=== PATIENT | male | born 1955 | race Caucasian/White ===

== ENCOUNTER → 2025-01-31 | Outpatient (CLI) | payer MEDICARE, OTHER, SELFPAY ==
--- NOTE | 2025-01-31 06:40 | MRI_ITS ---
PROCEDURE: BRAIN W/WO CONTRAST 01/31/2025 REASON FOR EXAM: LT TEMPORAL VISUAL FIELD DEFECT TECHNIQUE: Brain MRI without and with intravenous contrast with additional dedicated imaging of the IACs. COMPARISON: None FINDINGS: No evidence of acute ischemia.No intracranial hemorrhage. There is a pituitary mass lesion measuring 2.1 x 2.0 x 2.5 cm that is expanding the pituitary fossa and extends into the suprasellar cistern causing mass effect on the optic chiasm. The lesion is isointense to clarke matter on T1 and T2 weighted images and mildly hyperintense on FLAIR. The lesion has mildly heterogeneous diffuse enhancement and well-defined margins. There appears to be extension or mass effect of the tumor into the left cavernous sinus, best seen on image 9 of series 11, with a proximally 180 degrees of left internal carotid artery encasement. The ventricles and sulci are normal in appearance.No midline shift. The posterior fossa structures are within normal limits. The orbits and paranasal sinuses are unremarkable.The calvarium and soft tissues are unremarkable. MRI/Brain W/WO Contrast IMPRESSION: 1. 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 Extension into the left cav ernous sinus is noted with approximately 180 degrees of the left internal carotid artery encasement. Reading Location: [facility]
== END | disposition home or self-care (01) ==
LOC: MRI 06:32
PROVIDERS: Referring Provider Ophthalmology; Visit Provider Ophthalmology
DX: H53.432 Sector or arcuate defects, left eye (principal)
CPT/HCPCS: 70553; A9575

== ENCOUNTER → 2025-08-08 | Outpatient (CLI) | payer MEDICARE, OTHER, SELFPAY ==
--- NOTE | 2025-08-08 07:58 | MRI_ITS ---
EXAM: PELVIS W/WO CONTRAST 08/08/2025 CLINICAL HISTORY: ELEVATED PSA. TECHNIQUE: Procedure Code: [id number] Modality: MR Procedure: PELVIS W/WO CONTRAST Multiplanar and multisequence images were obtained without and with intravenous gadolinium contrast. CONTRAST: Clariscan VOLUME: 16 ML COMPARISON: None FINDINGS: Image quality:Diagnostic Prostate size: 5.1 x 5.5 x 5cms Prostate volume: 73 0.43mL Prostate Peripheral zone: Lesion 1: 18 x 22 x 8 mm T2 moderately hypointense lesion in the left peripheral zone midgland (axial T2 images 17 through 22) with a broad area of contact over 16 mm cm involving the left capsule and suspected focal extra capsular extension (image 19 series 12). This lesion demonstrates restricted diffusion with hypointensity on the ADC map and early enhancement. T2 weighted imaging score:5 DWI score:5 DCE: Positive PI-RADS: PI-RADS 5: very high (clinically significant cancer is highly likely to be present) Transitional zone: Benign prostatic hyperplasia with hyperplastic nodules. No suspicious areas of restricted diffusion or enhancement. T2 weighted imaging score:2 DWI score: 1 DCE: negative PI-RADS: PI-RADS 2: low (clinically significant cancer is unlikely to be present) Extra prostatic extension: Small focus of extracapsular extension seen along the left peripheral zone Seminal vesicles: Normal. Neurovascular involvement: None. Lymphadenopathy: No lymphadenopathy. Bladder: Normal. Osseous structures: Severe degenerative disc disease at L4-5 with diffuse bulge. Associated marrow signal changes. This could be related to degenerative disease however discitis is not excluded. Correlate with dedicated contrast-enhanced MRI of the lumbar spine Gastrointestinal: Normal. Soft tissues: Normal MRI/Pelvis W/WO Contrast IMPRESSION: 22 mm lesion in the left peripheral zone midgland with suspected focal extracap sular extension. PI-RADS: PI-RADS 5: very high (clinically significant cancer is highly likely t o be present) Severe degenerative disc disease at L4-5 with the associated marrow changes and edema. The findings are likely related to degenerative disc disease however discitis is not excluded. Degenerative turner es are favored. Correlation with contrast-enhanced MRI of the lumbar spine and sed rate are recommended. Reading Location: [id number]
--- OUTSIDE RECORDS SUMMARY | 2025-08-08 08:15 | XMS RPT_ITS | CCD ---
Author Organization [facility] Care Team Providers Care Acute Care Surgeon Name Role Phone Herminio MONACO, Dr. Hansk Attending Provider [phone] Dr. Demario Durham MD Referring Provider [phone] Care Physician, No Primary Primary Care Provider Unavailable Demario Durham Referring Unavailable Demario Durham Attending Unavailable Care Physician, No Primary Primary Care Unava ilable Unavailable Primary Care Provider Unavailabl e KRIVYUDITHEYA, KIM Referring Unavailable ONEAIL, SANJU Referring Unavailable CILTEA PIEDAD Referring Unavailable KRIVOSHEYA, KIM Referring Unavailable KRIVOSHEYA, KIM Attending Unavailable CILTEAPIEDAD Attending Unavailable KRIVOSHEYA, KIM Referring Unavailable KRIVOSHEYA, KIM Attending Unavailable KRIVOSHEYA, KIM Referring Unavailable KRIVOSHEYA, KIM Referring Unavailable KRIVOSHEYA, KIM Admitting Unavailable KRIVOSHEYA, KIM Attending Unavailable KRIVOSHEYA, KIM Referring Unavailable SHIVA LUNDBERG Consulting Unavailable KRIVOSHEYA, KIM Referring Unavailable KRIVOSHEYA, KIM Attending Unavailable KRIVOSHEYA, KIM Referring Unavailable KRIVOSHEYA, KIM Referring Unavailable KRIVOSHEYA, KIM Attending Unavailable KRIVOSHEYA, KIM Referring Unavailable DR MARIANNE SCRUGGS DO Primary Care Physician [phone] DR MARIANNE SCRUGGS DO Attending Unavailabl e KAEL IBARRA, DR MARIANNE Martinez Primary Care Unavailabl e Medications Current Medications Medication Drug Class(es) Dates Sig (Normalized) Sig (Original) Ocuvite (1 source) Vitamin C Start: 06-19-2025 take 81.3 doses by mouth once daily Ocuvite Oral, qDay, 81.3 Start Date: 06/19/25 Status: Ordered Medication Dispense Status: Completed Total Allowed Fills: 1 Fills Dispensed: 0 beta-carotene,A,-vi ts C,E/mins (OCUVITE ORAL) (9 sources) beta-carotene,A, -v its C,E/mins (OCUVITE ORAL) Take by mouth once daily. Suspended beta-carotene,A, -vits C,E/mins (OCUVITE ORAL) Take by mouth once daily. Active ibuprofen 400 mg oral tablet (3 sources) Nonsteroidal Anti-inflammatory Drug Start: 03-21-2025 End: 04-20-2025 take 1-2 tablets by mouth every six hours as needed for pain ibuprofen (MOTRIN) 400 mg tablet Indications: Pituitary mass (HCC) , Acute nonintractable headache, unspecified headache type Take 1-2 tablets by mouth every 6 hours as needed for pain. 50 tablet 03/21/2025 04/20/2025 Active iv contrast (will be provided with radiology test) (2 sources) Start: 03-21-2025 End: 03-22-2025 iv contrast (will be provided with radiology test) MRI Pituitary Inject, intravenously, once for 1 dose. No IV access, insert saline lock prior to the beginning of sedation, infusion, injection of imaging exam. Discontinue saline lock post exam. If Pt. has a central line or IVAD, may access for administration according to line specific nursing protocol. Once exam is complete flush line and de-access according to line specific nursing protocol in the MR contrast administration guidelines link. 1 each 03/21/2025 03/22/2025 Active Start: 03-07-2025 End: 03-08-2025 inject 1 dose intravenously once iv contrast (will be provided with radiology test) MRI Brain Inject, intravenously, once for 1 dose.No IV access, insert saline lock prior to beginning of sedation, infusion, injection of imaging exam.Discontinue saline lock post exam. If Pt. has a central line or IVAD, may access for administration according to line specific nursing protocol.Once exam is complete flush line and de-access according to line specific nursing protocol in the MR contrast administration guidelines link 1 each 03/07/2025 03/08/2025 magnesium oxide 200 mg magne sium chew (9 sources) magnesium oxide 200 mg magnesium chew Take 1,200 mg by mouth. Suspended magnesium oxide 200 mg magnesium chew Take 1,200 mg by mouth. Active Multivitamin preparation (1 source) Start: 06-19-2025 take 1 tablet by mouth once daily Multivitamin Dose = 1 tab(s), Oral, Daily, 0 Refill(s) Start Date: 06/19/25 Status: Ordered Medication Dispense Status: Completed Total Allowed Fills: 1 Fills Dispensed: 0 tamsulosin hydrochloride 0.4 mg oral capsule (1 source) alpha-Adrenergi c Micha Start: 06-19-2025 tamsulosin 0.4 mg oral capsule Dose : 0.4 mg = 1 cap(s), Oral, qDay, Trial of new medication; pt to call back with report on efficacy, # 30 cap(s), 0 Refill(s), Pharmacy: [phone], BPH associated with nocturia, 179, cm, 06/19/25 9:02:00 EDT, Height, kg, 06/19/25 9:02:00 EDT, Dosing Weight Start Date: 06/19/25 Status: Ordered Medication Dispense Status: Completed Quantity: 30.0 Unit: cap(s) Total Allowed Fills: 1 Fills Dispensed: 0 Indications: Benign prostatic hyperplasia with lower urinary tract symptoms; Zinc Mth/Copper/Saw Palm/Gnsg (PROSTATE [employer] FORMULA ORAL) (9 sources) Zinc Mth/Copper/ Saw Palm/Gnsg (PROSTATE HEALTH FORMULA ORAL) Take by mouth once daily. Prosta forte Suspended Zinc Mth/Copper/ Saw Palm/Gnsg (PROSTATE HEALTH FORMULA ORAL) Take by mouth once daily. Prosta forte Active Completed/Discontinued Medications Medication Drug Class(es) Dates Sig (Normalized) Sig (Original) hydrocortisone 20 mg oral tablet (6 sources) Corticosteroid Start: 03-11-2025 End: 05-21-2025 take 1 tablet by mouth once daily hydrocortisone (CORTEF) 20 mg tablet Take 1 tablet by mouth once daily. 28 tablet 03/11/2025 05/21/2025 Discontinued mupirocin 0.02 mg/mg topical ointment (3 sources) RNA Synthetase Inhibitor Antibacterial Start: 03-06-2025 End: 03-08-2025 mupirocin (BACTROBAN) 2 % ointment Indications: MSSA (methicillin susceptible Staphylococcus aureus) Apply a small amount in each nostril using a cotton swab twice a day before surgery and once the morning of surgery 22 g 03/06/2025 03/08/2025 Problems Active Problems Problem Classification Problem Date Documented Date Episodic/Chronic Bacterial infection; unspecified site (1 source) Infection by methicillin sensitive Staphylococcus aureus; Translations: [Methicillin susceptible Staphylococcus aureus infection, unspecified site] 03-06-2025 Episodic Blindness and vision defects (8 sources) Sector or arcuate defects, left eye; Translations: [Visual field defect] Onset: 02-02-2025 03-09-2025 Episodic Cancer; other and unspecified primary (1 source) History of neoplasm of pituitary gland 06-19-2025 Episodic Complications of surgical procedures or medical care (1 source) Postprocedural hypopituitarism; 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)] Onset: 03-08-2025 Chronic Complications of surgical procedures or medical care (6 sources) Complication of procedure; Translations: [Other postprocedural endocrine and metabolic complications and disorders] Onset: 03-21-2025 03-21-2025 Episodic Headache; including migraine (12 sources) Headache disorder; Translations: [Other headache syndrome] Onset: 03-09-2025 03-09-2025 Episodic Headache; including migraine (1 source) Headache; including migraine; Translations: [Acute nonintractable headache, unspecified headache type] Onset: 03-21-2025 Hyperplasia of prostate (1 source) Nocturia due to benign prostatic hypertrophy 06-19-2025 Chronic Other aftercare (7 sources) Drug therapy finding; Translations: [intermediate designer (current) use of systemic steroids] Onset: 03-09-2025 03-09-2025 Episodic Other and unspecified benign neoplasm (1 source) Pituitary adenoma; Translations: [Benign neoplasm of pituitary gland] 05-22-2025 Episodic Other endocrine disorders (20 sources) Pituitary mass; Translations: [Other disorders of pituitary gland] Onset: 03-04-2025 02-22-2025 Chronic Other endocrine disorders (7 sources) Disorder of pituitary gland; Translations: [Disorder of pituitary gland, unspecified] Onset: 03-09-2025 03-09-2025 Chronic Other endocrine disorders (2 sources) Other disorders of pituitary gland; Translations: [Pituitary mass (HCC)] Onset: 03-08-2025 Chronic Other hereditary and degenerative nervous system conditions (1 source) Essential tremor 06-19-2025 Chronic Other nervous system disorders (1 source) Peripheral nerve disease 06-19-2025 Chronic Other nervous system disorders (1 source) Postoperative pain ; Translations: [Other acute postprocedural pain] 05-22-2025 Episodic Other nervous system disorders (2 sources) Other acute postprocedural pain; Translations: [Post-op pain] Onset: 05-21-2025 Episodic Other skin disorders (3 sources) Pituitary mass 03-09-2025 Episodic Past or Other Problems Problem Classification Problem Date Documented Da te Episodic/Chronic Acute cerebrovascular disease (1 source) NIHSS score 0; Translations: [Nihss score 0] Onset: 03-04-2025 Episodic Diabetes mellitus without complication (2 sources) Impaired fasting glycemia; Translations: [Impaired fasting glucose] Onset: 02-22-2025 02-22-2025 Episodic Malaise and fatigue (1 source) Other fatigue; Translations: [Other fatigue] Onset: 03-04-2025 Episodic Residual codes; unclassified (1 source) Localized edema; Translations: [Localized edema] Onset: 03-04-2025 Episodic Results Test Name Value Interpretation Reference Range Facility .Auto Diffon 06-21-2025 Basophil, Absolute 0.0 10 3/mcL Normal 0.0-0.3 [facility] Comment on above: Performed By: #### G FR, LIPID, CBC, ADIFF, ANEU, PSA, VIDH, TSH, CMP #### [address] [address] #### B12 #### [address] [address] Basophils/100 WBC (Bld) 0.6 % Normal 0.0-2.5 [facility] Comment on above: Performed By: #### G FR, LIPID, CBC, ADIFF, ANEU, PSA, VIDH, TSH, CMP #### [address] [address] #### B12 #### [address] [address] Eosinophil, Absolute 0.2 10 3/mcL Normal 0.0-0.7 [facility] Comment on above: Performed By: #### G FR, LIPID, CBC, ADIFF, ANEU, PSA, VIDH, TSH, CMP #### [address] [address] #### B12 #### [address] [address] Eosinophils/100 WBC (Bld) 4.2 % Normal 0.0-6.0 [facility] Comment on above: Performed By: #### G FR, LIPID, CBC, ADIFF, ANEU, PSA, VIDH, TSH, CMP #### [address] [address] #### B12 #### [address] [address] Lymphocyte, Absolute 1.9 10 3/mcL Normal 0.9-4.3 [facility] Comment on above: Performed By: #### G FR, LIPID, CBC, ADIFF, ANEU, PSA, VIDH, TSH, CMP #### [address] [address] #### B12 #### [address] [address] Lymphocytes/100 WBC (Bld) 33.3 % Normal 20.0-40.0 [facility] Comment on above: Performed By: #### G FR, LIPID, CBC, ADIFF, ANEU, PSA, VIDH, TSH, CMP #### [address] [address] #### B12 #### [address] [address] Monocyte, Absolute 0.6 10 3/mcL Normal 0.1-1.4 [facility] Comment on above: Performed By: #### G FR, LIPID, CBC, ADIFF, ANEU, PSA, VIDH, TSH, CMP #### [address] [address] #### B12 #### [address] [address] Monocytes/100 WBC (Bld) 10.5 % Normal 2.0-13.0 [facility] Comment on above: Performed By: #### G FR, LIPID, CBC, ADIFF, ANEU, PSA, VIDH, TSH, CMP #### [address] [address] #### B12 #### [address] [address] Neutrophils/100 WBC (Bld) 51.4 % Normal 50.0-75.0 [facility] Comment on above: Performed By: #### G FR, LIPID, CBC, ADIFF, ANEU, PSA, VIDH, TSH, CMP #### [address] [address] #### B12 #### [address] [address] .GFRon 06-21-2025 Estimated Glomerular Filtration Rate 75 ml/min/1.73sqm Normal [facility] Comment on above: Result Comment: Stages of Chronic Kidney Disease (CKD) Stage Description eGFR(ml/min/1.73 sq.m.) CKD 1 Normal kidney function or >=90 normal kindney function with possible kidney damage (ex. Proteinuria) CKD 2 Kidney damage with mild loss 60-89 of kidney function CKD 3a Mild to moderate loss of kidney 45-59 function CKD 3b Moderate to severe loss of 30-44 of kindey function CKD 4 Severe loss of kidney function 15-29 CKD 5 Kidney failure <15 Note: (go live 2024) the eGFR calculation was updated to the 2020 CKD-EPI creatinine equation without a race factor to calculate the eGFR results. Performed By: #### G FR, LIPID, CBC, ADIFF, ANEU, PSA, VIDH, TSH, CMP #### [address] [address] #### B12 #### [address] [address] .NEUABSon 06-21-2025 Neutrophil, Absolute 3.0 10 3/mcL Normal 2.3-8.1 [facility] Comment on above: Performed By: #### G FR, LIPID, CBC, ADIFF, ANEU, PSA, VIDH, TSH, CMP #### [address] [address] #### B12 #### [address] [address] B12on 06-21-2025 Cobalamin (Vitamin B12) [Mass/Vol] 608 pg/mL Normal 211-911 [facility] Comment on above: Performed By: #### G FR, LIPID, CBC, ADIFF, ANEU, PSA, VIDH, TSH, CMP #### [place] [address] #### B12 #### [place] [address] CBCon 06-21-2025 Erythrocyte distribution width (RBC) [Ratio] 13.8 % Normal 11.5-15.5 [facility] Comment on above: Performed By: #### G FR, LIPID, CBC, ADIFF, ANEU, PSA, VIDH, TSH, CMP #### [place] [address] #### B12 #### [place] [address] Hematocrit (Bld) [Volume fraction] 42.9 % Normal 40.0-52.0 [facility] Comment on above: Performed By: #### G FR, LIPID, CBC, ADIFF, ANEU, PSA, VIDH, TSH, CMP #### [place] [address] #### B12 #### [place] [address] Hgb 14.7 G/dL Normal 13.0-17.5 [facility] Comment on above: Performed By: #### G FR, LIPID, CBC, ADIFF, ANEU, PSA, VIDH, TSH, CMP #### [place] [address] #### B12 #### [place] [address] MCH (RBC) [Entitic mass] 32.2 pg Normal 27.0-33.0 [facility] Comment on above: Performed By: #### G FR, LIPID, CBC, ADIFF, ANEU, PSA, VIDH, TSH, CMP #### [place] [address] #### B12 #### [place] [address] MCHC 34.3 G/dL Normal 32.0-36.0 [facility] Comment on above: Performed By: #### G FR, LIPID, CBC, ADIFF, ANEU, PSA, VIDH, TSH, CMP #### [place] [address] #### B12 #### [place] [address] MCV (RBC) [Entitic vol] 94.1 fL Normal 81.0-100.0 [facility] Comment on above: Performed By: #### G FR, LIPID, CBC, ADIFF, ANEU, PSA, VIDH, TSH, CMP #### [place] [address] #### B12 #### [place] [address] Platelet 171 10 3/mcL Normal 150-450 [facility] Comment on above: Performed By: #### G FR, LIPID, CBC, ADIFF, ANEU, PSA, VIDH, TSH, CMP #### [place] [address] #### B12 #### [place] [address] Platelet mean volume (Bld) [Entitic vol] 8.9 fL Normal 6.4-10.5 [facility] Comment on above: Performed By: #### G FR, LIPID, CBC, ADIFF, ANEU, PSA, VIDH, TSH, CMP #### [place] [address] #### B12 #### [place] [address] RBC 4.56 10 6/mcL Normal 4.50-6.00 [facility] Comment on above: Performed By: #### G FR, LIPID, CBC, ADIFF, ANEU, PSA, VIDH, TSH, CMP #### [address] [address] #### B12 #### [address] [address] WBC 5.7 10 3/mcL Normal 4.5-10.8 [facility] Comment on above: Performed By: #### G FR, LIPID, CBC, ADIFF, ANEU, PSA, VIDH, TSH, CMP #### [address] [address] #### B12 #### [place] [address] CMPon 06-21-2025 Albumin Level 3.9 G/dL Normal 3.4-4.8 [facility] Comment on above: Performed By: #### G FR, LIPID, CBC, ADIFF, ANEU, PSA, VIDH, TSH, CMP #### [address] [address] #### B12 #### [address] [address] Albumin/Globulin [Mass ratio] 1.0 {ratio} Low 1.1-2.5 [facility] Comment on above: Performed By: #### G FR, LIPID, CBC, ADIFF, ANEU, PSA, VIDH, TSH, CMP #### [address] [address] #### B12 #### [address] [address] ALP [Catalytic activity/Vol] 72 U/L Normal 40-135 [facility] Comment on above: Performed By: #### G FR, LIPID, CBC, ADIFF, ANEU, PSA, VIDH, TSH, CMP #### [address] [address] #### B12 #### [address] [address] ALT [Catalytic activity/Vol] 26 U/L Normal 16-63 [facility] Comment on above: Performed By: #### G FR, LIPID, CBC, ADIFF, ANEU, PSA, VIDH, TSH, CMP #### [place] [address] #### B12 #### [address] [address] AST [Catalytic activity/Vol] 19 U/L Normal 10-40 [facility] Comment on above: Performed By: #### G FR, LIPID, CBC, ADIFF, ANEU, PSA, VIDH, TSH, CMP #### [place] [address] #### B12 #### [place] [address] Bili Total 0.6 mg/dL Normal 0.2-1.0 [facility] Comment on above: Result Comment: Use of this assay is not recommended for patients undergoing treatment with eltrombopag due to the potential for falsely elevated results. Performed By: #### G FR, LIPID, CBC, ADIFF, ANEU, PSA, VIDH, TSH, CMP #### [place] [address] #### B12 #### [place] [address] BUN/Creatinine Ratio 11 ratio Normal 7-27 [facility] Comment on above: Performed By: #### G FR, LIPID, CBC, ADIFF, ANEU, PSA, VIDH, TSH, CMP #### [place] [address] #### B12 #### [address] [address] Calcium [Mass/Vol] 9.4 mg/dL Normal 8.4-10.2 [facility] Comment on above: Performed By: #### G FR, LIPID, CBC, ADIFF, ANEU, PSA, VIDH, TSH, CMP #### [place] [address] #### B12 #### [place] [id number] Chloride [Moles/Vol] 102 mmol/L Normal 98-107 [facility] Comment on above: Performed By: #### G FR, LIPID, CBC, ADIFF, ANEU, PSA, VIDH, TSH, CMP #### [address] [address] #### B12 #### [address] [address] CO2 [Moles/Vol] 31 mmol/L Normal 23-31 [facility] Comment on above: Performed By: #### G FR, LIPID, CBC, ADIFF, ANEU, PSA, VIDH, TSH, CMP #### [place] [address] #### B12 #### [place] [address] Creatinine [Mass/Vol] 1.07 mg/dL Normal 0.67-1.17 [facility] Comment on above: Performed By: #### G FR, LIPID, CBC, ADIFF, ANEU, PSA, VIDH, TSH, CMP #### [place] [address] #### B12 #### [place] [address] Electrolyte Balance 6.0 mEq/L Normal 4.0-15.0 [facility] Comment on above: Performed By: #### G FR, LIPID, CBC, ADIFF, ANEU, PSA, VIDH, TSH, CMP #### [place] [address] #### B12 #### [address] [address] Globulin 3.9 G/dL Normal 2.7-4.4 [facility] Comment on above: Performed By: #### G FR, LIPID, CBC, ADIFF, ANEU, PSA, VIDH, TSH, CMP #### [address] [address] #### B12 #### [place] [address] Glucose [Mass/Vol] 103 mg/dL Normal 83-110 [facility] Comment on above: Performed By: #### G FR, LIPID, CBC, ADIFF, ANEU, PSA, VIDH, TSH, CMP #### [address] [address] #### B12 #### [address] [address] Potassium [Moles/Vol] 4.4 mmol/L Normal 3.5-5.1 [facility] Comment on above: Performed By: #### G FR, LIPID, CBC, ADIFF, ANEU, PSA, VIDH, TSH, CMP #### [place] [address] #### B12 #### [address] [address] Sodium [Moles/Vol] 139 mmol/L Normal 136-145 [facility] Comment on above: Performed By: #### G FR, LIPID, CBC, ADIFF, ANEU, PSA, VIDH, TSH, CMP #### [place] [address] #### B12 #### [place] [address] Total Protein 7.8 G/dL Normal 6.4-8.2 [facility] Comment on above: Performed By: #### G FR, LIPID, CBC, ADIFF, ANEU, PSA, VIDH, TSH, CMP #### [place] [address] #### B12 #### [address] [address] Urea nitrogen [Mass/Vol] 12 mg/dL Normal 7-18 [facility] Comment on above: Performed By: #### G FR, LIPID, CBC, ADIFF, ANEU, PSA, VIDH, TSH, CMP #### [address] [address] #### B12 #### [address] [address] LABORATORYOrdered By: SYSTEM SYSTEM on 08-29-2025 25-hydroxyvitamin D3 [Mass/Vol] 58.9 ng/mL Invalid Interpretation Code AO ADM SS Comment on above: Interpretive Data: I nterpretive Values Based on Total 25(OH) Vitamin D: Deficient <20 ng/mL Insufficient 20 - <30 ng/mL Sufficient 30-100 ng/mL Albumin BCP dye [Mass/Vol] 3.9 G/dL Normal 3.4 - 4.8 G/dL AO ADM SS Albumin/Globulin [Mass ratio] 1.0 {ratio} Low 1.1 - 2.5 ratio AO ADM SS ALP [Catalytic activity/Vol] 72 U/L Normal 40 - 135 U/L AO ADM SS ALT With P-5'-P [Catalytic activity/Vol] 26 U/L Normal 16 - 63 U/L AO ADM SS AST With P-5'-P [Catalytic activity/Vol] 19 U/L Normal 10 - 40 U/L AO ADM SS Basophils (Bld) [#/Vol] 0.0 103/mcL Normal 0.0 - 0.3 10^3/mcL AO Workflow SS Basophils/100 WBC (Bld) 0.6 % Normal 0.0 - 2.5 % AO Workflow SS Bilirubin [Mass/Vol] 0.6 mg/dL Normal 0.2 - 1 .0 mg/dL AO ADM SS Comment on above: Interpretive Data: U se of this assay is not recommended for patients undergoing treatment with eltrombopag due to the potential for falsely elevated results. Calcium [Mass/Vol] 9.4 mg/dL Normal 8.4 - 10. 2 mg/dL AO ADM SS Chloride [Moles/Vol] 102 mmol/L Normal 98 - 10 7 mmol/L AO ADM SS CO2 [Moles/Vol] 31 mmol/L Normal 23 - 31 mmol/L AO ADM SS Cobalamin (Vitamin B12) [Mass/Vol] 608 pg/mL Normal 211 - 911 pg/mL AH ADM SS Creatinine [Mass/Vol] 1.07 mg/dL Normal 0.67 - 1.17 mg/dL AO ADM SS Electrolyte Balance 6.0 mEq/L Normal 4.0 - 15 .0 mEq/L AO ADM SS Eosinophil, Absolute 0.2 103/mcL Normal 0.0 - 0 .7 10^3/mcL AO Workflow SS Eosinophils/100 WBC (Bld) 4.2 % Normal 0.0 - 6.0 % AO Workflow SS Erythrocyte distribution width (RBC) [Ratio] 13.8 % Normal 11.5 - 15.5 % AO Workflow SS Estimated Glomerular Filtration Rate 75 ml/min/1.73sqm Invalid Interpretation Code AO Chemistry S Comment on above: Interpretive Data: Stages of Chronic Kidney Disease (CKD) Stage Description eGFR(ml/min/1.73 sq.m.) CKD 1 Normal kidney function or >=90 normal kindney function with possible kidney damage (ex. Proteinuria) CKD 2 Kidney damage with mild loss 60-89 of kidney function CKD 3a Mild to moderate loss of kidney 45-59 function CKD 3b Moderate to severe loss of 30-44 of kindey function CKD 4 Severe loss of kidney function 15-29 CKD 5 Kidney failure <15 Note: (go live 2024) the eGFR calculation was updated to the 2020 CKD-EPI creatinine equation without a race factor to calculate the eGFR results. Globulin 3.9 G/dL Normal 2.7 - 4.4 G/dL AO ADM SS Glucose [Mass/Vol] 103 mg/dL Normal 83 - 110 mg/dL AO ADM SS Hematocrit (Bld) [Volume fraction] 42.9 % Normal 40.0 - 52.0 % AO Workflow SS Hemoglobin (Bld) [Mass/Vol] 14.7 G/dL Normal 13.0 - 17.5 G/dL AO Workflow SS Lymphocytes (Bld) [#/Vol] 1.9 103/mcL Normal 0.9 - 4.3 10^3/mcL AO Workflow SS Lymphocytes/100 WBC (Bld) 33.3 % Normal 20.0 - 40.0 % AO Workflow SS MCH (RBC) [Entitic mass] 32.2 pg Normal 27.0 - 33.0 pg AO Workflow SS MCHC 34.3 G/dL Normal 32.0 - 36.0 G/dL AO Workflow SS MCV (RBC) [Entitic vol] 94.1 fL Normal 81.0 - 100.0 fL AO Workflow SS Monocytes (Bld) [#/Vol] 0.6 103/mcL Normal 0.1 - 1.4 10^3/mcL AO Workflow SS Monocytes/100 WBC (Bld) 10.5 % Normal 2.0 - 13.0 % AO Workflow SS Neutrophils (Bld) [#/Vol] 3.0 103/mcL Normal 2.3 - 8.1 10^3/mcL AO Workflow SS Neutrophils/100 WBC (Bld) 51.4 % Normal 50.0 - 75.0 % AO Workflow SS Platelet mean volume (Bld) [Entitic vol] 8.9 fL Normal 6.4 - 10.5 fL AO Workflow SS Platelets (Bld) [#/Vol] 171 103/mcL Normal 150 - 450 10^3/mcL AO Workflow SS Potassium [Moles/Vol] 4.4 mmol/L Normal 3.5 - 5.1 mmol/L AO ADM SS Prostate specific Ag [Mass/Vol] 14.41 ng/mL High 0.00 - 4.00 ng/mL AO ADM SS Protein [Mass/Vol] 7.8 G/dL Normal 6.4 - 8.2 G/dL AO ADM SS RBC (Bld) [#/Vol] 4.56 106/mcL Normal 4.50 - 6.0 0 10^6/mcL AO Workflow SS Sodium [Moles/Vol] 139 mmol/L Normal 136 - 145 mmol/L AO ADM SS TSH Qn 2.84 m[IU]/L Normal 0.36 - 3.74 mcIU/mL AO ADM SS Urea nitrogen [Mass/Vol] 12 mg/dL Normal 7 - 18 mg/dL AO ADM SS Urea nitrogen/Creatinine [Mass ratio] 11 ratio Normal 7 - 27 ratio AO ADM SS WBC (Bld) [#/Vol] 5.7 103/mcL Normal 4.5 - 10.8 10^3/mcL AO Workflow SS LABORATORYOrdered By: Mikey Brannon on 06-21-2025 Cholesterol [Mass/Vol] 248 mg/dL High 0 - 200 mg/dL AO ADM SS Comment on above: Interpretive Data: C holesterol Reference Interval: Less than 200 Desirable 200-239 Borderline high risk 240 and above High risk Cholesterol in HDL [Mass/Vol] 48 mg/dL Normal 40 - 60 mg/dL AO ADM SS Cholesterol in LDL [Mass/Vol] 173 mg/dL High 0 - 130 mg/dL AO ADM SS Triglyceride [Mass/Vol] 134 mg/dL Normal 0 - 150 mg/dL AO ADM SS Comment on above: Interpretive Data: T riglyceride Reference Interval: Less than 150 Normal 150-199 Borderline high risk 200-499 High risk 500 or higher Very high risk LIPIDon 06-21-2025 Cholesterol [Mass/Vol] 248 mg/dL High 0-200 [facility] Comment on above: Result Comment: Chol esterol Reference Interval: Less than 200 Desirable 200-239 Borderline high risk 240 and above High risk Performed By: #### G FR, LIPID, CBC, ADIFF, ANEU, PSA, VIDH, TSH, CMP #### [address] [address] #### B12 #### [address] [address] Cholesterol in HDL [Mass/Vol] 48 mg/dL Normal 40-60 [facility] Comment on above: Performed By: #### G FR, LIPID, CBC, ADIFF, ANEU, PSA, VIDH, TSH, CMP #### [address] [address] #### B12 #### [address] [address] Cholesterol in LDL [Mass/Vol] 173 mg/dL High 0-130 [facility] Comment on above: Performed By: #### G FR, LIPID, CBC, ADIFF, ANEU, PSA, VIDH, TSH, CMP #### [address] [address] #### B12 #### [address] [address] Triglyceride [Mass/Vol] 134 mg/dL Normal 0-150 [facility] Comment on above: Result Comment: Trig lyceride Reference Interval: Less than 150 Normal 150-199 Borderline high risk 200-499 High risk 500 or higher Very high risk Performed By: #### G FR, LIPID, CBC, ADIFF, ANEU, PSA, VIDH, TSH, CMP #### [address] [address] #### B12 #### [address] [address] PSAon 06-21-2025 Prostate Specific Antigen 14.41 ng/mL High 0.00-4.00 [facility] Comment on above: Performed By: #### G FR, LIPID, CBC, ADIFF, ANEU, PSA, VIDH, TSH, CMP #### [address] [address] #### B12 #### [address] [address] TSHon 06-21-2025 TSH Qn 2.84 m[IU]/L Normal 0.36-3.74 [facility] Comment on above: Performed By: #### G FR, LIPID, CBC, ADIFF, ANEU, PSA, VIDH, TSH, CMP #### [address] [address] #### B12 #### [address] [address] VIDHon 06-21-2025 Vit. D 25-Hydroxy 58.9 ng/mL Normal [facility] Comment on above: Result Comment: Inte rpretive Values Based on Total 25(OH) Vitamin D: Deficient <20 ng/mL Insufficient 20 - <30 ng/mL Sufficient 30-100 ng/mL Performed By: #### G FR, LIPID, CBC, ADIFF, ANEU, PSA, VIDH, TSH, CMP #### [address] [address] #### B12 #### [address] [address] Basic metabolic 2000 panelOr dered By: Amy Dean on 05-22-2025 Anion gap [Moles/Vol] 16 mmol/L High 8 - 15 mmol/L [facility] Calcium [Mass/Vol] 9.7 mg/dL 8.5 - 10. 2 mg/dL [facility] Chloride [Moles/Vol] 102 mmol/L 98 - 10 7 mmol/L [facility] CO2 [Moles/Vol] 21 mmol/L Low 22 - 30 mmol/L [facility] Creatinine [Mass/Vol] 1 mg/dL 0.73 - 1.22 mg/dL [facility] GFR/1.73 sq M.predicted among non-blacks MDRD (S/P/Bld) [Vol rate/Area] 81 mL/min/{1.73_m2} - PINF [facility] Comment on above: Estimated Glomerular Filtration Rate (eGFR) is calculated using the 2020 CKD-EPI creatinine equation. This equation utilizes serum creatinine, sex, and age as parameters. The creatinine assay has traceable calibration to isotope dilution-mass spectrometry. Refer to KDIGO guidelines for clinical interpretation. In patients with unstable renal function, e.g. those with acute kidney injury, the eGFR may not accurately reflect actual GFR. Glucose [Mass/Vol] 104 mg/dL High 74 - 99 mg/dL [facility] Comment on above: The [place] Diabete s Association (ADA) provides guidance for cutoff values for fasting glucose and random glucose. The ADA defines fasting as no caloric intake for at least 8 hours. Fasting plasma glucose results between 100 to 125 mg/dL indicate increased risk for diabetes (prediabetes). Fasting plasma glucose results greater than or equal to 126 mg/dL meet the criteria for diagnosis of diabetes. In the absence of unequivocal hyperglycemia, results should be confirmed by repeat testing. In a patient with classic symptoms of hyperglycemia or hyperglycemic crisis, random plasma glucose results greater than or equal to 200 mg/dL meet the criteria for diagnosis of diabetes. Reference: Standards of Medical Care in Diabetes 2016, [place] Diabetes Association. Diabetes Care. 2016.39(Suppl 1). Interpretation and review of laboratory results Abnormal [facility] Potassium [Moles/Vol] 4 mmol/L 3.7 - 5.1 mmol/L [facility] Sodium [Moles/Vol] 139 mmol/L 136 - 144 mmol/L [facility] Urea nitrogen [Mass/Vol] 17 mg/dL 9 - 24 mg/dL [facility] Basic metabolic 2000 panelon 05-22-2025 Anion gap [Moles/Vol] 16 mmol/L High 8-15 [facility] Comment on above: Order Comment: Chidi silvestre Type: BLOOD SPECIMEN Ordering Facility: [facility] Address: [address] [place] [address] Performed By: #### 2 4321-2 #### [facility] CLIA [id number] [address] [place] [address] [place] Calcium [Mass/Vol] 9.7 mg/dL Normal 8.5-10.2 [facility] Comment on above: Order Comment: Chidi silvestre Type: BLOOD SPECIMEN Ordering Facility: [facility] Address: [address] [place] [address] Performed By: #### 2 4321-2 #### [facility] CLIA [id number] [address] [place] [address] [place] Chloride [Moles/Vol] 102 mmol/L Normal 98-107 [facility] Comment on above: Order Comment: Speci men Type: BLOOD SPECIMEN Ordering Facility: [facility] Address: [address] [place] [address] Performed By: #### 2 4321-2 #### [facility] CLIA [id number] [address] [place] [address] [place] CO2 [Moles/Vol] 21 mmol/L Low 22-30 [facility] Comment on above: Order Comment: Speci men Type: BLOOD SPECIMEN Ordering Facility: [facility] Address: [address] [place] [address] Performed By: #### 2 4321-2 #### [facility] CLIA [id number] [address] [place] [address] [place] Creatinine [Mass/Vol] 1.00 mg/dL Normal 0.73-1.22 [facility] Comment on above: Order Comment: Speci men Type: BLOOD SPECIMEN Ordering Facility: [facility] Address: [address] [place] [address] Performed By: #### 2 4321-2 #### [facility] CLIA [id number] [address] [place] [address] [place] eGFRcr SerPlBld CKD-EPI 2020 81 mL/min/1.73m??? Normal >=60 [facility] Comment on above: Order Comment: Speci men Type: BLOOD SPECIMEN Ordering Facility: [facility] Address: [address] [place] [address] Result Comment: Yamila mated Glomerular Filtration Rate (eGFR) is calculated using the 2020 CKD-EPI creatinine equation. This equation utilizes serum creatinine, sex, and age as parameters. The creatinine assay has traceable calibration to isotope dilution-mass spectrometry. Refer to KDIGO guidelines for clinical interpretation. In patients with unstable renal function, e.g. those with acute kidney injury, the eGFR may not accurately reflect actual GFR. Performed By: #### 2 4321-2 #### [id number] [address] [place] [address] [place] Glucose [Mass/Vol] 104 mg/dL High 74-99 [facility] Comment on above: Order Comment: Chidi silvestre Type: BLOOD SPECIMEN Ordering Facility: [facility] Address: [address] [place], [place] [id number] Result Comment: The [place] Diabetes Association (ADA) provides guidance for cutoff values for fasting glucose and random glucose. The ADA defines fasting as no caloric intake for at least 8 hours. Fasting plasma glucose results between 100 to 125 mg/dL indicate increased risk for diabetes (prediabetes). Fasting plasma glucose results greater than or equal to 126 mg/dL meet the criteria for diagnosis of diabetes. In the absence of unequivocal hyperglycemia, results should be confirmed by repeat testing. In a patient with classic symptoms of hyperglycemia or hyperglycemic crisis, random plasma glucose results greater than or equal to 200 mg/dL meet the criteria for diagnosis of diabetes. Reference: Standards of Medical Care in Diabetes 2016, [place] Diabetes [employer]. Diabetes Care. 2016.39(Suppl 1). Performed By: #### 2 4321-2 #### [id number] [address] [place] [address] [place] Potassium [Moles/Vol] 4.0 mmol/L Normal 3.7-5.1 [facility] Comment on above: Order Comment: Chidi silvestre Type: BLOOD SPECIMEN Ordering Facility: [facility] Address: [address] [place] [address] Performed By: #### 2 4321-2 #### [facility] [id number] [address] [place] [address] [place] Sodium [Moles/Vol] 139 mmol/L Normal 136-144 [facility] Comment on above: Order Comment: Chidi silvestre Type: BLOOD SPECIMEN Ordering Facility: [facility] Address: [address] [place] [address] Performed By: #### 2 4321-2 #### [facility] CLIA [id number] [address] [place] [address] Urea nitrogen [Mass/Vol] 17 mg/dL Normal 9-24 [facility] Comment on above: Order Comment: Speci men Type: BLOOD SPECIMEN Ordering Facility: [facility] Address: [address] [id number] Performed By: #### 2 4321-2 #### [facility] CLIA [id number] [address] [place] CBC panel Auto (Bld)on 05-22 Erythrocyte distribution width (RBC) [Ratio] 13.5 % 11.5 - 15.0 % [facility] Hematocrit (Bld) [Volume fraction] 43.9 % 39.0 - 51.0 % [facility] Hemoglobin (Bld) [Mass/Vol] 14.9 g/dL 13.0 - 17.0 g/dL [facility] Interpretation and review of laboratory results Normal [facility] MCH (RBC) [Entitic mass] 31.9 pg 26.0 - 34.0 pg [facility] MCHC (RBC) [Mass/Vol] 33.9 g/dL 30.5 - 36.0 g/dL [facility] MCV (RBC) [Entitic vol] 94 fL 80.0 - 100.0 fL [facility] Nucleated RBC (Bld) [#/Vol] NINF [facility] Platelet mean volume (Bld) [Entitic vol] 10.2 fL 9.0 - 12.7 fL [facility] Platelets (Bld) [#/Vol] 194 10*3/uL [facility] RBC (Bld) [#/Vol] 4.67 10*6/uL 4.20 - 6.0 0 m/uL [facility] WBC (Bld) [#/Vol] 6.58 10*3/uL [facility] Erythrocyte distribution width (RBC) [Ratio] 13.5 % Normal 11.5-15.0 [facility] Comment on above: Order Comment: Speci men Type: BLOOD SPECIMEN Ordering Facility: [facility] Address: [address] [place] [address] Performed By: #### 5 8410-2 #### [facility] CLIA [id number] [address] [place] [address] [place] Hematocrit (Bld) [Volume fraction] 43.9 % Normal 39.0-51.0 [facility] Comment on above: Order Comment: Speci men Type: BLOOD SPECIMEN Ordering Facility: [facility] Address: [address] [place], [place] [address] Performed By: #### 5 8410-2 #### [facility] CLIA [id number] [address] [place] [address] [place] Hemoglobin (Bld) [Mass/Vol] 14.9 g/dL Normal 13.0-17.0 [facility] Comment on above: Order Comment: Speci men Type: BLOOD SPECIMEN Ordering Facility: [facility] Address: [address] [place], [place] [address] Performed By: #### 5 8410-2 #### [facility] CLIA [id number] [address] [place] [address] [place] MCH (RBC) [Entitic mass] 31.9 pg Normal 26.0-34.0 [facility] Comment on above: Order Comment: Speci men Type: BLOOD SPECIMEN Ordering Facility: [facility] Address: [address] [place] [address] Performed By: #### 5 8410-2 #### [facility] CLIA [id number] [address] [place] [address] [place] MCHC (RBC) [Mass/Vol] 33.9 g/dL Normal 30.5-36.0 [facility] Comment on above: Order Comment: Speci men Type: BLOOD SPECIMEN Ordering Facility: [facility] Address: [address] [place] [address] Performed By: #### 5 8410-2 #### [facility] CLIA [id number] [address] [place] [address] [place] MCV (RBC) [Entitic vol] 94.0 fL Normal 80.0-100.0 [facility] Comment on above: Order Comment: Speci men Type: BLOOD SPECIMEN Ordering Facility: [facility] Address: [address] [place] [address] Performed By: #### 5 8410-2 #### [facility] CLIA [id number] [address] [place] [address] [place] Nucleated RBC (Bld) [#/Vol] 10*3/uL Normal <0.01 [facility] Comment on above: Order Comment: Speci men Type: BLOOD SPECIMEN Ordering Facility: [facility] Address: [address] [place] [address] Performed By: #### 5 8410-2 #### [facility] CLIA [id number] [address] [place] [address] [place] Platelet mean volume (Bld) [Entitic vol] 10.2 fL Normal 9.0-12.7 [facility] Comment on above: Order Comment: Speci men Type: BLOOD SPECIMEN Ordering Facility: [facility] Address: [address] [place] [address] Performed By: #### 5 8410-2 #### [facility] CLIA [id number] [address] [place] [address] [place] Platelets (Bld) [#/Vol] 194 10*3/uL Normal 150-400 [facility] Comment on above: Order Comment: Speci men Type: BLOOD SPECIMEN Ordering Facility: [facility] Address: [address] [place] [address] Performed By: #### 5 8410-2 #### [facility] CLIA [id number] [address] [place] [address] [place] RBC (Bld) [#/Vol] 4.67 10*6/uL Normal 4.20-6.00 [facility] Comment on above: Order Comment: Speci men Type: BLOOD SPECIMEN Ordering Facility: [facility] Address: [address] [place] [address] Performed By: #### 5 8410-2 #### [facility] CLIA [id number] [address] [place] [address] OF [facility] WBC (Bld) [#/Vol] 6.58 10*3/uL Normal 3.70-11.00 [facility] Comment on above: Order Comment: Speci men Type: BLOOD SPECIMEN Ordering Facility: [facility] Address: [address] [place] [address] Performed By: #### 5 8410-2 #### [facility] CLIA [id number] [address] [place] [address] OF [facility] CNOVon 05-21-2025 CNOV Office Visit (NEAGCL M) JENNAZACHERY ([id number]) 1955 M Date Time Provider Department 05/21/25 12:45 PM KIM JUNG NEAGCLM During your visit today, we recorded the following information about you: Pulse Blood pressure Weight Height 81/minute 136/85 81.6 kg 1.778 m Kim Jung MD 05/22/2025 9:13 AM Signed NEUROSURGERY POST-OP NOTE Kim Jung MD Date of visit: May 21, 2025 Patient Name: Mr.Kenneth Gutierrez Jenna Date of : 1955 Current Age: [age] year old Sex: male MRN/E# [id number] Last Office Visit: 05/20/2025 CLINICAL SUMMARY: 02/01/2025 - Pituitary mass noted on MRI brain - bitemporal vis field defect, worse on the left temporal 03/08/2025 - S/p endoscopic endonasal resection of pituitary macroadenoma with Dr Lundberg - 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 Durham - [facility] SURGERY: Endoscopic endonasal resection of pituitary macroadenoma on 03/08/2025 PATHOLOGY: FINAL DIAGNOSIS A-B. Pituitary gland, excision: - Pituitary neuroendocrine tumor (pituitary adenoma). Joey West is a 69 year old right-handed male presenting with spouse. He was seen in consult on 02/18/2025 where he went in to eye doctor for yearly evaluation when they were doing exam he was not doing well with left peripheral vision exam. They brought him back in a week for a repeat evaluation and was the same. From there Dr. Durham ordered an MRI of the brain. He stated that he didn't really notice too much of an issue with left peripheral vision. 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 Recommended for him to get endocrine blood work done, if negative would recommend surgery for this. He was recommended to have blood work and follow with Endocrinology and ENT. He had lab work done and prolactin was 9.2. Recommended surgical resection of sellar mass. He was agreeable to proceed. He underwent Endoscopic endonasal resection of pituitary macroadenoma on 03/08/2025. He had his 2 week post operative visit on 03/21/2025 where he reported intermittent headaches localized at the top of his head. He noted that the headaches had improved over time but still persisted. He had some nasal congestion and scant drainage, either clear or slightly bloody, particularly in the mornings. He had been sleeping in a recliner to keep his head elevated. He noted his vision improved since surgery. Pathology confirmed pituitary adenoma;Ki67 2-3%. Post-operative MRI shows significant resection of the tumor with minimal residual tissue, likely pituitary gland. He was recommended to follow up at 6 months post operative with a repeat MRI. He called in on 05/20/2025 where he stated his head did not feel right. He was recommended to come in with CT scan. Patient is having their 10 week post operative visit. He reports that he has been having headaches since his last office visit. He thought they improved a little, then sort of have plateau. He feels like they are mostly on the top of his head and feels like his head is sensitive. He notes feeling zoned out. He has not had any overt nasal drainage, but feels snotty. 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 magnesium oxide 200 mg magnesium chew Take 1,200 mg by mouth. Zinc Mth/Copper/Saw Palm/Gnsg (PROSTATE HEALTH FORMULA ORAL) Take by mouth once daily. Prosta forte No current facility-administered medications for this visit. OBJECTIVE: BP 136/85 Pulse 81 Ht 5' 10 (1.78m) Wt 180 lb (81.6kg) SpO2 99% BMI 25.83 kg/(m2). AANDOx3, speech fluent CN II-XII grossly intact. Cerebellar: no dysmetria No pronator drift Motor: Strength grossly intact in UEs and LEs Sensorium: grossly intact. Gait: Unremarkable DATA REVIEW: IMAGING STUDIES: CT brain obtained 05/21/2025 demonstrates: Final read pending Images independently reviewed The following portions of the patient's history were reviewed, confirmed, updated as necessary: allergies, current medications, past family history, past medical history, past social history, past surgical history, problem list, HPI and ROS obtained by others. The clinical and radiographic findings as well as the risks, benefits, and alternatives of treatment have been reviewed in detail with the patient. ASSESSMENT/PLAN 1. (more content not included)... Normal [facility] CT BRAIN WO IVCONon 05-21-[address] BRAIN WO IVCON * * *Final Report* * * DATE OF EXAM: May 21 2025 12:38PM A1C 0504 - CT BRAIN WO IVCON / PROCEDURE REASON: multiple diagnoses * * * * Physician Interpretation * * * * EXAMINATION: CT BRAIN WO IVCON CLINICAL HISTORY: Headache, previous pituitary macroadenoma resection. TECHNIQUE: Serial axial images without IV contrast were obtained from the vertex to the foramen magnum. MQ: CTBWO_3 CT Radiation dose: Integrated Dose-Length Product (DLP) for this visit = 794.52 mGy*cm CT Dose Reduction Employed: No dose reduction techniques were required COMPARISON: 03/10/2025. 03/08/2025. RESULT: Post-operative change: None. Acute change: No evidence of an acute infarct or other acute parenchymal process. Hemorrhage: No evidence of acute intracranial hemorrhage. ECASS hemorrhagic transformation score: Not Applicable Mass Lesion / Mass Effect: Postsurgical changes from a previous transsphenoidal resection of the pituitary mass. Persistent rightward deviation of the pituitary stalk, with decreased soft tissue density within the right aspect of the sella. No significant mass effect on the adjacent structures. No evidence of vasogenic edema within the brain parenchyma to suggest intraparenchymal mass. No significant midline shift. Chronic change: Scattered patchy foci of low attenuation are present within the supratentorial white matter, a nonspecific finding that most commonly represents mild small vessel disease. Parenchyma: There is moderate generalized volume loss. Ventricles: Ventricular enlargement concordant with the degree of parenchymal volume loss. Paranasal sinuses and skull base: The visualized paranasal sinuses are grossly clear. The skull base and imaged soft tissues are unremarkable. IMPRESSION: 1. Postsurgical changes from previous transsphenoidal resection of pituitary mass. Persistent rightward deviation of the pituitary stalk, with decreased soft tissue density within right aspect of sella. No significant mass effect on adjacent structures. 2. No CT evidence of acute intracranial abnormalities. 3. Chronic small vessel ischemic white matter disease and diffuse cerebral volume loss. [employer]url[employer]er: PSCB Transcribe Date/Time: May 21 2025 1:54P Dictated by : DAJA LARSEN MD This examination was interpreted and the report reviewed and electronically signed by: DAJA LARSEN MD on May 21 2025 2:02PM EST [id number] Normal [facility] CT Head WO contraston 2024 IMPRESSION: 1. Postsurgical changes from previous transsphenoidal resection of pituitary mass. Persistent rightward deviation of the pituitary stalk, with decreased soft tissue density within right aspect of sella. No significant mass effect on adjacent structures. 2. No CT evidence of acute intracranial abnormalities. 3. Chronic small vessel ischemic white matter disease and diffuse cerebral volume loss. [employer]er: KENNY Transcribe Date/Time: May 21 2025 1:54P Dictated by : DAJA LARSEN MD This examination was interpreted and the report reviewed and electronically signed by: DAJA LARSEN MD on May 21 2025 2:02PM EST [facility] * * *Final Report* * * DATE OF EXAM: May 21 2025 12:38PM A1C 0504 - CT BRAIN WO IVCON / PROCEDURE REASON: multiple diagnoses * * * * Physician Interpretation * * * * EXAMINATION: CT BRAIN WO IVCON CLINICAL HISTORY: Headache, previous pituitary macroadenoma resection. TECHNIQUE: Serial axial images without IV contrast were obtained from the vertex to the foramen magnum. MQ: CTBWO_3 CT Radiation dose: Integrated Dose-Length Product (DLP) for this visit = 794.52 mGy*cm CT Dose Reduction Employed: No dose reduction techniques were required COMPARISON: 03/10/2025. 03/08/2025. RESULT: Post-operative change: None. Acute change: No evidence of an acute infarct or other acute parenchymal process. Hemorrhage: No evidence of acute intracranial hemorrhage. ECASS hemorrhagic transformation score: Not Applicable Mass Lesion / Mass Effect: Postsurgical changes from a previous transsphenoidal resection of the pituitary mass. Persistent rightward deviation of the pituitary stalk, with decreased soft tissue density within the right aspect of the sella. No significant mass effect on the adjacent structures. No evidence of vasogenic edema within the brain parenchyma to suggest intraparenchymal mass. No significant midline shift. Chronic change: Scattered patchy foci of low attenuation are present within the supratentorial white matter, a nonspecific finding that most commonly represents mild small vessel disease. Parenchyma: There is moderate generalized volume loss. Ventricles: Ventricular enlargement concordant with the degree of parenchymal volume loss. Paranasal sinuses and skull base: The visualized paranasal sinuses are grossly clear. The skull base and imaged soft tissues are unremarkable. [facility] * * *Final Report* * * DATE OF EXAM: May 21 2025 12:38PM A1C 0504 - CT BRAIN WO IVCON / PROCEDURE REASON: multiple diagnoses * * * * Physician Interpretation * * * * EXAMINATION: CT BRAIN WO IVCON CLINICAL HISTORY: Headache, previous pituitary macroadenoma resection. TECHNIQUE: Serial axial images without IV contrast were obtained from the vertex to the foramen magnum. MQ: CTBWO_3 CT Radiation dose: Integrated Dose-Length Product (DLP) for this visit = 794.52 mGy*cm CT Dose Reduction Employed: No dose reduction techniques were required COMPARISON: 03/10/2025. 03/08/2025. RESULT: Post-operative change: None. Acute change: No evidence of an acute infarct or other acute parenchymal process. Hemorrhage: No evidence of acute intracranial hemorrhage. ECASS hemorrhagic transformation score: Not Applicable Mass Lesion / Mass Effect: Postsurgical changes from a previous transsphenoidal resection of the pituitary mass. Persistent rightward deviation of the pituitary stalk, with decreased soft tissue density within the right aspect of the sella. No significant mass effect on the adjacent structures. No evidence of vasogenic edema within the brain parenchyma to suggest intraparenchymal mass. No significant midline shift. Chronic change: Scattered patchy foci of low attenuation are present within the supratentorial white matter, a nonspecific finding that most commonly represents mild small vessel disease. Parenchyma: There is moderate generalized volume loss. Ventricles: Ventricular enlargement concordant with the degree of parenchymal volume loss. Paranasal sinuses and skull base: The visualized paranasal sinuses are grossly clear. The skull base and imaged soft tissues are unremarkable. IMPRESSION IMPRESSION: 1. Postsurgical changes from previous transsphenoidal resection of pituitary mass. Persistent rightward deviation of the pituitary stalk, with decreased soft tissue density within right aspect of sella. No significant mass effect on adjacent structures. 2. No CT evidence of acute intracranial abnormalities. 3. Chronic small vessel ischemic white matter disease and diffuse cerebral volume loss. Burlap Bag Sewer: PSCB Transcribe Date/Time: May 21 2025 1:54P Dictated by : DAJA LARSEN MD This examination was interpreted and the report reviewed and electronically signed by: DAJA LARSEN MD on May 21 2025 2:02PM EST [facility] Radiology Study observation (narrative) [facility] CT Head WO contrastOrdered B y: Ccf Provider on 05-21-2025 [facility] Yi 05-20-2025 CNPN Telephone (NEAGCLM) LVZACHERY MICHAEL ([id number]) 1955 M Date Time Provider Department 05/20/25 KIM JUNG NEAGCLM During your visit today, we recorded the following information about you: Valerie Umana RN 05/20/2025 3:44 PM Signed Spoke with patient he is about 2 and 1/2 months postoperative from his pituitary adenoma surgery. He stated that he is still having some head pains and does not feel quite. He denies any visual changes or any kind of seizures. He stated that his nose does not feel the same and he is still having some snot come out. I did recommend for him to follow-up with Dr. Kilpatrick for the nasal issues. Since he has been having head pain and does not feel like his normal self asked if he could come in with a CT scan. Asked one of the secretaries to call and schedule him. 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 - beta-carotene,A,-vits C,E/mins (OCUVITE ORAL) Take by mouth once daily. - magnesium oxide 200 mg magnesium chew Take 1,200 mg by mouth. - Zinc Mth/Copper/Saw Palm/Gnsg (PROSTATE HEALTH FORMULA ORAL) Take by mouth once daily. Prosta forte Problem List As Of Date 05/20/2025 Noted Resolved Preop examination [Z01.818] 03/04/2025 Pituitary mass (HCC) [E23.6] 03/04/2025 S/P transsphenoidal hypophysectomy (HCC) [E89.3]03/08/2025 Visual field cut [H53.40] 03/09/2025 Other headache syndrome [G44.89] 03/09/2025 Pituitary disorder (HCC) [E23.7] 03/09/2025 On corticosteroid therapy [Z79.52] 03/09/2025 Encounter Status:Closed by VALERIE UMANA on 05/20/25 Normal [facility] Osmolality SerPlon Osmolality [Osmolality] 293 mosm/kg Normal 275-300 [facility] Comment on above: Order Comment: Speci men Type: BLOOD SPECIMEN Ordering Facility: [facility] Address: [address] [place] [address] Performed By: #### 2 692-2 #### [facility] CLIA [id number] [address] [place] [address] [place] Osmolality Uron 04-03-2025 Osmolality (U) [Osmolality] 543 mosm/kg Normal 50-1200 [facility] Comment on above: Order Comment: Speci men Type: BLOOD SPECIMEN Ordering Facility: [facility] Address: [address] [place] [address] Performed By: #### 5 8410-2 #### [facility] CLIA [id number] [address] [place] [address] [place] Renal function 2000 panelOrd ered By: Amy Dean on 04-03-2025 Albumin [Mass/Vol] 4 g/dL 3.9 - 4.9 g/dL [facility] Anion gap [Moles/Vol] 12 mmol/L 8 - 15 mmol/L [facility] Calcium [Mass/Vol] 9.1 mg/dL 8.5 - 10. 2 mg/dL [facility] Chloride [Moles/Vol] 105 mmol/L 98 - 10 7 mmol/L [facility] CO2 [Moles/Vol] 21 mmol/L Low 22 - 30 mmol/L [facility] Creatinine [Mass/Vol] 0.96 mg/dL 0.73 - 1.22 mg/dL [facility] GFR/1.73 sq M.predicted among non-blacks MDRD (S/P/Bld) [Vol rate/Area] 85 mL/min/{1.73_m2} - PINF [facility] Comment on above: Estimated Glomerular Filtration Rate (eGFR) is calculated using the 2020 CKD-EPI creatinine equation. This equation utilizes serum creatinine, sex, and age as parameters. The creatinine assay has traceable calibration to isotope dilution-mass spectrometry. Refer to KDIGO guidelines for clinical interpretation. In patients with unstable renal function, e.g. those with acute kidney injury, the eGFR may not accurately reflect actual GFR. Glucose [Mass/Vol] 95 mg/dL 74 - 99 mg/dL [facility] Comment on above: The [place] Diabete s Association (ADA) provides guidance for cutoff values for fasting glucose and random glucose. The ADA defines fasting as no caloric intake for at least 8 hours. Fasting plasma glucose results between 100 to 125 mg/dL indicate increased risk for diabetes (prediabetes). Fasting plasma glucose results greater than or equal to 126 mg/dL meet the criteria for diagnosis of diabetes. In the absence of unequivocal hyperglycemia, results should be confirmed by repeat testing. In a patient with classic symptoms of hyperglycemia or hyperglycemic crisis, random plasma glucose results greater than or equal to 200 mg/dL meet the criteria for diagnosis of diabetes. Reference: Standards of Medical Care in Diabetes 2016, [place] Diabetes Association. Diabetes Care. 2016.39(Suppl 1). Interpretation and review of laboratory results Abnormal [facility] Phosphate [Mass/Vol] 3.9 mg/dL 2.7 - 4 .8 mg/dL [facility] Potassium [Moles/Vol] 4.1 mmol/L 3.7 - 5.1 mmol/L [facility] Sodium [Moles/Vol] 138 mmol/L 136 - 144 mmol/L [facility] Urea nitrogen [Mass/Vol] 19 mg/dL 9 - 24 mg/dL [facility] Renal function 2000 panelon 04-03-2025 Albumin [Mass/Vol] 4.0 g/dL Normal 3.9-4.9 [facility] Comment on above: Order Comment: Speci men Type: BLOOD SPECIMEN Ordering Facility: [facility] Address: [facility] [place] [address] Performed By: #### 5 8410-2 #### [facility] CLIA [id number] [address] [place] [address] [place] Anion gap [Moles/Vol] 12 mmol/L Normal 8-15 [facility] Comment on above: Order Comment: Speci men Type: BLOOD SPECIMEN Ordering Facility: [facility] Address: [address] [place] [address] Performed By: #### 5 8410-2 #### [facility] CLIA [id number] [address] [place] [address] [place] Calcium [Mass/Vol] 9.1 mg/dL Normal 8.5-10.2 [facility] Comment on above: Order Comment: Speci men Type: BLOOD SPECIMEN Ordering Facility: [facility] Address: [address] [place] [address] Performed By: #### 5 8410-2 #### [facility] CLIA [id number] [address] [place] [address] [place] Chloride [Moles/Vol] 105 mmol/L Normal 98-107 [facility] Comment on above: Order Comment: Speci men Type: BLOOD SPECIMEN Ordering Facility: [facility] Address: [address] [place] [address] Performed By: #### 5 8410-2 #### [facility] CLIA [id number] [address] [place] [address] [place] CO2 [Moles/Vol] 21 mmol/L Low 22-30 [facility] Comment on above: Order Comment: Speci men Type: BLOOD SPECIMEN Ordering Facility: [facility] Address: [address] [place] [address] Performed By: #### 5 8410-2 #### [facility] [id number] [address] [place] [address] [place] Creatinine [Mass/Vol] 0.96 mg/dL Normal 0.73-1.22 [facility] Comment on above: Order Comment: Chidi silvestre Type: BLOOD SPECIMEN Ordering Facility: [facility] Address: [address] [place] [address] Performed By: #### 5 8410-2 #### [facility] [id number] [address] [place] [address] [place] Creatinine and Glomerular filtration rate.predicted panel (S/P/Bld) 85 mL/min/1.73m??? Normal >=60 [facility] Comment on above: Order Comment: Chidi silvestre Type: BLOOD SPECIMEN Ordering Facility: [facility] Address: [address] [place] [address] Result Comment: Yamila mated Glomerular Filtration Rate (eGFR) is calculated using the 2020 CKD-EPI creatinine equation. This equation utilizes serum creatinine, sex, and age as parameters. The creatinine assay has traceable calibration to isotope dilution-mass spectrometry. Refer to KDIGO guidelines for clinical interpretation. In patients with unstable renal function, e.g. those with acute kidney injury, the eGFR may not accurately reflect actual GFR. Performed By: #### 5 8410-2 #### [facility] [id number] [address] [place] [address] [place] Glucose [Mass/Vol] 95 mg/dL Normal 74-99 [facility] Comment on above: Order Comment: Chidi silvestre Type: BLOOD SPECIMEN Ordering Facility: [facility] Address: [address] [place] [address] Result Comment: The [place] Diabetes Association (ADA) provides guidance for cutoff values for fasting glucose and random glucose. The ADA defines fasting as no caloric intake for at least 8 hours. Fasting plasma glucose results between 100 to 125 mg/dL indicate increased risk for diabetes (prediabetes). Fasting plasma glucose results greater than or equal to 126 mg/dL meet the criteria for diagnosis of diabetes. In the absence of unequivocal hyperglycemia, results should be confirmed by repeat testing. In a patient with classic symptoms of hyperglycemia or hyperglycemic crisis, random plasma glucose results greater than or equal to 200 mg/dL meet the criteria for diagnosis of diabetes. Reference: Standards of Medical Care in Diabetes 2016, [place] Diabetes Association. Diabetes Care. 2016.39(Suppl 1). Performed By: #### 5 8410-2 #### [facility] CLIA [id number] [address] [place] [address] [place] Phosphate [Mass/Vol] 3.9 mg/dL Normal 2.7-4.8 [facility] Comment on above: Order Comment: Chidi silvestre Type: BLOOD SPECIMEN Ordering Facility: [facility] Address: [address] [place] [address] Performed By: #### 5 8410-2 #### [facility] [id number] [address] [place] [address] [place] Potassium [Moles/Vol] 4.1 mmol/L Normal 3.7-5.1 [facility] Comment on above: Order Comment: Chidi silvestre Type: BLOOD SPECIMEN Ordering Facility: [facility] Address: [address] [place] [address] Performed By: #### 5 8410-2 #### [facility] [id number] [address] [place] [address] [place] Sodium [Moles/Vol] 138 mmol/L Normal 136-144 [facility] Comment on above: Order Comment: Chidi silvestre Type: BLOOD SPECIMEN Ordering Facility: [facility] Address: [address] [place] [address] Performed By: #### 5 8410-2 #### [facility] [id number] [address] [place] [address] [place] Urea nitrogen [Mass/Vol] 19 mg/dL Normal 9-24 [facility] Comment on above: Order Comment: Speci men Type: BLOOD SPECIMEN Ordering Facility: [facility] Address: [address] [place] [address] Performed By: #### 5 8410-2 #### [facility] CLIA [id number] [address] [place] [id number] [place] T4 Free SerPl-mCncon 025 Free T4 [Mass/Vol] 0.9 ng/dL Normal 0.9-1.7 [facility] Comment on above: Order Comment: Chidi silvestre Type: BLOOD SPECIMEN Ordering Facility: [facility] Address: [address] [place] [address] Performed By: #### 3 024-7 #### [facility] CLIA [id number] [address] [place] [address] [place] CNPLucila 04-01-2025 AKASH Telephone (AGECELIPOB) ZACHERY WEST ([id number]) 1955 M Date Time Provider Department 04/01/25 PIEDAD ROCK During your visit today, we recorded the following information about you: Irasema Palafox 04/01/2025 10:56 AM Signed Please call patient as his VM only says that he has a question about his medication that he is to take since having surgery. Irasema Palafox April 01, 2025 10:56 AM Daniel Castellano MA 04/01/2025 1:32 PM Signed Phoned patient to get some more information. He has been prescribed Cortef 20 mg daily since surgery. It causes constant thirst and severe headache. Patient did not take dose yesterday or today. Please review and advise. LARS Campbell Daniela, MD 04/03/2025 9:56 AM Signed Please tell patient to go to the lab. Ok to stop Cortef. Piedad Rock MD Sylwia Murillo 04/03/2025 10:07 AM Signed Pt has been informed of Dr Rock's message listed below, pt acknowledged understanding with no questions asked. Thank you Sylwia Murillo April 03, 2025 10:07 AM Allergies As of Date: 04/01/2025 (No Known Allergies) Date Reviewed: 03/21/2025 Reviewed by: Kim Jung MD - Fully Assessed Reason for Visit: Patient Update [1234] Patient Question [6147] Cmt: Medication after surgery Medication Problem [65] Cmt: Cortef Primary Visit Diagnosis:Pituitary mass (HCC) [E23.6] Order(s):RENAL FUNCTION PANEL [SQRFP] Order #: [id number] FUTURE OSMOLALITY [SQOSM] Order #: [id number] FUTURE OSMOLALITY URINE [SQUOSM] Order #: [id number] FUTURE T4 FREE/FREE THYROXINE [SQFT4] Order #: [id number] FUTURE Prescriptions as of 04/03/2025 - ibuprofen (MOTRIN) 400 mg tablet Take 1-2 tablets by mouth every 6 hours as needed for pain. - hydrocortisone (CORTEF) 20 mg tablet Take 1 tablet by mouth once daily. - beta-carotene,A,-vits C,E/mins (OCUVITE ORAL) Take by mouth once daily. - magnesium oxide 200 mg magnesium chew Take 1,200 mg by mouth. - Zinc Mth/Copper/Saw Palm/Gnsg (PROSTATE HEALTH FORMULA ORAL) Take by mouth once daily. Prosta forte Problem List As Of Date 04/01/2025 Noted Resolved Preop examination [Z01.818] 03/04/2025 Pituitary mass (HCC) [E23.6] 03/04/2025 S/P transsphenoidal hypophysectomy (HCC) [E89.3]03/08/2025 Visual field cut [H53.40] 03/09/2025 Other headache syndrome [G44.89] 03/09/2025 Pituitary disorder (HCC) [E23.7] 03/09/2025 On corticosteroid therapy [Z79.52] 03/09/2025 Encounter Status:Closed by PIEDAD ROCK on 04/03/25 [facility] CNPN Telephone (NEAGCLM) EMILIANOLIDIAZACHERY MICHAEL ([id number]) 1955 M Date Time Provider Department 04/01/25 KIM JUNG NEAGCLM During your visit today, we recorded the following information about you: Chandra Baker RN 04/01/2025 10:33 AM Signed Patient called in to inform us that he had stopped his hydrocortisone (CORTEF) 20 mg tablet yesterday and noted he was very thirsty from taking it and was unsure if this was a side effect. He inquired how long he was to be on this and if he needed a refill. Also noted he continued with tylenol and ibuprofen as needed for his headaches. He did report they were daily at times but relieved with the medications. Discussed concerning symptoms to present to the ED for he denied any and expressed understanding. Did verify with USMAN Padilla that the patient needed to schedule a sooner visit with Dr. Major in regards to his hydrocortisone (CORTEF) as they were to manage the medication. He was thankful and understanding. Encouraged him to call with further questions or concerns. Chandra Baker RN Allergies As of Date: 04/01/2025 (No Known Allergies) Date Reviewed: 03/21/2025 Reviewed by: Kim Jung MD - Fully Assessed Reason for Visit: Patient Question [1477] Medication Problem [65] Prescriptions as of 04/01/2025 - ibuprofen (MOTRIN) 400 mg tablet Take 1-2 tablets by mouth every 6 hours as needed for pain. - hydrocortisone (CORTEF) 20 mg tablet Take 1 tablet by mouth once daily. - beta-carotene,A,-vits C,E/mins (OCUVITE ORAL) Take by mouth once daily. - magnesium oxide 200 mg magnesium chew Take 1,200 mg by mouth. - Zinc Mth/Copper/Saw Palm/Gnsg (PROSTATE HEALTH FORMULA ORAL) Take by mouth once daily. Prosta forte Problem List As Of Date 04/01/2025 Noted Resolved Preop examination [Z01.818] 03/04/2025 Pituitary mass (HCC) [E23.6] 03/04/2025 S/P transsphenoidal hypophysectomy (HCC) [E89.3]03/08/2025 Visual field cut [H53.40] 03/09/2025 Other headache syndrome [G44.89] 03/09/2025 Pituitary disorder (HCC) [E23.7] 03/09/2025 On corticosteroid therapy [Z79.52] 03/09/2025 Encounter Status:Closed by CHANDRA BAKER on 04/01/25 [facility] CNOVon 03-21-2025 CNOV Office Visit (NEAGCL M) JENNAZACHERY ([id number]) 1955 M Date Time Provider Department 03/21/25 9:30 AM KIM JUNG NEAGCLM During your visit today, we recorded the following information about you: Pulse Respiration Blood pressure Weight 84/minute 16/minute 143/95 81.4 kg Height 1.778 m Kim Jung MD 03/21/2025 3:44 PM Signed NEUROSURGERY POST-OP NOTE Kim Jung MD Date of visit: March 21, 2025 Patient Name: Mr.Kenneth Gutierrez vLlisa Date of : 1955 Current Age: [age] year old Sex: male MRN/E# [id number] Last Office Visit: 03/19/2025 CLINICAL SUMMARY: 02/01/2025 - Pituitary mass noted on MRI brain - bitemporal vis field defect, worse on the left temporal 03/08/2025 - S/p endoscopic endonasal resection of pituitary macroadenoma with Dr Lundberg - 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 Durham - [facility] SURGERY: Endoscopic endonasal resection of pituitary macroadenoma on 03/08/2025 PATHOLOGY: FINAL DIAGNOSIS A-B. Pituitary gland, excision: - Pituitary neuroendocrine tumor (pituitary adenoma). Pre-Surgical Symptoms: bitemporal vis field defect, worse on the left temporal Joey West is a 69 year old right-handed male presenting with spouse. He was seen in consult on 02/18/2025 where he went in to eye doctor for yearly evaluation when they were doing exam he was not doing well with left peripheral vision exam. They brought him back in a week for a repeat evaluation and was the same. From there Dr. Durham ordered an MRI of the brain. He stated that he didn't really notice too much of an issue with left peripheral vision. 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 Recommended for him to get endocrine blood work done, if negative would recommend surgery for this. He was recommended to have blood work and follow with Endocrinology and ENT. He had lab work done and prolactin was 9.2. Recommended surgical resection of sellar mass. He was agreeable to proceed. He underwent Endoscopic endonasal resection of pituitary macroadenoma on 03/08/2025. Patient is having their 2 week post operative visit. He is accompanied by his daughter, who provides additional history. Joey reports intermittent headaches localized at the top of his head since the surgery. He notes that the headaches have improved over time but still persist. Initially, he managed the pain with oxycodone but discontinued it a week ago due to side effects, opting to use Tylenol instead. He has not yet tried ibuprofen. He experiences nasal congestion and scant drainage, either clear or slightly bloody, particularly in the mornings. He has been sleeping in a recliner to keep his head elevated, which he finds helpful. He does not report any persistent watery discharge, even when bending his head forward. Joey reports that his vision has improved since the surgery. He did not initially notice a significant visual deficit before the surgery but became more aware of it after his eye doctor identified the issue. He is scheduled to see Dr. Lundberg for f/up. 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 Lundberg on Tuesday PAIN EVALUATION No data found in the last 1 encounters. Current Outpatient Medications Medication Sig Dispense Refill hydrocortisone (CORTEF) 20 mg tablet Take 1 tablet by mouth once daily. 28 tablet 0 beta-carotene,A,-vits C,E/mins (OCUVITE ORAL) Take by mouth once daily. magnesium oxide 200 mg magnesium chew Take 1,200 mg by mouth. Zinc Mth/Copper/Saw Palm/Gnsg (PROSTATE HEALTH FORMULA ORAL) Take by mouth once daily. Prosta forte No current facility-administered medications for this visit. OBJECTIVE: BP 145/102 Pulse 84 Resp 16 Ht 5' 10 (1.78m) Wt 179 lb 7.3 oz (81.4kg) SpO2 98% BMI 25.75 kg/(m2). AANDOx3, speech fluent CN II-XII grossly intact. Visual sorensen intact on confrontation (much improved left vis field defect) Motor: Strength grossly intact in UEs and LEs Sensorium: grossly intact. Gait: Unremarkable WOUND ASSESSMENT: intranasal unable to visualize DATA REVIEW: IMAGING STUDIES: MRI brain obtained on 03/10/2025: IMPRESSION: Interval postoperative findings related to endoscopic transnasal transsphenoidal resection of a prior similar/suprasellar mass. 9 mm nodular enhancement which extends towards the infundibulum, which may represent residual pituitary tissue. No evidence of hypoenhancing lesion to suggest residual neoplasm. Dictated by : COLLIN RADFORD MD Images independently reviewed The following portions of the patient's history were (more content not included)... Normal [facility] Basic metabolic 2000 panelon 03-19-2025 Anion gap [Moles/Vol] 13 mmol/L Normal 8-15 [facility] Comment on above: Order Comment: Speci men Type: BLOOD SPECIMEN Ordering Facility: [facility] Address: [address] [place] [address] Performed By: #### 5 8410-2 #### [facility] [id number] [address] [place] [address] [place] Calcium [Mass/Vol] 9.6 mg/dL Normal 8.5-10.2 [facility] Comment on above: Order Comment: Speci men Type: BLOOD SPECIMEN Ordering Facility: [facility] Address: [address] [place] [address] Performed By: #### 5 8410-2 #### [facility] CLIA [id number] [address] [place] [address] [place] Chloride [Moles/Vol] 106 mmol/L Normal 98-107 [facility] Comment on above: Order Comment: Speci men Type: BLOOD SPECIMEN Ordering Facility: [facility] Address: [address] [place] [address] Performed By: #### 5 8410-2 #### [facility] CLIA [id number] [address] [place] [address] [place] CO2 [Moles/Vol] 19 mmol/L Low 22-30 [facility] Comment on above: Order Comment: Speci men Type: BLOOD SPECIMEN Ordering Facility: [facility] Address: [address] [place] [address] Performed By: #### 5 8410-2 #### [facility] CLIA [id number] [address] [place] [address] [place] Creatinine [Mass/Vol] 0.99 mg/dL Normal 0.73-1.22 [facility] Comment on above: Order Comment: Speci men Type: BLOOD SPECIMEN Ordering Facility: [facility] Address: [address] [place] [address] Performed By: #### 5 8410-2 #### [facility] CLIA [id number] [address] [place] [address] [place] Creatinine and Glomerular filtration rate.predicted panel (S/P/Bld) 82 mL/min/1.73m??? Normal >=60 [facility] Comment on above: Order Comment: Speci men Type: BLOOD SPECIMEN Ordering Facility: [facility] Address: [address] [place] [address] Result Comment: Yamila mated Glomerular Filtration Rate (eGFR) is calculated using the 2020 CKD-EPI creatinine equation. This equation utilizes serum creatinine, sex, and age as parameters. The creatinine assay has traceable calibration to isotope dilution-mass spectrometry. Refer to KDIGO guidelines for clinical interpretation. In patients with unstable renal function, e.g. those with acute kidney injury, the eGFR may not accurately reflect actual GFR. Performed By: #### 5 8410-2 #### [id number] [address] [place] [address] [place] Glucose [Mass/Vol] 101 mg/dL High 74-99 [facility] Comment on above: Order Comment: Chidi silvestre Type: BLOOD SPECIMEN Ordering Facility: [facility] Address: [address] [place] [address] Result Comment: The [place] Diabetes Association (ADA) provides guidance for cutoff values for fasting glucose and random glucose. The ADA defines fasting as no caloric intake for at least 8 hours. Fasting plasma glucose results between 100 to 125 mg/dL indicate increased risk for diabetes (prediabetes). Fasting plasma glucose results greater than or equal to 126 mg/dL meet the criteria for diagnosis of diabetes. In the absence of unequivocal hyperglycemia, results should be confirmed by repeat testing. In a patient with classic symptoms of hyperglycemia or hyperglycemic crisis, random plasma glucose results greater than or equal to 200 mg/dL meet the criteria for diagnosis of diabetes. Reference: Standards of Medical Care in Diabetes 2016, [place] Diabetes Association. Diabetes Care. 2016.39(Suppl 1). Performed By: #### 5 8410-2 #### [facility] [id number] [address] [place] [address] [place] Potassium [Moles/Vol] 4.4 mmol/L Normal 3.7-5.1 [facility] Comment on above: Order Comment: Chidi silvestre Type: BLOOD SPECIMEN Ordering Facility: [facility] Address: [address] [place], [place] [address] Performed By: #### 5 8410-2 #### [facility] CLIA [id number] [address] [place] [address] [place] Sodium [Moles/Vol] 138 mmol/L Normal 136-144 [facility] Comment on above: Order Comment: Speci men Type: BLOOD SPECIMEN Ordering Facility: [facility] Address: [address] [place] [address] Performed By: #### 5 8410-2 #### [facility] CLIA [id number] [address] [place] [address] [place] Urea nitrogen [Mass/Vol] 14 mg/dL Normal 9-24 [facility] Comment on above: Order Comment: Speci men Type: BLOOD SPECIMEN Ordering Facility: [facility] Address: [address] [place] [address] Performed By: #### 5 8410-2 #### [facility] CLIA [id number] [address] [place] [address] OF [place] CNPNon 03-19-2025 CNPN Telephone (NEAGCLM) ZACHERY WEST ([id number]) 1955 M Date Time Provider Department 03/19/25 KIM JUNG NEAGCLM During your visit today, we recorded the following information about you: Valerie Umana RN 03/19/2025 8:28 AM Signed Called patient to remind him to get lab work done, he is scheduled to get this done today. Reminded him that he will also need a post op appt with Dr Lundberg, he stated he has this scheduled as well. They are aware of appt on . 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 - beta-carotene,A,-vits C,E/mins (OCUVITE ORAL) Take by mouth once daily. - magnesium oxide 200 mg magnesium chew Take 1,200 mg by mouth. - Zinc Mth/Copper/Saw Palm/Gnsg (PROSTATE HEALTH FORMULA ORAL) Take by mouth once daily. Prosta forte Problem List As Of Date 03/19/2025 Noted Resolved Preop examination [Z01.818] 03/04/2025 Pituitary mass (HCC) [E23.6] 03/04/2025 S/P transsphenoidal hypophysectomy (HCC) [E89.3]03/08/2025 Visual field cut [H53.40] 03/09/2025 Other headache syndrome [G44.89] 03/09/2025 Pituitary disorder (HCC) [E23.7] 03/09/2025 On corticosteroid therapy [Z79.52] 03/09/2025 Encounter Status:Closed by VALERIE UMANA on 03/19/25 [facility] ALLIED HEALTHon 03-10-2025 ALLIED HEALTH HNO ID: [id number] Author: KWAKU MARTINEZ RT(R) Service: Radiology Author Type: Technologist Type: Allied Health Filed: 03/10/2025 10:57 Note Text: Radiology Service Progress Note DATE OF SERVICE: March 10, 2025 TIME: 10:57 AM PATIENT IDENTITY VERIFICATION COMPLETED USING TWO (2) STANDARD IDENTIFIERS: Name and Date of confirmed by patient verbally and Name and Date of confirmed by identification band. FALL SCREENING: Has the patient had 2 falls in the last year or 1 fall with injury or currently using an Ambulatory Assistive Device (Walker, Cane, Wheelchair, Crutches, etc.)? Inpatient: Screened on floor PATIENT GENDER DATA: Assigned male at PATIENT RELEVANT IMPLANT DATA REVIEWED: Yes PATIENT PRESENTS WITH AN IMPLANTABLE OR ATTACHED CREATIVE ARTS MUSIC THERAPIST: No ALLERGIES: Reviewed and unchanged CONTRAST ALLERGY: NO. EXAM: MRI - CONTRAST TYPE: GROUP II PERIPHERAL IV DATA: Inpatient - refer to LDA documentation RADIOLOGY DEPARTMENT: MR; Exam(s) Completed: Head: Pituitary. Lavender Administered: No SIGNATURE: RT Virgil(R) PATIENT NAME: Zachery West DATE: March 10, 2025 TIME: 10:57 AM Normal [facility] Basic metabolic 2000 panelon 03-10-2025 Anion gap [Moles/Vol] 9 mmol/L Normal 8-15 [facility] Comment on above: Order Comment: Speci men Type: BLOOD SPECIMENOrdering Facility: [facility] Address: [address] [place] [address] Performed By: #### 2 4321-2, , 2776-10 ####[facility]ORYCLIA [id number] [place] [address] [place] Calcium [Mass/Vol] 8.8 mg/dL Normal 8.5-10.2 [facility] Comment on above: Order Comment: Speci men Type: BLOOD SPECIMENOrdering Facility: [facility] Address: [address] [place] [address] Performed By: #### 2 4321-2, , 2776-10 ####[facility]ATORYCLIA [id number] [place] [address] [place] Chloride [Moles/Vol] 108 mmol/L High 98-107 [facility] Comment on above: Order Comment: Speci men Type: BLOOD SPECIMENOrdering Facility: [facility] Address: [address] [place] [address] Performed By: #### 2 4321-2, , 2776-10 ####[facility]ATORYCLIA [id number] [place] [address] [place] CO2 [Moles/Vol] 26 mmol/L Normal 22-30 [facility] Comment on above: Order Comment: Speci men Type: BLOOD SPECIMENOrdering Facility: [facility] Address: [address] [place] [address] Performed By: #### 2 4321-2, , 2776-10 ####[facility]IA [id number] [place] [address] [place] Creatinine [Mass/Vol] 0.85 mg/dL Normal 0.73-1.22 [facility] Comment on above: Order Comment: Chidi silvestre Type: BLOOD SPECIMENOrdering Facility: [facility] Address: [address] [place] [address] Performed By: #### 2 4321-2, , 2776-10 ####[facility] [id number] [place] [address] [facility] Creatinine and Glomerular filtration rate.predicted panel (S/P/Bld) 93 mL/min/1.73m??? Normal >=60 [facility] Comment on above: Order Comment: Chidi [facility] Type: BLOOD SPECIMENOrdering Facility: [facility] Address: [address] [place] [address] Result Comment: Yamila mated Glomerular Filtration Rate (eGFR) is calculated using the 2020 CKD-EPI creatinine equation. This equation utilizes serum creatinine, sex, and age as parameters. The creatinine assay has traceable calibration to isotope dilution-mass spectrometry. Refer to KDIGO guidelines for clinical interpretation. In patients with unstable renal function, e.g. those with acute kidney injury, the eGFR may not accurately reflect actual GFR. Performed By: #### 2 4321-2, , 2776-10 ####[facility]IA [id number] [place] [address] [place] Glucose [Mass/Vol] 114 mg/dL High 74-99 [facility] Comment on above: Order Comment: Bipincarlitos silvestre Type: BLOOD SPECIMENOrdering Facility: [facility] Address: [address] [place] [address] Result Comment: The [place] Diabetes Association (ADA) provides guidance for cutoff values for fasting glucose and random glucose. The ADA defines fasting as no caloric intake for at least 8 hours. Fasting plasma glucose results between 100 to 125 mg/dL indicate increased risk for diabetes (prediabetes). Fasting plasma glucose results greater than or equal to 126 mg/dL meet the criteria for diagnosis of diabetes. In the absence of unequivocal hyperglycemia, results should be confirmed by repeat testing. In a patient with classic symptoms of hyperglycemia or hyperglycemic crisis, random plasma glucose results greater than or equal to 200 mg/dL meet the criteria for diagnosis of diabetes. Reference: Standards of Medical Care in Diabetes 2016, [place] Diabetes [employer]. Diabetes Care. 2016.39(Suppl 1). Performed By: #### 2 4321-2, , 2776-10 ####[facility] LAB[facility]ATORYCLIA [id number] [place] [address] [place] Potassium [Moles/Vol] 4.1 mmol/L Normal 3.7-5.1 [facility] Comment on above: Order Comment: Speci men Type: BLOOD SPECIMENOrdering Facility: [facility] Address: [address] [place] [address] Performed By: #### 2 4321-2, , 2776-10 ####[facility]ATORYCLIA [id number] [address] STATES OF [facility] Sodium [Moles/Vol] 143 mmol/L Normal 136-144 [facility] Comment on above: Order Comment: Speci men Type: BLOOD SPECIMENOrdering Facility: [facility] Address: [address] [place] [address] Performed By: #### 2 4321-2, , 2776-10 ####[facility]ATORYCLIA [id number] [place] [address] [place] Urea nitrogen [Mass/Vol] 15 mg/dL Normal 9-24 [facility] Comment on above: Order Comment: Speci men Type: BLOOD SPECIMENOrdering Facility: [facility] Address: [address] [place] [address] Performed By: #### 2 4321-2, , 2776-10 ####[facility]ATORYCLIA [id number] [address] STATES OF [place] CBC panel Auto (Bld)on 03-10 Erythrocyte distribution width (RBC) [Ratio] 13.4 % Normal 11.5-15.0 [facility] Comment on above: Order Comment: Speci men Type: BLOOD SPECIMENOrdering Facility: [facility] Address: [address] [place] [address] Performed By: #### 5 8410-2 ####[facility]ATORYCLIA [id number] [address] STATES OF [facility] Hematocrit (Bld) [Volume fraction] 39.6 % Normal 39.0-51.0 [facility] Comment on above: Order Comment: Speci men Type: BLOOD SPECIMENOrdering Facility: [facility] Address: [address] [place] [address] Performed By: #### 5 8410-2 ####[facility]ATORYCLIA [id number] [address] STATES [place] Hemoglobin (Bld) [Mass/Vol] 13.5 g/dL Normal 13.0-17.0 [facility] Comment on above: Order Comment: Speci men Type: BLOOD SPECIMENOrdering Facility: [facility] Address: [address] [place] [address] Performed By: #### 5 8410-2 ####[facility]ATORYCLIA [id number] [address] STATES [place] MCH (RBC) [Entitic mass] 33.0 pg Normal 26.0-34.0 [facility] Comment on above: Order Comment: Speci men Type: BLOOD SPECIMENOrdering Facility: [facility] Address: [address] [place] [address] Performed By: #### 5 8410-2 ####[facility]ATORYCLIA [id number] [address] [place] MCHC (RBC) [Mass/Vol] 34.1 g/dL Normal 30.5-36.0 [facility] Comment on above: Order Comment: Speci men Type: BLOOD SPECIMENOrdering Facility: [facility] Address: [address] [place] [address] Performed By: #### 5 8410-2 ####[facility]ATORYCLIA [id number] [address] OF [place] MCV (RBC) [Entitic vol] 96.8 fL Normal 80.0-100.0 [facility] Comment on above: Order Comment: Speci men Type: BLOOD SPECIMENOrdering Facility: [facility] Address: [address] [place] [address] Performed By: #### 5 8410-2 ####[facility]ATORYCLIA [id number] [address] STATES [place] Nucleated RBC (Bld) [#/Vol] 10*3/uL Normal <0.01 [facility] Comment on above: Order Comment: Speci men Type: BLOOD SPECIMENOrdering Facility: [facility] Address: [address] [place] [address] Performed By: #### 5 8410-2 ####[facility]ATORYCLIA [id number] [address] [place] Platelet mean volume (Bld) [Entitic vol] 10.9 fL Normal 9.0-12.7 [facility] Comment on above: Order Comment: Speci men Type: BLOOD SPECIMENOrdering Facility: [facility] Address: [address] [place] [address] Performed By: #### 5 8410-2 ####[facility]ATORYCLIA [id number] [address] OF [place] Platelets (Bld) [#/Vol] 168 10*3/uL Normal 150-400 [facility] Comment on above: Order Comment: Speci men Type: BLOOD SPECIMENOrdering Facility: [facility] Address: [address] [place] [address] Performed By: #### 5 8410-2 ####[facility]ATORYCLIA [id number] [address] [place] RBC (Bld) [#/Vol] 4.09 10*6/uL Low 4.20-6.00 [facility] Comment on above: Order Comment: Speci men Type: BLOOD SPECIMENOrdering Facility: [facility] Address: [address] [place] [address] Performed By: #### 5 8410-2 ####[facility]ATORYCLIA [id number] [place] [address] [place] WBC (Bld) [#/Vol] 10.95 10*3/uL Normal 3.70-11.00 [facility] Comment on above: Order Comment: Speci men Type: BLOOD SPECIMENOrdering Facility: [facility] Address: [address] [place] [address] Performed By: #### 5 8410-2 ####[facility]ORATORYCLIA [id number] [place] [address] [facility] CNDSon 03-10-2025 CN HNO ID: [id number] Author: KIM JUNG MD Service: Neurosurgery Author Type: Physician Wood Sawyer Type: Discharge Summary Filed: 03/26/2025 23:18 Note Text: Attestation signed by Kim Jung MD at 03/26/2025 11:18 PM Kim Jung MD DISCHARGE SUMMARY PATIENT NAME: Zachery West Code Status: Not on file Highest Readmission Risk Score: 6 The 30 day readmissions risk score is derived from an internally validated risk model which evaluates patient level characteristics, utilization history, medication orders and lab results up until the day of discharge. Patients with a score of 39 or above are considered highest risk for readmission. Specific patient level drivers will be listed at the bottom of the summary. Admission Information Admission Information ADMIT DATE: 03/08/2025 DISCHARGE DATE: 03/10/2025 MY DOCTORS AND MEDICAL TEAM: My Main Hospital Doctor: Kim Jung MD Primary Care Provider: No primary care provider on file. My Medical Team Members: Treatment Team: Attending Provider: Kim Jung MD Consulting: Mendy Amaro MD Consulting: Piedad Rock MD Consulting: Shiva Lundberg MD MY CONDITION AT DISCHARGE: Stable REASON I WAS IN THE HOSPITAL: transphenoidal resection of pituitary mass SUMMARY OF WHAT HAPPENED WHILE I WAS IN THE HOSPITAL: you had surgery as planned without complication. You were taken to NSICU after surgery. You were seen by ENT and endocrinology. You were then taken to recovery and ultimately to 9100 for excellent nursing care, pain control and therapy. You had post op MRI completed on post op day 2. You did very well with your recovery and on day 2 you were ambulating with therapy, voiding without issue and tolerating your diet. Your pain was well controlled and you were found to be stable for discharge home. OTHER PROBLEMS/DIAGNOSIS: Principal Problem: Pituitary mass (HCC) Active Problems: S/P transsphenoidal hypophysectomy (HCC) Visual field cut Other headache syndrome Pituitary disorder (HCC) On corticosteroid therapy Resolved Problems: * No resolved hospital problems. * OPERATIONS PERFORMED WHILE IN THE HOSPITAL: transphenoidal resection IMPORTANT TEST/PROCEDURES: No procedures performed TEST RESULTS NOT AVAILABLE AT THIS TIME: No pending results Discharge Disposition Discharge Disposition: Home With Self Care Activity When You Leave the Hospital Do not bend over at the waist to lift heavy objects Lifting is restricted to: 8-10 pounds May use stairs No baths or showers for: No tub baths, pools or spas for 30 days - ok to shower at home - do not scrub on wound - pat dry and leave open to air No driving for: Until follow up Diet Instructions Resume your pre-hospital diet Soft Foods For Pain When You Leave the Hospital Continue taking previously prescribed pain medications as directed If you become constipated, you may use any iids-mib-tlzrudg treatment such as Milk of Magnesia, Sennakot, Prune Juice, Suppositories, etc. in addition to the stool softener/fiber supplement No alcohol or driving while on pain medication Use the dispensed medication (see prescription) You should use an fnbi-oik-ghbyreo stool softener (Docusate sodium) and/or a fiber supplement (Metamucil, Fiber Con) every day while taking prescribed pain medication Call Your Doctor If There is severe pain at the operative site You have lightheadedness, fainting, or confusion You have persistent nausea/vomiting over 24 hours You have redness, swelling, pus or drainage from the wound You have swollen glands or cold and clammy skin Your temperature is greater than 101F Additional Provider to Provider Information: 03/09: CELESTE. C/o bifrontal MOORE improved with oxy. Treatment Team: Attending Provider: Kim Jung MD Consulting: Mendy Amaro MD Consulting: Piedad Rock MD Consulting: Shiva Lundberg MD FINAL DIAGNOSIS: pituitary mass Active Hospital Problems Diagnosis POA Pituitary mass (HCC) Yes Visual field cut Yes Other headache syndrome Unknown Pituitary disorder (HCC) Unknown On corticosteroid therapy Unknown S/P transsphenoidal hypophysectomy (HCC) No Resolved Hospital Problems No resolved problems to display. Transitions of Care Critical Issues: LAB MONITORING NEEDED: Obtain BMP before follow up with Dr. Jung SPECIALIST FOLLOW-UP: Follow up with Drs. Jung and Musa as scheduled, follow up with Dr. Lundberg in 1 week AGUILERA MEDICATION CHANGES: Hydrocortisone 20 mg daily, Keflex for a total of 7 days LABS AND PROCEDURES PENDING AT DISCHARGE: No pending results. FOLLOW-UP APPOINTMENTS ALREADY SCHEDULED WITH A [facility] PROVIDER: Future Appointments (more content not included)... Normal [facility] CONSULT PROGon 03-10-2025 CONSULT PROG HNO ID: [id number] Author: JERRY MERLOS MD Service: Endocrinology Author Type: Physician Type: Consult Progress Note Filed: 03/10/2025 09:29 Note Text: ENDOCRINOLOGY CONSULT PROGRESS NOTE SERVICE DATE: 03/10/2025 Subjective Interval history of present illness Interval history: Diet: DIET REGULAR Sodium 143 (136-144 mmol/L), today. Steroids: Now off Hydrocortisone (was IV 50 mg q8 hours) Starting 03/10/25: Hydrocortisone 20 mg po daily Thyroid: Not on thyroid meds 03/09/2025: free T4 1.8 (0.9 - 1.7 ng/dL), Previous history: 69 year old male with worsening vision and bitemporal visual filed defect with subsequent imaging work-up revealing a 2.5 x 2 cm sellar lesion with notable suprasellar extension and optic chiasm compression, most consistent with a pituitary macroadenoma. Given these imaging findings and symptomatic presentation, decision made to proceed with surgery for resection. 02/22/2025: endocrine (outpatient) consult with Dr. Piedad Rock. Normal pituitary labs prior to surgery. 03/08/2025: Surgery: Endoscopic endonasal resection of pituitary macroadenoma Review of systems: Constitutional: No new malaise. Gastrointestinal: no nausea or vomiting. no anorexia. Endocrine: See history of present illness above. Medications: Current Facility-Administered Medications Medication Dose Route Frequency acetaminophen 650 mg tab(s) (TYLENOL) 650 mg ORAL q 6 H PRN ondansetron (PF) 4 mg injection (ZOFRAN) 4 mg INTRAVENOUS q 6 H PRN potassium chloride ER 20-40 mEq tab(s) (KLOR-CON) 20-40 mEq ORAL/FEEDING TUBE PRN magnesium sulfate iv piggyback in sterile water 2 g 50 mL 2 g INTRAVENOUS PRN phosphorus 500 mg tab(s) (K PHOS NEUTRAL) 500 mg ORAL/FEEDING TUBE PRN(NO DISPENSE) oxyCODONE IR 5-10 mg tab(s) (ROXICODONE) 5-10 mg ORAL q 4 H PRN NaCl 0.9% iv flush bag 20 mL INTRAVENOUS PRN labetalol 10 mg injection syringe (NORMODYNE) 10 mg INTRAVENOUS q 15 MIN PRN hydrocortisone 20 mg tab(s) (CORTEF) 20 mg ORAL DAILY cephALEXin (KEFLEX) cap(s) 750 mg 750 mg ORAL BID senna-docusate 8.6-50 mg 2 tablet (SENNA-S) 2 tablet ORAL/FEEDING TUBE BID folic acid 1 mg tab(s) 1 mg ORAL DAILY thiamine 100 mg tab(s) (VITAMIN B1) 100 mg ORAL/FEEDING TUBE TID oxymetazoline 0.05 % 2 spray (GENASAL) 2 spray EACH NOSTRIL BID PRN Objective Physical examination: BP 151/92 Pulse 89 Temp (Src) 97.5 (Oral) Resp 16 SpO2 94% O2 Therapy: Room Air Constitutional: see vitals above. General Appearance: non-toxic appearance. Psychiatric: alert, oriented. 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 Discharge planning: Follow up: - this patient follows with Dr. Piedad Rock Discharge endocrine medications: - if sent home today, send on: Hydrocortisone - 20 mg po AM Jerry Merlos MD March 10, 2025 0929 AM Please note, the time of this note does not reflect the time I saw this patient today, but the time of this documentation. Also note: Some elements copied from previous endocrinology notes dated 03/09/25, which have been updated where appropriate, and all reflect current medical decision making from today, March 10, 2025. SIGNATURE: Jerry Merlos MD PATIENT NAME: Zachery West DATE: March 10, 2025 TIME: 6:51 AM Normal [facility] MRI BRAIN WO/W IVCONon 03-10 MRI BRAIN WO/W IVCON * * *Final Report* * * DATE OF EXAM: Mar 10 2025 10:56AM [facility] 0295 - MRI BRAIN WO/W IVCON / PROCEDURE REASON: Brain/MANAGER AVIATION neoplasm, assess treatment response * * * * Physician Interpretation * * * * EXAMINATION: MRI BRAIN WO/W IVCON CLINICAL HISTORY: Follow-up status post surgery. TECHNIQUE: High resolution sagittal and coronal T1, coronal T2, and gadolinium enhanced, fat-suppressed sagittal and coronal T1-weighted images of the pituitary region. Contrast: 7 mL Elucirem IV COMPARISON: Brain MRI 03/08/2025. Head CT 03/08/2025. Sinus CT 03/08/2025.. RESULT: Postop Changes: There are interval postoperative findings related to endoscopic transnasal transsphenoidal resection of a prior similar/suprasellar mass. There is 9 mm nodular enhancement which extends towards the infundibulum, which may represent residual pituitary tissue. There is no evidence of hypoenhancing lesion to suggest residual neoplasm. Suprasellar Region: No evidence of a suprasellar mass. The optic apparatus is normal in appearance. Cavernous Sinuses: The cavernous sinuses are normal in appearance. A normal flow void is noted in the carotid siphons suggesting patency by spin echo criteria. Brain Parenchyma: The overlying hypothalamus is normal in appearance. The visualized parenchyma is otherwise normal in signal intensity and morphology. There is moderate generalized parenchymal volume loss. Skull Base: No evidence of a marrow replacement process in the underlying skull base. IMPRESSION: Interval postoperative findings related to endoscopic transnasal transsphenoidal resection of a prior similar/suprasellar mass. 9 mm nodular enhancement which extends towards the infundibulum, which may represent residual pituitary tissue. No evidence of hypoenhancing lesion to suggest residual neoplasm. Burlap Bag Sewer: [facility] Transcribe Date/Time: Mar 10 2025 11:39A Dictated by : COLLIN RADFORD MD This examination was interpreted and the report reviewed and electronically signed by: COLLIN RADFORD MD on Mar 10 2025 11:45AM EST [id number] Normal [facility] Magnesium SerPl-mCncon 03-10 Magnesium [Mass/Vol] 2.2 mg/dL Normal 1.7-2.3 [facility] Comment on above: Order Comment: Speci men Type: BLOOD SPECIMENOrdering Facility: [facility] Address: [address] [place] [address] Performed By: #### 2 4321-2, 62082-3, 2777-1 ####[facility] LAB[facility]ATORYCLIA [id number] [place] [address] [place] Phosphate SerPl-mCncon 03-10 Phosphate [Mass/Vol] 2.3 mg/dL Low 2.7-4.8 [facility] Comment on above: Order Comment: Speci men Type: BLOOD SPECIMENOrdering Facility: [facility] Address: [address] [place] [address] Performed By: #### 2 4321-2, , 2776-10 ####[facility] LABORATORYCLIA [id number] [place] [address] [facility] ALLIED HEALTHon 03-09-2025 ALLIED HEALTH HNO ID: [id number] Author: KWAKU MARTINEZ RT(R) Service: Radiology Author Type: Technologist Type: Allied Health Filed: 03/09/2025 07:02 Note Text: Epic chat sent to RN requesting MRI screening form. [id number]. Normal [facility] Basic metabolic 2000 panelon 03-09-2025 Anion gap [Moles/Vol] 15 mmol/L Normal 8-15 [facility] Comment on above: Order Comment: Speci men Type: BLOOD SPECIMENOrdering Facility: [facility] Address: [address] [place] [address] Performed By: #### 2 4321-2, , 2776-10, 3024-04 ####[facility]ORATORYCLIA [id number] [place] [address] [place] Calcium [Mass/Vol] 8.4 mg/dL Low 8.5-10.2 [facility] Comment on above: Order Comment: Speci men Type: BLOOD SPECIMENOrdering Facility: [facility] Address: [address] [place] [address] Performed By: #### 2 4321-2, , 2776-10, 3024-04 ####[facility]ATORYCLIA [id number] [place] [address] [place] Chloride [Moles/Vol] 103 mmol/L Normal 98-107 [facility] Comment on above: Order Comment: Speci men Type: BLOOD SPECIMENOrdering Facility: [facility] Address: [address] [place] [address] Performed By: #### 2 4321-2, , 2776-, 7 ####[facility]ATORYCLIA [id number] [place] [address] [place] CO2 [Moles/Vol] 19 mmol/L Low 22-30 [facility] Comment on above: Order Comment: Speci men Type: BLOOD SPECIMENOrdering Facility: [facility] Address: [address] [place] [address] Performed By: #### 2 4321-2, 21489-6, 2776-1, 3023-7 ####[facility]ATORYCLIA [id number] [place] [address] [place] [facility] Creatinine [Mass/Vol] 0.84 mg/dL Normal 0.73-1.22 [facility] Comment on above: Order Comment: Speci men Type: BLOOD SPECIMENOrdering Facility: [facility] Address: [address] [place] [address] Performed By: #### 2 4321-2, 28196-8, 2776-, 7 ####[facility]ITALCLIA [id number] [address] Creatinine and Glomerular filtration rate.predicted panel (S/P/Bld) 94 mL/min/1.73m??? Normal >=60 [facility] Comment on above: Order Comment: Speci men Type: BLOOD SPECIMENOrdering Facility: [facility] Address: [address] [place] [address] Result Comment: Yamila mated Glomerular Filtration Rate (eGFR) is calculated using the 2020 CKD-EPI creatinine equation. This equation utilizes serum creatinine, sex, and age as parameters. The creatinine assay has traceable calibration to isotope dilution-mass spectrometry. Refer to KDIGO guidelines for clinical interpretation. In patients with unstable renal function, e.g. those with acute kidney injury, the eGFR may not accurately reflect actual GFR. Performed By: #### 2 4321-2, 05808-4, 277-1, 302-7 ####[facility]ATORYCLIA [id number] [place] [address] [place] Glucose [Mass/Vol] 141 mg/dL High 74-99 [facility] Comment on above: Order Comment: Speci men Type: BLOOD SPECIMENOrdering Facility: [facility] Address: [address] [place] [address] Result Comment: The [place] Diabetes Association (ADA) provides guidance for cutoff values for fasting glucose and random glucose. The ADA defines fasting as no caloric intake for at least 8 hours. Fasting plasma glucose results between 100 to 125 mg/dL indicate increased risk for diabetes (prediabetes). Fasting plasma glucose results greater than or equal to 126 mg/dL meet the criteria for diagnosis of diabetes. In the absence of unequivocal hyperglycemia, results should be confirmed by repeat testing. In a patient with classic symptoms of hyperglycemia or hyperglycemic crisis, random plasma glucose results greater than or equal to 200 mg/dL meet the criteria for diagnosis of diabetes. Reference: Standards of Medical Care in Diabetes 2016, [place] [employer]. Diabetes Care. 2016.39(Suppl 1). Performed By: #### 2 4321-2, 40969-5, 2776-, 7 ####[facility]ATORYCLIA [id number] [place] [address] [place] Potassium [Moles/Vol] 3.7 mmol/L Normal 3.7-5.1 [facility] Comment on above: Order Comment: Speci men Type: BLOOD SPECIMENOrdering Facility: [facility] Address: [address] [place] [address] Performed By: #### 2 4321-2, , 2776-10, 7 ####[facility]ATORYCLIA [id number] [place] [address] [place] Sodium [Moles/Vol] 137 mmol/L Normal 136-144 [facility] Comment on above: Order Comment: Speci men Type: BLOOD SPECIMENOrdering Facility: [facility] Address: [address] [place] [address] Performed By: #### 2 4321-2, 69757-2, 2776-1, 3023-7 ####[facility]ATORYCLIA [id number] [place] [address] [place] Urea nitrogen [Mass/Vol] 12 mg/dL Normal 9-24 [facility] Comment on above: Order Comment: Speci men Type: BLOOD SPECIMENOrdering Facility: [facility] Address: [address] [place] [address] Performed By: #### 2 4321-2, 46226-3, 2777-1, 3024-7 ####[facility]ATORYCLIA [id number] [address] CBC panel Auto (Bld)on 03-09 Erythrocyte distribution width (RBC) [Ratio] 13.4 % Normal 11.5-15.0 [facility] Comment on above: Order Comment: Speci men Type: BLOOD SPECIMENOrdering Facility: [facility] Address: [address] [place] [address] Performed By: #### 5 8410-2 ####[facility]ORATORYCLIA [id number] [address] Hematocrit (Bld) [Volume fraction] 40.6 % Normal 39.0-51.0 [facility] Comment on above: Order Comment: Speci men Type: BLOOD SPECIMENOrdering Facility: [facility] Address: [address] [place] [address] Performed By: #### 5 8410-2 ####[facility]ORATORYCLIA [id number] [address] Hemoglobin (Bld) [Mass/Vol] 13.9 g/dL Normal 13.0-17.0 [facility] Comment on above: Order Comment: Speci men Type: BLOOD SPECIMENOrdering Facility: [facility] Address: [address] [place] [address] Performed By: #### 5 8410-2 ####[facility]ATORYCLIA [id number] [address] MCH (RBC) [Entitic mass] 32.5 pg Normal 26.0-34.0 [facility] Comment on above: Order Comment: Speci men Type: BLOOD SPECIMENOrdering Facility: [facility] Address: [address] [place] [address] Performed By: #### 5 8410-2 ####[facility]ATORYCLIA [id number] [address] MCHC (RBC) [Mass/Vol] 34.2 g/dL Normal 30.5-36.0 [facility] Comment on above: Order Comment: Speci men Type: BLOOD SPECIMENOrdering Facility: [facility] Address: [address] [place] [address] Performed By: #### 5 8410-2 ####[facility]ATORYCLIA [id number] [address] [place] MCV (RBC) [Entitic vol] 94.9 fL Normal 80.0-100.0 [facility] Comment on above: Order Comment: Speci men Type: BLOOD SPECIMENOrdering Facility: [facility] Address: [address] [place] [address] Performed By: #### 5 8410-2 ####[facility]ATORYCLIA [id number] [address] [place] Nucleated RBC (Bld) [#/Vol] 10*3/uL Normal <0.01 [facility] Comment on above: Order Comment: Speci men Type: BLOOD SPECIMENOrdering Facility: [facility] Address: [address] [place] [address] Performed By: #### 5 8410-2 ####[facility]ATORYCLIA [id number] [address] [place] Platelet mean volume (Bld) [Entitic vol] 10.8 fL Normal 9.0-12.7 [facility] Comment on above: Order Comment: Speci men Type: BLOOD SPECIMENOrdering Facility: [facility] Address: [address] [place] [address] Performed By: #### 5 8410-2 ####[facility]ATORYCLIA [id number] [address] [place] Platelets (Bld) [#/Vol] 175 10*3/uL Normal 150-400 [facility] Comment on above: Order Comment: Speci men Type: BLOOD SPECIMENOrdering Facility: [facility] Address: [address] [place] [address] Performed By: #### 5 8410-2 ####[facility]ATORYCLIA [id number] [address] OF [facility] RBC (Bld) [#/Vol] 4.28 10*6/uL Normal 4.20-6.00 [facility] Comment on above: Order Comment: Speci men Type: BLOOD SPECIMENOrdering Facility: [facility] Address: [address] [place] [address] Performed By: #### 5 8410-2 ####[facility]ATORYCLIA [id number] [address] WBC (Bld) [#/Vol] 11.50 10*3/uL High 3.70-11.00 [facility] Comment on above: Order Comment: Speci men Type: BLOOD SPECIMENOrdering Facility: [facility] Address: [address] [place] [address] Performed By: #### 5 8410-2 ####[facility]ATORYCLIA [id number] [address] CONSULT PROGon 03-09-2025 CONSULT PROG HNO ID: [id number] Author: JERRY MERLOS MD Service: Endocrinology Author Type: Physician Type: Consult Progress Note Filed: 03/09/2025 09:25 Note Text: ENDOCRINOLOGY CONSULT PROGRESS NOTE SERVICE DATE: 03/09/2025 Subjective Interval history of present illness Interval history: Diet: DIET REGULAR Sodium 137 (136-144 mmol/L), stable. Steroids: Today, on Hydrocortisone IV 50 mg q8 hours Starting 03/10/25: Hydrocortisone 20 mg po daily Thyroid: Not on thyroid meds 03/09/2025: free T4 1.8 (0.9 - 1.7 ng/dL), Previous history: 69 year old male with worsening vision and bitemporal visual filed defect with subsequent imaging work-up revealing a 2.5 x 2 cm sellar lesion with notable suprasellar extension and optic chiasm compression, most consistent with a pituitary macroadenoma. Given these imaging findings and symptomatic presentation, decision made to proceed with surgery for resection. 02/22/2025: endocrine (outpatient) consult with Dr. Piedad Rock. Normal pituitary labs prior to surgery. 03/08/2025: Surgery: Endoscopic endonasal resection of pituitary macroadenoma Review of systems: Constitutional: No new malaise. Gastrointestinal: no overt nausea or vomiting. no anorexia. Endocrine: See history of present illness above. Some thirst. Medications: Current Facility-Administered Medications Medication Dose Route Frequency NaCl 0.9% iv infusion 75 mL/hr INTRAVENOUS CONTINUOUS acetaminophen 650 mg tab(s) (TYLENOL) 650 mg ORAL q 6 H PRN ceFAZolin iv piggyback 2 g in D5W (iso-osmotic) 100 mL (ANCEF) 2 g INTRAVENOUS q 8 HR ondansetron (PF) 4 mg injection (ZOFRAN) 4 mg INTRAVENOUS q 6 H PRN potassium chloride ER 20-40 mEq tab(s) (KLOR-CON) 20-40 mEq ORAL/FEEDING TUBE PRN Or potassium chloride iv piggyback 20 mEq/100 mL 20 mEq INTRAVENOUS PRN magnesium sulfate iv piggyback in sterile water 2 g 50 mL 2 g INTRAVENOUS PRN phosphorus 500 mg tab(s) (K PHOS NEUTRAL) 500 mg ORAL/FEEDING TUBE PRN(NO DISPENSE) calcium gluconate iv piggyback 2 g in NaCl (iso-osmotic) 100 mL 2 g INTRAVENOUS PRN(NO DISPENSE) oxyCODONE IR 5-10 mg tab(s) (ROXICODONE) 5-10 mg ORAL q 4 H PRN senna-docusate 8.6-50 mg 1 tablet (SENNA-S) 1 tablet ORAL/FEEDING TUBE BID NaCl 0.9% iv flush bag 20 mL INTRAVENOUS PRN hydrocortisone sodium succinate (PF) 50 mg injection (Solu-CORTEF) 50 mg INTRAVENOUS q 8 H labetalol 10 mg injection syringe (NORMODYNE) 10 mg INTRAVENOUS q 15 MIN PRN [START ON 03/10/2025] hydrocortisone 20 mg tab(s) (CORTEF) 20 mg ORAL DAILY Objective Physical examination: BP 135/77 Pulse 84 Temp (Src) 97.8 (Oral) Resp 16 SpO2 95% O2 Therapy: Room Air Constitutional: see vitals above. General Appearance: non-toxic appearance. Psychiatric: alert, oriented. Assessment/Plan Assessment: Impression: Pituitary macroadenoma Now status post transphenoidal resection Plans: Steroids: On IV Hydrocortisone for today. Will start oral Hydrocortisone 5/18/25 Thyroid hormone: Not on thyroid meds at this time Can check free T4 level - added to lab collected this AM Free T4 1.8 (0.9 - 1.7 ng/dL), Thus free T4 ok at this point. If prolonged hospital stay, can recheck. Otherwise can re-address as outpatient with primary pbx inspector. Discharge planning: Follow up: - this patient follows with Dr. Piedad Rock Discharge endocrine medications: - if sent home today, send on: Hydrocortisone - dose to be determined Jerry Merlos MD March 09, 2025 0925 AM Please note, the time of this note does not reflect the time I saw this patient today, but the time of this documentation. Also note: Some elements copied from previous endocrinology notes dated 03/08/25, which have been updated where appropriate, and all reflect current medical decision making from today, March 09, 2025. SIGNATURE: Jerry Merlos MD PATIENT NAME: Zachery West DATE: March 09, 2025 TIME: 6:42 AM Normal [facility] Comprehensive metabolic 2000 panelon 03-09-2025 Albumin [Mass/Vol] 3.8 g/dL Low 3.9-4.9 [facility] Comment on above: Order Comment: Chidi silvestre Type: BLOOD SPECIMENOrdering Facility: [facility] Address: [address] [place] [address] Performed By: #### 2 4323-8 ####[facility]ORATORYCLIA [id number] [place] [address] [place] ALP [Catalytic activity/Vol] 48 U/L Normal 38-113 [facility] Comment on above: Order Comment: Chidi silvestre Type: BLOOD SPECIMENOrdering Facility: [facility] Address: [address] [place] [address] Performed By: #### 2 4323-8 ####[facility]ATORYCLIA [id number] [place] [address] [place] ALT With P-5'-P [Catalytic activity/Vol] 9 U/L Low 10-54 [facility] Comment on above: Order Comment: Speci men Type: BLOOD SPECIMENOrdering Facility: [facility] Address: [address] [place] [address] Performed By: #### 2 4323-8 ####[facility]ATORYCLIA [id number] [place] [address] [place] Anion gap [Moles/Vol] 13 mmol/L Normal 8-15 [facility] Comment on above: Order Comment: Speci men Type: BLOOD SPECIMENOrdering Facility: [facility] Address: [address] [place] [address] Performed By: #### 2 4323-8 ####[facility]ATORYCLIA [id number] [place] [address] [place] AST With P-5'-P [Catalytic activity/Vol] 13 U/L Low 14-40 [facility] Comment on above: Order Comment: Speci men Type: BLOOD SPECIMENOrdering Facility: [facility] Address: [address] [place] [address] Performed By: #### 2 4323-8 ####[facility]ATORYCLIA [id number] [place] [address] [place] Bilirubin [Mass/Vol] 0.3 mg/dL Normal 0.2-1.3 [facility] Comment on above: Order Comment: Speci men Type: BLOOD SPECIMENOrdering Facility: [facility] Address: [address] [place] [address] Performed By: #### 2 4323-8 ####[facility]ATORYCLIA [id number] [place] [address] [place] Calcium [Mass/Vol] 8.5 mg/dL Normal 8.5-10.2 [facility] Comment on above: Order Comment: Speci men Type: BLOOD SPECIMENOrdering Facility: [facility] Address: [address] [place] [address] Performed By: #### 2 4323-8 ####[facility]ATORYCLIA [id number] [address] [place] Chloride [Moles/Vol] 103 mmol/L Normal 98-107 [facility] Comment on above: Order Comment: Speci men Type: BLOOD SPECIMENOrdering Facility: [facility] Address: [address] [place] [address] Performed By: #### 2 4323-8 ####[facility]ORYCLIA [id number] [address] [place] CO2 [Moles/Vol] 22 mmol/L Normal 22-30 [facility] Comment on above: Order Comment: Speci men Type: BLOOD SPECIMENOrdering Facility: [facility] Address: [address] [place] [address] Performed By: #### 2 4323-8 ####[facility]ATORYCLIA [id number] [address] OF [facility] Creatinine [Mass/Vol] 0.84 mg/dL Normal 0.73-1.22 [facility] Comment on above: Order Comment: Speci men Type: BLOOD SPECIMENOrdering Facility: [facility] Address: [address] [place] [address] Performed By: #### 2 4323-8 ####[facility]ATORYCLIA [id number] [address] Creatinine and Glomerular filtration rate.predicted panel (S/P/Bld) 94 mL/min/1.73m??? Normal >=60 [facility] Comment on above: Order Comment: Speci men Type: BLOOD SPECIMENOrdering Facility: [facility] Address: [address] [place] [address] Result Comment: Yamila mated Glomerular Filtration Rate (eGFR) is calculated using the 2020 CKD-EPI creatinine equation. This equation utilizes serum creatinine, sex, and age as parameters. The creatinine assay has traceable calibration to isotope dilution-mass spectrometry. Refer to KDIGO guidelines for clinical interpretation. In patients with unstable renal function, e.g. those with acute kidney injury, the eGFR may not accurately reflect actual GFR. Performed By: #### 2 4323-8 ####[facility]ATORYCLIA [id number] [place] [address] [place] Glucose [Mass/Vol] 139 mg/dL High 74-99 [facility] Comment on above: Order Comment: Speci men Type: BLOOD SPECIMENOrdering Facility: [facility] Address: [address] [place] [address] Result Comment: The [place] Diabetes Association (ADA) provides guidance for cutoff values for fasting glucose and random glucose. The ADA defines fasting as no caloric intake for at least 8 hours. Fasting plasma glucose results between 100 to 125 mg/dL indicate increased risk for diabetes (prediabetes). Fasting plasma glucose results greater than or equal to 126 mg/dL meet the criteria for diagnosis of diabetes. In the absence of unequivocal hyperglycemia, results should be confirmed by repeat testing. In a patient with classic symptoms of hyperglycemia or hyperglycemic crisis, random plasma glucose results greater than or equal to 200 mg/dL meet the criteria for diagnosis of diabetes. Reference: Standards of Medical Care in Diabetes 2016, [place] [employer]. Diabetes Care. 2016.39(Suppl 1). Performed By: #### 2 4323-8 ####[facility]ATORYCLIA [id number] [place] [address] [place] Potassium [Moles/Vol] 3.8 mmol/L Normal 3.7-5.1 [facility] Comment on above: Order Comment: Speci men Type: BLOOD SPECIMENOrdering Facility: [facility] Address: [address] [place] [address] Performed By: #### 2 4323-8 ####[facility]ATORYCLIA [id number] [place] [address] [place] Protein [Mass/Vol] 6.6 g/dL Normal 6.3-8.0 [facility] Comment on above: Order Comment: Speci men Type: BLOOD SPECIMENOrdering Facility: [facility] Address: [address] [place] [address] Performed By: #### 2 4323-8 ####[facility]ATORYCLIA [id number] [place] [address] [place] Sodium [Moles/Vol] 138 mmol/L Normal 136-144 [facility] Comment on above: Order Comment: Speci men Type: BLOOD SPECIMENOrdering Facility: [facility] Address: [address] [place] [address] Performed By: #### 2 4323-8 ####[facility]ATORYCLIA [id number] [place] [address] [place] Urea nitrogen [Mass/Vol] 11 mg/dL Normal 9-24 [facility] Comment on above: Order Comment: Speci men Type: BLOOD SPECIMENOrdering Facility: [facility] Address: [address] [place] [address] Performed By: #### 2 4323-8 ####[facility] LABORATORYCLIA [id number] [place] [address] [place] Magnesium SerPl-ncon 03-09 Magnesium [Mass/Vol] 1.9 mg/dL Normal 1.7-2.3 [facility] Comment on above: Order Comment: Speci men Type: BLOOD SPECIMENOrdering Facility: [facility] Address: [address] [place] [address] Performed By: #### 2 4321-2, 84115-6, 2777-, 3023-7 ####[facility] LABORATORYCLIA [id number] [place] [address] [place] Phosphate SerPl-mCncon 03-09 Phosphate [Mass/Vol] 3.2 mg/dL Normal 2.7-4.8 [facility] Comment on above: Order Comment: Speci men Type: BLOOD SPECIMENOrdering Facility: [facility] Address: [address] [place] [address] Performed By: #### 2 4321-2, , 2777-, 302-7 ####[facility] LABORATORYCLIA [id number] [place] [address] [place] T4 Free SerPl-mCncon 025 Free T4 [Mass/Vol] 1.8 ng/dL High 0.9-1.7 [facility] Comment on above: Order Comment: Speci men Type: BLOOD SPECIMENOrdering Facility: [facility] Address: [address] [place] [address] Performed By: #### 2 4321-2, 38911-1, 2777-1, 3024-7 ####[facility] LABORATORYCLIA [id number] [place] [address] [facility] ALLIED HEALTHon 03-08-2025 ALLIED HEALTH HNO ID: [id number] Author: CONNOR MORGAN Chaplain Service: ? Author Type: Mine Superintendent Type: Allied Health Filed: 03/08/2025 06:42 Note Text: SPIRITUAL CARE PROGRESS NOTE SERVICE DATE: 03/08/2025 SERVICE TIME: 6 AM Pre-surgery Patient request for prayer, prayer given To contact the Spiritual Care Department: Please call [phone]. SIGNATURE: Chaplain Tesfaye PATIENT NAME: Zachery West DATE: March 08, 2025 TIME: 6:41 AM PAGER/CONTACT #: [phone] Normal [facility] ANES POSTPROC EVALon 025 ANES POSTPROC EVAL HNO ID: [id number] Author: TODD CLARK DO Service: Anesthesiology Author Type: Anesthesiologist Type: Anesthesia Postprocedure Evaluation Filed: 03/08/2025 13:18 Note Text: POST ANESTHESIA EVALUATION NOTE : 1955 Procedure Summary Date: 03/08/25 Room / Location: MD OR / MD OR Anesthesia Start: 817 Anesthesia Stop: 1202 Procedures: NEUROENDOSCOPY INTRACRANIAL W/ EXCISION OF PITUITARY TUMOR TRANS-SPHENOIDAL APPROACH (Head) BRAINLAB STEREOTACTIC COMPUTER-ASSISTED NAVIGATIONAL PROCEDURE CRANIAL (Head) MICROSURGICAL TECHNIQUE FOR CRANIOTOMY PROCEDURES (Head) NEUROENDOSCOPY INTRACRANIAL W/ EXCISION OF PITUITARY TUMOR TRANS-SPHENOIDAL APPROACH Diagnosis: Pituitary mass (HCC) (Pituitary mass (HCC) [E23.6]) Surgeons: Kim Jung MD; Shiva Lundberg MD Responsible Provider: Eduardo, Todd, DO Anesthesia Type: general ASA Status: 2 Anesthesia Type: general Airway Type: ETT Last Vitals Vitals Value Taken Time BP 126/77 03/08/25 1245 Temp 36.2 ?C (97.2 ?F) 03/08/25 1245 Pulse 78 03/08/25 1316 Resp 14 03/08/25 1316 SpO2 100 % 03/08/25 1316 Vitals shown include unfiled device data. Post Anesthesia Patient Status Patient Evaluation: bedside. Anticipated Disposition: ICU planned admission. Neurological Status: aware and responsive. Pulmonary Status: breathing comfortably on room air Airway Control: returned to baseline unsupported. Cardiovascular Status: stable. Pain Management: clinically adequate Postoperative Hydration: acceptable. Intraoperative Events: no significant anesthesia events Post Operative Nausea/Vomiting Status: no significant post operative nausea or vomiting Recommendation: further care per PACU/ICU/floor team. Anesthesia Observations No Documentation SIGNATURE: Tdod Clark DO PATIENT NAME: Zachery West DATE: March 08, 2025 TIME: 1:17 PM CSN: [id number] Normal [facility] ANES PRE-OPon 03-08-2025 ANES PRE-OP HNO ID: [id number] Author: TODD CLARK DO Service: Anesthesiology Author Type: Anesthesiologist Type: Anesthesia Preprocedure Evaluation Filed: 03/08/2025 08:12 Note Text: ANESTHESIOLOGY DAY OF SURGERY NOTE : 1955 Procedure Information Date/Time: 03/08/25 0800 Procedures: NEUROENDOSCOPY INTRACRANIAL W/ EXCISION OF PITUITARY TUMOR TRANS-SPHENOIDAL APPROACH (Head) BRAINLAB STEREOTACTIC COMPUTER-ASSISTED NAVIGATIONAL PROCEDURE CRANIAL (Head) MICROSURGICAL TECHNIQUE FOR CRANIOTOMY PROCEDURES (Head) NEUROENDOSCOPY INTRACRANIAL W/ EXCISION OF PITUITARY TUMOR TRANS-SPHENOIDAL APPROACH Location: [place] OR 26 / [place] Surgeons: Kim Jung MD; Shiva Lundberg MD Estimated body mass index is 26.26 kg/m? as calculated from the following: Height as of 03/04/25: 177.8 cm (5' 10). Weight as of 03/04/25: 83 kg (183 lb). Most recent hematocrit and potassium results: Hematocrit 44.1 03/04/2025 Potassium 4.6 03/04/2025 Relevant Problems No relevant active problems I - PHYSICAL EVALUATION AIRWAY Patient intubated: No. Tracheostomy tube not present Mallampati: II. TM distance: >3 FB. Neck ROM: full ROM without neurological symptoms. Mouth opening: adequate. Short neck: no. Thick neck: no DENTAL Dental findings: teeth intact. Additional exam findings: yes. Other findings: Pituitary tumor with vision changes . II - ANESTHESIA PLAN ASA Score: 2 Anesthetic Plan: general Airway type: ETT The patient is not a current smoker. NPO Status: adequate Beta Micha Monitoring Plan Monitoring plan: standard ASA and invasive hemodynamic monitoring. Monitoring method: arterial Line Post Procedure Analgesic Plan Postoperative analgesic plan: parenteral or oral opioids and multimodal analgesia. Informed Consent Anesthetic risks, benefits, alternatives, personnel and consent discussed: yes. Patient / Responsible Republican agrees to proceed: yes Patient / Surrogate agrees to blood products: Yes DNR status not reviewed with patient and/or family prior to surgery. Significant changes in the patient condition since the History and Physical, not otherwise documented in primary service progress note: no. Potential Anesthesia issues that may suggest increased risk of complications or contraindication to planned procedure: none. Discussed the possibility of lip / dental damage: yes Vitals Value Taken Time BP 134/99 03/08/25 0652 Pulse 64 03/08/25 0652 Resp 16 03/08/25 0652 Temp 36.2 ?C (97.2 ?F) 03/08/25 0652 SpO2 99 % 03/08/25 0652 Facility-Administered Medications as of 03/08/2025 Medication Dose Route Frequency iv contrast (radiology procedure) INTRAVENOUS DIRECTED PRN lidocaine (PF) 10 mg/mL (1 %) 1-2 mg injection (XYLOCAINE) 0.1-0.2 mL INTRADERMAL PRN lactated ringers iv infusion 5-30 mL/hr INTRAVENOUS CONTINUOUS NaCl 0.9% iv flush bag 20 mL INTRAVENOUS PRN [COMPLETED] acetaminophen 975 mg tab(s) (TYLENOL) 975 mg ORAL Pre-Op Once ceFAZolin iv piggyback 2 g in D5W (iso-osmotic) 100 mL (ANCEF) 2 g INTRAVENOUS Pre-Op Once oxymetazoline 0.05 % 6 spray (GENASAL) 6 spray EACH NOSTRIL Pre-Op Once Outpatient Medications as of 03/08/2025 Medication Sig beta-carotene,A,-vits C,E/mins (OCUVITE ORAL) Take by mouth once daily. magnesium oxide 200 mg magnesium chew Take 1,200 mg by mouth. Zinc Mth/Copper/Saw Palm/Gnsg (PROSTATE HEALTH FORMULA ORAL) Take by mouth once daily. Tootie whatley I have interviewed and examined the patient. I have reviewed the medical record and/or the pre-anesthesia evaluation, pertinent labs, and test results. This contains updated information obtained within 48 hours of Surgery/Procedure. SIGNATURE: Todd Clark DO PATIENT NAME: Zachery West DATE: March 08, 2025 TIME: 8:11 AM CSN: [id number] Normal [facility] Basic metabolic 2000 panelon 03-08-2025 Anion gap [Moles/Vol] 13 mmol/L Normal 8-15 [facility] Comment on above: Order Comment: Speci men Type: BLOOD SPECIMENOrdering Facility: [facility] Address: [address] [place] [address] Performed By: #### 2 4321-2, 2776-10, ####[facility]PITALCLIA [id number] [place] [address] [place] Calcium [Mass/Vol] 8.6 mg/dL Normal 8.5-10.2 [facility] Comment on above: Order Comment: Speci men Type: BLOOD SPECIMENOrdering Facility: [facility] Address: [address] [place] [address] Performed By: #### 2 4321-2, 2776-10, ####[facility] LABORATORYCLIA [id number] [place] [address] [place] Chloride [Moles/Vol] 104 mmol/L Normal 98-107 [facility] Comment on above: Order Comment: Speci men Type: BLOOD SPECIMENOrdering Facility: [facility] Address: [address] [place] [address] Performed By: #### 2 4321-2, 27704-23, ####[facility] LABORATORYCLIA [id number] [place] [address] [place] CO2 [Moles/Vol] 21 mmol/L Low 22-30 [facility] Comment on above: Order Comment: Speci men Type: BLOOD SPECIMENOrdering Facility: [facility] Address: [address] [place] [address] Performed By: #### 2 4321-2, 27704-23, ####[facility] LABORATORYCLIA [id number] [place] [address] [place] [facility] Creatinine [Mass/Vol] 0.86 mg/dL Normal 0.73-1.22 [facility] Comment on above: Order Comment: Speci men Type: BLOOD SPECIMENOrdering Facility: [facility] Address: [address] [place] [address] Performed By: #### 2 4321-2, 2776-10, ####[facility]PITALCLIA [id number] [address] Creatinine and Glomerular filtration rate.predicted panel (S/P/Bld) 93 mL/min/1.73m??? Normal >=60 [facility] Comment on above: Order Comment: Speci men Type: BLOOD SPECIMENOrdering Facility: [facility] Address: [address] [place] [address] Result Comment: Yamila mated Glomerular Filtration Rate (eGFR) is calculated using the 2020 CKD-EPI creatinine equation. This equation utilizes serum creatinine, sex, and age as parameters. The creatinine assay has traceable calibration to isotope dilution-mass spectrometry. Refer to KDIGO guidelines for clinical interpretation. In patients with unstable renal function, e.g. those with acute kidney injury, the eGFR may not accurately reflect actual GFR. Performed By: #### 2 4321-2, 27704-23, ####[facility] LABORATORYCLIA [id number] [place] [id number] [place] Glucose [Mass/Vol] 139 mg/dL High 74-99 [facility] Comment on above: Order Comment: Speci men Type: BLOOD SPECIMENOrdering Facility: [facility] Address: [address] [place] [address] Result Comment: The [place] Diabetes Association (ADA) provides guidance for cutoff values for fasting glucose and random glucose. The ADA defines fasting as no caloric intake for at least 8 hours. Fasting plasma glucose results between 100 to 125 mg/dL indicate increased risk for diabetes (prediabetes). Fasting plasma glucose results greater than or equal to 126 mg/dL meet the criteria for diagnosis of diabetes. In the absence of unequivocal hyperglycemia, results should be confirmed by repeat testing. In a patient with classic symptoms of hyperglycemia or hyperglycemic crisis, random plasma glucose results greater than or equal to 200 mg/dL meet the criteria for diagnosis of diabetes. Reference: Standards of Medical Care in Diabetes 2016, [place] Diabetes Association. Diabetes Care. 2016.39(Suppl 1). Performed By: #### 2 4321-2, 2776-10, ####[facility]ORATORYCLIA [id number] [place] [address] [place] Potassium [Moles/Vol] 4.0 mmol/L Normal 3.7-5.1 [facility] Comment on above: Order Comment: Chidi silvestre Type: BLOOD SPECIMENOrdering Facility: [facility] Address: [address] [place] [address] Performed By: #### 2 4321-2, 2776-10, ####[facility] LABORATORYCLIA [id number] [place] [address] [place] Sodium [Moles/Vol] 138 mmol/L Normal 136-144 [facility] Comment on above: Order Comment: Bipini men Type: BLOOD SPECIMENOrdering Facility: [facility] Address: [address] [place] [address] Performed By: #### 2 4321-2, 2776-10, ####[facility]ORATORYCLIA [id number] [place] [address] [place] Urea nitrogen [Mass/Vol] 18 mg/dL Normal 9-24 [facility] Comment on above: Order Comment: Chidi men Type: BLOOD SPECIMENOrdering Facility: [facility] Address: [address] [place] [address] Performed By: #### 2 4321-2, 2776-10, 05300-1 ####[facility]ORATORYCLIA [id number] [place] [address] [place] Anion gap [Moles/Vol] 11 mmol/L Normal 8-15 [facility] Comment on above: Order Comment: Speci men Type: BLOOD SPECIMENOrdering Facility: [facility] Address: [address] [place] [address] Performed By: #### 2 4321-2 ####[facility] LABORATORYCLIA [id number] [place] [address] [place] Calcium [Mass/Vol] 8.2 mg/dL Low 8.5-10.2 [facility] Comment on above: Order Comment: Speci men Type: BLOOD SPECIMENOrdering Facility: [facility] Address: [address] [place] [address] Performed By: #### 2 4321-2 ####[facility]ORATORYCLIA [id number] [place] [address] [place] Chloride [Moles/Vol] 104 mmol/L Normal 98-107 [facility] Comment on above: Order Comment: Speci men Type: BLOOD SPECIMENOrdering Facility: [facility] Address: [address] [place] [address] Performed By: #### 2 4321-2 ####[facility]ORATORYCLIA [id number] [place] [address] [place] CO2 [Moles/Vol] 23 mmol/L Normal 22-30 [facility] Comment on above: Order Comment: Speci men Type: BLOOD SPECIMENOrdering Facility: [facility] Address: [address] [place] [address] Performed By: #### 2 4321-2 ####[facility]ORATORYCLIA [id number] [place] [address] [place] Creatinine [Mass/Vol] 0.94 mg/dL Normal 0.73-1.22 [facility] Comment on above: Order Comment: Speci men Type: BLOOD SPECIMENOrdering Facility: [facility] Address: [address] [place], [place] [address] Performed By: #### 2 4321-2 ####[facility] LABORATORYCLIA [id number] [place] [id number] [place] [facility] Creatinine and Glomerular filtration rate.predicted panel (S/P/Bld) 87 mL/min/1.73m??? Normal >=60 [facility] Comment on above: Order Comment: Chidi silvestre Type: BLOOD SPECIMENOrdering Facility: [facility] Address: [address] [place] [address] Result Comment: Yamila mated Glomerular Filtration Rate (eGFR) is calculated using the 2020 CKD-EPI creatinine equation. This equation utilizes serum creatinine, sex, and age as parameters. The creatinine assay has traceable calibration to isotope dilution-mass spectrometry. Refer to KDIGO guidelines for clinical interpretation. In patients with unstable renal function, e.g. those with acute kidney injury, the eGFR may not accurately reflect actual GFR. Performed By: #### 2 4321-2 ####[facility] HOSPITALIA [id number] [place] [address] [place] Glucose [Mass/Vol] 135 mg/dL High 74-99 [facility] Comment on above: Order Comment: Chidi silvestre Type: BLOOD SPECIMENOrdering Facility: [facility] Address: [address] [place] [address] Result Comment: The [place] Diabetes Association (ADA) provides guidance for cutoff values for fasting glucose and random glucose. The ADA defines fasting as no caloric intake for at least 8 hours. Fasting plasma glucose results between 100 to 125 mg/dL indicate increased risk for diabetes (prediabetes). Fasting plasma glucose results greater than or equal to 126 mg/dL meet the criteria for diagnosis of diabetes. In the absence of unequivocal hyperglycemia, results should be confirmed by repeat testing. In a patient with classic symptoms of hyperglycemia or hyperglycemic crisis, random plasma glucose results greater than or equal to 200 mg/dL meet the criteria for diagnosis of diabetes. Reference: Standards of Medical Care in Diabetes 2016, [place] Diabetes [employer]. Diabetes Care. 2016.39(Suppl 1). Performed By: #### 2 4321-2 ####[facility] LABORATORYCLIA [id number] [place] [id number] [place] Potassium [Moles/Vol] 4.4 mmol/L Normal 3.7-5.1 [facility] Comment on above: Order Comment: Speci men Type: BLOOD SPECIMENOrdering Facility: [facility] Address: [address] [place] [address] Performed By: #### 2 4321-2 ####[facility] LABORATORYCLIA [id number] [address] STATES OF [facility] Sodium [Moles/Vol] 138 mmol/L Normal 136-144 [facility] Comment on above: Order Comment: Speci men Type: BLOOD SPECIMENOrdering Facility: [facility] Address: [address] [place] [address] Performed By: #### 2 4321-2 ####[facility]ORATORYCLIA [id number] [address] [place] Urea nitrogen [Mass/Vol] 20 mg/dL Normal 9-24 [facility] Comment on above: Order Comment: Speci men Type: BLOOD SPECIMENOrdering Facility: [facility] Address: [address] [place] [address] Performed By: #### 2 4321-2 ####[facility]ORATORYCLIA [id number] [address] STATES OF [facility] CBC panel Auto (Bld)on 03-08 Erythrocyte distribution width (RBC) [Ratio] 13.3 % Normal 11.5-15.0 [facility] Comment on above: Order Comment: Speci men Type: BLOOD SPECIMENOrdering Facility: [facility] Address: [address] [place] [address] Performed By: #### 5 8410-2 ####[facility] LABORATORYCLIA [id number] [address] Hematocrit (Bld) [Volume fraction] 43.1 % Normal 39.0-51.0 [facility] Comment on above: Order Comment: Speci men Type: BLOOD SPECIMENOrdering Facility: [facility] Address: [address] [place] [address] Performed By: #### 5 8410-2 ####[facility] LABORATORYCLIA [id number] [address] Hemoglobin (Bld) [Mass/Vol] 14.7 g/dL Normal 13.0-17.0 [facility] Comment on above: Order Comment: Speci men Type: BLOOD SPECIMENOrdering Facility: [facility] Address: [address] [place] [address] Performed By: #### 5 8410-2 ####[facility] LABORATORYCLIA [id number] [address] MCH (RBC) [Entitic mass] 32.5 pg Normal 26.0-34.0 [facility] Comment on above: Order Comment: Speci men Type: BLOOD SPECIMENOrdering Facility: [facility] Address: [address] [place] [address] Performed By: #### 5 8410-2 ####[facility] LABORATORYCLIA [id number] [address] MCHC (RBC) [Mass/Vol] 34.1 g/dL Normal 30.5-36.0 [facility] Comment on above: Order Comment: Speci men Type: BLOOD SPECIMENOrdering Facility: [facility] Address: [address] [place] [address] Performed By: #### 5 8410-2 ####[facility] LABORATORYCLIA [id number] [address] MCV (RBC) [Entitic vol] 95.4 fL Normal 80.0-100.0 [facility] Comment on above: Order Comment: Speci men Type: BLOOD SPECIMENOrdering Facility: [facility] Address: [address] [place] [address] Performed By: #### 5 8410-2 ####[facility] LABORATORYCLIA [id number] [address] Nucleated RBC (Bld) [#/Vol] 10*3/uL Normal <0.01 [facility] Comment on above: Order Comment: Speci men Type: BLOOD SPECIMENOrdering Facility: [facility] Address: [address] [place] [address] Performed By: #### 5 8410-2 ####[facility]ORATORYCLIA [id number] [address] [place] Platelet mean volume (Bld) [Entitic vol] 10.9 fL Normal 9.0-12.7 [facility] Comment on above: Order Comment: Speci men Type: BLOOD SPECIMENOrdering Facility: [facility] Address: [address] [place] [address] Performed By: #### 5 8410-2 ####[facility] LABORATORYCLIA [id number] [address] [place] Platelets (Bld) [#/Vol] 164 10*3/uL Normal 150-400 [facility] Comment on above: Order Comment: Speci men Type: BLOOD SPECIMENOrdering Facility: [facility] Address: [address] [place] [address] Performed By: #### 5 8410-2 ####[facility]ORATORYCLIA [id number] [place] [address] [place] RBC (Bld) [#/Vol] 4.52 10*6/uL Normal 4.20-6.00 [facility] Comment on above: Order Comment: Speci men Type: BLOOD SPECIMENOrdering Facility: [facility] Address: [address] [place] [address] Performed By: #### 5 8410-2 ####[facility]ATORYCLIA [id number] [place] [address] [place] WBC (Bld) [#/Vol] 7.44 10*3/uL Normal 3.70-11.00 [facility] Comment on above: Order Comment: Speci men Type: BLOOD SPECIMENOrdering Facility: [facility] Address: [address] [place] [address] Performed By: #### 5 8410-2 ####[facility] LABORATORYCLIA [id number] [place] [address] CONFIRM BLOOD TYPEon 025 ABO A Normal [facility] Comment on above: Order Comment: Speci men Type: BLOOD SPECIMENOrdering Facility: [facility] Address: [address] [place] [address] Performed By: #### C ONABO ####[facility] BANKCLIA [id number] [address] Rh Nom (Bld) Negative Normal [facility] Comment on above: Order Comment: Speci men Type: BLOOD SPECIMENOrdering Facility: [facility] Address: [address] [place] [address] Performed By: #### C ONABO ####[facility] BANKCLIA [id number] [address] CONSULTon 03-08-2025 CONSULT HNO ID: [id number] Author: PIEDAD ROCK MD Service: Endocrinology Author Type: Physician Type: Consults Filed: 03/08/2025 15:45 Note Text: PITUITARY INCIDENTALOMA INITIAL CONSULT PATIENT NAME: Zachery West SERVICE DATE: 03/08/2025 SERVICE TIME: 3:31 PM REASON FOR CONSULT: Pituitary tumor s/p TSS for resection REQUESTING PHYSICIAN: Kim Jung [address] [facility] [address] Subjective HISTORY OF PRESENT ILLNESS: Mr. West is a 69 year old male presenting as a new patient consultation regarding an incidentally detected pituitary mass. See by me in the office 02/22/25. This was initially detected during a routine eye exam when he was found with visual field defect; Denies diplopia; no blurred vision, no headaches; no nausea, no vomiting; no lightheadedness or dizziness; Was further evaluated with a pituitary MRI and found with a 2.5 cm pituitary tumor with suprasellar extension and optic chiasm compression; Was evaluated by Neurosurgery Dr Jung and ENT Dr Lundberg and recommended surgical decommpressin after seen by Endocrinology; Today presents accompanies by his ; has no complaints; Pituitary function is normal; pituitary tumor is non functional;. Imaging characteristics are 2.5 cm pituitary mass with optic chiasm compression . Denies diplopia; no blurred vision, no headaches; no nausea, no vomiting; no lightheadedness or dizziness; Patient seen today s/p TSS for pituitary tumor resection; seen in NSICU with and daughter at bedside; awake, alert, slight MOORE; + thirst; + nasal package in place DIET REGULAR Recent Labs 03/08/25 1418 03/08/25 1212 GLUC 139* 135* PAST MEDICAL HISTORY Diagnosis Date Pituitary mass (HCC) 01/2025 PAST SURGICAL HISTORY Procedure Laterality Date REMV CATARACT EXTRACAP,INSERT LENS Bilateral 1990s FAMILY HISTORY Problem Relation Age of Onset Stroke Mother Social History Tobacco Use Smoking status: Never Smokeless tobacco: Never Vaping Use Vaping status: Never Used Substance Use Topics Alcohol use: Yes Comment: daily Drug use: Never MEDICATIONS: Current Facility-Administered Medications Medication Dose Route Frequency Provider Last Rate Last Admin iv contrast (radiology procedure) INTRAVENOUS DIRECTED PRN Richard Oliver APRN.EDITOR NEWS NaCl 0.9% iv infusion 75 mL/hr INTRAVENOUS CONTINUOUS Richard Oliver APRN.EDITOR NEWS 75 mL/hr at 03/08/25 1330 75 mL/hr at 03/08/25 1330 acetaminophen 650 mg tab(s) (TYLENOL) 650 mg ORAL q 6 H PRN Richard Oliver APRN.EDITOR NEWS ceFAZolin iv piggyback 2 g in D5W (iso-osmotic) 100 mL (ANCEF) 2 g INTRAVENOUS q 8 HR Richard Oliver APRN.EDITOR NEWS 200 mL/hr at 03/08/25 1519 2 g at 03/08/25 1519 ondansetron (PF) 4 mg injection (ZOFRAN) 4 mg INTRAVENOUS q 6 H PRN Richard Oliver APRN.EDITOR NEWS potassium chloride ER 20-40 mEq tab(s) (KLOR-CON) 20-40 mEq ORAL/FEEDING TUBE PRN Richard Oliver APRN.EDITOR NEWS Or potassium chloride iv piggyback 20 mEq/100 mL 20 mEq INTRAVENOUS PRN Richard Oliver APRN.EDITOR NEWS magnesium sulfate iv piggyback in sterile water 2 g 50 mL 2 g INTRAVENOUS PRN Richard Oliver APRN.EDITOR NEWS phosphorus 500 mg tab(s) (K PHOS NEUTRAL) 500 mg ORAL/FEEDING TUBE PRN(NO DISPENSE) Richard Oliver APRN.EDITOR NEWS calcium gluconate iv piggyback 2 g in NaCl (iso-osmotic) 100 mL 2 g INTRAVENOUS PRN(NO DISPENSE) Richard Oliver APRN.EDITOR NEWS oxyCODONE IR 5-10 mg tab(s) (ROXICODONE) 5-10 mg ORAL q 4 H PRN Richard Oliver APRN.EDITOR NEWS 10 mg at 03/08/25 1409 senna-docusate 8.6-50 mg 1 tablet (SENNA-S) 1 tablet ORAL/FEEDING TUBE BID Richard Oliver APRN.EDITOR NEWS 1 tablet at 03/08/25 1409 NaCl 0.9% iv flush bag 20 mL INTRAVENOUS PRN Richard Oliver APRN.EDITOR NEWS hydrocortisone sodium succinate (PF) 100 mg injection (Solu-CORTEF) 100 mg INTRAVENOUS q 8 H Zeny Deleon PA-C 100 mg at 03/08/25 1511 Followed by [START ON 03/09/2025] hydrocortisone sodium succinate (PF) 50 mg injection (Solu-CORTEF) 50 mg INTRAVENOUS q 8 H Zeny Deleon PA-C labetalol 10 mg injection syringe (NORMODYNE) 10 mg INTRAVENOUS q 15 MIN PRN Mendy Amaro MD ALLERGIES No Known Allergies COMPLETE REVIEW OF SYSTEMS: GENERAL: Fatigue: no Malaise: no Weight: stable / unchanged Change in appearance: no HEAD AND NECK: some peripheral vision disturbance CVS: Negative PULMONARY: Negative GI: Negative system: Negative MUSCULOSKELETAL: Normal OTHER: Galactorrhea: no Mood changes: no Diaphoresis: No Easy Bruising: No Overall, the patient is feeling well. Objective PHYSICAL EXAM: HEADANDNECK Visual Field Defect yes, slight left hemianopsia, SKIN Normal, NEURO Normal, no focal neurological deficit, MUSCULOSKELETAL Normal, CVS Normal, PULMONARY Normal, ABDOMEN Normal, GYNECOMASTIA no, and OBESITY No DATA: Diagnostic tests reviewed for today's visit: Most recent labs and imaging results. Impression/Recommendations Pituitary mass 2.5 cm s/p resection; pituitary function wa (more content not included)... Normal [facility] CT BRAIN WO IVCONon 03-08-20 CT BRAIN WO IVCON * * *Final Report* * * DATE OF EXAM: Mar 08 2025 1:04PM [facility] 0504 - CT BRAIN WO IVCON / PROCEDURE REASON: Craniotomy, post-op * * * * Physician Interpretation * * * * EXAMINATION: CT BRAIN WO IVCON CLINICAL HISTORY: Postoperative craniotomy. Tumor resection. TECHNIQUE: Serial axial images without IV contrast were obtained from the vertex to the foramen magnum. MQ: CTBWO_3 CT Radiation dose: Integrated Dose-Length Product (DLP) for this visit = 808 mGy*cm CT Dose Reduction Employed: Iterative recon COMPARISON: 03/08/2025. RESULT: Post-operative change: Expected postsurgical changes from transsphenoidal resection of pituitary mass. Small amount of blood products and fluid within resection bed. Air-fluid levels within the sphenoid sinuses. Trace air-fluid level within the left maxillary sinus. Scattered opacification of ethmoid air cells. Acute change: No evidence of an acute infarct or other acute parenchymal process. Hemorrhage: No evidence of acute intracranial hemorrhage. ECASS hemorrhagic transformation score: Not Applicable Mass Lesion / Mass Effect: There is no evidence of an intracranial mass or extraaxial fluid collection. No significant mass effect. Chronic change: Scattered patchy foci of low attenuation are present within the supratentorial white matter, a nonspecific finding that most commonly represents mild small vessel disease. Parenchyma: There is no significant volume loss. The brain parenchyma is otherwise within normal limits for age. Ventricles: Unchanged size and configuration of the ventricles. Paranasal sinuses and skull base: The visualized paranasal sinuses are grossly clear. The skull base and imaged soft tissues are unremarkable. IMPRESSION: Expected postsurgical changes from transsphenoidal resection of pituitary mass, as detailed above. No CT evidence of acute cortical infarct. No CT evidence of acute intracranial hemorrhage. Additional chronic findings, as detailed above. Burlap Bag Sewer: PSCB Transcribe Date/Time: Mar 08 2025 1:22P Dictated by : DAJA LARSEN MD This examination was interpreted and the report reviewed and electronically signed by: DAJA LARSEN MD on Mar 08 2025 1:30PM EST [id number] Normal [facility] CT SINUS STEREO WO IVCONon 0 03-08-2025 CT SINUS STEREO WO IVCON * * *Final Report* * * DATE OF EXAM: Mar 08 2025 7:59AM [facility] 2075 - CT SINUS STEREO WO IVCON / PROCEDURE REASON: Deviated nasal septum * * * * Physician Interpretation * * * * EXAMINATION: CT SINUS STEREO WO IVCON HISTORY: Preop brain lab prior to neuroendoscopic transsphenoidal excision of pituitary tumor TECHNIQUE: CT SINUS STEREO WO IVCON. BrainLab protocol Dose-Length Product (DLP): 1304 mGy*cm. CT Dose Reduction Employed: Automated exposure control(AEC) and iterative recon COMPARISON: 03/08/2025 MRI RESULT: Redemonstration of large pituitary mass with sellar and suprasellar components associated mass effect on the optic chiasm. Post-Surgical Findings: None Sinus Chambers: Paranasal sinuses are clear. Ostiomeatal complexes are patent.. Nasal Cavities: Inferior nasal septum is deviated towards left side compromise left lower nasal cavity coronal image 48 Developmental Anomalies: None Ostiomeatal Complex: Patent within the constraints of the study. Other: The visualized mastoid air cells and middle ear cavities are clear. The soft tissues of the face and orbits are within normal limits within the limitations of the study. Bilateral carotid calcifications IMPRESSION: Preop brain lab prior to neuroendoscopic transsphenoidal excision of pituitary tumor Burlap Bag Sewer: KENNY Transcribe Date/Time: Mar 08 2025 8:04A Dictated by : CARLOS ENRIQUE LEE MD This examination was interpreted and the report reviewed and electronically signed by: CARLOS ENRIQUE LEE MD on Mar 08 2025 8:08AM EST [id number] Normal [facility] HISTORY PHYSICALon HISTORY PHYSICAL HNO ID: [id number] Author: RICHARD OLIVER APRN.EDITOR NEWS Service: Neurology ICU Author Type: Nurse Practitioner Type: H&P Filed: 03/08/2025 13:41 Note Text: Attestation signed by Mendy Amaro MD at 03/08/2025 3:20 PM Neuro ICU Progress Note (Staff Attestation) I have personally performed a face to face assessment of the patient and have reviewed the PA/CONSTRUCTION QUALITY CONTROL MANAGER/Resident/Medical Student note. Plan of care discussed with: Provider, RN, Patient. We made the following changes during rounds: Close UO monitoring Actions/Plans: Nasal precautions Close monitoring DI watch SCDs for now DVT prophylaxis @ 48 hrs post op Sodium Date Value Ref Range Status 03/08/2025 138 136 - 144 mmol/L Final 03/08/2025 138 136 - 144 mmol/L Final 03/04/2025 140 136 - 144 mmol/L Final Steroids Sosa per NSGY SBP goal less than 160 ISS Diet DISPO: ICU Brief Exam Findings: AAO-3 GONZALEZ, Motor 5/5 OXANA ==== The patient currently has the following hospital problems: Principal Problem: Pituitary mass (HCC) Resolved Problems: * No resolved hospital problems. * ==== This patient has a high probability of sudden, clinically significant deterioration, which requires the highest level of physician preparedness to intervene urgently. I managed/supervised life or organ supporting interventions that required frequent physician assessment. I devoted my full attention to the direct care of this patient for the amount of time indicated below. Time I spent with family or surrogate(s) is included only if the patient was incapable of providing the necessary information or participating in medical decision making. Time devoted to teaching is not included. Plan of care rounds were performed and the ICU checklist was reviewed and completed. 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 MRI brain was obtained which noted pituitary mass. Patient follows with Dr. Jung and Musa outpatient. Patient admitted to NSICU today s/p resection of sellar mass for close neurologic monitoring and management. PAST MEDICAL HISTORY Diagnosis Date Pituitary mass (HCC) 01/2025 PAST SURGICAL HISTORY Procedure Laterality Date REMV CATARACT EXTRACAP,INSERT LENS Bilateral 1990s FAMILY HISTORY Problem Relation Age of Onset Stroke Mother ALLERGIES No Known Allergies PRIOR TO ADMISSION MEDICATIONS: mupirocin (BACTROBAN) 2 % ointment, Apply a small amount in each nostril using a cotton swab twice a day before surgery and once the morning of surgery, Disp: 22 g, Rfl: 0, 03/08/2025 Morning iv contrast (will be provided with radiology test), MRI Brain Inject, intravenously, once for 1 dose.No IV access, insert saline lock prior to beginning of sedation, infusion, injection of imaging exam.Discontinue saline lock post exam. If Pt. has a central line or IVAD, may access for administration according to line specific nursing protocol.Once exam is complete flush line and de-access according to line specific nursing protocol in the MR contrast administration guidelines link, Disp: 1 each, Rfl: 0 beta-carotene,A,-vits C,E/mins (OCUVITE ORAL), Take by mouth once daily., Disp: , Rfl: , 03/01/2025 magnesium oxide 200 mg magnesium chew, Take 1,200 mg by mouth., Disp: , Rfl: , 03/01/2025 Zinc Mth/Copper/Saw Palm/Gnsg (PROSTATE HEALTH FORMULA ORAL), Take by mouth once daily. Prosta forte, Disp: , Rfl: , 03/01/2025 Social History Tobacco Use Smoking status: Never Smokeless tobacco: Never Vaping Use Vaping status: Never Used Substance Use Topics Alcohol use: Yes Comment: daily Drug use: Never Employer And Job Title: None on file Years Of Education Completed: Not specified Marital Status: REVIEW OF SYSTEMS: The following systems were reviewed with the patient, and are unremarkable other than as described below. SYSTEMIC: No fever, chills, or change in weight or appetite HEENT: No recent change in vision or hearing. GI: No recent nausea, vomiting or diarrhea. : No recent hematuria or dysuria. SKIN: No recent itching or eruption. PSYCH: No recent active anxiety or depression. HEMATOLOGY/ONCOLOGY: No recent diagnosis of bleeding or cancer. ENDOCRINE: No recent diagnosis of DM or thyroid disease. RHEUMATOLOGY: No recent active connective tissue disease. Objective Vital Signs (Last 24hrs min/max): BP 126/77 Pulse 70 Temp 36.2 ?C (97.2 ?F) (Temporal) Res (more content not included)... Normal [facility] MRI BRAIN WO/W IVCONon 03-08 MRI BRAIN WO/W IVCON * * *Final Report* * * DATE OF EXAM: Mar 08 2025 7:42AM [facility] 0295 - MRI BRAIN WO/W IVCON / PROCEDURE REASON: Pituitary mass (HCC) * * * * Physician Interpretation * * * * COMPARISONS: None. HISTORY: Pituitary mass. TECHNIQUE: MRI brain without and with contrast. MQ: MRBWOW_2 CONTRAST: 8.3 mL Elucirem IV. RESULT: MRI BRAIN: Acute abnormality: None. High-resolution images of sella reveal predominantly homogeneous signal intensely enhancing 20 (AP) x 23 (T) x 27 (CC) mm focus at suprasellar region not identified separately from pituitary expanding tuberculum sellae and extending superiorly and impinging/flattening optic pathways (dorsal optic nerve and ventral optic chiasm) with direct extension into left cavernous sinus encasing the cavernous left ICA and abuts medial right cavernous sinus without extension. There is no definite compromise of ICA identified. 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 No restricted diffusion concerning for acute ischemia. No susceptibility concerning for acute hemorrhage. Age expected remaining sulci, gyri, ventricles, CSF spaces, brain, bones and skull base. No mass effect or collections. On contrast no abnormal intracranial enhancement. IMPRESSION: 1. 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 2. Impingement on optic pathways and extension into the left cavernous sinus. 3. Normal remaining brain without acute abnormality. Burlap Bag Sewer: PSCB Transcribe Date/Time: Mar 09 2025 7:32P Dictated by : CINTHIA CLAY MD This examination was interpreted and the report reviewed and electronically signed by: CINTHIA CLAY MD on Mar 10 2025 6:16PM EST [id number] Normal [facility] Magnesium SerPl-mCncon 03-08 Magnesium [Mass/Vol] 1.9 mg/dL Normal 1.7-2.3 [facility] Comment on above: Order Comment: Speci men Type: BLOOD SPECIMENOrdering Facility: [facility] Address: [facility] [place] [address] Performed By: #### 2 4321-2, 2777-1, 24140-3 ####[facility] LABORATORYCLIA [id number] [place] [address] [place] OPERATIVE NOon 03-08-2025 OPERATIVE NO HNO ID: [id number] Author: SHIVA LUNDBERG MD Service: Otolaryngology Author Type: Physician Type: Operative Report Filed: 06/12/2025 08:37 Note Text: Operative Report Name: Zachery West : 1955 Age: [age] year old Date of Procedure: 03/08/2025 Pre Op Dx: Pituitary neoplasm uncertain behavior Post Op Dx: Same Procedure: Endoscopic transnasal excision of pituitary tumor with image guidance Surgeon: Shiva Lundberg MD Co- Surgeon: Dr Jung Anesthesia: General Indications: The patient is an 69 year old male with a history of what clinically and radiographically appears to be a pituitary tumor Description of Operative Procedure: The patient was taken to the operating room and placed in a supine position. General anesthesia was begun. The patient's nasal cavities were decongested with Afrin nasal spray on 1x3 neurosurgical pledgets; Image guidance was registered with good precision; the nasal packing was removed; the right nasal cavity was examined with the 0 degree Prseton fransisco telescope, a transfixion incision was made in the septum just anterior and inferior to the anterior edge of the middle turbinate with Bovie suction cautery at 35; fenestrated Kirkland - Benitez rongeurs were used to remove a wedge of septum from this point back to the face of the sphenoid sinus; the sphenoid sinus ostia were identified clinically and with image guidance; the face of the sinus was removed with a 3mm Kerrison rongeur and the Kirkland - Benitez rongeurs; the intra-sinus septum was remove in a similar fashion. Dr Jung and I switched sides, I switched to the telescope placed it in the left nasal cavity while the neurosurgical portion of the case was performed. Once this was complete I cleaned the nasal cavities using anterior rhinoscopy; folded pieces of Telfa gauze coated with Bacitracin oint were placed into both nasal cavities and a drip pad applied. Specimens: Pituitary mass EBL: minimal Complications: none Disposition: PACU Condition: good Normal [facility] OPERATIVE NO HNO ID: [id number] Author: KIM JUNG MD Service: Neurosurgery Author Type: Physician Type: Operative Report Filed: 03/08/2025 12:01 Note Text: OPERATIVE/PROCEDURE REPORT LOG ID: [id number] SURGERY/PROCEDURE DATE: 03/08/2025 INCISION/PROCEDURE START TIME: 9:29 AM INCISION CLOSE/PROCEDURE END TIME: 11:31 AM SURGEON(S)/PROCEDURALIST(S) AND MANAGER OF MEDICAL(S): Surgeons and Role: Panel 1: * Kim Jung MD - Primary * Shiva Lundberg MD - Assisting Panel 2: * Shiva Lundberg MD - Primary No Additional Staff SURGERY/PROCEDURE(S): 1) Endoscopic endonasal resection of pituitary macroadenoma 2) Use of neuronavigation for intradural procedure 3) Procedure requiring co-surgeons from ENT and Neurosurgery OPERATIVE INDICATIONS: In summary, Zachery West is a 69 year old male with worsening vision and bitemporal visual filed defect with subsequent imaging work-up revealing a 2.5 x 2 cm sellar lesion with notable suprasellar extension and optic chiasm compression, most consistent with a pituitary macroadenoma. Given these imaging findings and symptomatic presentation, decision made to proceed with surgery for resection. Anesthesia: General Findings: Large friable yellow-mendoza lesion, somewhat adherent to surrounding tissues. Preliminary pathology consistent with an adenoma. All visible neoplasm resected. No intraoperative CSF leak. SURGERY/PROCEDURE DETAILS: Patient was brought into the operating room and a huddle was performed confirming the patient's identity by name and date of . The patient was anesthetized and placed in the supine position on the operating room table. Next, the head was positioned using 3-point fixation Mccarthy device, the stereotactic navigation system was registered using the craniofacial recognition software and registered with the neuronavigation system for an intradural procedure. Accuracy was confirmed using external landmarks. The patient was draped in the usual fashion for endoscopic skull base surgery, with a triangular region of the face exposed for the ENT approach. Next, an endoscopic endonasal resection of the pituitary macroadenoma was initiated. Dr. Lundberg performed the approach to the sphenoid sinus, which will be dictated fully in his note. Briefly, posterior aspect of the septum and the anterior wall of sphenoid sinus were resected to result in a wide sphenoidotomy, to allow access to the sella. At this point, Dr. Lundberg and I switched places, and I continued with the approach to tumor. The thinned sphenoid rostrum was rongeured revealing tumor contained by dura within the sphenoid sinus. The dura was incised with a sickle knife. Upon opening the dura, yellow-mendoza friable tumor tissue was noted. Tumor was delivered centrally using a 90 degree 5mm ring curette. Specimen were sent for permanent and frozen pathology with frozen consistent with pituitary adenoma. The tumor was continuously removed circumferentially. Once the tumor within the sella was debulked, the superior component was gently and gradually delivered using a combination of curettes At the end of the resection, the diaphragma descended. Final inspection failed to visualize any additional tumor, and we proceeded with closure. A piece of Duragen was placed over the dural defect, and was secured in place with Adherus. No CSF leak was visualized. Telfa/Bacitracin packing was placed by Dr Lundberg, and the patient was taken out of pins, gently woken up, extubated, and transferred to the PACU in stable condition. All counts were correct at the end of the case. Neuronavigation was used throughout the entirety of the intradural portion to confirm pertinent anatomy via known landmarks. PRE-OP/PRE-PROCEDURE DIAGNOSIS: pituitary adenoma POST-OP/POST-PROCEDURE DIAGNOSIS: Same as Preop ESTIMATED BLOOD LOSS: minimal SPECIMENS: None IMPLANTABLE DEVICES: NONE DRAINS: None COMPLICATIONS: None CLOSURE TECHNIQUE: Primary PARTICIPATION IN SURGERY/PROCEDURE: I/primary surgeon/proceduralist performed the procedure with assistance. No qualified resident/fellow was available. Procedure required co-surgeons from ENT and Neurosurgery SIGNATURE: Kim Jung MD PATIENT NAME: Zachery West DATE: March 08, 2025 TIME: 11:48 AM Normal [facility] Pathology biopsy report Jeff (Tiss)on 03-08-2025 ADDENDUM 1: Normal [facility] Comment on above: Order Comment: Speci men Type: TISSUE SPECIMENOrdering Facility: [facility] Address: [address] [place] [address] Result Comment: Immu nohistochemical staining of the tumor (block B2) with antibodies to pituitary hormones and Ki-67 was performed at the [facility]. The tumor demonstrates diffuse positive staining with antibody to SF-1. Occasional Pit-1 positive staining cells are observed. The tumor generally does not stain with antibodies to T-Pit, GH, PL, and TSH. A Ki-67 index of approximately 2-3% is focally noted. Laboratory Developed Test (LDT) Disclaimer: Performance characteristics of immunohistochemical, immunofluorescent and chromogenic in-situ hybridization tests have been determined by the performing laboratory within [facility]???s [facility] [place] ([facility], [facility], [facility], [facility], [facility], or [facility]) in a manner consistent with CLIA requirements. One or more of these tests have not been cleared or approved by the FDA. RT-PLMI is regulated under CLIA as qualified to perform high-complexity testing. These tests are used for clinical purposes. They should not be regarded as investigational or for research. Positive and negative controls stain appropriately. YOVANNY/maryjane 03/14/2025 Addendum electronically signed by Matty Toussaint MD on 03/14/2025 at 1219 EDT Performed By: #### 6 [id number] ####[facility] LABCLIA [id number] [address] LABORATORYCLIA [id number] [place], [place] [id number] [place] [address] STATES OF [facility] AP DISCLAIMER Normal [facility] Comment on above: Order Comment: Speci men Type: TISSUE SPECIMENOrdering Facility: [facility] Address: [address] [place] [address] Result Comment: Rusty santiago Developed Test (LDT) Disclaimer: Performance characteristics of immunohistochemical, immunofluorescent, and chromogenic in-situ hybridization tests have been determined by the performing laboratory within [facility]'s Jewel Burgos Pathology and Laboratory Medicine Department ([facility], [facility], [facility], [facility], [facility], [facility], or [facility]) in a manner consistent with CLIA requirements. One or more of these tests may not have been cleared or approved by the FDA. RT-[facility] is regulated under CLIA as qualified to perform high-complexity testing. These tests are used for clinical purposes. These should not be regarded as investigational or for research. Positive and negative controls stain appropriately. Performed By: #### 6 [id number] ####[facility] LABCLIA [id number] [address] LABORATORYCLIA [id number] [place] [address] CASE REPORT Normal [facility] Comment on above: Order Comment: Speci men Type: TISSUE SPECIMENOrdering Facility: [facility] Address: [address] [place] [address] Result Comment: Surg ica Pathology Report Case: [id number] Authorizing Provider: Kim Jung MD Collected: 03/08/2025 10:22 AM Ordering Location: [facility] Received: 03/08/2025 10:30 AM Pathologist: Matty Toussaint MD Specimens: A) - Pituitary Gland, pituitary mass, sellar mass B) - Pituitary Gland, sellar mass Performed By: #### 6 6121-5 ####[facility] LABCLIA [id number] [place] [id number] [facility] LABORATORYIA [id number] [address] CLINICAL HISTORY Normal [facility] Comment on above: Order Comment: Speci men Type: TISSUE SPECIMENOrdering Facility: [facility] Address: [address] [place] [address] Result Comment: Pre- op diagnosis: Pituitary mass (HCC) [E23.6] Performed By: #### 6 6121-5 ####[facility] LABCLIA [id number] [place] [id number] [facility] LABORATORYCLIA [id number] [address] DIAGNOSIS COMMENT An addendum will be issued following immunohistochemical staining of the tumor with antibodies to pituitary hormones and Ki-67. [facility] Comment on above: Order Comment: Speci men Type: TISSUE SPECIMENOrdering Facility: [facility] Address: [address] [place] [address] Performed By: #### 6 6121-5 ####[facility] LABCLIA [id number] [address] LABORATORYCLIA [id number] [address] FINAL DIAGNOSIS [facility] Comment on above: Order Comment: Speci men Type: TISSUE SPECIMENOrdering Facility: [facility] Address: [address] [place] [address] Result Comment: A-B. Pituitary gland, excision: - Pituitary neuroendocrine tumor (pituitary adenoma). RAP/kr 03/13/2025 at 0850 EDT Performed By: #### 6 6121-5 ####[facility] LABCLIA [id number] [address] LABORATORYCLIA [id number] [address] FINAL PERFORMING LAB Normal [facility] Comment on above: Order Comment: Speci men Type: TISSUE SPECIMENOrdering Facility: [facility] Address: [address] [place] [address] Result Comment: Diag nostic interpretation performed at: [facility], [address] [place] [address] CLIA# [id number] Junior Oracle Dba: Alton Casey MD Performed By: #### 6 6121-5 ####[facility] LABCLIA [id number] [place] [id number] [facility] LABORATORYCLIA [id number] [address] GROSS DESCRIPTION Normal [facility] Comment on above: Order Comment: Speci men Type: TISSUE SPECIMENOrdering Facility: [facility] Address: [address] [place] [address] Result Comment: A. P ituitary Gland Received fresh for interoperative consultation labeled pituitary mass, sellar mass are 2 irregular red soft tissue fragments aggregating to 0.6 x 0.3 x 0.2 cm. A touch prep is performed. Half of the tissue is submitted in FS A1 and the remaining half is submitted in A2. Gross examination performed at [facility], [address] [place] [address] CLIA#[id number] OLS March 08, 2025 10:58 AM B. Pituitary Gland Received in formalin labeled sellar mass are multiple mendoza-pink soft tumor fragments aggregating to 2.5 x 2.2 x 0.5 cm. The specimen is totally submitted in formalin in 2 cassettes Gross examination performed at [facility], [address] [place] [address] March 08, 2025 2:26 PM Performed By: #### 6 6121-5 ####[facility] LABCLIA [id number] [address] LABORATORYCLIA [id number] [address] INTRAOPERATIVE DIAGNOSIS Normal [facility] Comment on above: Order Comment: Speci men Type: TISSUE SPECIMENOrdering Facility: [facility] Address: [address] [place] [address] Result Comment: A. P ituitary Gland FSA 1+ touch prep: Pituitary mass, sellar mass: Compatible with adenoma (Dr. Wilson/Dr. Logan) Intraoperative examination performed at [facility], [address] [place] [address] CLIA# [id number] Performed By: #### 6 6121-5 ####[facility] LABCLIA [id number] [address] LABORATORYCLIA [id number] [place] [address] STATES OF [facility] Phosphate SerPl-mCncon 03-08 Phosphate [Mass/Vol] 3.6 mg/dL Normal 2.7-4.8 [facility] Comment on above: Order Comment: Speci men Type: BLOOD SPECIMENOrdering Facility: [facility] Address: [address] [place] [address] Performed By: #### 2 4321-2, 2777-1, 29841-7 ####[facility] LABORATORYCLIA [id number] [address] CNPLucila 03-06-2025 CNPN Telephone (NEAGCLM) ZACHERY WEST ([id number]) 1955 M Date Time Provider Department 03/06/25 KIM JUNG NEAGCLM During your visit today, we recorded the following information about you: Giuliana Sánchez 03/06/2025 3:34 PM Signed Contacted patient to remind them of their arrival time for surgery with Dr. Kim Jung on 03/08/25. Patient is to arrive at [facility] at 5:30am for surgery at 8:00am. Spoke with patient and they are aware of all arrival information. Allergies As of Date: 03/06/2025 (No Known Allergies) Date Reviewed: 03/04/2025 Reviewed by: Marie Mendez, GOLD LAYER.EDITOR NEWS - Fully Assessed Reason for Visit: Preparations For Surgery [898] Prescriptions as of 03/06/2025 - mupirocin (BACTROBAN) 2 % ointment Apply a small amount in each nostril using a cotton swab twice a day before surgery and once the morning of surgery - beta-carotene,A,-vits C,E/mins (OCUVITE ORAL) Take by mouth once daily. - magnesium oxide 200 mg magnesium chew Take 1,200 mg by mouth. - Zinc Mth/Copper/Saw Palm/Gnsg (PROSTATE HEALTH FORMULA ORAL) Take by mouth once daily. Prostjuan forte Problem List As Of Date 03/06/2025 Noted Resolved Preop examination [Z01.818] 03/04/2025 Pituitary mass (HCC) [E23.6] 03/04/2025 Encounter Status:Closed by GIULIANA SÁNCHEZ on 03/06/25 Normal [facility] NURSING PROGon 03-05-2025 NURSING PROG HNO ID: [id number] Author: ?, ?, ? Service: ? Author Type: ? Type: Nursing Progress Note Filed: 03/05/2025 15:42 Note Text: Vani from blood bank called regarding patient type and screen per lab Conf. ABO will need to be done day of surgery on 03/08/25. Normal [facility] NURSING PROG HNO ID: [id number] Author: CINDY SLAUGHTER APRN.EDITOR NEWS Service: Anesthesiology Author Type: Nurse Practitioner Type: Nursing Progress Note Filed: 03/05/2025 10:30 Note Text: Summary: Anesthesia Reviewed EKG from PAT visit, medications, and METS 8.[address] Clark of anesthesia. Patient okay to proceed with surgery as scheduled. Normal [facility] Bacteria Ur Culton Bacteria identified Cx Nom (U) CULTURE, URINE: No growth (<1,000 CFU/ml) Normal [facility] Comment on above: Performed By: #### 6 30-4 ####[facility] LABORATORYCLIA [id number] [address] CBC panel Auto (Bld)on 03-04 Erythrocyte distribution width (RBC) [Ratio] 13.2 % Normal 11.5-15.0 [facility] Comment on above: Order Comment: Speci men Type: BLOOD SPECIMENOrdering Facility: [facility] Address: [address] [place] [address] Performed By: #### 5 8410-2 ####[facility] LABORATORYCLIA [id number] [address] Hematocrit (Bld) [Volume fraction] 44.1 % Normal 39.0-51.0 [facility] Comment on above: Order Comment: Speci men Type: BLOOD SPECIMENOrdering Facility: [facility] Address: [address] [place] [address] Performed By: #### 5 8410-2 ####[facility] LABORATORYCLIA [id number] [address] Hemoglobin (Bld) [Mass/Vol] 15.1 g/dL Normal 13.0-17.0 [facility] Comment on above: Order Comment: Speci men Type: BLOOD SPECIMENOrdering Facility: [facility] Address: [address] [place] [address] Performed By: #### 5 8410-2 ####[facility] LABORATORYCLIA [id number] [address] MCH (RBC) [Entitic mass] 32.8 pg Normal 26.0-34.0 [facility] Comment on above: Order Comment: Speci men Type: BLOOD SPECIMENOrdering Facility: [facility] Address: [address] [place] [address] Performed By: #### 5 8410-2 ####[facility] LABORATORYCLIA [id number] [address] MCHC (RBC) [Mass/Vol] 34.2 g/dL Normal 30.5-36.0 [facility] Comment on above: Order Comment: Speci men Type: BLOOD SPECIMENOrdering Facility: [facility] Address: [facility] [place] [address] Performed By: #### 5 8410-2 ####[facility] LABORATORYCLIA [id number] [address] [place] MCV (RBC) [Entitic vol] 95.9 fL Normal 80.0-100.0 [facility] Comment on above: Order Comment: Speci men Type: BLOOD SPECIMENOrdering Facility: [facility] Address: [address] [place] [address] Performed By: #### 5 8410-2 ####[facility] LABORATORYCLIA [id number] [address] [place] Nucleated RBC (Bld) [#/Vol] 10*3/uL Normal <0.01 [facility] Comment on above: Order Comment: Speci men Type: BLOOD SPECIMENOrdering Facility: [facility] Address: [address] [place] [address] Performed By: #### 5 8410-2 ####[facility] LABORATORYCLIA [id number] [place] [address] [place] Platelet mean volume (Bld) [Entitic vol] 11.6 fL Normal 9.0-12.7 [facility] Comment on above: Order Comment: Speci men Type: BLOOD SPECIMENOrdering Facility: [facility] Address: [address] [place] [address] Performed By: #### 5 8410-2 ####[facility] LABORATORYCLIA [id number] [place] [address] [place] Platelets (Bld) [#/Vol] 160 10*3/uL Normal 150-400 [facility] Comment on above: Order Comment: Speci men Type: BLOOD SPECIMENOrdering Facility: [facility] Address: [address] [place] [address] Performed By: #### 5 8410-2 ####[facility] LABORATORYCLIA [id number] [address] OF [facility] RBC (Bld) [#/Vol] 4.60 10*6/uL Normal 4.20-6.00 [facility] Comment on above: Order Comment: Speci men Type: BLOOD SPECIMENOrdering Facility: [facility] Address: [address] [place] [address] Performed By: #### 5 8410-2 ####[facility] LABORATORYCLIA [id number] [address] WBC (Bld) [#/Vol] 7.41 10*3/uL Normal 3.70-11.00 [facility] Comment on above: Order Comment: Speci men Type: BLOOD SPECIMENOrdering Facility: [facility] Address: [address] [place] [address] Performed By: #### 5 8410-2 ####[facility] LABORATORYCLIA [id number] [address] Comprehensive metabolic 2000 panelon 03-04-2025 Albumin [Mass/Vol] 4.2 g/dL Normal 3.9-4.9 [facility] Comment on above: Order Comment: Speci men Type: BLOOD SPECIMENOrdering Facility: [facility] Address: [address] [place] [address] Performed By: #### 2 4323-8 ####[facility] LABORATORYCLIA [id number] [address] OF [facility] ALP [Catalytic activity/Vol] 55 U/L Normal 38-113 [facility] Comment on above: Order Comment: Speci men Type: BLOOD SPECIMENOrdering Facility: [facility] Address: [address] [place] [address] Performed By: #### 2 4323-8 ####[facility] LABORATORYCLIA [id number] [address] ALT With P-5'-P [Catalytic activity/Vol] 23 U/L Normal 10-54 [facility] Comment on above: Order Comment: Speci men Type: BLOOD SPECIMENOrdering Facility: [facility] Address: [address] [place] [address] Performed By: #### 2 4323-8 ####[facility] LABORATORYCLIA [id number] [place] [address] [place] Anion gap [Moles/Vol] 11 mmol/L Normal 8-15 [facility] Comment on above: Order Comment: Speci men Type: BLOOD SPECIMENOrdering Facility: [facility] Address: [address] [place] [address] Performed By: #### 2 4323-8 ####[facility] LABORATORYCLIA [id number] [place] [address] [place] AST With P-5'-P [Catalytic activity/Vol] 23 U/L Normal 14-40 [facility] Comment on above: Order Comment: Speci men Type: BLOOD SPECIMENOrdering Facility: [facility] Address: [address] [place] [address] Performed By: #### 2 4323-8 ####[facility] LABORATORYCLIA [id number] [place] [address] [place] Bilirubin [Mass/Vol] 0.5 mg/dL Normal 0.2-1.3 [facility] Comment on above: Order Comment: Speci men Type: BLOOD SPECIMENOrdering Facility: [facility] Address: [address] [place] [address] Performed By: #### 2 4323-8 ####[facility] LABORATORYCLIA [id number] [address] [place] Calcium [Mass/Vol] 9.2 mg/dL Normal 8.5-10.2 [facility] Comment on above: Order Comment: Speci men Type: BLOOD SPECIMENOrdering Facility: [facility] Address: [address] [place] [address] Performed By: #### 2 4323-8 ####[facility] LABORATORYCLIA [id number] [place] [address] [place] Chloride [Moles/Vol] 103 mmol/L Normal 98-107 [facility] Comment on above: Order Comment: Speci men Type: BLOOD SPECIMENOrdering Facility: [facility] Address: [address] [place] [address] Performed By: #### 2 4323-8 ####[facility] LABORATORYCLIA [id number] [address] STATES OF [facility] CO2 [Moles/Vol] 26 mmol/L Normal 22-30 [facility] Comment on above: Order Comment: Speci men Type: BLOOD SPECIMENOrdering Facility: [facility] Address: [address] [place] [address] Performed By: #### 2 4323-8 ####[facility]ITALCLIA [id number] [address] STATES OF [facility] Creatinine [Mass/Vol] 1.04 mg/dL Normal 0.73-1.22 [facility] Comment on above: Order Comment: Speci men Type: BLOOD SPECIMENOrdering Facility: [facility] Address: [address] [place] [address] Performed By: #### 2 4323-8 ####[facility] LABORATORYCLIA [id number] [address] Creatinine and Glomerular filtration rate.predicted panel (S/P/Bld) 77 mL/min/1.73m??? Normal >=60 [facility] Comment on above: Order Comment: Speci men Type: BLOOD SPECIMENOrdering Facility: [facility] Address: [address] [place] [address] Result Comment: Yamila mated Glomerular Filtration Rate (eGFR) is calculated using the 2020 CKD-EPI creatinine equation. This equation utilizes serum creatinine, sex, and age as parameters. The creatinine assay has traceable calibration to isotope dilution-mass spectrometry. Refer to KDIGO guidelines for clinical interpretation. In patients with unstable renal function, e.g. those with acute kidney injury, the eGFR may not accurately reflect actual GFR. Performed By: #### 2 4323-8 ####[facility] LABORATORYCLIA [id number] [address] STATES [facility] Glucose [Mass/Vol] 85 mg/dL Normal 74-99 [facility] Comment on above: Order Comment: Speci men Type: BLOOD SPECIMENOrdering Facility: [facility] Address: [address] [place], [place] [address] Result Comment: The [place] Diabetes Association (ADA) provides guidance for cutoff values for fasting glucose and random glucose. The ADA defines fasting as no caloric intake for at least 8 hours. Fasting plasma glucose results between 100 to 125 mg/dL indicate increased risk for diabetes (prediabetes). Fasting plasma glucose results greater than or equal to 126 mg/dL meet the criteria for diagnosis of diabetes. In the absence of unequivocal hyperglycemia, results should be confirmed by repeat testing. In a patient with classic symptoms of hyperglycemia or hyperglycemic crisis, random plasma glucose results greater than or equal to 200 mg/dL meet the criteria for diagnosis of diabetes. Reference: Standards of Medical Care in Diabetes 2016, [place] Diabetes Association. Diabetes Care. 2016.39(Suppl 1). Performed By: #### 2 4323-8 ####[facility] LABORATORYCLIA [id number] [place] [address] [place] Potassium [Moles/Vol] 4.6 mmol/L Normal 3.7-5.1 [facility] Comment on above: Order Comment: Chidi men Type: BLOOD SPECIMENOrdering Facility: [facility] Address: [address] [place] [address] Performed By: #### 2 4323-8 ####[facility] LABORATORYCLIA [id number] [place] [address] [place] Protein [Mass/Vol] 7.1 g/dL Normal 6.3-8.0 [facility] Comment on above: Order Comment: Speci men Type: BLOOD SPECIMENOrdering Facility: [facility] Address: [address] [place] [address] Performed By: #### 2 4323-8 ####[facility] LABORATORYCLIA [id number] [place] [address] [place] Sodium [Moles/Vol] 140 mmol/L Normal 136-144 [facility] Comment on above: Order Comment: Speci men Type: BLOOD SPECIMENOrdering Facility: [facility] Address: [address] [place] [address] Performed By: #### 2 4323-8 ####[facility] LABORATORYCLIA [id number] [place] [address] [place] Urea nitrogen [Mass/Vol] 22 mg/dL Normal 9-24 [facility] Comment on above: Order Comment: Speci men Type: BLOOD SPECIMENOrdering Facility: [facility] Address: [address] [place] [address] Performed By: #### 2 4323-8 ####[facility] LABORATORYCLIA [id number] [place] [address] [place] ECG COMPLETEon 03-04-2025 ECG COMPLETE Ventricular Rate : 8 0 BPM Atrial Rate : 80 BPM P-R Interval : 186 ms QRS Duration : 82 ms Q-T Interval : 368 ms QTC Calculation(Bazett) : 424 ms Calculated P [place] : 36 degrees Calculated R [place] : 7 degrees Calculated T [place] : 36 degrees NORMAL SINUS RHYTHM POSSIBLE INFERIOR INFARCT , AGE UNDETERMINED ABNORMAL ECG NO PREVIOUS ECGS AVAILABLE Confirmed by MARCELLA ANDRADE MD ([id number]) on 03/06/2025 10:23:45 PM NAME : ZACHERY WEST PID : [id number] : 1955 Gender : Male Race : Unknown ORD : [id number] Procedure Date : Mar 04 2025 14:25:32 Edit Date : Mar 06 2025 22:23:50 Diagnosis: NORMAL SINUS RHYTHM POSSIBLE INFERIOR INFARCT , AGE UNDETERMINED ABNORMAL ECG NO PREVIOUS ECGS AVAILABLE Confirmed by MARCELLA ANDRADE MD ([id number]) on 03/06/2025 10:23:45 PM Test Reason : HCS Location : 11 : -11 Overread By : MARCELLA ANDRADE MD Edited By : MARCELLA ANDRADE MD Referred By : KIM JUNG Acquired by : MARIE MENDEZ [facility] HISTORY PHYSICALon HISTORY PHYSICAL HNO ID: [id number] Author: MARIE MENDEZ APRN.EDITOR NEWS Service: ? Author Type: Nurse Practitioner Type: H&P Filed: 03/04/2025 15:07 Note Text: [facility] HISTORY AND PHYSICAL EXAMINATION SERVICE DATE: 03/04/2025 SERVICE TIME: 3:02 PM PRIMARY CARE PHYSICIAN: No primary care provider on file. Assessment Patient has the following medical conditions which may affect ruth-operative course: Preop examination Patient has the following medical conditions which may affect ruth-operative course addressed in assessment and plan today. Pituitary mass (HCC) Surgery scheduled for March 08, 2025 ANESTHESIA FINDINGS: Intubation History: No prior intubation Significant Anesthesia Considerations: none Airway History: No prior intubation Goodrich Activity Status Index: METS: Run a short distance (8.00 METs) DASI Score: 8 Patient denies any chest pain or undue shortness of breath with the above physical activity. ARISCAT Score: Age: 51-80 Preoperative SpO2: >=96% Respiratory infection in the last month: No Preoperative anemia: No Surgical incision: peripheral Duration of surgery: >3 hrs Emergency procedure: No ARISCAT Score: 26 I - PHYSICAL EVALUATION AIRWAY Patient intubated: No. DENTAL Dental findings: teeth intact. II - ANESTHESIA PLAN Anesthetic Plan: general Beta Micha Monitoring Plan Post Procedure Analgesic Plan Prepared for Surgery: . Per patient-no optimizations requested by surgeon for plan procedure. CONSULTS: Planned Anesthetic: general The Following Tests/Procedures Have Been Initiated: No orders of the defined types were placed in this encounter. The reason for this visit is to perform a comprehensive review of the patient's past medical history, assess their current health status and obtain any additional testing required based on anesthesia guidelines. We will also identify any potential anesthesia problems or contraindications to the planned procedure. REASON FOR VISIT: Zachery West is a 69 year old male who is scheduled for Procedure(s): NEUROENDOSCOPY INTRACRANIAL W/ EXCISION OF PITUITARY TUMOR TRANS-SPHENOIDAL APPROACH (N/A) BRAINLAB STEREOTACTIC COMPUTER-ASSISTED NAVIGATIONAL PROCEDURE CRANIAL (N/A) MICROSURGICAL TECHNIQUE FOR CRANIOTOMY PROCEDURES (N/A) NEUROENDOSCOPY INTRACRANIAL W/ EXCISION OF PITUITARY TUMOR TRANS-SPHENOIDAL APPROACH (N/A) at the request of Dr. Kim Jung for routine HANDP. My final recommendation will be communicated back to the requesting physician by way of shared medical record or letter. Subjective The patient has the following: COVID-19 Immunization Status Current Care Gaps Covid-19 Vaccine ( season) Never done No completion, postpone, frequency change, or communication history exists for this topic. CHIEF COMPLAINT: The reason for this visit is to perform a comprehensive review of the patient's past medical history, assess their current health status and obtain any additional testing required based on anesthesia guidelines. We will also identify any potential anesthesia problems or contraindications to the planned procedure. HPI: Patient is a 69 year old male who presents for pre surgical testing. Patient was at his yearly vision evaluation and it was noted that he had problems with peripheral vision on the left. He was reevaluated 1 week later and it was the same. An MRI was ordered and a large mass was found January 31, 2025. He was referred to neurology. He denies headaches. After discussion with the surgeon the patient agrees to surgical intervention. REVIEW OF SYSTEMS: General: Left peripheral vision changes Negative for: unintentional weight change, malaise and fever. Neurological: See HPI. Positive for: MANAGER AVIATION tumor. Negative for: headaches, seizures and strokes. Respiratory: Negative for: asthma, COPD, pneumonia within 6 weeks, URI < 2 weeks and obstructive sleep apnea. Cardiovascular: Negative for: atrial fibrillation, CAD, chest pain, CHF, DVT/PE, hyperlipidemia and hypertension. GI: Negative for: abdominal pain, GERD, nausea and vomiting. : Negative for: dysuria, hematuria and renal failure. Endocrine: Negative for: diabetes mellitus, hyperthyroidism and hypothyroidism. Hematology: Negative for: anemia, factor V Leiden and von Willebrand disease. Oncology: No history of CA metastasis, chemo within 30 days, or radiotherapy within 90 days. No history of oncological symptoms or problems. Psych: Negative for: anxiety and depression. Musculoskeletal: Positive for: back pain. Negative for: joint pain. Skin: Negative for lesions, rash and itching. PAST MEDICAL HISTORY Diagnosis Date Pituitary mass (HCC) 01/2025 PAST SURGICAL HISTORY Procedure Laterality Date REMV CATARACT EXTRACAP,INSERT LENS Bilateral 1990s FAMILY HISTORY Problem Relation Age of Ons (more content not included)... 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 Patient is having surgery with Dr. Jung March 08 for a pituitary mass. Patient is very active he has a METS of 8 and he has never been a smoker. His only medications are vitamins. Preop examination Patient has the following medical conditions which may affect ruth-operative course addressed in assessment and plan today. Pituitary mass (HCC) Surgery scheduled for March 08, 2025 Normal [facility] PT panel Coag (PPP)on 2024 INR Coag (PPP) [Relative time] 1.1 {INR} Normal 0.9-1.3 [facility] Comment on above: Order Comment: Speci men Type: BLOOD SPECIMENOrdering Facility: [facility] Address: [address] [place] [address] Result Comment: [place] min K Antagonist (VKA) Therapeutic Range: INR 2 to 3 (Target INR of 2.5) Note: For patients treated with VKA drugs, such as warfarin, the [employer] [employer] 2012 Guideline recommends a therapeutic INR range of 2 to 3 (target INR of 2.5). This recommendation includes high-risk patients with antiphospholipid syndrome with previous arterial or venous thromboembolism, current-generation mechanical or bioprosthetic aortic heart valve replacement. Note: Patients with mechanical aortic valve replacement and additional risk factors for thromboembolic events (atrial fibrillation, previous thromboembolism, LV dysfunction, hypercoagulable conditions) or an older generation mechanical AVR (i.e., ball in-Cage) or any mechanical MVR should have a INR therapeutic range of 2.5 to 3.5 (target INR of 3). Marycarmen GH, et al. Chest 2012, 141:7S-47S Maria Teresa RA et al. [facility] 2017, 70: 252-289 Performed By: #### 1 4979-9, 08778-5 ####[facility] LABORATORYCLIA [id number] [place], [place] [id number] [place] [address] [place] PT Coag (PPP) [Time] 11.5 s Normal 9.7-13.0 [facility] Comment on above: Order Comment: Speci men Type: BLOOD SPECIMENOrdering Facility: [facility] Address: [address] [place] [address] Performed By: #### 1 4979-9, 67145-5 ####[facility] LABORATORYCLIA [id number] [place] [address] [place] STAPHYLOCOCCUS AUREUS AND MR SA SCREEN, PCR, NASALon 03-04-2025 S. aureus and MRSA panel JAMAAL+probe (Nose) Methicillin-SUSCEPTIBLE Staphylococcus aureus Detected Abnormal Not Detected [facility] Comment on above: Order Comment: Speci men Type: SWABOrdering Facility: [facility] Address: [address] [place] [address] Performed By: #### S APCR ####[facility] LABORATORYCLIA [id number] [place] [id number] [place] TYPE AND SCREEN,30 DAYon ABO A Normal [facility] Comment on above: Order Comment: Speci men Type: BLOOD SPECIMENOrdering Facility: [facility] Address: [address] [place] [address] Performed By: #### T SCR30 ####[facility] BLOOD BANKCLIA [id number] [address] [place] Rh Nom (Bld) Negative Normal [facility] Comment on above: Order Comment: Speci men Type: BLOOD SPECIMENOrdering Facility: [facility] Address: [address] [place] [address] Performed By: #### T SCR30 ####[facility] BLOOD BANKCLIA [id number] [address] [place] Urinalysis complete panel (U )on 03-04-2025 Bilirubin Ql (U) Negative Normal Negative [facility] Comment on above: Order Comment: Speci men Type: URINE SPECIMENOrdering Facility: [facility] Address: [address] [place] [address] Performed By: #### 2 4356-8 ####[facility] LABORATORYCLIA [id number] [address] [place] Clarity (Unsp spec) Clear Normal Clear [facility] Comment on above: Order Comment: Speci men Type: URINE SPECIMENOrdering Facility: [facility] Address: [address] [place] [address] Performed By: #### 2 4356-8 ####[facility] LABORATORYCLIA [id number] [address] STATES OF [facility] Color (U) Light Yellow Normal yellow [facility] Comment on above: Order Comment: Speci men Type: URINE SPECIMENOrdering Facility: [facility] Address: [address] [place] [address] Performed By: #### 2 4356-8 ####[facility] LABORATORYCLIA [id number] [address] [place] Glucose Test strip (U) [Mass/Vol] Negative Normal Trace, Negative [facility] Comment on above: Order Comment: Speci men Type: URINE SPECIMENOrdering Facility: [facility] Address: [address] [place] [address] Performed By: #### 2 4356-8 ####[facility] LABORATORYCLIA [id number] [address] [place] Hemoglobin Ql (U) Negative Normal Negative, Trace [facility] Comment on above: Order Comment: Speci men Type: URINE SPECIMENOrdering Facility: [facility] Address: [facility] [place] [address] Performed By: #### 2 4356-8 ####[facility] LABORATORYCLIA [id number] [address] Ketones Ql (U) 1+ Abnormal Negative, Trace [facility] Comment on above: Order Comment: Speci men Type: URINE SPECIMENOrdering Facility: [facility] Address: [address] [place] [address] Performed By: #### 2 4356-8 ####[facility] LABORATORYCLIA [id number] [address] Leukocyte esterase Test strip Ql (U) Negative Normal Negative, 25 Matilde/uL [facility] Comment on above: Order Comment: Speci men Type: URINE SPECIMENOrdering Facility: [facility] Address: [facility] [place] [address] Performed By: #### 2 4356-8 ####[facility] LABORATORYCLIA [id number] [address] [place] Nitrite Ql (U) Negative Normal Negative [facility] Comment on above: Order Comment: Speci men Type: URINE SPECIMENOrdering Facility: [facility] Address: [address] [place] [address] Performed By: #### 2 4356-8 ####[facility] LABORATORYCLIA [id number] [address] pH (U) 6.5 [pH] Normal 5.0-8.0 [facility] Comment on above: Order Comment: Speci men Type: URINE SPECIMENOrdering Facility: [facility] Address: [address] [place] [address] Performed By: #### 2 4356-8 ####[facility] LABORATORYCLIA [id number] [address] Protein (U) [Mass/Vol] Negative Normal Trace, Negative [facility] Comment on above: Order Comment: Speci men Type: URINE SPECIMENOrdering Facility: [facility] Address: [address] [place] [address] Performed By: #### 2 4356-8 ####[facility] LABORATORYCLIA [id number] [address] RBC LM.HPF (Urine sed) [#/Area] 0-3 /HPF Normal 0-3 /HPF [facility] Comment on above: Order Comment: Speci men Type: URINE SPECIMENOrdering Facility: [facility] Address: [address] [place] [address] Performed By: #### 2 4356-8 ####[facility] LABORATORYCLIA [id number] [address] Specific gravity (U) [Rel density] 1.021 Normal 1.005-1.030 [facility] Comment on above: Order Comment: Speci men Type: URINE SPECIMENOrdering Facility: [facility] Address: [address] [place] [address] Performed By: #### 2 4356-8 ####[facility] LABORATORYCLIA [id number] [address] Urobilinogen Ql (U) Normal Normal Normal [facility] Comment on above: Order Comment: Speci men Type: URINE SPECIMENOrdering Facility: [facility] Address: [address] [place] [address] Performed By: #### 2 4356-8 ####[facility] LABORATORYCLIA [id number] [address] WBC LM.HPF (Urine sed) [#/Area] 0-5 /HPF Normal 0-5 /HPF [facility] Comment on above: Order Comment: Speci men Type: URINE SPECIMENOrdering Facility: [facility] Address: [address] [place] [address] Performed By: #### 2 4356-8 ####[facility] LABORATORYCLIA [id number] [address] XR CHEST 2V FRONTAL/LATon XR CHEST 2V FRONTAL/LAT * * *Final Report* * * DATE OF EXAM: Mar 04 2025 3:29PM AKX [id number] - XR CHEST 2V FRONTAL/LAT / PROCEDURE REASON: multiple diagnoses * * * * Physician Interpretation * * * * EXAMINATION: CHEST RADIOGRAPH (2 VIEW FRONTAL and LATERAL) CLINICAL HISTORY: Pituitary mass (HCC) Pre-op testing MQ: XC2_6 EXAM DATE/TIME: 03/04/2025 3:29 PM COMPARISON: No relevant prior studies available. RESULT: Lines, tubes, and devices: None. Lungs and pleura: No consolidation. No lung mass. No pleural effusion. No pneumothorax. Cardiomediastinal silhouette: Normal cardiomediastinal silhouette. Atherosclerotic aorta. Bones and soft tissues: Unremarkable. IMPRESSION: No acute radiographic abnormality. Burlap Bag Sewer: KENNY Transcribe Date/Time: Mar 06 2025 7:43A Dictated by : KAIA TIRADO MD This examination was interpreted and the report reviewed and electronically signed by: KAIA TIRADO MD on Mar 06 2025 7:43AM EST [id number] Normal [facility] aPTT PPPon 03-04-2025 aPTT Coag (PPP) [Time] 27.1 s Normal 23.0-32.4 [facility] Comment on above: Order Comment: Chidi silvestre Type: BLOOD SPECIMENOrdering Facility: [facility] Address: [address] [place] [address] Performed By: #### 1 4979-9, 73665-9 ####[facility] LABORATORYCLIA [id number] [place] [address] [facility] CNPNon 02-27-2025 CNPN Telephone (NEAGCLM) ZACHERY WEST ([id number]) 1955 M Date Time Provider Department 02/27/25 KIM JUNG NEAGCLM During your visit today, we recorded the following information about you: Giuliana Sánchez 02/27/2025 3:52 PM Signed Called and spoke with patient regarding surgery details. All questions addressed. Allergies As of Date: 02/27/2025 (No Known Allergies) Date Reviewed: 02/25/2025 Reviewed by: Kim Jung MD - Fully Assessed Reason for Visit: Preparations For Surgery [898] Problem List As Of Date: 02/27/2025 (None) Encounter Status:Closed by GIULIANA SÁNCHEZ on 02/27/25 [facility] CNOVon 02-25-2025 CNOV Office Visit (NEAGCL M) JOEY WEST ([id number]) 1955 M Date Time Provider Department 02/25/25 1:30 PM KIM JUNG NEAGCLM During your visit today, we recorded the following information about you: Pulse Respiration Blood pressure Weight 84/minute 16/minute 125/83 84.9 kg Kim Jung MD 02/25/2025 2:25 PM Signed NEUROSURGERY FOLLOW UP OFFICE NOTE Kim Jung MD Date of visit: February 25, 2025 Patient Name: Mr.Ken Matt West Date of : 1955 Current Age: [age] year old Sex: male MRN/E# [id number] Last Office Visit: 02/18/2025 CLINICAL SUMMARY: Pituitary mass noted January 2025 - bitemporal vis field defect, worse on the left temporal Dr. Durham - [facility] SUBJECTIVE: History of Present Illness. Joey West is a 69 year old right-handed male presenting with spouse. He was seen in consult on 02/18/2025 where he went in to eye doctor for yearly evaluation when they were doing exam he was not doing well with left peripheral vision exam. They brought him back in a week for a repeat evaluation and was the same. From there Dr. Durham ordered an MRI of the brain. He stated that he didn't really notice too much of an issue with left peripheral vision. 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 Recommended for him to get endocrine blood work done, if negative would recommend surgery for this. He was recommended to have blood work and follow with Endocrinology and ENT. Today he saw Dr. Lundberg last week and Dr. Rock on Tuesday02/22/2025; had lab work done, prolactin at 9.2. He has been doing well overall, no changes since last week. 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 No pertinent surgical history. History reviewed. No pertinent family history. ALLERGIES No Known Allergies No current outpatient medications on file. No current facility-administered medications for this visit. OBJECTIVE: BP 125/83 Pulse 84 Resp 16 Wt 187 lb 2.7 oz (84.9kg) SpO2 96% PHYSICAL EXAM Left temporal visual field defect Remainder of the exam is normal Data Review IMAGING STUDIES: MRI brain obtained on 01/31/2025: Visual field from both12/12/2024 AND 01/09/2025: Images independently reviewed The following portions of the patient's history were reviewed, confirmed, updated as necessary: allergies, current medications, past family history, past medical history, past social history, past surgical history, problem list, HPI and ROS obtained by others. The clinical and radiographic findings as well as the risks, benefits, and alternatives of treatment have been reviewed in detail with the patient. ASSESSMENT/PLAN 1. Pituitary mass (HCC) (Primary) Reviewed endocrine lab results. Prolactin is normal, therefore recommend surgical resection of the sellar mass Discussed surgery details, risks and benefits All questions answered. Patient would like to proceed with scheduling surgery. We will make the necessary arrangements Encouraged patient to contact our office should there be any further questions, concerns, or change in symptoms. Patient expressed understanding and is in agreement with plan. Some elements may have been copied from a previous note and have been updated/reviewed where appropriate. All portions reflect current medical decision making from today. Kim Jung MD I spent a total of 30 minutes on the date of the service which included preparing to see the patient, [id number] patient care, completing clinical documentation, obtaining and/or reviewing separately obtained history, performing a medically appropriate examination, counseling and educating the patient/family/caregiver, ordering medications, tests, or procedures, independently interpreting results (not separately reported), and communicating results to the patient/family/caregiver. Allergies As of Date: 02/25/2025 (No Known Allergies) Date Reviewed: 02/25/2025 Reviewed by: Kim Jung MD - Fully Assessed Reason for Visit: Established Patient [175] Primary Visit Diagnosis:Pituitary mass (HCC) [E23.6] Problem List As Of Date: 02/25/2025 (None) Level of Service: OFFICE/OUTPATIENT ESTABLISHED MOD MDM 30 MIN [42388] Additional E/M codes: VISIT CPLX INHERENT EANDM ASSOC WITH MED * Disposition: Return for surgery already saw dr rock and dr lundberg . Follow-up and Disposition History for Encounter Date Provider Department Center 02/25/2025 [id number], DARIA WATSONLM Farshad Marin Encounter Status:Closed by KIM JUNG on 02/25/25 Normal [facility] CNOVon 02-22-2025 CNOV Office Visit (AGENDP OB) JOEY WEST ([id number]) 1955 M Date Time Provider Department 02/22/25 1:00 PM PIEDAD ROCK During your visit today, we recorded the following information about you: Pulse Blood pressure Weight 86/minute 150/99 85.3 kg Piedad Rock MD 02/25/2025 10:20 AM Signed This note was created using [email or web address]. Subjective Joey Matt Jenna is a 69 year old male. Consultation requested by Dr. Beckford for an opinion regarding pituitary mass. My final recommendations will be communicated back to the requesting physician by way of shared Medical record or letter to requesting physician via US mail. 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 79 Insulin-like Growth Factor I 27 - 246 ng/mL 81 IGF-1 z-score -2.0 - 2.0 -1.0 TSH 0.270 - 4.200 mIU/L 3.620 ACTH 7.2 - 63.3 pg/mL 21.4 Cortisol 4.8 - 19.5 ug/dL 13.4 FSH 1.5 - 12.4 mIU/mL 11.8 LH 1.8 - 10.8 mIU/mL 4.5 Estradiol 17B <38 pg/mL <25 Prolactin 4.1 - 25.1 ng/mL 9.2 Free T4 0.9 - 1.7 ng/dL 1.1 Legend: (H) High (L) Low Review of Systems Genitourinary: Positive for frequency. All other systems reviewed and are negative. Objective BP 150/99 Pulse 86 Wt 85.3 kg (188 lb) BMI 26.98 kg/m? Physical Exam Vitals and nursing note reviewed. Constitutional: Appearance: Normal appearance. HENT: Head: Normocephalic and atraumatic. Nose: Nose normal. Eyes: General: No scleral icterus. Conjunctiva/sclera: Conjunctivae normal. Pupils: Pupils are equal, round, and reactive to light. Comments: Left hemianopsia Neck: Thyroid: No thyromegaly. Cardiovascular: Rate and Rhythm: Normal rate and regular rhythm. Heart sounds: Normal heart sounds. No murmur heard. Pulmonary: Effort: Pulmonary effort is normal. Breath sounds: Normal breath sounds. No wheezing or rales. Abdominal: General: Bowel sounds are normal. There is no distension. Palpations: Abdomen is soft. Tenderness: There is no abdominal tenderness. Musculoskeletal: Cervical back: Neck supple. Lymphadenopathy: Cervical: No cervical adenopathy. Skin: General: Skin is warm and dry. Findings: No lesion. Nails: There is no clubbing. Neurological: Mental Status: He is alert and oriented to person, place, and time. Cranial Nerves: No cranial nerve deficit. Deep Tendon Reflexes: Reflexes are normal and symmetric. Psychiatric: Judgment: Judgment normal. Assessment and Plan ASSESSMENT/PLAN: 1. 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 Discussed pathophysiology of disease; discussed about hormonal monitoring after surgery, risks and side effects; F/u with me after surgery; at this time patient does not need any hormonal replacement 2. Impaired fasting glucose - ICD9: 790.21, ICD10: R73.01 Different diagnosis and implications of them including short term and chcf complications and impact on health and survival were discussed with patient. Different and alternative modalities of treatment was discussed. Potential side effects of medication discussed and patient was told not to stop any of the prescribed medication unless recommended by physician. Patient's questions were answered and patient is agreeable with course of action and treatment. Piedad Rock MD Referring Provider: KIM JUNG [[id number]] Allergies As of Date: 02/22/2025 (No Known Allergies) Date Reviewed: 02/22/2025 Reviewed by: Piedad Rock MD - Fully Assessed Primary Visit Diagnosis:Pituitary mass (HCC) [E23.6] Other Visit Diagnosis:Impaired fasting glucose [R73.01] Order(s):CONSULT TO ENDOCRINOLOGY [9007] Order #: [id number]: 1 Problem List As Of Date: 02/22/2025 (None) Disposition: Return in about 6 m (more content not included)... Normal [facility] Corticotropin (P) [Mass/Vol] 21.4 pg/mL Normal 7.2-63.3 [facility] Comment on above: Order Comment: Speci men Type: BLOOD SPECIMEN [facility] Address: [address] [place] [address] Result Comment: ACTH Reference Range: 7-10 am: 7.2 - 63.3 pg/mL Performed By: #### 5 8410-2 #### [facility]ITALWALTER BREWSTERTOWClemente MUÑOZ [id number] [address] [place] [address] [place] Comprehensive metabolic 2000 panelon 02-19-2025 Albumin [Mass/Vol] 4.5 g/dL Normal 3.9-4.9 [facility] Comment on above: Order Comment: Speci men Type: BLOOD SPECIMEN [facility] Address: [address] [place] [address] Performed By: #### 2 4323-8 #### [facility] CLIA [id number] [address] [place] [address] [place] ALP [Catalytic activity/Vol] 57 U/L Normal 38-113 [facility] Comment on above: Order Comment: Speci men Type: BLOOD SPECIMEN [facility] Address: [address] [place] [address] Performed By: #### 2 4323-8 #### [facility] CLIA [id number] [address] [place] [address] [place] ALT [Catalytic activity/Vol] 24 U/L Normal 10-54 [facility] Comment on above: Order Comment: Speci men Type: BLOOD SPECIMEN [facility] Address: [address] [place] [address] Performed By: #### 2 4323-8 #### [facility] CLIA [id number] [address] [place] [address] [place] Anion gap [Moles/Vol] 9 mmol/L Normal 8-15 [facility] Comment on above: Order Comment: Speci men Type: BLOOD SPECIMEN [facility] Address: [address] [place] [address] Performed By: #### 2 4323-8 #### [facility] CLIA [id number] [address] [place] [address] [place] AST [Catalytic activity/Vol] 24 U/L Normal 14-40 [facility] Comment on above: Order Comment: Speci men Type: BLOOD SPECIMEN [facility] Address: [address] [place] [address] Performed By: #### 2 4323-8 #### [facility] CLIA [id number] [address] [place] [address] [place] Bilirubin [Mass/Vol] 1.0 mg/dL Normal 0.2-1.3 [facility] Comment on above: Order Comment: Speci men Type: BLOOD SPECIMEN [facility] Address: [address] [place] [address] Performed By: #### 2 4323-8 #### [facility] CLIA [id number] [address] [place] [address] [place] Calcium [Mass/Vol] 9.6 mg/dL Normal 8.5-10.2 [facility] Comment on above: Order Comment: Speci men Type: BLOOD SPECIMEN [facility] Address: [address] [place] [address] Performed By: #### 2 4323-8 #### [facility] CLIA [id number] [address] [place] [address] [place] Chloride [Moles/Vol] 98 mmol/L Normal 98-107 [facility] Comment on above: Order Comment: Speci men Type: BLOOD SPECIMEN [facility] Address: [address] [place] [address] Performed By: #### 2 4323-8 #### [facility] CLIA [id number] [address] [place] [address] [place] CO2 [Moles/Vol] 28 mmol/L Normal 22-30 [facility] Comment on above: Order Comment: Speci men Type: BLOOD SPECIMEN Ordering Facility: [facility] Address: [address] [place] [address] Performed By: #### 2 4323-8 #### [facility] CLIA [id number] [address] [place] [address] [place] Creatinine [Mass/Vol] 1.02 mg/dL Normal 0.73-1.22 [facility] Comment on above: Order Comment: Chidi silvestre Type: BLOOD SPECIMEN Ordering Facility: [facility] Address: [address] [place] [address] Performed By: #### 2 4323-8 #### [id number] [address] [place] [address] [place] Creatinine and Glomerular filtration rate.predicted panel (S/P/Bld) 79 mL/min/1.73m??? Normal >=60 [facility] Comment on above: Order Comment: Chidi silvestre Type: BLOOD SPECIMEN Ordering Facility: [facility] Address: [address] [place] [address] Result Comment: Yamila mated Glomerular Filtration Rate (eGFR) is calculated using the 2020 CKD-EPI creatinine equation. This equation utilizes serum creatinine, sex, and age as parameters. The creatinine assay has traceable calibration to isotope dilution-mass spectrometry. Refer to KDIGO guidelines for clinical interpretation. In patients with unstable renal function, e.g. those with acute kidney injury, the eGFR may not accurately reflect actual GFR. Performed By: #### 2 4323-8 #### [facility] [id number] [address] [place] [address] [place] Glucose [Mass/Vol] 108 mg/dL High 74-99 [facility] Comment on above: Order Comment: Chiid silvestre Type: BLOOD SPECIMEN Ordering Facility: [facility] Address: [address] [id number] Result Comment: The [place] Diabetes Association (ADA) provides guidance for cutoff values for fasting glucose and random glucose. The ADA defines fasting as no caloric intake for at least 8 hours. Fasting plasma glucose results between 100 to 125 mg/dL indicate increased risk for diabetes (prediabetes). Fasting plasma glucose results greater than or equal to 126 mg/dL meet the criteria for diagnosis of diabetes. In the absence of unequivocal hyperglycemia, results should be confirmed by repeat testing. In a patient with classic symptoms of hyperglycemia or hyperglycemic crisis, random plasma glucose results greater than or equal to 200 mg/dL meet the criteria for diagnosis of diabetes. Reference: Standards of Medical Care in Diabetes 2016, [place] Diabetes Association. Diabetes Care. 2016.39(Suppl 1). Performed By: #### 2 4323-8 #### [facility] CLIA [id number] [address] [place] [address] [place] Potassium [Moles/Vol] 4.5 mmol/L Normal 3.7-5.1 [facility] Comment on above: Order Comment: Speci men Type: BLOOD SPECIMEN Ordering Facility: [facility] Address: [address] [place] [address] Performed By: #### 2 4323-8 #### [facility] [id number] [address] [place] [address] [place] Protein [Mass/Vol] 7.7 g/dL Normal 6.3-8.0 [facility] Comment on above: Order Comment: Speci men Type: BLOOD SPECIMEN Ordering Facility: [facility] Address: [address] [place] [address] Performed By: #### 2 4323-8 #### [facility] [id number] [address] [place] [address] [place] Sodium [Moles/Vol] 135 mmol/L Low 136-144 [facility] Comment on above: Order Comment: Speci men Type: BLOOD SPECIMEN Ordering Facility: [facility] Address: [address] [place] [address] Performed By: #### 2 4323-8 #### [facility] [id number] [address] [place] [address] [place] Urea nitrogen [Mass/Vol] 17 mg/dL Normal 9-24 [facility] Comment on above: Order Comment: Speci men Type: BLOOD SPECIMEN Ordering Facility: [facility] Address: [address] [place] [address] Performed By: #### 2 4323-8 #### [facility] CLIA [id number] [address] [place] [address] [place] Cortis SerPl-mCncon 02-20-20 25 Cortisol [Mass/Vol] 13.4 ug/dL Normal 4.8-19.5 [facility] Comment on above: Order Comment: Speci men Type: BLOOD SPECIMEN Ordering Facility: [facility] Address: [address] [place] [address] Result Comment: Prov ided reference range is from 6-10 AM sample collection time. Cortisol Reference Range: 6-10 AM = 4.8-19.5 ug/dL, 4-8 PM = 2.5-11.9 ug/dL Performed By: #### 3 024-7, 2143-6, 3016-3 #### [facility] CLIA [id number] [address] [place] [address] [place] Estradiol SerPl-mCncon 02-19 E2 [Mass/Vol] pg/mL Normal <38 [facility] Comment on above: Order Comment: Speci men Type: BLOOD SPECIMEN Ordering Facility: [facility] Address: [address] [place] [address] Result Comment: This test is not suitable for patients receiving treatment with the drug Fulvestrant (Faslodex). The drug causes an interference leading to falsely elevated estradiol results. Performed By: #### 2 243-4, 97075-3, 2842-3, 35458-1 #### [facility] CLIA [id number] [address] [place] [address] [place] FSH SerPl-aCncon 02-19-2025 Follitropin Qn 11.8 m[IU]/mL Normal 1.5-12.4 [facility] Comment on above: Order Comment: Speci men Type: BLOOD SPECIMEN Ordering Facility: [facility] Address: [address] [place] [address] Performed By: #### 5 8410-2 #### [facility] CLIA [id number] [address] [place] [address] [place] INSULIN LIK GR FAC Ion 02-19 INSULIN LIK GR FAC 1 81 ng/mL Normal 27-246 [facility] Comment on above: Order Comment: Speci men Type: BLOOD SPECIMEN Ordering Facility: [facility] Address: [address] [place] [address] Performed By: #### I LGF1 #### [facility] CLIA [id number] [address] [place] [address] [place] LH SerPl-aCncon 02-19-2025 Lutropin Qn 4.5 m[IU]/mL Normal 1.8-10.8 [facility] Comment on above: Order Comment: Speci men Type: BLOOD SPECIMEN Ordering Facility: [facility] Address: [address] [place] [address] Performed By: #### 5 8410-2 #### [facility] [id number] [address] [place] [address] [place] Prolactin SerPl-mCncon 02-19 Prolactin [Mass/Vol] 9.2 ng/mL Normal 4.1-25.1 [facility] Comment on above: Order Comment: Speci men Type: BLOOD SPECIMEN Ordering Facility: [facility] Address: [address] [place] [address] Result Comment: Prol actin test is performed using the [employer] Electrochemiluminescence Immunoassay method. Results obtained with different methods or kits cannot be used interchangeably. Performed By: #### 5 8410-2 #### [facility] CLIA [id number] [address] [place] [address] [place] T4 Free SerPl-mCncon 025 Free T4 [Mass/Vol] 1.1 ng/dL Normal 0.9-1.7 [facility] Comment on above: Order Comment: Speci men Type: BLOOD SPECIMEN Ordering Facility: [facility] Address: [address] [place] [address] Performed By: #### 3 024-7, 3-6, 3016-3 #### [facility] CLIA [id number] [address] [place] [address] [place] TSH SerPl-aCncon 02-19-2025 TSH Qn 3.620 m[IU]/L Normal 0.270-4.200 [facility] Comment on above: Order Comment: Speci men Type: BLOOD SPECIMEN Ordering Facility: [facility] Address: [address] [place] [address] Performed By: #### 3 024-7, 3-6, 3016-3 #### [facility] CLIA [id number] [address] [place] [address] [place] CNOVon 02-18-2025 CNOV Office Visit (NEAGCL M) JOEY WEST ([id number]) 1955 M Date Time Provider Department 02/18/25 10:00 AM KIM JUNG NEAGCLM During your visit today, we recorded the following information about you: Pulse Respiration Blood pressure Weight 82/minute 16/minute 143/98 85 kg Height 1.778 m Kim Jung MD 02/18/2025 10:58 AM Signed NEUROSURGERY CONSULT NOTE Kim Jung MD Date of visit: February 18, 2025 Patient Name: Mr.Ken Matt West Date of : 1955 Current Age: [age] year old Sex: male MRN/E# [id number] Last Office Visit: 02/13/2025 CLINICAL SUMMARY: Pituitary mass noted January 2025 - bitemporal vis field defect, worse on the left temporal Dr. Durham - [facility] HISTORY OF PRESENT ILLNESS : Joey West is a 69 year old right-handed male presenting with spouse. He was referred by Dr. Durham for pituitary mass evaluation. Today he reports that he went in to eye doctor for yearly evaluation when they were doing exam he was not doing well with left peripheral vision exam. They brought him back in a week for a repeat evaluation and was the same. From there Dr. Durham ordered an MRI of the brain. He states that he doesn't really notice too much of an issue with left peripheral vision. He is here for image review, evaluation and plan of care. 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 No past medical history on file. No past surgical history on file. No family history on file. ALLERGIES No Known Allergies No current outpatient medications on file. No current facility-administered medications for this visit. REVIEW OF SYSTEMS Review of Systems Constitutional: Negative for chills and fever. HENT: Negative for congestion. Eyes: Positive for visual disturbance. Respiratory: Negative for apnea and cough. Gastrointestinal: Negative for nausea and vomiting. Genitourinary: Negative for difficulty urinating. Musculoskeletal: Negative for back pain and gait problem. Skin: Negative for rash and wound. Neurological: Positive for headaches. Negative for weakness and numbness. Rare headaches Hematological: Does not bruise/bleed easily. Psychiatric/Behavioral: Negative for agitation and confusion. OBJECTIVE: BP 144/94 Pulse 86 Resp 16 Ht 5' 10 (1.78m) Wt 187 lb 6.3 oz (85.0kg) SpO2 99% BMI 26.89 kg/(m2). PHYSICAL EXAM: GENERAL: No distress, Alert, cooperative, pleasant HEENT: Normocephalic, atraumatic LUNGS: Unlabored breathing NECK/BACK: ROM appropriate, no TTP CARDIAC: Regular rate and rhythm ABDOMEN: Soft, non-tender, non-distended EXTREMITIES: GONZALEZ, No deformities, No edema NEURO: Mental State: Alert, Oriented to person, place and time; appropriate judgement Speech: Fluent. Naming, comprehension and repetition intact Cranial Nerves: CN II: Visual sorensen - left temporal decreased vision. Rt 20/20 Lt 20/30 corrected CN III, IV, : Extraocular movements intact bilaterally. Pupils equal round and reactive to light bilaterally. No diplopia CN V: Facial sensation is normal bilaterally. CN VII: Face is symmetric, no weakness CN VIII: Hearing is normal. CN IX, X: Palate elevates symmetrically CN XI: Shoulder shrug strength is normal. CN XII: Tongue midline without atrophy or fasciculations. Sensory: Normal sensation in upper and lower extremities and trunk to touch. Motor : Normal muscle tone. No spasticity , mild bilateral tremor. No evidence of pronator drift. Full strength in upper and lower extremities Reflexes: Deep tendon reflexes are 2+ and symmetric in all four extremities, negative Garcia's, negative clonus Coordination: Hjwfmq-gg-[id number] normal. Rapid alternating movement normal. Gait: Normal casual gait. Normal toe walking. Normal heel walking. Normal tandem gait. Romberg is absent. Data Review IMAGING STUDIES: MRI brain obtained on 01/31/2025: Images independently reviewed The following portions of the patient's history were reviewed, confirmed, updated as necessary: allergies, current medications, past family history, past medical history, past social history, past surgical history, problem list, HPI and ROS obtained by others. The clinical and radiographic findings as well as the risks, benefits, and alternatives of treatment have been reviewed in detail with the patient. ASSESSMENT/PLAN 1. Pituitary mass (HCC) (Primary) Visual defect picked up on routine visual examination. MRI brain reviewed - large sellar mass with suprasellar extension and mass effect on optic chiasm. Discussed imaging in detail. Recommend endocrine bloodwork. If negative, given tumor size, recommend surgery. Reviewed risks/benefits/alternatives in detail. All questions answered. - f/up (more content not included)... Normal [facility] Yi 02-13-2025 [facility] (NEAGCLM) JOEY WEST ([id number]) 1955 Date Time Provider Department 02/13/25 KIM JUNG NEAGCLM During your visit today, we recorded the following information about you: Valerie Umana RN 02/13/2025 4:[address] cheema [phone] office to get visual field exam sent to us. Provided them with our fax # to send over. USMAN Shelton Lena, RN 02/18/2025 9:35 AM Signed Called [facility] - let them know we received the ophthalmology notes, but not visual field study. They said they would fax over to us his visual field study in December that was done. USMAN Shelton Lena, RN 02/18/2025 3:34 PM Addendum Received visual field exam. Reached out to Dr Rock AND Sylwia Murillo to get him set up for appt - he is scheduled with Dr Rock on 03/06/2025. 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 Nuvia Magana MD on 02/12/25 at 1302 Contrast: Clariscan 17 mL Reading [facility] 02/12/25 1302 Date cc: Dr. Demario Durham MD; No Primary Care Physician * Signed PROCEDURE: BRAIN W/WO CONTRAST 01/31/2025 REASON FOR EXAM: LT TEMPORAL VISUAL FIELD DEFECT TECHNIQUE: Brain MRI without and with intravenous contrast with additional dedicated imaging of the IACs. COMPARISON: None FINDINGS: No evidence of acute ischemia.No intracranial hemorrhage. There is a pituitary mass lesion measuring 2.1 x 2.0 x 2.5 cm that is expanding the pituitary fossa and extends into the suprasellar cistern causing mass effect on the optic chiasm. The lesion is isointense to clarke matter on T1 and T2 weighted images and mildly hyperintense on FLAIR. The lesion has mildly heterogeneous diffuse enhancement and well-defined margins. There appears to be extension or mass effect of the tumor into the left cavernous sinus, best seen on image 9 of series 11, with a proximally 180 degrees of left internal carotid artery encasement. The ventricles and sulci are normal in appearance.No midline shift. The posterior fossa structures are within normal limits. The orbits and paranasal sinuses are unremarkable.The calvarium and soft tissues are unremarkable. MRI/Brain W/WO Contrast IMPRESSION: 1. 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 Extension into the left cavernous sinus is noted with approximately 180 degrees of the left internal carotid artery encasement. Reading Location: [facility] CC: Dr. Demario Durham MD; No Primary Care Physician [employer] Sewer: Signed Normal [facility] Magnetic resonance imaging r eportOrdered By: Nuvia Magana on 01-31-2025 Study report [facility] Imaging Services [address] [place], [place] [id number] Brain W/WO Contrast MR#: [id number] Acct: [id number] Name: ZACHERY WEST Rep #: [id number] : 1955 M 69 From: Sallie Mgaana MD PCP: Care Physician,No Primary Status: REG CLI Study:Brain W/WO Contrast Date of Exam: 01/31/25 Exam# [id number] Ordering Dr: Juan Durham MD PROCEDURE: BRAIN W/WO CONTRAST 01/31/2025 REASON FOR EXAM: LT TEMPORAL VISUAL FIELD DEFECT TECHNIQUE: Brain MRI without and with intravenous contrast with additional dedicated imaging of the IACs. COMPARISON: None FINDINGS: No evidence of acute ischemia.No intracranial hemorrhage. There is a pituitary mass lesion measuring 2.1 x 2.0 x 2.5 cm that is expanding the pituitary fossa and extends into the suprasellar cistern causing mass effect on the optic chiasm. The lesion is isointense to clarke matter on T1 and T2 weighted images and mildly hyperintense on FLAIR. The lesion has mildly heterogeneous diffuse enhancement and well-defined margins. There appears to be extension or mass effect of the tumor into the left cavernous sinus, best seen on image 9 of series 11, with a proximally 180 degrees of left internal carotid artery encasement. The ventricles and sulci are normal in appearance.No midline shift. The posterior fossa structures are within normal limits. The orbits and paranasal sinuses are unremarkable.The calvarium and soft tissuesare unremarkable. MRI/Brain W/WO Contrast IMPRESSION: 1. 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 Extension into the left cavernous sinus is noted with approximately 180 degrees of the left internal carotid artery encasement. Reading Location: [facility] CC: Dr. Demario Durham MD; No Primary Care Physician ~ [employer] Sewer: Signed [facility] Vital Signs Date Time Vital Sign Value Performing Clinician Faci sonia 05-21-2025 12:55-0400 Body height 177.8 cm Kim Jung MD Work Phone: [facility] 05-21-2025 12:55-0400 Body mass index (BMI) [Ratio] 25.83 kg/m2 Kim Jung MD Work Phone: [facility] 05-21-2025 12:55-0400 Body weight 81.65 kg Kim Jung MD Work Phone: [facility] 05-21-2025 12:55-0400 Diastolic blood pressure 85 mm[Hg] Kim Jung MD Work Phone: [facility] 05-21-2025 12:55-0400 Heart rate 81 /min Kim Jung MD Work Phone: [facility] 05-21-2025 12:55-0400 SaO2% (BldA) [Mass fraction] 99 % Kim Jung MD Work Phone: [facility] 05-21-2025 12:55-0400 Systolic blood pressure 136 mm[Hg] Kim Jung MD Work Phone: [facility] 03-21-2025 10:08-0400 Diastolic blood pressure 95 mm[Hg] Kim Jung MD Work Phone: [facility] 03-21-2025 10:08-0400 Systolic blood pressure 143 mm[Hg] Kim Jung MD Work Phone: [facility] 03-21-2025 09:17-0400 Body height 177.8 cm Kim Jung MD Work Phone: [facility] 03-21-2025 09:17-0400 Body mass index (BMI) [Ratio] 25.75 kg/m2 Kim Jung MD Work Phone: [facility] 03-21-2025 09:17-0400 Body weight 81.4 kg Kim Jung MD Work Phone: [facility] 03-21-2025 09:17-0400 Heart rate 84 /min Kim Jung MD Work Phone: [facility] 03-21-2025 09:17-0400 Respiratory rate 16 /min Kim Jung MD Work Phone: [facility] 03-21-2025 09:17-0400 SaO2% (BldA) [Mass fraction] 98 % Kim Jung MD Work Phone: [facility] 03-04-2025 14:36-0400 Body height 177.[address] 03-04-2025 14:36-0400 Body mass index (BMI) [Ratio] 26.26 kg/m2 [address] 03-04-2025 14:36-0400 Body temperature 97.5 [degF] [address] 03-04-2025 14:36-0400 Body weight 83.[address] 03-04-2025 14:36-0400 Diastolic blood pressure 77 mm[Hg] [address] 03-04-2025 14:36-0400 Heart rate 75 /min [address] 03-04-2025 14:36-0400 Respiratory rate 16 /min [address] 03-04-2025 14:36-0400 SaO2% (BldA) [Mass fraction] 97 % [address] 03-04-2025 14:36-0400 Systolic blood pressure 145 mm[Hg] [address] 02-25-2025 13:14-0400 Body mass index (BMI) [Ratio] 26.86 kg/m2 Kim Jung MD Work Phone: [facility] 02-25-2025 13:14-0400 Body weight 84.9 kg Kim Jung MD Work Phone: [facility] 02-25-2025 13:14-0400 Diastolic blood pressure 83 mm[Hg] Kim Jung MD Work Phone: [facility] 02-25-2025 13:14-0400 Heart rate 84 /min Kim Jung MD Work Phone: [facility] 02-25-2025 13:14-0400 Respiratory rate 16 /min Kim Jung MD Work Phone: [facility] 02-25-2025 13:14-0400 SaO2% (BldA) [Mass fraction] 96 % Kim Jung MD Work Phone: [facility] 02-25-2025 13:14-0400 Systolic blood pressure 125 mm[Hg] Kim Jung MD Work Phone: [facility] 02-22-2025 12:58-0400 Body mass index (BMI) [Ratio] 26.98 kg/m2 Piedad Rock MD Work Phone: [facility] 02-22-2025 12:58-0400 Body weight 85.28 kg Piedad Rock MD Work Phone: [facility] 02-22-2025 12:58-0400 Diastolic blood pressure 99 mm[Hg] Piedad Rock MD Work Phone: [facility] 02-22-2025 12:58-0400 Heart rate 86 /min Piedad Rock MD Work Phone: [facility] 02-22-2025 12:58-0400 Systolic blood pressure 150 mm[Hg] Piedad Rock MD Work Phone: [facility] Encounters Encounter Date Encounter Type Care Provider Facility Start: 06-21-2025 End: 06-21-[address] MARIANNE SCRUGGS DO Facility:[facility] Start: 06-21-2025 End: 06-21-[address] MARIANNE SCRUGGS DO [facility] Start: 05-22-2025 End: 05-22-2025 ambulatory KIM JUNG Facility:[facility] Start: 05-21-2025 End: 05-21-2025 Postop follow up visit related to original px Kim Jung MD Work Phone: [facility] Comment on above: Pituitary adenoma (H CC) (Primary Dx); Post-op pain; Other intraoperative complications of endocrine system Start: 05-21-2025 End: 05-21-2025 ambulatory KIM SUGGSJuan Facility:[facility] Start: 05-21-2025 End: 05-21-2025 Subsequent hospital visit by physician [facility] [employer] Comment on above: Acute nonintractable headache, unspecified headache type [R51.9] Start: 05-20-2025 End: 05-20-2025 Telephone encounter Kim Jung MD Work Phone: [facility] 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 Start: 04-03-2025 End: 04-03-2025 ambulatory PIEDAD ROCK Facility:[facility] Start: 04-01-2025 End: 04-03-2025 Telephone encounter Kim Jung MD Work Phone: [facility] Comment on above: Patient Question; Me dication Problem Patient Update; Hilaria ent Question (Medication after surgery); Medication Problem (Cortef) Start: 03-21-2025 End: 03-21-2025 Postop follow up visit related to original px Kim Jung MD Work Phone: [facility] Comment on above: Pituitary mass (HCC) (Primary Dx); Acute nonintractable headache, unspecified headache type; Other postprocedural endocrine and metabolic complications and disorders Start: 03-21-2025 End: 03-21-2025 ambulatory KIM ALBERTPAPA Facility:[facility] Start: 03-19-2025 End: 03-19-2025 Telephone encounter Kim Jung MD Work Phone: [facility] 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 Start: 03-19-2025 End: 03-19-2025 ambulatory SANJU ONEJEREMY Facility:[facility] Start: 03-08-2025 End: 03-08-2025 Evaluation and management of inpatient Mri 1 [facility] (I-Stat/Lg Bore/3t) [facility] Comment on above: Pituitary mass (HCC) [E23.6] Start: 03-08-2025 End: 03-10-2025 Evaluation and management of inpatient KIM KREDDIEPAPA Facility:[facility] Start: 03-06-2025 End: 03-06-2025 Refill Kim Jung MD Work Phone: [facility] Comment on above: Refill Request Preparations For Angelika praveena Start: 03-04-2025 End: 03-04-2025 Subsequent hospital visit by physician Xr [facility] - [place] Comment on above: Pituitary mass (HCC) [E23.6] Start: 03-04-2025 End: 03-04-2025 Admission to establishment [facility] 2 Pre Surgical Testing Start: 03-04-2025 End: 03-04-2025 Patient encounter status [address] Start: 03-04-2025 End: 03-04-2025 ambulatory KIM ALBERTONU Pre Surgical Testing Comment on above: Preop examination (P rimary Dx); Pituitary mass (HCC); Pre-op testing Start: 03-04-2025 Encounter for other preprocedural examination [facility] Start: 03-04-2025 End: 03-04-2025 Preprocedural examination done Pst [address] [place] [address] Work Phone: Start: 03-04-2025 Encounter for other preprocedural examination [facility] Start: 02-27-2025 End: 02-27-2025 Orders Only Kim Jung MD Work Phone: [facility] Comment on above: Pituitary mass (HCC) (Primary Dx) Preparations For Angelika praveena Start: 02-25-2025 End: 02-25-2025 Office outpatient visit 25 minutes Kim Jung MD Work Phone: [facility] Comment on above: Pituitary mass (HCC) (Primary Dx) Start: 02-25-2025 End: 02-25-2025 ambulatory KIM ALBERTOARTIROSENDO Facility:[facility] Start: 02-22-2025 End: 02-22-2025 Patient encounter procedure Piedad Rock MD Work Phone: [facility] Comment on above: Pituitary mass (HCC) (Primary Dx); Impaired fasting glucose Start: 02-22-2025 End: 02-22-2025 ambulatory PIEDAD CILTEA Facility:[facility] Start: 02-19-2025 End: 02-19-2025 ambulatory KIM JUNG Facility:[facility] Start: 02-18-2025 End: 02-18-2025 ambulatory KIM JUNG Facility:[facility] Start: 01-31-2025 End: 01-31-[address] Demario Durham MD Work Phone: [facility] Work Phone: Start: 01-31-2025 End: 01-31-[address] Demario Durham MD -MRI - [facility] Work Phone: Start: 01-31-2025 End: 01-31-2025 ambulatory Demario Durham Facility:[facility] Procedures Date Procedure Procedure Detail Performing Clinician Start: 05-21-2025 Ct head/brain w/o contrast material Kim Jung MD Work Phone: Start: 03-08-2025 H/O: surgery S/P transsphen oidal hypophysectomy Mri Bore/3t) Start: 03-08-2025 Mri brain brain stem w/o w/contrast material Kim Jung MD Work Phone: Start: 03-04-2025 Antibody screen KIM HORTA Comment on above: Order Comment: Speci men Type: BLOOD SPECIMENOrdering Facility: [facility] Address: [address] [place] [address] Result Comment: done on the bench both visions down Performed By: #### T [id number] ####[facility] BLOOD BANKCLIA [id number] [place] [address] [place] Start: 01-31-2025 MRI of brain with contrast Dr. Demario Durham MD Work Phone: Start: 10-24-2024 Benign neoplasm of pituitary gland (disorder) DR MARIANNE SCRUGGS DO Plan of Treatment Date Care Activity Detail Author Start: 2029 RSV Vaccine (1 - 1-d ose 75+ series) RSV Vaccine (1 - 1-dose 75+ series) [facility] Start: 05-22-2028 Diabetes Screening Diabetes Screenin g [facility] Start: 03-19-2028 Diabetes Screening Diabetes Screenin g [facility] Start: 03-09-2028 Diabetes Screening Diabetes Screenin g [facility] Start: 03-04-2028 Diabetes Screening Diabetes Screenin g [facility] Start: 02-20-2028 Diabetes Screening Diabetes Screenin g [facility] Start: 09-26-2025 End: 09-26-2025 Patient encounter procedure 09/26/2025 10:00 AM EST Office Visit [facility] [address] [place] [id number] Kim Jung MD [address] [place] [address] 6 month follow up [facility] Comment on above: 6 month follow up Start: 09-20-2025 End: 09-20-2025 Patient encounter procedure 09/20/2025 9:30 AM EST Appointment Radiology [address] [place] [address] MRI PITUITARY WO/W IVCON Radiology Comment on above: MRI PITUITARY WO/W I VCON Start: 08-27-2025 End: 08-27-2025 Patient encounter procedure 08/27/2025 11:30 AM EST Office Visit [facility] [address] [place], [place] [id number] Piedad Rock MD [address] [place], [place] [id number] 6 mnths follow up pituitary mass [facility] Comment on above: 6 mnths follow up pi tuitary mass Start: 06-24-2025 Influenza vaccination [facility] Start: 05-22-2025 End: 05-22-2025 ambulatory 05/22/2025 11:15 AM EDT Results Only Pedrito Caba [facility] [address] [place] [address] Pedrito Gertrudis [facility] Start: 05-21-2025 End: 05-21-2025 Patient encounter procedure RADIO CT [employer] [employer] Comment on above: CT BRAIN WO IVCON CT follow up Start: 04-03-2025 End: 07-03-2025 Osmolality of Serum or Plasma [facility] Work Phone: Comment on above: Expected: 04/03/2025 , Expires: 07/03/2025 Start: 04-03-2025 End: 07-03-2025 Osmolality of Urine [facility] Comment on above: Expected: 04/03/2025 , Expires: 07/03/2025 Start: 04-03-2025 End: 07-03-2025 Thyroxine (T4) free [Mass/volume] in Serum or Plasma [facility] Comment on above: Expected: 04/03/2025 , Expires: 07/03/2025 Start: 03-21-2025 End: 03-21-2025 Patient encounter procedure 03/21/2025 9:30 AM EDT Office Visit [facility] [address] [facility] [facility] [place] [id number] Kim Jung MD [address] [place] [address] 2 week post op [facility] Comment on above: 2 week post op Start: 03-08-2025 End: 03-08-2025 Admission to same day surgery center 03/08/2025 8:00 AM EDT - 03/08/2025 12:45 PM EDT Surgery [facility] 1 [facility] [place] [address] Kim Jung MD [address] [place] [address] NEUROENDOSCOPY INTRACRANIAL W/ EXCISION OF PITUITARY TUMOR TRANS-SPHENOIDAL APPROACH [facility] Comment on above: NEUROENDOSCOPY INTRA CRANIAL W/ EXCISION OF PITUITARY TUMOR TRANS-SPHENOIDAL APPROACH Start: 03-08-2025 End: 03-08-2025 Microsurg tqs req use operating microscope MICROSURGICAL TECHNIQUE FOR CRANIOTOMY PROCEDURES Pituitary mass (HCC) 03/08/2025 8:00 AM EDT [facility] Start: 03-08-2025 End: 03-08-2025 [facility] icra exc pituitry edna trnsnsl/sphenoid NEUROENDOSCOPY INTRACRANIAL W/ EXCISION OF PITUITARY TUMOR TRANS-SPHENOIDAL APPROACH Pituitary mass (HCC) 03/08/2025 8:00 AM EDT [facility] Start: 03-08-2025 End: 03-08-2025 Strtctc cptr asstd px cranial intradural BRAINLAB STEREOTACTIC COMPUTER-ASSISTED NAVIGATIONAL PROCEDURE CRANIAL Pituitary mass (HCC) 03/08/2025 8:00 AM EDT [facility] Start: 03-08-2025 Subsequent hospital visit by physician 03/08/2025 8:00 AM EDT Hospital Encounter [facility] [address] [place] [address] Kim Jung MD [address] [facility] [place] [address] Pituitary mass (HCC) [E23.6] [facility] Comment on above: Pituitary mass (HCC) [E23.6] Start: 03-04-2025 End: 03-04-2025 ambulatory 03/04/2025 2:20 PM EDT PAT Pre Surgical Testing [address] [place] [address] sx 03/08 Pre Surgical Testing Comment on above: sx 03/08 Start: 10-24-2024 Advance Directive Discussion Advance Directive Discussion [facility] Start: 06-24-2024 Covid-19 Vaccine ( season) Covid-19 Vaccine ( season) [facility] Start: 08-24-2019 Medicare Annual Well ness Visit Medicare Annual Wellness Visit [facility] Start: 2014 RSV Vaccine (1 - Ris k 60-74 years 1-dose series) RSV Vaccine (1 - Risk 60-74 years 1-dose series) [facility] Start: 2004 Pneumococcal Vaccine : 50+ (1 of 1 - PCV) Pneumococcal Vaccine: 50+ (1 of 1 - PCV) [facility] Start: 2004 Shingrix Vaccine (1 of 2) Shingrix Vaccine (1 of 2) [facility] Start: 1999 Screening for malign ant neoplasm of colon [facility] Start: 1989 Lipid panel Lipid Screening [facility] Start: 1973 Urine microalbumin profile DTaP,Tdap,Td Vaccine (1 - Tdap) [facility] Start: 1972 Anxiety Screening Anxiety Screening [facility] Start: 1972 Depression Screening Depression Scre ening [facility] Start: 1972 Hepatitis C screening Hepatitis C Sc [facility] End: 06-19-2026 CT Head WO contrast CT BRAIN WO IVCON Radiology Routine Acute nonintractable headache, unspecified headache type Pituitary mass (HCC) 1 Occurrences starting 05/20/2025 until 06/19/2026 [facility] Work Phone: Comment on above: 1 Occurrences starti ng 05/20/2025 until 06/19/2026 MR Brain WO and W contrast IV MRI BRAIN WO/W IVCON Radiology Routine Pituitary mass (HCC) 03/08/2025 7:42 AM EDT [facility] Work Phone: End: 04-20-2026 MR Pituitary and Sella turcica WO and W contrast IV MRI PITUITARY WO/W IVCON Radiology Routine Other postprocedural endocrine and metabolic complications and disorders 1 Occurrences starting 03/21/2025 until 04/20/2026 [facility] Work Phone: Comment on above: 1 Occurrences starti ng 03/21/2025 until 04/20/2026 End: 03-04-2025 XR Chest PA and Lateral [facility] Work Phone: Comment on above: 1 Occurrences starti ng 03/04/2025 until 03/04/2025 Payers Date Payer Category Payer Self-pay 2023 Private Health Insurance [id number] 2023 Unknown [id number] 2019 Medicare [id number] 2019 Medicare [id number] 1955 Unknown [id number] Unknown [employer] [id number] Unknown [id number] Social History Date Type Detail Facility [facility] Work Phone: Start: 04-18-2019 End: 02-02-2025 Sex Male (finding) [facility] Start: 1955 Sex Assigned At Male [facility] Start: 02-18-2025 [facility] tobacco [facility] Start: 02-18-2025 Tobacco use and exposure Smoke less tobacco non-user [facility] Start: 02-22-2025 End: 05-21-2025 Alcoholic beverage intake Current drinker of alcohol (finding) [facility] Start: 02-25-2025 End: 03-04-2025 History of Social function [facility] Start: 02-25-2025 End: 03-04-2025 Tobacco use panel [facility] National Score (1-10 0), lower number is lower risk 57 [facility] Start: 1955 Sex assigned at Not on file [facility] Start: 02-28-2025 Alcohol Comment daily [facility] Start: 06-19-2025 Tobacco smoking status Ex-smoker (fi nding) [facility] Sexual Orientation [facility] Medical Equipment Procedure Code Equipment Code Equipment Origin al Text Equipment Identifier Dates Graft Duragen Pl us Bovine Collagen Matrix 2x2in Soft Tissue Patch - [id number] Start: 03-08-2025 Functional Status Date Assessment Result Facility 03-10-2025 Are you deaf, or do you have serious difficulty hearing No 03/10/2025 1:24 PM EDT Olivia Suarez RN No [facility] 03-10-2025 Are you blind, or do you have serious difficulty seeing, even when wearing glasses No 03/10/2025 1:24 PM EDOlivia Mckenzie RN No [facility] 03-10-2025 Do you have serious difficulty walking or climbing stairs No 03/10/2025 1:24 PM EDOlivia Mckenzie RN No [facility] 03-10-2025 Do you have difficul ty dressing or bathing No 03/10/2025 1:24 PM EDT Olivia Suarez RN No [facility] 03-10-2025 Because of a physica l, mental, or emotional condition, do you have difficulty doing errands alone such as visiting a physician's office or shopping No 03/10/2025 1:24 PM EDOlivia Mckenzie RN [facility] 02-19-2025 IGF-I Z-score SerPl -1.0 [facility] Comment on above: Order Comment: Speci men Type: BLOOD SPECIMEN Ordering Facility: [facility] Address: [address] [place] [address] Performed By: #### I LGF1 #### [facility] CLIA [id number] [address] [place] [address] [place] Mental Status Date Assessment Result Facility 03-10-2025 Because of a physica l, mental, or emotional condition, do you have serious difficulty concentrating, remembering, or making decisions No 03/10/2025 1:24 PM EDOlivia Mckenzie RN No [facility] Clinical Notes 02-18-2025 to 06-19-2025 Kim Cabral MD - 05/21/2025 12:45 PM EDTBSusan shin, RT(R) - 05/21/2025 12:30 PM EDTTelephone Encounter - Valerie Umana RN - 05/20/2025 3:42 PM EDTPatient Instructions Note Date & Type Note Facility 06-19-2025 Evaluation + Plan note Future Scheduled TestsUrinalysis w/ C&S if Indicated 06/19/25 [facility] 05-21-2025 History of Presen t illness Narrative Images from the original note were not included. 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 Durham - [facility] SURGERY: Endoscopic endonasal resection of pituitary macroadenoma on 03/08/2025 PATHOLOGY: FINAL DIAGNOSIS A-B. Pituitary gland, excision: - Pituitary neuroendocrine tumor (pituitary adenoma). Joey West is a 69 year old right-handed male presenting with spouse. He was seen in consult on 02/18/2025 where he went in to eye doctor for yearly evaluation when they were doing exam he was not doing well with left peripheral vision exam. They brought him back in a week for a repeat evaluation and was the same. From there Dr. Durham ordered an MRI of the brain. He stated that he didn't really notice too much of an issue with left peripheral vision. 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 Recommended for him to get endocrine blood work done, if negative would recommend surgery for this. He was recommended to have blood work and follow with Endocrinology and ENT. He had lab work done and prolactin was 9.2. Recommended surgical resection of sellar mass. He was agreeable to proceed. He underwent Endoscopic endonasal resection of pituitary macroadenoma on 03/08/2025. He had his 2 week post operative visit on 03/21/2025 where he reported intermittent headaches localized at the top of his head. He noted that the headaches had improved over time but still persisted. He had some nasal congestion and scant drainage, either clear or slightly bloody, particularly in the mornings. He had been sleeping in a recliner to keep his head elevated. He noted his vision improved since surgery. Pathology confirmed pituitary adenoma;Ki67 2-3%. Post-operative MRI shows significant resection of the tumor with minimal residual tissue, likely pituitary gland. He was recommended to follow up at 6 months post operative with a repeat MRI. He called in on 05/20/2025 where he stated his head did not feel right. He was recommended to come in with CT scan. Patient is having their 10 week post operative visit. He reports that he has been having headaches since his last office visit. He thought they improved a little, then sort of have plateau. He feels like they are mostly on the top of his head and feels like his head is sensitive. He notes feeling zoned out. He has not had any overt nasal drainage, but feels snotty. 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 magnesium oxide 200 mg magnesium chew Take 1,200 mg by mouth. Zinc Mth/Copper/Saw Palm/Gnsg (PROSTATE HEALTH FORMULA ORAL) Take by mouth once daily. Prosta forte No current facility-administered medications for this visit. OBJECTIVE: BP 136/85 Pulse 81 Ht 5' 10 (1.78m) Wt 180 lb (81.6kg) SpO2 99% BMI 25.83 kg/(m^2). A&Ox3, speech fluent CN II-XII grossly intact. Cerebellar: no dysmetria No pronator drift Motor: Strength grossly intact in UEs and LEs Sensorium: grossly intact. Gait: Unremarkable DATA REVIEW: IMAGING STUDIES: CT brain obtained 05/21/2025 demonstrates: Final read pending Images independently reviewed The following portions of the patient's history were reviewed, confirmed, updated as necessary: allergies, current medications, past family history, past medical history, past social history, past surgical history, problem list, HPI and ROS obtained by others. The clinical and radiographic findings as well as the risks, benefits, and alternatives of treatment have been reviewed in detail with the patient. ASSESSMENT/PLAN 1. Pituitary adenoma (HCC) (Primary) C/o of persistent headaches post surgery. No CSF leak intra-op. No concerns for csf leak at present CT brain reviewed - expected postoperative changes with no evidence of intracranial pneumocephalus or subdural collections - feels brain fog and 4-5/10 headache most of the time post surgery - vision improved - no concerns on CT brain - Not on cortef any longer - will check CBC/BMP post op - recommend f/up with dr Rock - recommend f/up with Dr Lundberg - f/up as scheduled with MRI pituitary at 6 mo post op - COMPLETE BLOOD COUNT; Future - BASIC METABOLIC PANEL; Future Encouraged patient to contact our office should there be any further questions, concerns, or change in symptoms. Patient expressed understanding and is in agreement with plan. Some elements may have been copied from a previous note and have been updated/reviewed where appropriate. All portions reflect current medical decision making from today. Kim Jung MD documented in this encounter [facility] 05-21-2025 Note HNO ID: [id number] Author: KIM JUNG MD Service: ? 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 Durham - [facility] SURGERY: Endoscopic endonasal resection of pituitary macroadenoma on 03/08/2025 PATHOLOGY: FINAL DIAGNOSIS A-B. Pituitary gland, excision: - Pituitary neuroendocrine tumor (pituitary adenoma). Joey West is a 69 year old right-handed male presenting with spouse. He was seen in consult on 02/18/2025 where he went in to eye doctor for yearly evaluation when they were doing exam he was not doing well with left peripheral vision exam. They brought him back in a week for a repeat evaluation and was the same. From there Dr. Durham ordered an MRI of the brain. He stated that he didn't really notice too much of an issue with left peripheral vision. 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 Recommended for him to get endocrine blood work done, if negative would recommend surgery for this. He was recommended to have blood work and follow with Endocrinology and ENT. He had lab work done and prolactin was 9.2. Recommended surgical resection of sellar mass. He was agreeable to proceed. He underwent Endoscopic endonasal resection of pituitary macroadenoma on 03/08/2025. He had his 2 week post operative visit on 03/21/2025 where he reported intermittent headaches localized at the top of his head. He noted that the headaches had improved over time but still persisted. He had some nasal congestion and scant drainage, either clear or slightly bloody, particularly in the mornings. He had been sleeping in a recliner to keep his head elevated. He noted his vision improved since surgery. Pathology confirmed pituitary adenoma;Ki67 2-3%. Post-operative MRI shows significant resection of the tumor with minimal residual tissue, likely pituitary gland. He was recommended to follow up at 6 months post operative with a repeat MRI. He called in on 05/20/2025 where he stated his head did not feel right. He was recommended to come in with CT scan. Patient is having their 10 week post operative visit. He reports that he has been having headaches since his last office visit. He thought they improved a little, then sort of have plateau. He feels like they are mostly on the top of his head and feels like his head is sensitive. He notes feeling zoned out. He has not had any overt nasal drainage, but feels snotty. 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 magnesium oxide 200 mg magnesium chew Take 1,200 mg by mouth. Zinc Mth/Copper/Saw Palm/Gnsg (PROSTATE HEALTH FORMULA ORAL) Take by mouth once daily. Prosta forte No current facility-administered medications for this visit. OBJECTIVE: BP 136/85 Pulse 81 Ht 5' 10 (1.78m) Wt 180 lb (81.6kg) SpO2 99% BMI 25.83 kg/(m2). AANDOx3, speech fluent CN II-XII grossly intact. Cerebellar: no dysmetria No pronator drift Motor: Strength grossly intact in UEs and LEs Sensorium: grossly intact. Gait: Unremarkable DATA REVIEW: IMAGING STUDIES: CT brain obtained 05/21/2025 demonstrates: Final read pending Images independently reviewed The following portions of the patient's history were reviewed, confirmed, updated as necessary: allergies, current medications, past family history, past medical history, past social history, past surgical history, problem list, HPI and ROS obtained by others. The clinical and radiographic findings as well as the risks, benefits, and alternatives of treatment have been reviewed in detail with the patient. ASSESSMENT/PLAN 1. Pituitary adenoma (HCC) (Primary) C/o of persistent headaches post surgery. No CSF leak intra-op. No concerns for csf leak at present CT brain reviewed - expected postoperative changes with no evidence of intracranial pneumocephalus or subdural collections - feels bra (more content not included)... [facility] 05-21-2025 History of Presen t illness Narrative Radiology Service Progress Note PATIENT NAME: Zachery West DATE OF SERVICE: May 21, 2025 TIME: 12:40 PM PATIENT IDENTITY VERIFICATION COMPLETED USING TWO (2) IDENTIFIERS: Name and Date of confirmed by patient verbally. FALL SCREENING: Has the patient had 2 falls in the last year or 1 fall with injury or currently using an Ambulatory Assistive Device (Walker, Cane, Wheelchair, Crutches, etc.)? No PATIENT GENDER DATA: Assigned male at PATIENT RELEVANT IMPLANT DATA REVIEWED: Not Applicable PATIENT PRESENTS WITH AN IMPLANTABLE OR ATTACHED CREATIVE ARTS MUSIC THERAPIST: No RADIOLOGY DEPARTMENT: CT; Exam(s) Completed: Brain PERIPHERAL IV DATA: Not applicable SIGNED BY: MORGAN Santiago) May 21, 2025 12:40 PM documented in this encounter [facility] 05-21-2025 Note HNO ID: [id number] Author: SUSAN BOLIVAR RT (R) Service: Radiology Author Type: Technologist Type: Progress Notes Filed: 05/21/2025 12:41 Note Text: Radiology Service Progress Note PATIENT NAME: Zachery West DATE OF SERVICE: May 21, 2025 TIME: 12:40 PM PATIENT IDENTITY VERIFICATION COMPLETED USING TWO (2) IDENTIFIERS: Name and Date of confirmed by patient verbally. FALL SCREENING: Has the patient had 2 falls in the last year or 1 fall with injury or currently using an Ambulatory Assistive Device (Walker, Cane, Wheelchair, Crutches, etc.)? No PATIENT GENDER DATA: Assigned male at PATIENT RELEVANT IMPLANT DATA REVIEWED: Not Applicable PATIENT PRESENTS WITH AN IMPLANTABLE OR ATTACHED CREATIVE ARTS MUSIC THERAPIST: No RADIOLOGY DEPARTMENT: CT; Exam(s) Completed: Brain PERIPHERAL IV DATA: Not applicable SIGNED BY: MORGAN Santiago) May 21, 2025 12:40 PM [facility] 05-20-2025 Telephone encounter Note Spoke with patient he is about 2 and 1/2 months postoperative from his pituitary adenoma surgery. He stated that he is still having some head pains and does not feel quite. He denies any visual changes or any kind of seizures. He stated that his nose does not feel the same and he is still having some snot come out. I did recommend for him to follow-up with Dr. Kilpatrick for the nasal issues. Since he has been having head pain and does not feel like his normal self asked if he could come in with a CT scan. Asked one of the secretaries to call and schedule him. Valerie Umana RN [facility] 05-20-2025 Miscellaneous Notes Spoke with patient he is about 2 and 1/2 months postoperative from his pituitary adenoma surgery. He stated that he is still having some head pains and does not feel quite. He denies any visual changes or any kind of seizures. He stated that his nose does not feel the same and he is still having some snot come out. I did recommend for him to follow-up with Dr. Kilpatrick for the nasal issues. Since he has been having head pain and does not feel like his normal self asked if he could come in with a CT scan. Asked one of the secretaries to call and schedule him. Valerie Umana RN documented in this encounter [facility] 04-03-2025 Telephone encounter Note Pt has been informed of Dr Rock's message listed below, pt acknowledged understanding with no questions asked. Thank you Sylwia Murillo April 03, 2025 10:07 AM [facility] 04-03-2025 Miscellaneous Notes Pt has been informed of Dr Rock's message listed below, pt acknowledged understanding with no questions asked. Thank you Sylwia Murillo April 03, 2025 10:07 AM Please tell patient to go to the lab. Ok to stop Cortef. Piedad Rock MD Phoned patient to get some more information. He has been prescribed Cortef 20 mg daily since surgery. It causes constant thirst and severe headache. Patient did not take dose yesterday or today. Please review and advise. Daniel Castellano MA Please call patient as his VM only says that he has a question about his medication that he is to take since having surgery. Irasema Palafox April 01, 2025 10:56 AM documented in this encounter [facility] 04-03-2025 Telephone encounter Note Please tell patient to go to the lab. Ok to stop Cortef. Piedad Rock MD [facility] 04-01-2025 Telephone encounter Note Phoned patient to get some more information. He has been prescribed Cortef 20 mg daily since surgery. It causes constant thirst and severe headache. Patient did not take dose yesterday or today. Please review and advise. Daniel Castellano MA [facility] 04-01-2025 Telephone encounter Note Please call patient as his VM only says that he has a question about his medication that he is to take since having surgery. Irasema Palafox April 01, 2025 10:56 AM [facility] 04-01-2025 Telephone encounter Note Patient called in to inform us that he had stopped his hydrocortisone (CORTEF) 20 mg tablet yesterday and noted he was very thirsty from taking it and was unsure if this was a side effect. He inquired how long he was to be on this and if he needed a refill. Also noted he continued with tylenol and ibuprofen as needed for his headaches. He did report they were daily at times but relieved with the medications. Discussed concerning symptoms to present to the ED for he denied any and expressed understanding. Did verify with USMAN Padilla that the patient needed to schedule a sooner visit with Dr. Major in regards to his hydrocortisone (CORTEF) as they were to manage the medication. He was thankful and understanding. Encouraged him to call with further questions or concerns. Chandra Baker RN [facility] 04-01-2025 Miscellaneous Notes Patient called in to inform us that he had stopped his hydrocortisone (CORTEF) 20 mg tablet yesterday and noted he was very thirsty from taking it and was unsure if this was a side effect. He inquired how long he was to be on this and if he needed a refill. Also noted he continued with tylenol and ibuprofen as needed for his headaches. He did report they were daily at times but relieved with the medications. Discussed concerning symptoms to present to the ED for he denied any and expressed understanding. Did verify with USMAN Padilla that the patient needed to schedule a sooner visit with Dr. Major in regards to his hydrocortisone (CORTEF) as they were to manage the medication. He was thankful and understanding. Encouraged him to call with further questions or concerns. 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 Durham - [facility] SURGERY: Endoscopic endonasal resection of pituitary macroadenoma on 03/08/2025 PATHOLOGY: FINAL DIAGNOSIS A-B. Pituitary gland, excision: - Pituitary neuroendocrine tumor (pituitary adenoma). Pre-Surgical Symptoms: bitemporal vis field defect, worse on the left temporal Joey West is a 69 year old right-handed male presenting with spouse. He was seen in consult on 02/18/2025 where he went in to eye doctor for yearly evaluation when they were doing exam he was not doing well with left peripheral vision exam. They brought him back in a week for a repeat evaluation and was the same. From there Dr. Durham ordered an MRI of the brain. He stated that he didn't really notice too much of an issue with left peripheral vision. 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 Recommended for him to get endocrine blood work done, if negative would recommend surgery for this. He was recommended to have blood work and follow with Endocrinology and ENT. He had lab work done and prolactin was 9.2. Recommended surgical resection of sellar mass. He was agreeable to proceed. He underwent Endoscopic endonasal resection of pituitary macroadenoma on 03/08/2025. Patient is having their 2 week post operative visit. He is accompanied by his daughter, who provides additional history. Joey reports intermittent headaches localized at the top of his head since the surgery. He notes that the headaches have improved over time but still persist. Initially, he managed the pain with oxycodone but discontinued it a week ago due to side effects, opting to use Tylenol instead. He has not yet tried ibuprofen. He experiences nasal congestion and scant drainage, either clear or slightly bloody, particularly in the mornings. He has been sleeping in a recliner to keep his head elevated, which he finds helpful. He does not report any persistent watery discharge, even when bending his head forward. Joey reports that his vision has improved since the surgery. He did not initially notice a significant visual deficit before the surgery but became more aware of it after his eye doctor identified the issue. He is scheduled to see Dr. Lundberg for f/up. 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 Lundberg on Tuesday PAIN EVALUATION No data found in the last 1 encounters. Current Outpatient Medications Medication Sig Dispense Refill hydrocortisone (CORTEF) 20 mg tablet Take 1 tablet by mouth once daily. 28 tablet 0 beta-carotene,A,-vits C,E/mins (OCUVITE ORAL) Take by mouth once daily. magnesium oxide 200 mg magnesium chew Take 1,200 mg by mouth. Zinc Mth/Copper/Saw Palm/Gnsg (PROSTATE HEALTH FORMULA ORAL) Take by mouth once daily. Prosta forte No current facility-administered medications for this visit. OBJECTIVE: BP 145/102 Pulse 84 Resp 16 Ht 5' 10 (1.78m) Wt 179 lb 7.3 oz (81.4kg) SpO2 98% BMI 25.75 kg/(m^2). A&Ox3, speech fluent CN II-XII grossly intact. Visual sorensen intact on confrontation (much improved left vis field defect) Motor: Strength grossly intact in UEs and LEs Sensorium: grossly intact. Gait: Unremarkable WOUND ASSESSMENT: intranasal unable to visualize DATA REVIEW: IMAGING STUDIES: MRI brain obtained on 03/10/2025: IMPRESSION: Interval postoperative findings related to endoscopic transnasal transsphenoidal resection of a prior similar/suprasellar mass. 9 mm nodular enhancement which extends towards the infundibulum, which may represent residual pituitary tissue. No evidence of hypoenhancing lesion to suggest residual neoplasm. Dictated by : COLLIN RADFORD MD Images independently reviewed The following portions of the patient's history were reviewed, confirmed, updated as necessary: allergies, current medications, past family history, past medical history, past social history, past surgical history, problem list, HPI and ROS obtained by others. The clinical and radiographic findings as well as the risks, benefits, and alternatives of treatment have been reviewed in detail with the patient. ASSESSMENT/PLAN 1. Pituitary mass (HCC) (E23.6) - Pathology confirmed pituitary adenoma;Ki67 2-3%. - Postoperative MRI shows significant resection of the tumor with minimal residual tissue, likely pituitary gland; no immediate concerns. - Vision has improved post-surgery; able to count fingers on visual field testing. - Scheduled follow-up MRI in 6 months to monitor for any changes. - Follow-up appointment with Dr. Lundberg on Tuesday as scheduled - Advised patient to avoid strenuous activities, including heavy lifting and workouts, for 4-6 weeks post-surgery. - Patient may resume driving as long as vision is stable; advised to consult with navy diver. - Patient can continue with deep tissue massages and light outdoor work, such as mowing, with caution. 2. Acute nonintractable headache, unspecified headache type (R51.9) - Headaches are improving but still present; likely post-surgical. - Prescribed ibuprofen 400 mg, 1-2 tablets every 4-6 hours as needed for pain; can be combined or alternated with Tylenol. - Advised patient that headaches should continue to improve; if persistent or worsening, further evaluation with CT scan may be considered. 3. Other postprocedural endocrine and metabolic complications and disorders (E89.89) - Sodium level is normal at 138 mEq/L; no concerns for hyponatremia. - Currently on hydrocortisone 20 mg daily for adrenal insufficiency prophylaxis. - Instructed patient to schedule an appointment with pbx inspector Dr. Rock within 2-4 weeks post surgery Encouraged patient to contact our office should there be any further questions, concerns, or change in symptoms. Patient expressed understanding and is in agreement with plan. Some elements may have been copied from a previous note and have been updated/reviewed where appropriate. All portions reflect current medical decision making from today. Kim Jung MD documented in this encounter [facility] 03-21-2025 Note HNO ID: [id number] Author: KIM JUNG MD Service: ? 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 Durham - [facility] SURGERY: Endoscopic endonasal resection of pituitary macroadenoma on 03/08/2025 PATHOLOGY: FINAL DIAGNOSIS A-B. Pituitary gland, excision: - Pituitary neuroendocrine tumor (pituitary adenoma). Pre-Surgical Symptoms: bitemporal vis field defect, worse on the left temporal Joey West is a 69 year old right-handed male presenting with spouse. He was seen in consult on 02/18/2025 where he went in to eye doctor for yearly evaluation when they were doing exam he was not doing well with left peripheral vision exam. They brought him back in a week for a repeat evaluation and was the same. From there Dr. Durham ordered an MRI of the brain. He stated that he didn't really notice too much of an issue with left peripheral vision. 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 Recommended for him to get endocrine blood work done, if negative would recommend surgery for this. He was recommended to have blood work and follow with Endocrinology and ENT. He had lab work done and prolactin was 9.2. Recommended surgical resection of sellar mass. He was agreeable to proceed. He underwent Endoscopic endonasal resection of pituitary macroadenoma on 03/08/2025. Patient is having their 2 week post operative visit. He is accompanied by his daughter, who provides additional history. Joey reports intermittent headaches localized at the top of his head since the surgery. He notes that the headaches have improved over time but still persist. Initially, he managed the pain with oxycodone but discontinued it a week ago due to side effects, opting to use Tylenol instead. He has not yet tried ibuprofen. He experiences nasal congestion and scant drainage, either clear or slightly bloody, particularly in the mornings. He has been sleeping in a recliner to keep his head elevated, which he finds helpful. He does not report any persistent watery discharge, even when bending his head forward. Joey reports that his vision has improved since the surgery. He did not initially notice a significant visual deficit before the surgery but became more aware of it after his eye doctor identified the issue. He is scheduled to see Dr. Lundberg for f/up. 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 Lundberg on Tuesday PAIN EVALUATION No data found in the last 1 encounters. Current Outpatient Medications Medication Sig Dispense Refill hydrocortisone (CORTEF) 20 mg tablet Take 1 tablet by mouth once daily. 28 tablet 0 beta-carotene,A,-vits C,E/mins (OCUVITE ORAL) Take by mouth once daily. magnesium oxide 200 mg magnesium chew Take 1,200 mg by mouth. Zinc Mth/Copper/Saw Palm/Gnsg (PROSTATE HEALTH FORMULA ORAL) Take by mouth once daily. Prosta forte No current facility-administered medications for this visit. OBJECTIVE: BP 145/102 Pulse 84 Resp 16 Ht 5' 10 (1.78m) Wt 179 lb 7.3 oz (81.4kg) SpO2 98% BMI 25.75 kg/(m2). AANDOx3, speech fluent CN II-XII grossly intact. Visual sorensen intact on confrontation (much improved left vis field defect) Motor: Strength grossly intact in UEs and LEs Sensorium: grossly intact. Gait: Unremarkable WOUND ASSESSMENT: intranasal unable to visualize DATA REVIEW: IMAGING STUDIES: MRI brain obtained on 03/10/2025: IMPRESSION: Interval postoperative findings related to endoscopic transnasal transsphenoidal resection of a prior similar/suprasellar mass. 9 mm nodular enhancement which extends towards the infundibulum, which may represent residual pituitary tissue. No evidence of hypoenhancing lesion to suggest residual neoplasm. Dictated by : COLLIN RADFORD MD Images independently reviewed The following portions of the patient's history were reviewed, confirmed, updated as necessary: allergies, current medications, past family history, past medical history, past social history, past surgical history, problem list, HPI and ROS obtained by others. The clinical and radiographic findings as well as the risks, benefits, and alternative (more content not included)... [facility] 03-19-2025 Telephone encounter Note Called patient to remind him to get lab work done, he is scheduled to get this done today. Reminded him that he will also need a post op appt with Dr Lundberg, he stated he has this scheduled as well. They are aware of appt on . Valerie Umana RN [facility] 03-19-2025 Miscellaneous Notes Called patient to remind him to get lab work done, he is scheduled to get this done today. Reminded him that he will also need a post op appt with Dr Lundberg, he stated he has this scheduled as well. They are aware of appt on . Valerie Umana RN documented in this encounter [facility] 03-10-2025 Note HNO ID: [id number] Author: KIM JUNG MD Service: Neurosurgery Author Type: Physician Type: Progress Notes Filed: 03/19/2025 22:11 Note Text: Documentation Query Please clarify the significance of the pathology report I agree with the pathology findings dated 03/08/25 which confirms the clinically significant diagnosis of Pituitary neuroendocrine tumor (please clarify tumor further if able) This document will become part of the patient's medical record. [facility] 03-10-2025 Note HNO ID: [id number] Author: SANJU CASTILLO PA-C Service: Neurosurgery Author Type: Physician [place]yer Type: Progress Notes Filed: 03/10/2025 12:30 Note Text: Neurosurgery Progress Note SERVICE DATE: 03/10/2025 SUBJECTIVE: Seen with Dr. Jung, MRI completed today. Patient has no complaints OBJECTIVE: Vitals: Temp (24hrs), Av.4 ?C (97.5 ?F), Min:36.3 ?C (97.4 ?F), Max:36.4 ?C (97.5 ?F) BP 145/92 Pulse 71 Temp 36.3 ?C (97.4 ?F) (Axillary) Resp 18 SpO2 96% O2 Therapy: Room Air Physical Exam: General - Alert and Oriented, cooperative, appropriate. Respiratory- even, unlabored GI - non-distended HEENT - Normocephalic. Atraumatic. Neuro - makes eye contact, TM, FS, EOMI Speech: appropriate Motor: GONZALEZ Extremities- Grossly normal. Symmetrical. No edema, deformity, coloration changes. Pulses- 2+ DP, 2+ radial Labs: Recent Labs 03/10/25 0530 03/09/25 1016 03/09/25 0404 03/08/25 1418 WBC 10.95 -- 11.50* 7.44 HB 13.5 -- 13.9 14.7 HCT 39.6 -- 40.6 43.1 PLT 168 -- 175 164 NA 143 138 137 138 K 4.1 3.8 3.7 4.0 CHLOR 108* 103 103 104 CO2 26 22 19* 21* BUN 15 11 12 18 CREAT 0.85 0.84 0.84 0.86 GLUC 114* 139* 141* 139* CA 8.8 8.5 8.4* 8.6 MG 2.2 -- 1.9 1.9 P 2.3* -- 3.2 3.6 Recent Labs 03/09/25 1016 TPROT 6.6 ALB 3.8* ALT 9* AST 13* ALKPHOS 48 TBILI 0.3 Diagnostic tests reviewed for today's visit: Most recent labs and imaging results. ASSESSMENT AND PLAN: Active Hospital Problems Diagnosis Date Noted Pituitary mass (HCC) 03/04/2025 Visual field cut 03/09/2025 Other headache syndrome 03/09/2025 Pituitary disorder (HCC) 03/09/2025 On corticosteroid therapy 03/09/2025 S/P transsphenoidal hypophysectomy (HCC) 03/08/2025 69 y/o male that presents for resection of pituitary macroadenoma, POD #2 transphenoidal resection -Neuro as above -ENT: Keflex x7 days - nasal precautions: Avoid any and all objects in the nose or which cause negative pressure,No incentive spirometry,No suctioning, corpaks, NG tubes, or any other objects in nose,No nasal cannula; please use humidified face tent if needed,No blowing nose,No straws -Diet: regular -Activity: WBAT -Endocrine: Hydrocortisone 20 mg every day on discharge -Imaging: MRI B WWO completed and discussed with patient -Pain control: continue current regimen -DVT PPX: SCDs -Dispo: To home today Medication and Non-Pharmacologic VTE Prophylaxis/Anticoagulants 03/09/25 1800 activity - mobilize patient (vt,or) 03/08/25 1315 vte pharmacologic prophylaxis contraindicated (vt,or) 03/08/25 1315 pneumatic compression sleeve(s) ([place], [place]) Parts of this note may have been copied from one of my previous notes and remain pertinent. The documentation has been reviewed and edited as necessary to support the clinical decision making for today's visit. I spent a total of 20 minutes on the date of the service which included preparing to see the patient, [id number] patient care, completing clinical documentation, obtaining and/or reviewing separately obtained history, performing a medically appropriate examination, and counseling and educating the patient/family/caregiver. SIGNATURE: Sanju Castillo PA-C PATIENT NAME: Zachery West DATE: March 10, 2025 TIME: 11:08 AM Pager: [phone] [facility] 03-10-2025 Note HNO ID: [id number] Author: NOTE, INTERFACE, ? Service: ? Author Type: ? Type: Progress Notes Filed: 03/10/2025 02:55 Note Text: Epic Scheduled Downtime: 03/10/2025 1:00:00 AM to 03/10/2025 2:37:00 AM [facility] 03-09-2025 Note HNO ID: [id number] Author: SHIVA LUNDBERG MD Service: Otolaryngology Author Type: Physician Type: Progress Notes Filed: 03/09/2025 09:23 Note Text: POD #1 Drip pad changed once since surgery Soaked with bloody d/c PE- up in bed, awake, alert Packing in both nasal cavities, no active bleeding A/P Removed packing from both sides of nose, no epistaxis, no CSF rhinorrhea Afrin x 2 days Keflex for 7 days F/U with me in one week [facility] 03-09-2025 Note HNO ID: [id number] Author: SHIVA LUNDBERG MD Service: Otolaryngology Author Type: Physician Type: Progress Notes Filed: 03/09/2025 09:18 Note Text: Operative Report Name: Zachery West : 1955 Age: [age] year old Date of Procedure: 03/09/2025 Pre Op Dx: Pituitary neoplasm uncertain behavior Post Op Dx: Same Procedure: Endoscopic transnasal excision of pituitary tumor with image guidance Surgeon: Shiva Lundberg MD Co- Surgeon: Dr Jung Anesthesia: General Indications: The patient is an 69 year old male with a history of what clinically and radiographically appears to be a pituitary tumor Description of Operative Procedure: The patient was taken to the operating room and placed in a supine position. General anesthesia was begun. The patient's nasal cavities were decongested with Afrin nasal spray on 1x3 neurosurgical pledgets; Image guidance was registered with good precision; the nasal packing was removed; the right nasal cavity was examined with the 0 degree Preston fransisco telescope, a transfixion incision was made in the septum just anterior and inferior to the anterior edge of the middle turbinate with Bovie suction cautery at 35; fenestrated Kirkland - Benitez rongeurs were used to remove a wedge of septum from this point back to the face of the sphenoid sinus; the sphenoid sinus ostia were identified clinically and with image guidance; the face of the sinus was removed with a 3mm Kerrison rongeur and the Kirkland - Benitez rongeurs; the intra-sinus septum was remove in a similar fashion. Dr Jung and I switched sides, I switched to the telescope placed it in the left nasal cavity while the neurosurgical portion of the case was performed. Once this was complete I cleaned the nasal cavities using anterior rhinoscopy; folded pieces of Telfa gauze coated with Bacitracin oint were placed into both nasal cavities and a drip pad applied. Specimens: Pituitary mass EBL: minimal Complications: none Disposition: PACU Condition: good [facility] 03-09-2025 Note HNO ID: [id number] Author: ALESIA ROBLES APRN.EDITOR NEWS Service: Neurosurgery Author Type: Nurse Practitioner Type: Progress Notes Filed: 03/09/2025 09:31 Note Text: Neurosurgery Progress Note SERVICE DATE: 03/09/2025 SUBJECTIVE: NAEON. Patient denies headache. Believes left peripheral vision has improved. OBJECTIVE: Vitals: Temp (24hrs), Av.4 ?C (97.6 ?F), Min:36 ?C (96.8 ?F), Max:36.8 ?C (98.2 ?F) BP 135/77 Pulse 84 Temp 36.8 ?C (98.2 ?F) (Axillary) Resp 16 SpO2 95% O2 Therapy: Room Air IANDO: Date 03/08/25 07 - 03/09/25 0659 03/09/25 0700 - 03/10/25 0659 Shift 8347-8512 8188-8688 2967-1581 24 Hour Total 7029-5376 5008-1491 2523-3955 24 Hour Total INTAKE PO 300 300 PO 300 300 IV 1900 1900 Volume (mL) (ceFAZolin iv piggyback 2 g in D5W (iso-osmotic) 100 mL (ANCEF)) 100 100 Volume (mL) (lactated ringers iv infusion) 1300 1300 Volume (mL) (NaCl 0.9% iv infusion) 500 500 Shift Total 8103 736 6974 OUTPUT Urine 645 609 8360 2200 525 525 Void (ml) 525 525 OR Urine Output 50 50 Output ([REMOVED] Indwelling Urinary Catheter 03/08/25 0830 Coude 14 Fr 03/09/25 0530) 119 131 4598 2150 Shift Total 510 778 6533 2200 525 525 Weight (kg) MEDICATIONS Current Facility-Administered Medications Medication Dose Route Frequency cephALEXin (KEFLEX) cap(s) 750 mg 750 mg ORAL BID NaCl 0.9% iv infusion 75 mL/hr INTRAVENOUS CONTINUOUS acetaminophen 650 mg tab(s) (TYLENOL) 650 mg ORAL q 6 H PRN ondansetron (PF) 4 mg injection (ZOFRAN) 4 mg INTRAVENOUS q 6 H PRN potassium chloride ER 20-40 mEq tab(s) (KLOR-CON) 20-40 mEq ORAL/FEEDING TUBE PRN Or potassium chloride iv piggyback 20 mEq/100 mL 20 mEq INTRAVENOUS PRN magnesium sulfate iv piggyback in sterile water 2 g 50 mL 2 g INTRAVENOUS PRN phosphorus 500 mg tab(s) (K PHOS NEUTRAL) 500 mg ORAL/FEEDING TUBE PRN(NO DISPENSE) calcium gluconate iv piggyback 2 g in NaCl (iso-osmotic) 100 mL 2 g INTRAVENOUS PRN(NO DISPENSE) oxyCODONE IR 5-10 mg tab(s) (ROXICODONE) 5-10 mg ORAL q 4 H PRN senna-docusate 8.6-50 mg 1 tablet (SENNA-S) 1 tablet ORAL/FEEDING TUBE BID NaCl 0.9% iv flush bag 20 mL INTRAVENOUS PRN hydrocortisone sodium succinate (PF) 50 mg injection (Solu-CORTEF) 50 mg INTRAVENOUS q 8 H labetalol 10 mg injection syringe (NORMODYNE) 10 mg INTRAVENOUS q 15 MIN PRN Labs: Recent Labs 03/09/25 0404 03/08/25 1418 NA 137 138 K 3.7 4.0 CHLOR 103 104 CO2 19* 21* BUN 12 18 CREAT 0.84 0.86 GLUC 141* 139* ANION 15 13 CA 8.4* 8.6 MG 1.9 1.9 P 3.2 3.6 WBC 11.50* 7.44 HB 13.9 14.7 HCT 40.6 43.1 PLT 175 164 Exam: GENERAL: Awake and alert; NAD; cooperative; pleasant NEURO: Orientedx3; speech clear and fluent; GONZALEZ; no arm drift STRENGTH: 5/5 throughout HEENT: dressing to nares. Normocephalic; atraumatic; perrl/eomi; no facial droop LUNGS: Unlabored breathing CARDIAC: Rate and rhythm as above ABDOMEN: Soft, non-tender, non-distended EXTREMITIES: No deformities, No edema SKIN: Skin color normal; Temperature normal; no rashes or lesions ASSESSMENT AND PLAN: Active Hospital Problems Diagnosis Date Noted Pituitary mass (HCC) 03/04/2025 Visual field cut 03/09/2025 Other headache syndrome 03/09/2025 S/P transsphenoidal hypophysectomy (HCC) 03/08/2025 Mr. West is a 69 y/o male that presents for resection of pituitary macroadenoma. - neuro as above - neuro checks Q1hr - nasal precautions: Avoid any and all objects in the nose or which cause negative pressure,No incentive spirometry,No suctioning, corpaks, NG tubes, or any other objects in nose,No nasal cannula; please use humidified face tent if needed,No blowing nose,No straws - regular diet - endocrinology following- hydrocortisone per order - keflex for [address] Kilpatrick ENT - will discuss with Dr. Jung Parts of this note may have been copied from one of my previous notes and remain pertinent. The documentation has been reviewed and edited as necessary to support the clinical decision making for today's visit. SIGNATURE: Alesia Robles APRN.EDITOR NEWS PATIENT NAME: Zachery West DATE: March 09, 2025 TIME: 9:25 AM Pager: [phone] [facility] 03-09-2025 Note HNO ID: [id number] Author: CLIFTON JAIN MD Service: Neurology ICU Author Type: Physician Type: Progress Notes Filed: 03/09/2025 15:44 Note Text: SERVICE DATE: 03/09/2025 SERVICE TIME: 5:17 AM NEURO ICU PROGRESS NOTE DATE OF ADMISSION: 03/08/2025 Subjective Hospital Course: 03/09: NAEON. C/o bifrontal MOORE improved with oxy. Objective BP 121/73 Pulse 83 Temp 36.6 ?C (97.8 ?F) (Oral) Resp 15 SpO2 94% Weight change: Neuro: GCS: Eyes: 4. Spontaneous Verbal: 5: Oriented Motor: 6: Obeys Motor commands Total: 15 Alert and oriented to person, place, month Speech clear, fluent No facial asym Nasal gauze pad inplace MAEx4 5/5 strength Sensation intact LT CV: RRR Pulm: CTAB even unlabored GI/: abd soft NT/ND +BS Skin/Extremities: Edema- No Peripheral pulses- Present all extremities Wounds/Drsgs- nasal gauze Breakdown- No Diagnostic tests reviewed for today's visit: Most recent labs and imaging results. Lines, Drains, and Airways Line Duration Arterial Line/Sheath 03/08/25 0835 Left Radial <1 day Peripheral 03/08/25 0652 [facility] Right Arm 18 Gauge <1 day Peripheral 03/08/25 0826 [facility] Short Left Hand 18 Gauge <1 day Drain Duration Indwelling Urinary Catheter 03/08/25 0830 Coude 14 Fr <1 day ICU Checklist Last Documented/Reviewed time: 03/09/2025 5:18 AM ICU Consent Complete?: No ICU Code Status History assess/Full code by default: Yes, will address today A= Assess, Prevent, Manage Pain Pain adequately controlled?: Yes C= Choice of Sedation and Analgesia RASS at Goal?: Yes B= Both Spontaneous Awakening and Breathing Trials Ventilator: None D= Delirium: Assess, Prevent and Manage ICU Delirium Status: CAM Negative - no action required Sleep adequate?: Yes Restraint Status: None E= Early Mobility/Excercise ICU Mobility: ICU Mobility Goal: Bed rest/turns only, PT/OT consult ordered F= Family Engagement and Empowerment ICU plan of care visit at bedside in last 24 hours: Yes, Provider, RN, Patient/ designee ICU Disposition: ICU Disposition-POC Detail: To be determined Prevention: Line Status: Arterial line Arterial Line Status: Still need today Sosa Status: Present, still need today Pressure Injury Status: None GI/Stress Ulcer Prophylaxis: None - not required Nutrition is at Goal: Advancing to goal VTE Prophylaxis: Chemoprophylaxis: No chemoprophylaxis Mechanical Prophylaxis: Knee high SCD No Chemoprophylaxis Reason: Bleeding risk PERSONAL INVOLVEMENT IN CARE: Reviewing initiation, responses and adjustments to therapies, coordination of care, and updating family with Staff Physician, Dr. Jain. 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 MRI brain was obtained which noted pituitary mass. s/p resection of sellar mass. Active Hospital Problems as of 03/09/2025 Noted - Resolved POA Hospital * (Principal) Pituitary mass (HCC) 03/04/2025 - Present Yes Current Assessment AND Plan 03/08 s/p sellar mass resection with Anabel Plan: Neuro checks q1h SBP<160 IVF until passes bedside swallow and tolerating PO Daily labs, electrolyte replacement per protocol Nasal precautions Strict I/Os MRI brain wwo per NSGY DVT ppx: SCDs, resume chemo ppx when able per NSGY PT/OT Endo c/s S/P transsphenoidal hypophysectomy (HCC) 03/08/2025 - Present No Visual field cut 03/09/2025 - Present Yes Other headache syndrome 03/09/2025 - Present Unknown Medication and Non-Pharmacologic VTE Prophylaxis/Anticoagulants 03/08/25 1315 vte pharmacologic prophylaxis contraindicated (vt,oh) 03/08/25 1315 pneumatic compression sleeve(s) (vt,or) VTE Prophylaxis: Contraindicated bleeding risk Plan of care discussed with: Provider, RN, Patient This patient has a high probability of sudden, clinically significant deterioration, which requires the highest level of provider preparedness to intervene urgently. I managed/supervised life or organ supporting interventions that required frequent provider assessment. I devoted my full attention to the direct care of this patient for the amount of time indicated below. Time I spent with family or surrogate(s) is included only if the patient was incapable of providing the necessary information or participating in medical decision making. Time devoted to teaching and to any procedures I billed separately is not included. Critical Care Documentation: The patient has the following organ/system impairment(s): Complex life-threatening medical problem(s), Respiratory failure (Acute and/or Chronic), acute neurologic event and/or Severe electrolyte imbalance. Part of my note may have been copied from previous documentation. It has been reviewed a (more content not included)... [facility] 03-09-2025 Note HNO ID: [id number] Author: NOTE, INTERFACE, ? Service: ? Author Type: ? Type: Progress Notes Filed: 03/09/2025 03:47 Note Text: Epic Scheduled Downtime: 03/09/2025 1:00:00 AM to 03/09/2025 3:39:00 AM [facility] 03-08-2025 Note HNO ID: [id number] Author: ZENY DELEON PA-C Service: Neurosurgery Author Type: Physician Wood Sawyer Type: Plan of Care Filed: 03/08/2025 16:10 Note Text: Post Operative Note Date of procedure: March 08, 2025 Subjective: Recovering post-op. Reports mild frontal MOORE. Denies acute visual changes. Exam: GENERAL: Awake and alert; NAD; cooperative; pleasant NEURO: Orientedx3; speech clear and fluent; GONZALEZ; no arm drift; PERRL; Mild left temporal visual field deficit on confrontation exam- baseline STRENGTH: 5/5 throughout HEENT: Normocephalic; atraumatic LUNGS: Unlabored breathing CARDIAC: Rate and rhythm as above EXTREMITIES: No deformities, No edema SKIN: Skin color normal; Temperature normal; no rashes or lesions Post operative plan: -Consult to NSICU for medical management -Post-op CTH reviewed -ok for Regular diet -Neurovascular checks q1hr -Continue post-op pain control -Strict I/O -Endocrine c/s- hydrocortisone ordered, management per endocrine -Hourly IS -Post-op PT/OT in am -SCDs for DVT ppx; may consider chem DVT ppx 48hrs post-op SIGNATURE: Zeny Deleon PA-C PATIENT NAME: Zachery West DATE: March 08, 2025 TIME: 4:02 PM Pager: [phone] [facility] 03-08-2025 Note HNO ID: [id number] Author: TODD CLARK DO Service: Anesthesiology Author Type: Anesthesiologist Type: Anesthesia Procedure Notes Filed: 03/08/2025 09:27 Note Text: ANESTHESIOLOGY PROCEDURE NOTE A-Line General Information Procedure Start Time/Medication Administration: 03/08/2025 8:35 AM Procedure End Time: 03/08/2025 8:41 AM Patient location during procedure: OR Timeout Performed Pre-procedure: timeout performed Indications: continuous blood pressure monitoring Staffing Anesthesiologist: Todd Clark DO SRNA: Noah Blackwell SRNA Performed by: EDWIGE Preparation Sterility Preparation: hand hygiene performed prior to procedure, surgical cap used, mask used, skin prep agent completely dried prior to procedure Site Prep: Chloraprep Procedure Details Catheter Type: arterial line Catheter Size: 20 G Catheter Length: 1.25 in Guidewire Used: No Laterality: left Site: radial artery Ultrasound Guided: Yes Image in Chart: No Sites: potential access sites evaluated, selected vessel patent, concurrent real time ultrasound visualization of vascular needle entry Vessel: target vessel identified Line Secured: tape and Tegaderm Events Events: patient tolerated procedure well with no complications Comments For this procedure, I was physically present for this entire procedure. Todd Clark DO SIGNATURE: Todd Clark DO PATIENT NAME: Zachery West DATE: March 08, 2025 TIME: 9:26 AM CSN: [id number] [facility] 03-08-2025 Note HNO ID: [id number] Author: CARLOS ECHEVERRIA APRN.CRNA Service: Nursing Author Type: Nurse Buy Boat Operator Type: Anesthesia Procedure Notes Filed: 03/08/2025 08:50 Note Text: ANESTHESIOLOGY PROCEDURE NOTE Airway General Information Procedure Start Time/Medication Administration: 03/08/2025 8:23 AM Procedure End Time: 03/08/2025 8:25 AM Patient location during procedure: OR Timeout Performed Pre-procedure: timeout performed Consent Obtained: Yes Patient identity confirmed: arm band Staffing Anesthesiologist: Todd Clark DO STORE LEADER: Carlos Echeverria APRN.STORE LEADER SRNA: Noah Blackwell SRNA Performed by: anesthesiologist, STORE LEADER and SRNA Indications and Patient Condition Indications for airway management: anesthesia Preoxygenated: yes anesthesia circuit Patient position: sniffing Method: asleep Cricoid Pressure: No Manual In-Line Stabilization: No Difficult Mask: No Final Airway Details Final airway type: endotracheal airway Final Endotracheal Airway: ETT Cuffed: yes Successful intubation technique: video laryngoscopy Devices used: Lynch Blade size: #4 ETT size (mm): 7.5 Measured from: lips Measurement (cm): 23 Placement verified by: chest auscultation and capnometry Cormack-Lehane Classification: grade I - full view of glottis Number of attempts at approach: 1 Failed airway: no Unrecognized esophageal intubation: no Airway not difficult SIGNATURE: Carlos Echeverria APRN.CRNA PATIENT NAME: Zachery West DATE: March 08, 2025 TIME: 8:48 AM CSN: [id number] [facility] 03-08-2025 History of Presen t illness Narrative Radiology Service Progress Note DATE OF SERVICE: March 08, 2025 TIME: 7:51 AM PATIENT IDENTITY VERIFICATION COMPLETED USING TWO (2) STANDARD IDENTIFIERS: Name and Date of confirmed by patient verbally and Name and Date of confirmed by identification band. FALL SCREENING: Has the patient had 2 falls in the last year or 1 fall with injury or currently using an Ambulatory Assistive Device (Walker, Cane, Wheelchair, Crutches, etc.)? Inpatient: Screened on floor PATIENT GENDER DATA: Assigned male at PATIENT RELEVANT IMPLANT DATA REVIEWED: Not Applicable PATIENT PRESENTS WITH AN IMPLANTABLE OR ATTACHED CREATIVE ARTS MUSIC THERAPIST: No ALLERGIES: Reviewed and unchanged CONTRAST ALLERGY: NO. EXAM: MRI - CONTRAST TYPE: GROUP II PERIPHERAL IV DATA: Inpatient - refer to LDA documentation RADIOLOGY DEPARTMENT: MR; Exam(s) Completed: Head: Routine Brain. Lavender Administered: No SIGNATURE: MORGAN Scales) PATIENT NAME: Zachery West DATE: March 08, 2025 TIME: 7:51 AM documented in this encounter [facility] 03-08-2025 Note HNO ID: [id number] Author: JERRY JAMIL RT(Jorge) Service: Radiology Author Type: Technologist Type: Progress Notes Filed: 03/08/2025 07:52 Note Text: Radiology Service Progress Note DATE OF SERVICE: March 08, 2025 TIME: 7:51 AM PATIENT IDENTITY VERIFICATION COMPLETED USING TWO (2) STANDARD IDENTIFIERS: Name and Date of confirmed by patient verbally and Name and Date of confirmed by identification band. FALL SCREENING: Has the patient had 2 falls in the last year or 1 fall with injury or currently using an Ambulatory Assistive Device (Walker, Cane, Wheelchair, Crutches, etc.)? Inpatient: Screened on floor PATIENT GENDER DATA: Assigned male at PATIENT RELEVANT IMPLANT DATA REVIEWED: Not Applicable PATIENT PRESENTS WITH AN IMPLANTABLE OR ATTACHED CREATIVE ARTS MUSIC THERAPIST: No ALLERGIES: Reviewed and unchanged CONTRAST ALLERGY: NO. EXAM: MRI - CONTRAST TYPE: GROUP II PERIPHERAL IV DATA: Inpatient - refer to LDA documentation RADIOLOGY DEPARTMENT: MR; Exam(s) Completed: Head: Routine Brain. Lavender Administered: No SIGNATURE: RT Loyda(R) PATIENT NAME: Zachery West DATE: March 08, 2025 TIME: 7:51 AM [facility] 03-06-2025 Telephone encounter Note Contacted patient to remind them of their arrival time for surgery with Dr. Kim Jung on 03/08/25. Patient is to arrive at [facility] at 5:30am for surgery at 8:00am. Spoke with patient and they are aware of all arrival information. [facility] 03-06-2025 Miscellaneous Notes Contacted patient to remind them of their arrival time for surgery with Dr. Kim Jung on 03/08/25. Patient is to arrive at [facility] at 5:30am for surgery at 8:00am. Spoke with patient and they are aware of all arrival information. documented in this encounter [facility] 03-06-2025 Telephone encounter Note Prescription approved, signed and sent to patients pharmacy on file. MARCIANO Vcikers Neurosurgery Nurse Practitioner [facility] 8:12 AM 03/06/2025 [facility] 03-06-2025 Miscellaneous Notes Prescription approved, signed and sent to patients pharmacy on file. MARCIANO Vickers Neurosurgery Nurse Practitioner [facility] 8:12 AM 03/06/2025 Called patient, + MSSA with pre surgical testing, explained how to use bactroban ointment prior to surgery. Patient aware to be at hospital at 6 am for surgery. Called Dr. Hinojosa office - he is aware that surgery is at 8 am. Refill(s) Requested: Requested Prescriptions Pending Prescriptions Disp Refills mupirocin (BACTROBAN) 2 % ointment 22 g 0 Sig: Apply a small amount in each nostril using a cotton swab twice a day before surgery and once the morning of surgery ALLERGIES No Known Allergies (home) [phone] (cell) Last Office Visit Date: 02/25/2025 Last Distance Health Visit: Visit date not found Future Appointment: 03/21/2025 The patients preferred pharmacy has been captured for this encounter? not asked Request is for script(s) to be escript to pharmacy. Valerie Umana RN documented in this encounter [facility] 03-06-2025 Telephone encounter Note Called patient, + MSSA with pre surgical testing, explained how to use bactroban ointment prior to surgery. Patient aware to be at hospital at 6 am [address] surgery. Called Dr. Hinojosa office - he is aware that surgery is at 8 am. Refill(s) Requested: Requested Prescriptions Pending Prescriptions Disp Refills mupirocin (BACTROBAN) 2 % ointment 22 g 0 Sig: Apply a small amount in each nostril using a cotton swab twice a day before surgery and once the morning of surgery ALLERGIES No Known Allergies (home) [phone] (cell) Last Office Visit Date: 02/25/2025 Last Distance Health Visit: Visit date not found Future Appointment: 03/21/2025 The patients preferred pharmacy has been captured for this encounter? not asked Request is for script(s) to be escript to pharmacy. Valerie Umana RN [facility] 03-04-2025 History and physical note Images from the original note were not included. [facility] HISTORY AND PHYSICAL EXAMINATION SERVICE DATE: 03/04/2025 SERVICE TIME: 3:02 PM PRIMARY CARE PHYSICIAN: No primary care provider on file. Assessment Patient has the following medical conditions which may affect ruth-operative course: Preop examination Patient has the following medical conditions which may affect ruth-operative course addressed in assessment and plan today. Pituitary mass (HCC) Surgery scheduled for March 08, 2025 ANESTHESIA FINDINGS: Intubation History: No prior intubation Significant Anesthesia Considerations: none Airway History: No prior intubation Goodrich Activity Status Index: METS: Run a short distance (8.00 METs) DASI Score: 8 Patient denies any chest pain or undue shortness of breath with the above physical activity. ARISCAT Score: Age: 51-80 Preoperative SpO2: >=96% Respiratory infection in the last month: No Preoperative anemia: No Surgical incision: peripheral Duration of surgery: >3 hrs Emergency procedure: No ARISCAT Score: 26 I - PHYSICAL EVALUATION AIRWAY Patient intubated: No. DENTAL Dental findings: teeth intact. II - ANESTHESIA PLAN Anesthetic Plan: general Beta Micha Monitoring Plan Post Procedure Analgesic Plan Prepared for Surgery: . Per patient-no optimizations requested by surgeon for plan procedure. CONSULTS: Planned Anesthetic: general The Following Tests/Procedures Have Been Initiated: No orders of the defined types were placed in this encounter. The reason for this visit is to perform a comprehensive review of the patient's past medical history, assess their current health status and obtain any additional testing required based on anesthesia guidelines. We will also identify any potential anesthesia problems or contraindications to the planned procedure. REASON FOR VISIT: Zachery West is a 69 year old male who is scheduled for Procedure(s): NEUROENDOSCOPY INTRACRANIAL W/ EXCISION OF PITUITARY TUMOR TRANS-SPHENOIDAL APPROACH (N/A) BRAINLAB STEREOTACTIC COMPUTER-ASSISTED NAVIGATIONAL PROCEDURE CRANIAL (N/A) MICROSURGICAL TECHNIQUE FOR CRANIOTOMY PROCEDURES (N/A) NEUROENDOSCOPY INTRACRANIAL W/ EXCISION OF PITUITARY TUMOR TRANS-SPHENOIDAL APPROACH (N/A) at the request of Dr. Kim Jung for routine H&P. My final recommendation will be communicated back to the requesting physician by way of shared medical record or letter. Subjective The patient has the following: COVID-19 Immunization Status Current Care Gaps Covid-19 Vaccine ( season) Never done No completion, postpone, frequency change, or communication history exists for this topic. CHIEF COMPLAINT: The reason for this visit is to perform a comprehensive review of the patient's past medical history, assess their current health status and obtain any additional testing required based on anesthesia guidelines. We will also identify any potential anesthesia problems or contraindications to the planned procedure. HPI: Patient is a 69 year old male who presents for pre surgical testing. Patient was at his yearly vision evaluation and it was noted that he had problems with peripheral vision on the left. He was reevaluated 1 week later and it was the same. An MRI was ordered and a large mass was found January 31, 2025. He was referred to neurology. He denies headaches. After discussion with the surgeon the patient agrees to surgical intervention. REVIEW OF SYSTEMS: General: Left peripheral vision changes Negative for: unintentional weight change, malaise and fever. Neurological: See HPI. Positive for: MANAGER AVIATION tumor. Negative for: headaches, seizures and strokes. Respiratory: Negative for: asthma, COPD, pneumonia within 6 weeks, URI < 2 weeks and obstructive sleep apnea. Cardiovascular: Negative for: atrial fibrillation, CAD, chest pain, CHF, DVT/PE, hyperlipidemia and hypertension. GI: Negative for: abdominal pain, GERD, nausea and vomiting. : Negative for: dysuria, hematuria and renal failure. Endocrine: Negative for: diabetes mellitus, hyperthyroidism and hypothyroidism. Hematology: Negative for: anemia, factor V Leiden and von Willebrand disease. Oncology: No history of CA metastasis, chemo within 30 days, or radiotherapy within 90 days. No history of oncological symptoms or problems. Psych: Negative for: anxiety and depression. Musculoskeletal: Positive for: back pain. Negative for: joint pain. Skin: Negative for lesions, rash and itching. PAST MEDICAL HISTORY Diagnosis Date Pituitary mass (HCC) 01/2025 PAST SURGICAL HISTORY Procedure Laterality Date REMV CATARACT EXTRACAP,INSERT LENS Bilateral 1990s FAMILY HISTORY Problem Relation Age of Onset Stroke Mother Social History Tobacco Use Smoking status: Never Smokeless tobacco: Never Vaping Use Vaping status: Never Used Substance Use Topics Alcohol use: Yes Comment: daily Drug use: Never Prior to Admission medications as of 03/04/25 1430 Medication Sig Last Dose Taking beta-carotene,A,-vits C,E/mins (OCUVITE ORAL) Take by mouth once daily. Yes magnesium oxide 200 mg magnesium chew Take 1,200 mg by mouth. Yes Zinc Mth/Copper/Saw Palm/Gnsg (PROSTATE HEALTH FORMULA ORAL) Take by mouth once daily. Prosta forte Yes No medication comments found. ALLERGIES No Known Allergies Objective PHYSICAL EXAM: General: alert and oriented and healthy appearance. Pertinent negatives noted - not distressed. Skin: normal color, no rash or lesions. HEENT: pupils reactive to light. Cardiovascular: regular rate and rhythm, normal S1 and S2, no rub, murmurs, or gallop. Respiratory: normal breath sounds, no wheezes or crackles. No chest wall deformity or tenderness. Abdomen: bowel sounds present. Extremities: no deformity, no edema or tenderness, no joint swelling or clubbing. Neurological: normal cognition and motor skills. Gait normal. No weakness or sensory deficit. PAIN ASSESSMENT: VITALS: BP 145/77 Pulse 75 Temp 97.5 Resp 16 Ht 5' 10 (1.78m) Wt 183 lb (83.0kg) SpO2 97% BMI 26.26 kg/(m^2). Diagnostic tests reviewed for today's visit: Lab Value Units Date High Low HB No results within date range. HCT No results within date range. WBC No results within date range. PLT No results within date range. NA 135 mmol/L 02/19/2025 144 136 K 4.5 mmol/L 02/19/2025 5.1 3.7 GLUC 108 mg/dL 02/19/2025 99 74 BUN 17 mg/dL 02/19/2025 24 9 CREAT 1.02 mg/dL 02/19/2025 1.22 0.73 PTSEC No results within date range. INR No results within date range. APTT No results within date range. ALT 24 U/L 02/19/2025 54 10 AST 24 U/L 02/19/2025 40 14 TBILI 1.0 mg/dL 02/19/2025 1.3 0.2 TSH 3.620 mIU/L 02/19/2025 4.200 0.270 Lab Value Units Date High Low HCGQT No results within date range. UHCG No results within date range. HCG, BODY* No results within date range. Lab Value Units Date High Low ABORHD No results within date range. ABSCREEN No results within date range. No results found for: HBA1C No results found for this or any previous visit (from the past 8760 hours). No results found for this or any previous visit (from the past 78324 hours). 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] PLAN Planned Procedure: Procedure(s): NEUROENDOSCOPY INTRACRANIAL W/ EXCISION OF PITUITARY TUMOR TRANS-SPHENOIDAL APPROACH (N/A) BRAINLAB STEREOTACTIC COMPUTER-ASSISTED NAVIGATIONAL PROCEDURE CRANIAL (N/A) MICROSURGICAL TECHNIQUE FOR CRANIOTOMY PROCEDURES (N/A) NEUROENDOSCOPY INTRACRANIAL W/ EXCISION OF PITUITARY TUMOR TRANS-SPHENOIDAL APPROACH (N/A) I spent a total of 40 minutes on the date of the service which included preparing to see the patient, [id number] patient care, completing clinical documentation, obtaining and/or reviewing separately obtained history, performing a medically appropriate examination, and counseling and educating the patient/family/caregiver. Instructions Given to Patient: Instructions located in the after visit summary. Patient given verbal and written preop instructions and voices comprehension and compliance. SIGNATURE: Marie Mendez APRN.CNP PATIENT NAME: Zachery West DATE: March 04, 2025 TIME: 7:09 AM PAGER/CONTACT #: [facility] 03-04-2025 History and physical note Images from the original note were not included. [facility] HISTORY AND PHYSICAL EXAMINATION SERVICE DATE: 03/04/2025 SERVICE TIME: 3:02 PM PRIMARY CARE PHYSICIAN: No primary care provider on file. Assessment Patient has the following medical conditions which may affect ruth-operative course: Preop examination Patient has the following medical conditions which may affect ruth-operative course addressed in assessment and plan today. Pituitary mass (HCC) Surgery scheduled for March 08, 2025 ANESTHESIA FINDINGS: Intubation History: No prior intubation Significant Anesthesia Considerations: none Airway History: No prior intubation Goodrich Activity Status Index: METS: Run a short distance (8.00 METs) DASI Score: 8 Patient denies any chest pain or undue shortness of breath with the above physical activity. ARISCAT Score: Age: 51-80 Preoperative SpO2: >=96% Respiratory infection in the last month: No Preoperative anemia: No Surgical incision: peripheral Duration of surgery: >3 hrs Emergency procedure: No ARISCAT Score: 26 I - PHYSICAL EVALUATION AIRWAY Patient intubated: No. DENTAL Dental findings: teeth intact. II - ANESTHESIA PLAN Anesthetic Plan: general Beta Micha Monitoring Plan Post Procedure Analgesic Plan Prepared for Surgery: . Per patient-no optimizations requested by surgeon for plan procedure. CONSULTS: Planned Anesthetic: general The Following Tests/Procedures Have Been Initiated: No orders of the defined types were placed in this encounter. The reason for this visit is to perform a comprehensive review of the patient's past medical history, assess their current health status and obtain any additional testing required based on anesthesia guidelines. We will also identify any potential anesthesia problems or contraindications to the planned procedure. REASON FOR VISIT: Zachery West is a 69 year old male who is scheduled for Procedure(s): NEUROENDOSCOPY INTRACRANIAL W/ EXCISION OF PITUITARY TUMOR TRANS-SPHENOIDAL APPROACH (N/A) BRAINLAB STEREOTACTIC COMPUTER-ASSISTED NAVIGATIONAL PROCEDURE CRANIAL (N/A) MICROSURGICAL TECHNIQUE FOR CRANIOTOMY PROCEDURES (N/A) NEUROENDOSCOPY INTRACRANIAL W/ EXCISION OF PITUITARY TUMOR TRANS-SPHENOIDAL APPROACH (N/A) at the request of Dr. Kim Jung for routine H&P. My final recommendation will be communicated back to the requesting physician by way of shared medical record or letter. Subjective The patient has the following: COVID-19 Immunization Status Current Care Gaps Covid-19 Vaccine ( season) Never done No completion, postpone, frequency change, or communication history exists for this topic. CHIEF COMPLAINT: The reason for this visit is to perform a comprehensive review of the patient's past medical history, assess their current health status and obtain any additional testing required based on anesthesia guidelines. We will also identify any potential anesthesia problems or contraindications to the planned procedure. HPI: Patient is a 69 year old male who presents for pre surgical testing. Patient was at his yearly vision evaluation and it was noted that he had problems with peripheral vision on the left. He was reevaluated 1 week later and it was the same. An MRI was ordered and a large mass was found January 31, 2025. He was referred to neurology. He denies headaches. After discussion with the surgeon the patient agrees to surgical intervention. REVIEW OF SYSTEMS: General: Left peripheral vision changes Negative for: unintentional weight change, malaise and fever. Neurological: See HPI. Positive for: MANAGER AVIATION tumor. Negative for: headaches, seizures and strokes. Respiratory: Negative for: asthma, COPD, pneumonia within 6 weeks, URI < 2 weeks and obstructive sleep apnea. Cardiovascular: Negative for: atrial fibrillation, CAD, chest pain, CHF, DVT/PE, hyperlipidemia and hypertension. GI: Negative for: abdominal pain, GERD, nausea and vomiting. : Negative for: dysuria, hematuria and renal failure. Endocrine: Negative for: diabetes mellitus, hyperthyroidism and hypothyroidism. Hematology: Negative for: anemia, factor V Leiden and von Willebrand disease. Oncology: No history of CA metastasis, chemo within 30 days, or radiotherapy within 90 days. No history of oncological symptoms or problems. Psych: Negative for: anxiety and depression. Musculoskeletal: Positive for: back pain. Negative for: joint pain. Skin: Negative for lesions, rash and itching. PAST MEDICAL HISTORY Diagnosis Date Pituitary mass (HCC) 01/2025 PAST SURGICAL HISTORY Procedure Laterality Date REMV CATARACT EXTRACAP,INSERT LENS Bilateral 1990s FAMILY HISTORY Problem Relation Age of Onset Stroke Mother Social History Tobacco Use Smoking status: Never Smokeless tobacco: Never Vaping Use Vaping status: Never Used Substance Use Topics Alcohol use: Yes Comment: daily Drug use: Never Prior to Admission medications as of 03/04/25 1430 Medication Sig Last Dose Taking beta-carotene,A,-vits C,E/mins (OCUVITE ORAL) Take by mouth once daily. Yes magnesium oxide 200 mg magnesium chew Take 1,200 mg by mouth. Yes Zinc Mth/Copper/Saw Palm/Gnsg (PROSTATE HEALTH FORMULA ORAL) Take by mouth once daily. Prosta forte Yes No medication comments found. ALLERGIES No Known Allergies Objective PHYSICAL EXAM: General: alert and oriented and healthy appearance. Pertinent negatives noted - not distressed. Skin: normal color, no rash or lesions. HEENT: pupils reactive to light. Cardiovascular: regular rate and rhythm, normal S1 and S2, no rub, murmurs, or gallop. Respiratory: normal breath sounds, no wheezes or crackles. No chest wall deformity or tenderness. Abdomen: bowel sounds present. Extremities: no deformity, no edema or tenderness, no joint swelling or clubbing. Neurological: normal cognition and motor skills. Gait normal. No weakness or sensory deficit. PAIN ASSESSMENT: VITALS: BP 145/77 Pulse 75 Temp 97.5 Resp 16 Ht 5' 10 (1.78m) Wt 183 lb (83.0kg) SpO2 97% BMI 26.26 kg/(m^2). Diagnostic tests reviewed for today's visit: Lab Value Units Date High Low HB No results within date range. HCT No results within date range. WBC No results within date range. PLT No results within date range. NA 135 mmol/L 02/19/2025 144 136 K 4.5 mmol/L 02/19/2025 5.1 3.7 GLUC 108 mg/dL 02/19/2025 99 74 BUN 17 mg/dL 02/19/2025 24 9 CREAT 1.02 mg/dL 02/19/2025 1.22 0.73 PTSEC No results within date range. INR No results within date range. APTT No results within date range. ALT 24 U/L 02/19/2025 54 10 AST 24 U/L 02/19/2025 40 14 TBILI 1.0 mg/dL 02/19/2025 1.3 0.2 TSH 3.620 mIU/L 02/19/2025 4.200 0.270 Lab Value Units Date High Low HCGQT No results within date range. UHCG No results within date range. HCG, BODY* No results within date range. Lab Value Units Date High Low ABORHD No results within date range. ABSCREEN No results within date range. No results found for: HBA1C No results found for this or any previous visit (from the past 8760 hours). No results found for this or any previous visit (from the past 82413 hours). 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] PLAN Planned Procedure: Procedure(s): NEUROENDOSCOPY INTRACRANIAL W/ EXCISION OF PITUITARY TUMOR TRANS-SPHENOIDAL APPROACH (N/A) BRAINLAB STEREOTACTIC COMPUTER-ASSISTED NAVIGATIONAL PROCEDURE CRANIAL (N/A) MICROSURGICAL TECHNIQUE FOR CRANIOTOMY PROCEDURES (N/A) NEUROENDOSCOPY INTRACRANIAL W/ EXCISION OF PITUITARY TUMOR TRANS-SPHENOIDAL APPROACH (N/A) I spent a total of 40 minutes on the date of the service which included preparing to see the patient, [id number] patient care, completing clinical documentation, obtaining and/or reviewing separately obtained history, performing a medically appropriate examination, and counseling and educating the patient/family/caregiver. Instructions Given to Patient: Instructions located in the after visit summary. Patient given verbal and written preop instructions and voices comprehension and compliance. SIGNATURE: Marie Mendez APRN.CNP PATIENT NAME: Zachery West DATE: March 04, 2025 TIME: 7:09 AM PAGER/CONTACT #: documented in this encounter [facility] 03-04-2025 Instructions Marie Mendez APRN.CNP - 03/04/2025 7:09 AM EDT PATIENT PREOPERATIVE INSTRUCTIONS Kim Jung MD has scheduled you for your procedure at this surgery center: [facility]: [phone], [address] [id number] Please read below carefully for your personalized instructions. Date of Surgery: 03/08/25 Arrival Time for Surgery: Your surgeon's office will provide you with your arrival time for surgery if they have not done so already. If you do not have your arrival time for surgery by the afternoon the day before your surgery you can call the surgeon's office. If you are scheduled for a Tuesday surgery you can call the Tuesday before. - Please be aware that emergency situations arise, which may delay or change your surgical time. If this happens, your surgeon's office will notify you as soon as possible and regret any inconvenience. Requirements for vaccination; 72-hour. Between getting vaccine and date of surgery Dietary Restrictions: - No solid food after midnight. - You may have 12 ounces of clear liquids (water, clear juices such as apple juice or gatorade, carbonated beverages, clear tea, black coffee, jello) until 2 hours before scheduled arrival at facility. This is important because if you do, your procedure may be canceled Medications: Pre Surgery Med Instructions Medication instructions beta-carotene,A,-vits C,E/mins (OCUVITE ORAL) Stop 7 days before surgery. magnesium oxide 200 mg magnesium chew Stop 7 days before surgery. Zinc Mth/Copper/Saw Palm/Gnsg (PROSTATE HEALTH FORMULA ORAL) Stop 7 days before surgery. Blood pressure medications See med list for instructions Take beta micha day of surgery Do not take KEV or ARB medications day of surgery Weight loss medications Sympathomimetics such as Adipex-P (Phentermine): Stop 4 days before surgery. Contrave (Naltrexone/Bupropion) Hold 2-3 days. Qsymia (Phentermine/Topiramate - Please contact your prescribing provider for Pre op directions. ( depending on the patients dose this medication may need tapered off. They should get pre op directions from their prescribing provider.) GLP-1 Agonists (oral and injectables) Hold 7 days. Blood Thinning Medications: - Stop NSAIDS (Ibuprofen, Advil, Aleve, Motrin, Celebrex, Mobic, etc.) 7 days before surgery, as directed by your surgeon. - You may take Tylenol (Acetaminophen) or any of your current prescribed pain medications that do not contain aspirin or NSAIDS as needed. - If you take any of the following blood thinners, please contact your surgeon and the physician who prescribes it for you in order to get perioperative instructions as soon as possible Blood thinners: Aspirin,Coumadin, Plavix, Eliquis, Pradaxa, Xarelto, Lovenox, Brilinta, Effient, Savaysa, etc. Supplements - Stop Vitamin E, fish oil, Ginko, Bang's Wort, flax seed oil, multivitamins, CBD oil, marijuana and other over the counter herbals and dietary supplements 7 days before surgery. This would not apply to cancer patients who are prescribed Marinol or any other prescription form of marijuana or CBD. If you are taking Phentermine please hold 4 days prior to surgery. Diabetes Medications Do not take the morning of surgery; Trajenta, Metformin, Actos/Pioglitazone and Amaryl/Glimepiride. For the following Medications, please HOLD 2 DAYS PRIOR TO SURGERY: Glucotrol/Glipizide, Januvia/Sitagliptin, Glyburide, Prandin/Repaglinide, Starlix/Nateglinide, Symlin/Pramlintide, For the following Medications, please HOLD 3 DAYS PRIOR TO SURGERY: Canagliflozin/Invokana, Dapagliflozin/Farxiga ,Empagliflozin/Jardiance, Invokamet/canagliflozin and metformin, Xigduo XR/ dapagliglozin and metformin, Glyxambi/ empagliflozin and metformin, Syndardy/ empagliflozin and metformin For the following Medications, please HOLD 4 DAYS PRIOR TO SURGERY: Ertugliflozin/Steglatro For the following Medications, please HOLD 7 DAYS PRIOR TO SURGERY: GLP-1 AGONIST: Adlyxin (lixisenatide), Bydureon BCise (exenatide suspension), Byetta (exenatide), Mounjaro (tirzepatide), Ozempic (semaglutide injection), Rybelsus (semaglutide tablets), Tanzeum (albiglutide), Trulicity (dulaglutide), Victoza (liraglutide), Wegovy (semaglutide), Saxenda (liraglutide) Insulin Medication Instructions: Please follow up with the provider that manages your Insulin and how to prepare you for surgery. Pain medications Approved pain medications can be taken the morning of surgery with a sip of water. For methadone instructions call surgeon and physician that prescribes it for pre op instructions. And send message to pharmacist Erectile dysfunction medications If you take any medications for erectile dysfunction-Cialis (Tadalafil), Levitra, Staxyn (Vardenafil) Viagra (Sildenenafil please do not take these for 48 hours before surgery. If you start any new medications after today's visit, please contact the surgeon's office. Important Reminders: - If you use CPAP/BIPAP, bring the machine with you to the hospital if you are scheduled to stay over night. - If you are prescribed inhalers for breathing, continue using them AND bring them to the surgery center. - Candy, mints, gum and tobacco products are NOT permitted the morning of surgery. - Hearing aids, dentures and glasses may be worn the morning of surgery. - NO jewelry, body piercings, makeup, hairpins or contacts are to be worn the day of surgery. - NO lotion, creams, powders or deodorants on the skin the day of surgery - You will need to have someone else (Family or friend) drive you home once discharged from the hospital. You cannot take a cab or Uber. You are not allowed to drive yourself home after surgery. -You will need an adult(over the age of 18) to stay with you for the first 24 hours post surgery or your surgery may be cancelled. Please speak with your surgeon if this is an issue. If you develop symptoms such as a fever, cold, or flu, or have other changes to your health within TWO DAYS of scheduled surgery or the morning of surgery, please contact the surgery center above. Personal Belongings: - Leave ALL valuables and money at home or with family members. - You will need a form of ID and insurance card to check in the morning of surgery. - You will have to wear a hospital gown during your stay but if you wish to bring undergarments for after surgery you may. -If you do not have a copy of advance directives on file with us, please bring a copy with you on the day of surgery. If you already have an Advance Directive, please fax a copy to [phone] or email to for it to be added to your chart. If you do not have an Advance Directive, you can find the appropriate form and more information at [email or web address]. We recommend that you complete the Advance Directive form found on the website and bring it with you the day of your surgery. It can be witnessed and scanned into your chart that day. Please note-you should have a 72-hour period between getting your vaccine and date of surgery - If you have a stimulator, implant or pump that requires a remote please bring the remote with you day of surgery Hibiclens provided to patients requiring soap for surgery The anti-bacterial soap (Hibiclens) should be used TWICE prior to surgery: The night before surgery and the morning of surgery: - If you plan to wash your hair, do so with your regular shampoo. Then rinse hair and body thoroughly to remove any shampoo residue. - Wash your face with water or your regular soap. - Thoroughly rinse your body with water from the neck down - Apply Hibiclens directly on your skin or on a wet washcloth and wash gently. Move away from the shower stream when applying Hibiclens to ensure the CHG binds to the skin. - Pay special attention to the area where your surgery will be performed - Rinse thoroughly - Apply clean bedding and clean clothing after shower Do not use your regular soap after applying and rinsing Hibiclens. Do not apply any lotions, deodorants, powders, or perfumes to the body areas that have been cleaned with Hibiclens. If you already have an Advance Directive, please fax a copy to [phone] or [facility] at [phone] or email to for it to be added to your chart. If you do not have an Advance Directive, you can find the appropriate form and more information at [email or web address]. We recommend that you complete the Advance Directive form found on the website and bring it with you the day of your surgery. It can be witnessed and scanned into your chart that day. Marie Mendez APRN.CNP documented in this encounter [facility] 02-27-2025 Telephone encounter Note Called and spoke with patient regarding surgery details. All questions addressed. [facility] 02-27-2025 Miscellaneous Notes Called and spoke with patient regarding surgery details. All questions addressed. documented in this encounter [facility] 02-25-2025 History of Presen t illness Narrative Images from the original note were not included. NEUROSURGERY FOLLOW UP OFFICE NOTE Kim Jung MD Date of visit: February 25, 2025 Patient Name: Mr.Ken Matt West Date of : 1955 Current Age: [age] year old Sex: male MRN/E# [id number] Last Office Visit: 02/18/2025 CLINICAL SUMMARY: Pituitary mass noted January 2025 - bitemporal vis field defect, worse on the left temporal Dr. Durham - [facility] SUBJECTIVE: History of Present Illness. Joey West is a 69 year old right-handed male presenting with spouse. He was seen in consult on 02/18/2025 where he went in to eye doctor for yearly evaluation when they were doing exam he was not doing well with left peripheral vision exam. They brought him back in a week for a repeat evaluation and was the same. From there Dr. Durham ordered an MRI of the brain. He stated that he didn't really notice too much of an issue with left peripheral vision. 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 Recommended for him to get endocrine blood work done, if negative would recommend surgery for this. He was recommended to have blood work and follow with Endocrinology and ENT. Today he saw Dr. Lundberg last week and Dr. Rock on Tuesday02/22/2025; had lab work done, prolactin at 9.2. He has been doing well overall, no changes since last week. 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 No pertinent surgical history. History reviewed. No pertinent family history. ALLERGIES No Known Allergies No current outpatient medications on file. No current facility-administered medications for this visit. OBJECTIVE: BP 125/83 Pulse 84 Resp 16 Wt 187 lb 2.7 oz (84.9kg) SpO2 96% PHYSICAL EXAM Left temporal visual field defect Remainder of the exam is normal Data Review IMAGING STUDIES: MRI brain obtained on 01/31/2025: Visual field from both12/12/2024 & 01/09/2025: Images independently reviewed The following portions of the patient's history were reviewed, confirmed, updated as necessary: allergies, current medications, past family history, past medical history, past social history, past surgical history, problem list, HPI and ROS obtained by others. The clinical and radiographic findings as well as the risks, benefits, and alternatives of treatment have been reviewed in detail with the patient. ASSESSMENT/PLAN 1. Pituitary mass (HCC) (Primary) Reviewed endocrine lab results. Prolactin is normal, therefore recommend surgical resection of the sellar mass Discussed surgery details, risks and benefits All questions answered. Patient would like to proceed with scheduling surgery. We will make the necessary arrangements Encouraged patient to contact our office should there be any further questions, concerns, or change in symptoms. Patient expressed understanding and is in agreement with plan. Some elements may have been copied from a previous note and have been updated/reviewed where appropriate. All portions reflect current medical decision making from today. Kmi Jung MD I spent a total of 30 minutes on the date of the service which included preparing to see the patient, [id number] patient care, completing clinical documentation, obtaining and/or reviewing separately obtained history, performing a medically appropriate examination, counseling and educating the patient/family/caregiver, ordering medications, tests, or procedures, independently interpreting results (not separately reported), and communicating results to the patient/family/caregiver. documented in this encounter [facility] 02-25-2025 Note HNO ID: [id number] Author: KIM JUNG MD Service: ? Author Type: Physician Type: Progress Notes Filed: 02/25/2025 14:25 Note Text: NEUROSURGERY FOLLOW UP OFFICE NOTE Kim Jung MD Date of visit: February 25, 2025 Patient Name: Mr.Ken Matt West Date of : 1955 Current Age: [age] year old Sex: male MRN/E# [id number] Last Office Visit: 02/18/2025 CLINICAL SUMMARY: Pituitary mass noted January 2025 - bitemporal vis field defect, worse on the left temporal Dr. Durham - [facility] SUBJECTIVE: History of Present Illness. Joey West is a 69 year old right-handed male presenting with spouse. He was seen in consult on 02/18/2025 where he went in to eye doctor for yearly evaluation when they were doing exam he was not doing well with left peripheral vision exam. They brought him back in a week for a repeat evaluation and was the same. From there Dr. Durham ordered an MRI of the brain. He stated that he didn't really notice too much of an issue with left peripheral vision. 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 Recommended for him to get endocrine blood work done, if negative would recommend surgery for this. He was recommended to have blood work and follow with Endocrinology and ENT. Today he saw Dr. Lundberg last week and Dr. Rock on Tuesday02/22/2025; had lab work done, prolactin at 9.2. He has been doing well overall, no changes since last week. 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 No pertinent surgical history. History reviewed. No pertinent family history. ALLERGIES No Known Allergies No current outpatient medications on file. No current facility-administered medications for this visit. OBJECTIVE: BP 125/83 Pulse 84 Resp 16 Wt 187 lb 2.7 oz (84.9kg) SpO2 96% PHYSICAL EXAM Left temporal visual field defect Remainder of the exam is normal Data Review IMAGING STUDIES: MRI brain obtained on 01/31/2025: Visual field from both12/12/2024 AND 01/09/2025: Images independently reviewed The following portions of the patient's history were reviewed, confirmed, updated as necessary: allergies, current medications, past family history, past medical history, past social history, past surgical history, problem list, HPI and ROS obtained by others. The clinical and radiographic findings as well as the risks, benefits, and alternatives of treatment have been reviewed in detail with the patient. ASSESSMENT/PLAN 1. Pituitary mass (HCC) (Primary) Reviewed endocrine lab results. Prolactin is normal, therefore recommend surgical resection of the sellar mass Discussed surgery details, risks and benefits All questions answered. Patient would like to proceed with scheduling surgery. We will make the necessary arrangements Encouraged patient to contact our office should there be any further questions, concerns, or change in symptoms. Patient expressed understanding and is in agreement with plan. Some elements may have been copied from a previous note and have been updated/reviewed where appropriate. All portions reflect current medical decision making from today. Kim Jung MD I spent a total of 30 minutes on the date of the service which included preparing to see the patient, [id number] patient care, completing clinical documentation, obtaining and/or reviewing separately obtained history, performing a medically appropriate examination, counseling and educating the patient/family/caregiver, ordering medications, tests, or procedures, independently interpreting results (not separately reported), and communicating results to the patient/family/caregiver. [facility] 02-22-2025 Note HNO ID: [id number] Author: PIEDAD ROCK MD Service: ? Author Type: Physician Type: Progress Notes Filed: 02/25/2025 10:20 Note Text: This note was created using OpenLabelriter. Subjective Joey West is a 69 year old male. Consultation requested by Dr. Beckford for an opinion regarding pituitary mass. My final recommendations will be communicated back to the requesting physician by way of shared Medical record or letter to requesting physician via [place] mail. 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 79 Insulin-like Growth Factor I 27 - 246 ng/mL 81 IGF-1 z-score -2.0 - 2.0 -1.0 TSH 0.270 - 4.200 mIU/L 3.620 ACTH 7.2 - 63.3 pg/mL 21.4 Cortisol 4.8 - 19.5 ug/dL 13.4 FSH 1.5 - 12.4 mIU/mL 11.8 LH 1.8 - 10.8 mIU/mL 4.5 Estradiol 17B <38 pg/mL <25 Prolactin 4.1 - 25.1 ng/mL 9.2 Free T4 0.9 - 1.7 ng/dL 1.1 Legend: (H) High (L) Low Review of Systems Genitourinary: Positive for frequency. All other systems reviewed and are negative. Objective BP 150/99 Pulse 86 Wt 85.3 kg (188 lb) BMI 26.98 kg/m? Physical Exam Vitals and nursing note reviewed. Constitutional: Appearance: Normal appearance. HENT: Head: Normocephalic and atraumatic. Nose: Nose normal. Eyes: General: No scleral icterus. Conjunctiva/sclera: Conjunctivae normal. Pupils: Pupils are equal, round, and reactive to light. Comments: Left hemianopsia Neck: Thyroid: No thyromegaly. Cardiovascular: Rate and Rhythm: Normal rate and regular rhythm. Heart sounds: Normal heart sounds. No murmur heard. Pulmonary: Effort: Pulmonary effort is normal. Breath sounds: Normal breath sounds. No wheezing or rales. Abdominal: General: Bowel sounds are normal. There is no distension. Palpations: Abdomen is soft. Tenderness: There is no abdominal tenderness. Musculoskeletal: Cervical back: Neck supple. Lymphadenopathy: Cervical: No cervical adenopathy. Skin: General: Skin is warm and dry. Findings: No lesion. Nails: There is no clubbing. Neurological: Mental Status: He is alert and oriented to person, place, and time. Cranial Nerves: No cranial nerve deficit. Deep Tendon Reflexes: Reflexes are normal and symmetric. Psychiatric: Judgment: Judgment normal. Assessment and Plan ASSESSMENT/PLAN: 1. 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 Discussed pathophysiology of disease; discussed about hormonal monitoring after surgery, risks and side effects; F/u with me after surgery; at this time patient does not need any hormonal replacement 2. Impaired fasting glucose - ICD9: 790.21, ICD10: R73.01 Different diagnosis and implications of them including short term and local [employer] complications and impact on health and survival were discussed with patient. Different and alternative modalities of treatment was discussed. Potential side effects of medication discussed and patient was told not to stop any of the prescribed medication unless recommended by physician. Patient's questions were answered and patient is agreeable with course of action and treatment. Piedad Rock MD [facility] 02-22-2025 History of Presen t illness Narrative This note was created using OpenLabelriter. Subjective Joey West is a 69 year old male. Consultation requested by Dr. Beckford for an opinion regarding pituitary mass. My final recommendations will be communicated back to the requesting physician by way of shared Medical record or letter to requesting physician via [place] mail. 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; Was evaluated by Neurosurgery Dr Jung and ENT Dr Lundberg and recommended surgical decommpressin after seen by Endocrinology; Today presents accompanies by his ; has no complaints; Pituitary function is normal; pituitary tumor is non functional; Clinically euthyroid; Latest Ref Rng 02/19/2025 Glucose 74 - 99 mg/dL 108 (H) BUN 9 - 24 mg/dL 17 Creatinine 0.73 - 1.22 mg/dL 1.02 Sodium 136 - 144 mmol/L 135 (L) Potassium 3.7 - 5.1 mmol/L 4.5 Chloride 98 - 107 mmol/L 98 CO2 22 - 30 mmol/L 28 Anion Gap 8 - 15 mmol/L 9 eGFR >=60 mL/min/1.73m 79 Insulin-like Growth Factor I 27 - 246 ng/mL 81 IGF-1 z-score -2.0 - 2.0 -1.0 TSH 0.270 - 4.200 mIU/L 3.620 ACTH 7.2 - 63.3 pg/mL 21.4 Cortisol 4.8 - 19.5 ug/dL 13.4 FSH 1.5 - 12.4 mIU/mL 11.8 LH 1.8 - 10.8 mIU/mL 4.5 Estradiol 17B <38 pg/mL <25 Prolactin 4.1 - 25.1 ng/mL 9.2 Free T4 0.9 - 1.7 ng/dL 1.1 Legend: (H) High (L) Low Review of Systems Genitourinary: Positive for frequency. All other systems reviewed and are negative. Objective BP 150/99 Pulse 86 Wt 85.3 kg (188 lb) BMI 26.98 kg/m Physical Exam Vitals and nursing note reviewed. Constitutional: Appearance: Normal appearance. HENT: Head: Normocephalic and atraumatic. Nose: Nose normal. Eyes: General: No scleral icterus. Conjunctiva/sclera: Conjunctivae normal. Pupils: Pupils are equal, round, and reactive to light. Comments: Left hemianopsia Neck: Thyroid: No thyromegaly. Cardiovascular: Rate and Rhythm: Normal rate and regular rhythm. Heart sounds: Normal heart sounds. No murmur heard. Pulmonary: Effort: Pulmonary effort is normal. Breath sounds: Normal breath sounds. No wheezing or rales. Abdominal: General: Bowel sounds are normal. There is no distension. Palpations: Abdomen is soft. Tenderness: There is no abdominal tenderness. Musculoskeletal: Cervical back: Neck supple. Lymphadenopathy: Cervical: No cervical adenopathy. Skin: General: Skin is warm and dry. Findings: No lesion. Nails: There is no clubbing. Neurological: Mental Status: He is alert and oriented to person, place, and time. Cranial Nerves: No cranial nerve deficit. Deep Tendon Reflexes: Reflexes are normal and symmetric. Psychiatric: Judgment: Judgment normal. Assessment and Plan ASSESSMENT/PLAN: 1. 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 Discussed pathophysiology of disease; discussed about hormonal monitoring after surgery, risks and side effects; F/u with me after surgery; at this time patient does not need any hormonal replacement 2. Impaired fasting glucose - ICD9: 790.21, ICD10: R73.01 Different diagnosis and implications of them including short term and chcf complications and impact on health and survival were discussed with patient. Different and alternative modalities of treatment was discussed. Potential side effects of medication discussed and patient was told not to stop any of the prescribed medication unless recommended by physician. Patient's questions were answered and patient is agreeable with course of action and treatment. Piedad Rock MD documented in this encounter [facility] 02-18-2025 Note HNO ID: [id number] Author: KIM JUNG MD Service: ? Author Type: Physician Type: Progress Notes Filed: 02/18/2025 10:58 Note Text: NEUROSURGERY CONSULT NOTE Kim Jung MD Date of visit: February 18, 2025 Patient Name: Mr.Ken Matt West Date of : 1955 Current Age: [age] year old Sex: male MRN/E# [id number] Last Office Visit: 02/13/2025 CLINICAL SUMMARY: Pituitary mass noted January 2025 - bitemporal vis field defect, worse on the left temporal Dr. Durham [facility] HISTORY OF PRESENT ILLNESS : Joey West is a 69 year old right-handed male presenting with spouse. He was referred by Dr. Durham for pituitary mass evaluation. Today he reports that he went in to eye doctor for yearly evaluation when they were doing exam he was not doing well with left peripheral vision exam. They brought him back in a week for a repeat evaluation and was the same. From there Dr. Durham ordered an MRI of the brain. He states that he doesn't really notice too much of an issue with left peripheral vision. He is here for image review, evaluation and plan of care. 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 No past medical history on file. No past surgical history on file. No family history on file. ALLERGIES No Known Allergies No current outpatient medications on file. No current facility-administered medications for this visit. REVIEW OF SYSTEMS Review of Systems Constitutional: Negative for chills and fever. HENT: Negative for congestion. Eyes: Positive for visual disturbance. Respiratory: Negative for apnea and cough. Gastrointestinal: Negative for nausea and vomiting. Genitourinary: Negative for difficulty urinating. Musculoskeletal: Negative for back pain and gait problem. Skin: Negative for rash and wound. Neurological: Positive for headaches. Negative for weakness and numbness. Rare headaches Hematological: Does not bruise/bleed easily. Psychiatric/Behavioral: Negative for agitation and confusion. OBJECTIVE: BP 144/94 Pulse 86 Resp 16 Ht 5' 10 (1.78m) Wt 187 lb 6.3 oz (85.0kg) SpO2 99% BMI 26.89 kg/(m2). PHYSICAL EXAM: GENERAL: No distress, Alert, cooperative, pleasant HEENT: Normocephalic, atraumatic LUNGS: Unlabored breathing NECK/BACK: ROM appropriate, no TTP CARDIAC: Regular rate and rhythm ABDOMEN: Soft, non-tender, non-distended EXTREMITIES: GONZALEZ, No deformities, No edema NEURO: Mental State: Alert, Oriented to person, place and time; appropriate judgement Speech: Fluent. Naming, comprehension and repetition intact Cranial Nerves: CN II: Visual sorensen - left temporal decreased vision. Rt 20/20 Lt 20/30 corrected CN III, IV, : Extraocular movements intact bilaterally. Pupils equal round and reactive to light bilaterally. No diplopia CN V: Facial sensation is normal bilaterally. CN VII: Face is symmetric, no weakness CN VIII: Hearing is normal. CN IX, X: Palate elevates symmetrically CN XI: Shoulder shrug strength is normal. CN XII: Tongue midline without atrophy or fasciculations. Sensory: Normal sensation in upper and lower extremities and trunk to touch. Motor : Normal muscle tone. No spasticity , mild bilateral tremor. No evidence of pronator drift. Full strength in upper and lower extremities Reflexes: Deep tendon reflexes are 2+ and symmetric in all four extremities, negative Garcia's, negative clonus Coordination: Cayfeb-re-gwmz normal. Rapid alternating movement normal. Gait: Normal casual gait. Normal toe walking. Normal heel walking. Normal tandem gait. Romberg is absent. Data Review IMAGING STUDIES: MRI brain obtained on 01/31/2025: Images independently reviewed The following portions of the patient's history were reviewed, confirmed, updated as necessary: allergies, current medications, past family history, past medical history, past social history, past surgical history, problem list, HPI and ROS obtained by others. The clinical and radiographic findings as well as the risks, benefits, and alternatives of treatment have been reviewed in detail with the patient. ASSESSMENT/PLAN 1. Pituitary mass (HCC) (Primary) Visual defect picked up on routine visual examination. MRI brain reviewed - large sellar mass with suprasellar extension and mass effect on optic chiasm. Discussed imaging in detail. Recommend endocrine bloodwork. If negative, given tumor size, recommend surgery. Reviewed risks/benefits/alternatives in detail. All questions answered. 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 [facility] Evaluation note No assessment inform ation available [facility] Work Phone: Evaluation note Diagnosis Pituitary mass (HCC)- Primary Unspecified disorder of the pituitary gland and its hypothalamic control Impaired fasting glucose [facility] Pituitary mass (HCC)- Primary Unspecified disorder of the pituitary gland and its hypothalamic control [facility] Pituitary mass (HCC)- Primary Unspecified disorder of the pituitary gland and its hypothalamic control Pituitary mass (HCC) Unspecified disorder of the pituitary gland and its hypothalamic control [facility] Preop examination- Primary Preoperative examination, unspecified Pituitary mass (HCC) Unspecified disorder of the pituitary gland and its hypothalamic control Pre-op testing Preoperative examination, unspecified Pituitary mass (HCC) Unspecified disorder of the pituitary gland and its hypothalamic control * Assessment & Plan Note - Marie Mendez APRN.CNP - 03/04/2025 7:18 AM EDT Associated Problem(s): Pituitary mass (HCC) Surgery scheduled for March 08, 2025 * Assessment & Plan Note - Marie Mendez APRN.CNP - 03/04/2025 7:17 AM EDT Associated Problem(s): Preop examination Patient has the following medical conditions which may affect ruth-operative course addressed in assessment and plan today. [facility] Preop examination- Primary Preoperative examination, unspecified Pituitary mass (HCC) Unspecified disorder of the pituitary gland and its hypothalamic control Pre-op testing Preoperative examination, unspecified Pituitary mass (HCC) Unspecified disorder of the pituitary gland and its hypothalamic control Pre-op testing Preoperative examination, unspecified Pituitary mass (HCC) Unspecified disorder of the pituitary gland and its hypothalamic control [facility] Diagnosis Preop examination- Primary Preoperative examination, unspecified Pituitary mass (HCC) Unspecified disorder of the pituitary gland and its hypothalamic control Pre-op testing Preoperative examination, unspecified MSSA (methicillin susceptible Staphylococcus aureus)- Primary Methicillin susceptible Staphylococcus aureus in conditions classified elsewhere and of unspecified site Pituitary mass (HCC) Unspecified disorder of the pituitary gland and its hypothalamic control [facility] Diagnosis Pituitary mass (HCC)- Primary Unspecified disorder of the pituitary gland and its hypothalamic control S/P transsphenoidal hypophysectomy (HCC) Other postprocedural status Preop examination- Primary Preoperative examination, unspecified Pituitary mass (HCC) Unspecified disorder of the pituitary gland and its hypothalamic control Pre-op testing Preoperative examination, unspecified Pituitary mass (HCC) Unspecified disorder of the pituitary gland and its hypothalamic control documented in this encounter [facility] note* Diagnosis Pituitary mass (HCC)- Primary Unspecified disorder of the pituitary gland and its hypothalamic control Pituitary mass (HCC) Unspecified disorder of the pituitary gland and its hypothalamic control Status post transsphenoidal pituitary resection (HCC) Other postprocedural status S/P transsphenoidal hypophysectomy (HCC) Other postprocedural status Visual field cut Visual field defect, unspecified Other headache syndrome Pituitary disorder (HCC) Unspecified disorder of the pituitary gland and its hypothalamic control On corticosteroid therapy Preop examination- Primary Preoperative examination, unspecified Pituitary mass (HCC) Unspecified disorder of the pituitary gland and its hypothalamic control Pre-op testing Preoperative examination, unspecified Pituitary mass (HCC)- Primary Unspecified disorder of the pituitary gland and its hypothalamic control Acute nonintractable headache, unspecified headache type Other postprocedural endocrine and metabolic complications and disorders documented in this encounter [facility] note* Diagnosis Pituitary mass (HCC)- Primary Unspecified disorder of the pituitary gland and its hypothalamic control Pituitary mass (HCC) Unspecified disorder of the pituitary gland and its hypothalamic control Status post transsphenoidal pituitary resection (HCC) Other postprocedural status S/P transsphenoidal hypophysectomy (HCC) Other postprocedural status Visual field cut Visual field defect, unspecified Other headache syndrome Pituitary disorder (HCC) Unspecified disorder of the pituitary gland and its hypothalamic control On corticosteroid therapy Preop examination- Primary Preoperative examination, unspecified Pituitary mass (HCC) Unspecified disorder of the pituitary gland and its hypothalamic control Pre-op testing Preoperative examination, unspecified Pituitary mass (HCC)- Primary Unspecified disorder of the pituitary gland and its hypothalamic control [facility] Diagnosis Pituitary mass (HCC)- Primary Unspecified disorder of the pituitary gland and its hypothalamic control Pituitary mass (HCC) Unspecified disorder of the pituitary gland and its hypothalamic control Status post transsphenoidal pituitary resection (HCC) Other postprocedural status S/P transsphenoidal hypophysectomy (HCC) Other postprocedural status Visual field cut Visual field defect, unspecified Other headache syndrome Pituitary disorder (HCC) Unspecified disorder of the pituitary gland and its hypothalamic control On corticosteroid therapy Preop examination- Primary Preoperative examination, unspecified Pituitary mass (HCC) Unspecified disorder of the pituitary gland and its hypothalamic control Pre-op testing Preoperative examination, unspecified Acute nonintractable headache, unspecified headache type- Primary Pituitary mass (HCC) Unspecified disorder of the pituitary gland and its hypothalamic control documented in this encounter [facility] note* Diagnosis Pituitary mass (HCC)- Primary Unspecified disorder of the pituitary gland and its hypothalamic control Pituitary mass (HCC) Unspecified disorder of the pituitary gland and its hypothalamic control Status post transsphenoidal pituitary resection (HCC) Other postprocedural status S/P transsphenoidal hypophysectomy (HCC) Other postprocedural status Visual field cut Visual field defect, unspecified Other headache syndrome Pituitary disorder (HCC) Unspecified disorder of the pituitary gland and its hypothalamic control On corticosteroid therapy Preop examination- Primary Preoperative examination, unspecified Pituitary mass (HCC) Unspecified disorder of the pituitary gland and its hypothalamic control Pre-op testing Preoperative examination, unspecified Acute nonintractable headache, unspecified headache type Pituitary mass (HCC) Unspecified disorder of the pituitary gland and its hypothalamic control documented in this encounter [facility] note* Diagnosis Pituitary mass (HCC)- Primary Unspecified disorder of the pituitary gland and its hypothalamic control Pituitary mass (HCC) Unspecified disorder of the pituitary gland and its hypothalamic control Status post transsphenoidal pituitary resection (HCC) Other postprocedural status S/P transsphenoidal hypophysectomy (HCC) Other postprocedural status Visual field cut Visual field defect, unspecified Other headache syndrome Pituitary disorder (HCC) Unspecified disorder of the pituitary gland and its hypothalamic control On corticosteroid therapy Preop examination- Primary Preoperative examination, unspecified Pituitary mass (HCC) Unspecified disorder of the pituitary gland and its hypothalamic control Pre-op testing Preoperative examination, unspecified Pituitary adenoma (HCC)- Primary Benign neoplasm of pituitary gland and craniopharyngeal duct (pouch) Post-op pain Other acute postoperative pain Other intraoperative complications of endocrine system documented in this encounter [facility] course Narrative No data available for this section [facility] Discharge instructions No data available for this section [facility] Progress note No data available for this section [facility] Reason for referral (narrative)No reason for referral information [facility]: Reason for visit Narrative* Consult, Test, Treat (Routine) - Closed Specialty Diagnoses / Procedures Referred By Kamla aguirre Referred To Contact Endocrinology Diagnoses Pituitary mass (HCC) Procedures CONSULT TO ENDOCRINOLOGY OFFICE/OUTPATIENT [facility] 60 MINUTES Kim Jung MD [address] [place] [address] Phone: tel: fax: Piedad Rock MD [address] [place] [address] Phone: tel: fax: Referral ID Status Reason Start Date Expiration Date V isits Requested Visits Authorized [id number] Closed PCP Requested Referral 02/18/2025 02/18/2026 1 1 [facility] for visit Narrative* Auth/Cert (Routine) Specialty Diagnoses / Procedures Referred By Kamla aguirre Referred To Contact Diagnoses Pituitary mass (HCC) Pituitary mass (HCC) [E23.6] Procedures NUNDSC ICRA EXC PITUITRY EDNA TRNSNSL/SPHENOID STRTCTC CPTR ASSTD PX CRANIAL INTRADURAL MICROSURG TQS REQ USE OPERATING MICROSCOPE NUNDSC ICRA EXC PITUITRY EDNA TRNSNSL/SPHENOID NEUROENDOSCOPY INTRACRANIAL W/ EXCISION OF PITUITARY TUMOR TRANS-SPHENOIDAL APPROACH BRAINLAB STEREOTACTIC COMPUTER-ASSISTED NAVIGATIONAL PROCEDURE CRANIAL MICROSURGICAL TECHNIQUE FOR CRANIOTOMY PROCEDURES NEUROENDOSCOPY INTRACRANIAL W/ EXCISION OF PITUITARY TUMOR TRANS-SPHENOIDAL APPROACH [facility] [address] [place] [address] Referral ID Status Reason Start Date Expiration Date Visits Re quested Visits Authorized [id number] 1 1 [facility] for visit Narrative* MRI/CT (Routine) - Closed Specialty Diagnoses / Procedures Referred By Kamla aguirre Referred To Contact CT IMAGING Diagnoses Acute nonintractable headache, unspecified headache type Pituitary mass (HCC) Procedures CT BRAIN WO IVCON CT HEAD/BRAIN W/O CONTRAST MATERIAL Kim Jung MD [address] [place] [address] Phone: tel: fax: [place] [phone] Referral ID Status Reason Start Date Expiration Date V isits Requested Visits Authorized [id number] Closed Auto-Generate d Referral 05/20/2025 06/19/2026 1 1 [facility] Chief Complaint and Reason for Visit Chief Complaint Admit Date Sector or arcuate defects, left eye Apri l 2024 6:26am Summary Purpose Family History No Family History Records FoundNo Family History Records FoundNo Family History Records Found No data available for this section No Family History Records Found Advance Directives No Advanced Directives Records FoundNo Advanced Directives Records FoundNo Advanced Directives Records FoundNo Advanced Directives Records Found Additional Source Comments Care Teams (unrecognized sec tion and content) Team Status: Active Member Role Status Dates No Primary Care Physician Primary Care Provider Active Team Status: Inactive Member Role Status Dates Dr. Demario Durham MD Attending Provider Active Start: January 31, 2025 End: January 31, 2025 Dr. Demario Durham MD Referring Provider Active Start: January 31, 2025 End: January 31, 2025 No Primary Care Physician Primary Care Provider Active Start: January 31, 2025 End: January 31, 2025 Goals (unrecognized section and content) Goals may be documented in a n alternate section No data available for this section (unrecognized sect ion and content) No Status Records FoundNo Status Records FoundNo Status Records FoundNo Status Records Found INFORMATION SOURCE (unrecogn ized section and content) DATE CREATED AUTHOR 02/14/2025 [facility] DATE CREATED AUTHOR AUTHOR'S ORGANIZ ATION 05/24/2025 [facility] DATE CREATED AUTHOR AUTHOR'S ORGANIZ ATION 06/13/2025 [facility] DATE CREATED AUTHOR AUTHOR'S ORGANIZ ATION 06/23/2025 [facility] Source Comments (unrecognize d section and content) In the event this informatio n is protected by the Federal Confidentiality of Alcohol and Drug Abuse Patient Records regulations: The Federal rules restrict any use of the information to criminally investigate or prosecute any alcohol or drug abuse patient.[facility] the event this information is protected by the Federal Confidentiality of Alcohol and Drug Abuse Patient Records regulations: The Federal rules restrict any use of the information to criminally investigate or prosecute any alcohol or drug abuse patient.[facility] the event this information is protected by the Federal Confidentiality of Alcohol and Drug Abuse Patient Records regulations: The Federal rules restrict any use of the information to criminally investigate or prosecute any alcohol or drug abuse patient.[facility] the event this information is protected by the Federal Confidentiality of Alcohol and Drug Abuse Patient Records regulations: The Federal rules restrict any use of the information to criminally investigate or prosecute any alcohol or drug abuse patient.[facility] the event this information is protected by the Federal Confidentiality of Alcohol and Drug Abuse Patient Records regulations: The Federal rules restrict any use of the information to criminally investigate or prosecute any alcohol or drug abuse patient.[facility] the event this information is protected by the Federal Confidentiality of Alcohol and Drug Abuse Patient Records regulations: The Federal rules restrict any use of the information to criminally investigate or prosecute any alcohol or drug abuse patient.[facility] the event this information is protected by the Federal Confidentiality of Alcohol and Drug Abuse Patient Records regulations: The Federal rules restrict any use of the information to criminally investigate or prosecute any alcohol or drug abuse patient.[facility] the event this information is protected by the Federal Confidentiality of Alcohol and Drug Abuse Patient Records regulations: The Federal rules restrict any use of the information to criminally investigate or prosecute any alcohol or drug abuse patient.[facility] the event this information is protected by the Federal Confidentiality of Alcohol and Drug Abuse Patient Records regulations: The Federal rules restrict any use of the information to criminally investigate or prosecute any alcohol or drug abuse patient.[facility] the event this information is protected by the Federal Confidentiality of Alcohol and Drug Abuse Patient Records regulations: The Federal rules restrict any use of the information to criminally investigate or prosecute any alcohol or drug abuse patient.[facility] the event this information is protected by the Federal Confidentiality of Alcohol and Drug Abuse Patient Records regulations: The Federal rules restrict any use of the information to criminally investigate or prosecute any alcohol or drug abuse patient.[facility] the event this information is protected by the Federal Confidentiality of Alcohol and Drug Abuse Patient Records regulations: The Federal rules restrict any use of the information to criminally investigate or prosecute any alcohol or drug abuse patient.[facility] the event this information is protected by the Federal Confidentiality of Alcohol and Drug Abuse Patient Records regulations: The Federal rules restrict any use of the information to criminally investigate or prosecute any alcohol or drug abuse patient.[facility] the event this information is protected by the Federal Confidentiality of Alcohol and Drug Abuse Patient Records regulations: The Federal rules restrict any use of the information to criminally investigate or prosecute any alcohol or drug abuse patient.[facility] the event this information is protected by the Federal Confidentiality of Alcohol and Drug Abuse Patient Records regulations: The Federal rules restrict any use of the information to criminally investigate or prosecute any alcohol or drug abuse patient.[facility] the event this information is protected by the Federal Confidentiality of Alcohol and Drug Abuse Patient Records regulations: The Federal rules restrict any use of the information to criminally investigate or prosecute any alcohol or drug abuse patient.[facility] Reason for Visit (unrecogniz ed section and content) Reason Comments Established Patient Reason Comments Preparations For Surgery Reason Onset Date Comments Refill Request 03/06/2025 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 This clinical summary was aggregated from multiple sources. Caution should be exercised in using it in the provision of clinical care. This summary normalizes information from multiple sources, and as a consequence, information in this document may materially change the coding, format and clinical context of patient data. In addition, data may be omitted in some cases. CLINICAL DECISIONS SHOULD BE BASED ON THE PRIMARY CLINICAL RECORDS. [facility] [employer] provides no warranty or guarantee of the accuracy or completeness of information in this document.
--- OUTSIDE RECORDS SUMMARY | 2025-08-08 08:15 | XMS RPT_ITS | CCD ---
Author Organization [facility] Care Team Providers Care Poising Inspector Name Role Phone Herminio MONACO, Dr. Hanks Attending Provider Dr. 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] Onset: 03-09-2025 [...] Basophil, Absolute 0.0 10 3/mcL Normal 0.0-0.3 [facility] Comment on above: Performed By: #### G FR, LIPID, CBC, ADIFF, ANEU, PSA, VIDH, TSH, CMP #### [address] [address] #### B12 #### [address] [address] Basophils/100 WBC (Bld) 0.6 % Normal 0.0-2.5 [facility] Comment on above: Performed By: #### G FR, LIPID, CBC, ADIFF, ANEU, PSA, VIDH, TSH, CMP #### [address] [address] #### B12 #### [address] [address] Eosinophil, Absolute 0.2 10 3/mcL Normal 0.0-0.7 [facility] Comment on above: Performed By: #### G FR, LIPID, CBC, ADIFF, ANEU, PSA, VIDH, TSH, CMP #### [address] [address] #### B12 #### [address] [address] Eosinophils/100 WBC (Bld) 4.2 % Normal 0.0-6.0 [facility] Comment on above: Performed By: #### G FR, LIPID, CBC, ADIFF, ANEU, PSA, VIDH, TSH, CMP #### [address] [address] #### B12 #### [address] [address] Lymphocyte, Absolute 1.9 10 3/mcL Normal 0.9-4.3 [facility] Comment on above: Performed By: #### G FR, LIPID, CBC, ADIFF, ANEU, PSA, VIDH, TSH, CMP #### [address] [address] #### B12 #### [address] [address] Lymphocytes/100 WBC (Bld) 33.3 % Normal 20.0-40.0 [facility] Comment on above: Performed By: #### G FR, LIPID, CBC, ADIFF, ANEU, PSA, VIDH, TSH, CMP #### [address] [address] #### B12 #### [address] [address] Monocyte, Absolute 0.6 10 3/mcL Normal 0.1-1.4 [facility] Comment on above: Performed By: #### G FR, LIPID, CBC, ADIFF, ANEU, PSA, VIDH, TSH, CMP #### [address] [address] #### B12 #### [address] [address] Monocytes/100 WBC (Bld) 10.5 % Normal 2.0-13.0 [facility] Comment on above: Performed By: #### G FR, LIPID, CBC, ADIFF, ANEU, PSA, VIDH, TSH, CMP #### [address] [address] #### B12 #### [address] [address] Neutrophils/100 WBC (Bld) 51.4 % Normal 50.0-75.0 [facility] Comment on above: Performed By: #### G FR, LIPID, CBC, ADIFF, ANEU, PSA, VIDH, TSH, CMP #### [address] [address] #### B12 #### [address] [address] .GFRon 06-21-2025 Estimated Glomerular Filtration Rate 75 ml/min/1.73sqm Normal [facility] Comment on above: Result Comment: Stages of [...] ADIFF, ANEU, PSA, VIDH, TSH, CMP #### [address] [address] #### B12 #### [address] [address] .NEUABSon 06-21-2025 Neutrophil, Absolute 3.0 10 3/mcL Normal 2.3-8.1 [facility] Comment on above: Performed By: #### G FR, LIPID, CBC, ADIFF, ANEU, PSA, VIDH, TSH, CMP #### [address] [address] #### B12 #### [address] [address] B12on 06-21-2025 Cobalamin (Vitamin B12) [Mass/Vol] 608 pg/mL Normal 211-911 [facility] Comment on above: Performed By: #### G FR, LIPID, CBC, ADIFF, ANEU, PSA, VIDH, TSH, CMP #### [place] [address] #### B12 #### [place] [address] CBCon 06-21-2025 Erythrocyte distribution width (RBC) [Ratio] 13.8 % Normal 11.5-15.5 [facility] Comment on above: Performed By: #### G FR, LIPID, CBC, ADIFF, ANEU, PSA, VIDH, TSH, CMP #### [place] [address] #### B12 #### [place] [address] Hematocrit (Bld) [Volume fraction] 42.9 % Normal 40.0-52.0 [facility] Comment on above: Performed By: #### G FR, LIPID, CBC, ADIFF, ANEU, PSA, VIDH, TSH, CMP #### [place] [address] #### B12 #### [place] [address] Hgb 14.7 G/dL Normal 13.0-17.5 [facility] Comment on above: Performed By: #### G FR, LIPID, CBC, ADIFF, ANEU, PSA, VIDH, TSH, CMP #### [place] [address] #### B12 #### [place] [address] MCH (RBC) [Entitic mass] 32.2 pg Normal 27.0-33.0 [facility] Comment on above: Performed By: #### G FR, LIPID, CBC, ADIFF, ANEU, PSA, VIDH, TSH, CMP #### [place] [address] #### B12 #### [place] [address] MCHC 34.3 G/dL Normal 32.0-36.0 [facility] Comment on above: Performed By: #### G FR, LIPID, CBC, ADIFF, ANEU, PSA, VIDH, TSH, CMP #### [place] [address] #### B12 #### [place] [address] MCV (RBC) [Entitic vol] 94.1 fL Normal 81.0-100.0 [facility] Comment on above: Performed By: #### G FR, LIPID, CBC, ADIFF, ANEU, PSA, VIDH, TSH, CMP #### [place] [address] #### B12 #### [place] [address] Platelet 171 10 3/mcL Normal 150-450 [facility] Comment on above: Performed By: #### G FR, LIPID, CBC, ADIFF, ANEU, PSA, VIDH, TSH, CMP #### [place] [address] #### B12 #### [place] [address] Platelet mean volume (Bld) [Entitic vol] 8.9 fL Normal 6.4-10.5 [facility] Comment on above: Performed By: #### G FR, LIPID, CBC, ADIFF, ANEU, PSA, VIDH, TSH, CMP #### [place] [address] #### B12 #### [place] [address] RBC 4.56 10 6/mcL Normal 4.50-6.00 [facility] Comment on above: Performed By: #### G FR, LIPID, CBC, ADIFF, ANEU, PSA, VIDH, TSH, CMP #### [address] [address] #### B12 #### [address] [address] WBC 5.7 10 3/mcL Normal 4.5-10.8 [facility] Comment on above: Performed By: #### G FR, LIPID, CBC, ADIFF, ANEU, PSA, VIDH, TSH, CMP #### [address] [address] #### B12 #### [place] [address] CMPon 06-21-2025 Albumin Level 3.9 G/dL Normal 3.4-4.8 [facility] Comment on above: Performed By: #### G FR, LIPID, CBC, ADIFF, ANEU, PSA, VIDH, TSH, CMP #### [address] [address] #### B12 #### [address] [address] Albumin/Globulin [Mass ratio] 1.0 {ratio} Low 1.1-2.5 [facility] Comment on above: Performed By: #### G FR, LIPID, CBC, ADIFF, ANEU, PSA, VIDH, TSH, CMP #### [address] [address] #### B12 #### [address] [address] ALP [Catalytic activity/Vol] 72 U/L Normal 40-135 [facility] Comment on above: Performed By: #### G FR, LIPID, CBC, ADIFF, ANEU, PSA, VIDH, TSH, CMP #### [address] [address] #### B12 #### [address] [address] ALT [Catalytic activity/Vol] 26 U/L Normal 16-63 [facility] Comment on above: Performed By: #### G FR, LIPID, CBC, ADIFF, ANEU, PSA, VIDH, TSH, CMP #### [place] [address] #### B12 #### [address] [address] AST [Catalytic activity/Vol] 19 U/L Normal 10-40 [facility] Comment on above: Performed By: #### G FR, LIPID, CBC, ADIFF, ANEU, PSA, VIDH, TSH, CMP #### [place] [address] #### B12 #### [place] [address] Bili Total 0.6 mg/dL Normal 0.2-1.0 [facility] Comment on above: Result Comment: Use of this assay is not recommended for patients undergoing treatment with eltrombopag due to the potential for falsely elevated results. Performed By: #### G FR, LIPID, CBC, ADIFF, ANEU, PSA, VIDH, TSH, CMP #### [place] [address] #### B12 #### [place] [address] BUN/Creatinine Ratio 11 ratio Normal 7-27 [facility] Comment on above: Performed By: #### G FR, LIPID, CBC, ADIFF, ANEU, PSA, VIDH, TSH, CMP #### [place] [address] #### B12 #### [address] [address] Calcium [Mass/Vol] 9.4 mg/dL Normal 8.4-10.2 [facility] Comment on above: Performed By: #### G FR, LIPID, CBC, ADIFF, ANEU, PSA, VIDH, TSH, CMP #### [place] [address] #### B12 #### [place] [id number] Chloride [Moles/Vol] 102 mmol/L Normal 98-107 [facility] Comment on above: Performed By: #### G FR, LIPID, CBC, ADIFF, ANEU, PSA, VIDH, TSH, CMP #### [address] [address] #### B12 #### [address] [address] CO2 [Moles/Vol] 31 mmol/L Normal 23-31 [facility] Comment on above: Performed By: #### G FR, LIPID, CBC, ADIFF, ANEU, PSA, VIDH, TSH, CMP #### [place] [address] #### B12 #### [place] [address] Creatinine [Mass/Vol] 1.07 mg/dL Normal 0.67-1.17 [facility] Comment on above: Performed By: #### G FR, LIPID, CBC, ADIFF, ANEU, PSA, VIDH, TSH, CMP #### [place] [address] #### B12 #### [place] [address] Electrolyte Balance 6.0 mEq/L Normal 4.0-15.0 [facility] Comment on above: Performed By: #### G FR, LIPID, CBC, ADIFF, ANEU, PSA, VIDH, TSH, CMP #### [place] [address] #### B12 #### [address] [address] Globulin 3.9 G/dL Normal 2.7-4.4 [facility] Comment on above: Performed By: #### G FR, LIPID, CBC, ADIFF, ANEU, PSA, VIDH, TSH, CMP #### [address] [address] #### B12 #### [place] [address] Glucose [Mass/Vol] 103 mg/dL Normal 83-110 [facility] Comment on above: Performed By: #### G FR, LIPID, CBC, ADIFF, ANEU, PSA, VIDH, TSH, CMP #### [address] [address] #### B12 #### [address] [address] Potassium [Moles/Vol] 4.4 mmol/L Normal 3.5-5.1 [facility] Comment on above: Performed By: #### G FR, LIPID, CBC, ADIFF, ANEU, PSA, VIDH, TSH, CMP #### [place] [address] #### B12 #### [address] [address] Sodium [Moles/Vol] 139 mmol/L Normal 136-145 [facility] Comment on above: Performed By: #### G FR, LIPID, CBC, ADIFF, ANEU, PSA, VIDH, TSH, CMP #### [place] [address] #### B12 #### [place] [address] Total Protein 7.8 G/dL Normal 6.4-8.2 [facility] Comment on above: Performed By: #### G FR, LIPID, CBC, ADIFF, ANEU, PSA, VIDH, TSH, CMP #### [place] [address] #### B12 #### [address] [address] Urea nitrogen [Mass/Vol] 12 mg/dL Normal 7-18 [facility] Comment on above: Performed By: #### G FR, LIPID, CBC, ADIFF, ANEU, PSA, VIDH, TSH, CMP #### [address] [address] #### B12 #### [address] [address] LABORATORYOrdered By: SYSTEM SYSTEM on 08-29-2025 25-hydroxyvitamin [...] 06-21-2025 Cholesterol [Mass/Vol] 248 mg/dL High 0-200 [facility] Comment on above: Result Comment: Chol esterol Reference Interval: Less than 200 Desirable 200-239 Borderline high risk 240 and above High risk Performed By: #### G FR, LIPID, CBC, ADIFF, ANEU, PSA, VIDH, TSH, CMP #### [address] [address] #### B12 #### [address] [address] Cholesterol in HDL [Mass/Vol] 48 mg/dL Normal 40-60 [facility] Comment on above: Performed By: #### G FR, LIPID, CBC, ADIFF, ANEU, PSA, VIDH, TSH, CMP #### [address] [address] #### B12 #### [address] [address] Cholesterol in LDL [Mass/Vol] 173 mg/dL High 0-130 [facility] Comment on above: Performed By: #### G FR, LIPID, CBC, ADIFF, ANEU, PSA, VIDH, TSH, CMP #### [address] [address] #### B12 #### [address] [address] Triglyceride [Mass/Vol] 134 mg/dL Normal 0-150 [facility] Comment on above: Result Comment: Trig lyceride Reference Interval: Less than 150 Normal 150-199 Borderline high risk 200-499 High risk 500 or higher Very high risk Performed By: #### G FR, LIPID, CBC, ADIFF, ANEU, PSA, VIDH, TSH, CMP #### [address] [address] #### B12 #### [address] [address] PSAon 06-21-2025 Prostate Specific Antigen 14.41 ng/mL High 0.00-4.00 [facility] Comment on above: Performed By: #### G FR, LIPID, CBC, ADIFF, ANEU, PSA, VIDH, TSH, CMP #### [address] [address] #### B12 #### [address] [address] TSHon 06-21-2025 TSH Qn 2.84 m[IU]/L Normal 0.36-3.74 [facility] Comment on above: Performed By: #### G FR, LIPID, CBC, ADIFF, ANEU, PSA, VIDH, TSH, CMP #### [address] [address] #### B12 #### [address] [address] VIDHon 06-21-2025 Vit. D 25-Hydroxy 58.9 ng/mL Normal [facility] Comment on above: Result Comment: Inte rpretive Values Based on Total 25(OH) Vitamin D: Deficient <20 ng/mL Insufficient 20 - <30 ng/mL Sufficient 30-100 ng/mL Performed By: #### G FR, LIPID, CBC, ADIFF, ANEU, PSA, VIDH, TSH, CMP #### [address] [address] #### B12 #### [address] [address] Basic metabolic 2000 panelOr dered By: Amy Dean on 05-22-2025 Anion gap [Moles/Vol] 16 mmol/L High 8 - 15 mmol/L [facility] Calcium [Mass/Vol] 9.7 mg/dL 8.5 - 10. 2 mg/dL [facility] Chloride [Moles/Vol] 102 mmol/L 98 - 10 7 mmol/L [facility] CO2 [Moles/Vol] 21 mmol/L Low 22 - 30 mmol/L [facility] Creatinine [Mass/Vol] 1 mg/dL 0.73 - 1.22 mg/dL [facility] GFR/1.73 sq M.predicted among non-blacks MDRD (S/P/Bld) [Vol rate/Area] 81 mL/min/{1.73_m2} - PINF [facility] Comment on above: Estimated Glomerular Filtration [...] 104 mg/dL High 74 - 99 mg/dL [facility] Comment on above: The [place] [employer] (ADA) provides guidance for [...] Standards of Medical Care in Diabetes 2016, [place] [employer]. Diabetes Care. 2016.39(Suppl 1). Interpretation and review of laboratory results Abnormal [facility] Potassium [Moles/Vol] 4 mmol/L 3.7 - 5.1 mmol/L [facility] Sodium [Moles/Vol] 139 mmol/L 136 - 144 mmol/L [facility] Urea nitrogen [Mass/Vol] 17 mg/dL 9 - 24 mg/dL [facility] Basic metabolic 2000 panelon 05-22-2025 Anion gap [Moles/Vol] 16 mmol/L High 8-15 [facility] Comment on above: Order Comment: Chidi silvestre Type: BLOOD SPECIMEN Ordering Facility: [facility] Address: [address] [place] [address] Performed By: #### 2 4321-2 #### [facility] CLIA [id number] [address] [place] [address] [place] Calcium [Mass/Vol] 9.7 mg/dL Normal 8.5-10.2 [facility] Comment on above: Order Comment: Chidi silvestre Type: BLOOD SPECIMEN Ordering Facility: [facility] Address: [address] [place] [address] Performed By: #### 2 4321-2 #### [facility] CLIA [id number] [address] [place] [address] [place] Chloride [Moles/Vol] 102 mmol/L Normal 98-107 [facility] Comment on above: Order Comment: Speci men Type: BLOOD SPECIMEN Ordering Facility: [facility] Address: [address] [place] [address] Performed By: #### 2 4321-2 #### [facility] CLIA [id number] [address] [place] [address] [place] CO2 [Moles/Vol] 21 mmol/L Low 22-30 [facility] Comment on above: Order Comment: Speci men Type: BLOOD SPECIMEN Ordering Facility: [facility] Address: [address] [place] [address] Performed By: #### 2 4321-2 #### [facility] CLIA [id number] [address] [place] [address] [place] Creatinine [Mass/Vol] 1.00 mg/dL Normal 0.73-1.22 [facility] Comment on above: Order Comment: Speci men Type: BLOOD SPECIMEN Ordering Facility: [facility] Address: [address] [place] [address] Performed By: #### 2 4321-2 #### [facility] CLIA [id number] [address] [place] [address] [place] eGFRcr SerPlBld CKD-EPI 2020 81 mL/min/1.73m??? Normal >=60 [facility] Comment on above: Order Comment: Speci men Type: BLOOD SPECIMEN Ordering Facility: [facility] Address: [address] [place] [address] Result Comment: Yamila mated Glomerular Filtration Rate [...] GFR. Performed By: #### 2 4321-2 #### [id number] [address] [place] [address] [place] Glucose [Mass/Vol] 104 mg/dL High 74-99 [facility] Comment on above: Order Comment: Chidi silvestre Type: BLOOD SPECIMEN Ordering Facility: [facility] Address: [address] [place], [place] [id number] Result Comment: The [place] [employer] (ADA) provides guidance for cutoff [...] Standards of Medical Care in Diabetes 2016, [place] [employer]. Diabetes Care. 2016.39(Suppl 1). Performed By: #### 2 4321-2 #### [facility] [id number] [address] [place] [address] [place] Potassium [Moles/Vol] 4.0 mmol/L Normal 3.7-5.1 [facility] Comment on above: Order Comment: Chidi silvestre Type: BLOOD SPECIMEN Ordering Facility: [facility] Address: [address] [place] [address] Performed By: #### 2 4321-2 #### [facility] [id number] [address] [place] [address] [place] Sodium [Moles/Vol] 139 mmol/L Normal 136-144 [facility] Comment on above: Order Comment: Chidi silvestre Type: BLOOD SPECIMEN Ordering Facility: [facility] Address: [address] [place] [address] Performed By: #### 2 4321-2 #### [facility] CLIA [id number] [address] [place] [address] Urea nitrogen [Mass/Vol] 17 mg/dL Normal 9-24 [facility] Comment on above: Order Comment: Speci men Type: BLOOD SPECIMEN Ordering Facility: [facility] Address: [address] [place] [id number] Performed By: #### 2 4321-2 #### [facility] CLIA [id number] [address] [place] CBC panel Auto (Bld)on 05-22 Erythrocyte distribution width (RBC) [Ratio] 13.5 % 11.5 - 15.0 % [facility] Hematocrit (Bld) [Volume fraction] 43.9 % 39.0 - 51.0 % [facility] Hemoglobin (Bld) [Mass/Vol] 14.9 g/dL 13.0 - 17.0 g/dL [facility] Interpretation and review of laboratory results Normal [facility] MCH (RBC) [Entitic mass] 31.9 pg 26.0 - 34.0 pg [facility] MCHC (RBC) [Mass/Vol] 33.9 g/dL 30.5 - 36.0 g/dL [facility] MCV (RBC) [Entitic vol] 94 fL 80.0 - 100.0 fL [facility] Nucleated RBC (Bld) [#/Vol] NINF [facility] Platelet mean volume (Bld) [Entitic vol] 10.2 fL 9.0 - 12.7 fL [facility] Platelets (Bld) [#/Vol] 194 10*3/uL [facility] RBC (Bld) [#/Vol] 4.67 10*6/uL 4.20 - 6.0 0 m/uL [facility] WBC (Bld) [#/Vol] 6.58 10*3/uL [facility] Erythrocyte distribution width (RBC) [Ratio] 13.5 % Normal 11.5-15.0 [facility] Comment on above: Order Comment: Speci men Type: BLOOD SPECIMEN Ordering Facility: [facility] Address: [address] [place] [address] Performed By: #### 5 8410-2 #### [facility] CLIA [id number] [address] [place] [address] [place] Hematocrit (Bld) [Volume fraction] 43.9 % Normal 39.0-51.0 [facility] Comment on above: Order Comment: Speci men Type: BLOOD SPECIMEN Ordering Facility: [facility] Address: [address] [place], [place] [address] Performed By: #### 5 8410-2 #### [facility] CLIA [id number] [address] [place] [address] [place] Hemoglobin (Bld) [Mass/Vol] 14.9 g/dL Normal 13.0-17.0 [facility] Comment on above: Order Comment: Speci men Type: BLOOD SPECIMEN Ordering Facility: [facility] Address: [address] [place], [place] [address] Performed By: #### 5 8410-2 #### [facility] CLIA [id number] [address] [place] [address] [place] MCH (RBC) [Entitic mass] 31.9 pg Normal 26.0-34.0 [facility] Comment on above: Order Comment: Speci men Type: BLOOD SPECIMEN Ordering Facility: [facility] Address: [address] [place] [address] Performed By: #### 5 8410-2 #### [facility] CLIA [id number] [address] [place] [address] [place] MCHC (RBC) [Mass/Vol] 33.9 g/dL Normal 30.5-36.0 [facility] Comment on above: Order Comment: Speci men Type: BLOOD SPECIMEN Ordering Facility: [facility] Address: [address] [place] [address] Performed By: #### 5 8410-2 #### [facility] CLIA [id number] [address] [place] [address] [place] MCV (RBC) [Entitic vol] 94.0 fL Normal 80.0-100.0 [facility] Comment on above: Order Comment: Speci men Type: BLOOD SPECIMEN Ordering Facility: [facility] Address: [address] [place] [address] Performed By: #### 5 8410-2 #### [facility] CLIA [id number] [address] [place] [address] [place] Nucleated RBC (Bld) [#/Vol] 10*3/uL Normal <0.01 [facility] Comment on above: Order Comment: Speci men Type: BLOOD SPECIMEN Ordering Facility: [facility] Address: [address] [place] [address] Performed By: #### 5 8410-2 #### [facility] CLIA [id number] [address] [place] [address] [place] Platelet mean volume (Bld) [Entitic vol] 10.2 fL Normal 9.0-12.7 [facility] Comment on above: Order Comment: Speci men Type: BLOOD SPECIMEN Ordering Facility: [facility] Address: [address] [place] [address] Performed By: #### 5 8410-2 #### [facility] CLIA [id number] [address] [place] [address] [place] Platelets (Bld) [#/Vol] 194 10*3/uL Normal 150-400 [facility] Comment on above: Order Comment: Speci men Type: BLOOD SPECIMEN Ordering Facility: [facility] Address: [address] [place] [address] Performed By: #### 5 8410-2 #### [facility] CLIA [id number] [address] [place] [address] [place] RBC (Bld) [#/Vol] 4.67 10*6/uL Normal 4.20-6.00 [facility] Comment on above: Order Comment: Speci men Type: BLOOD SPECIMEN Ordering Facility: [facility] Address: [address] [place] [address] Performed By: #### 5 8410-2 #### [facility] CLIA [id number] [address] [place] [address] OF [facility] WBC (Bld) [#/Vol] 6.58 10*3/uL Normal 3.70-11.00 [facility] Comment on above: Order Comment: Speci men Type: BLOOD SPECIMEN Ordering Facility: [facility] Address: [address] [place] [address] Performed By: #### 5 8410-2 #### [facility] CLIA [id number] [address] [place] [address] OF [facility] CNOVon 05-21-2025 CNOV Office Visit (NEAGCL M) JENNAZACHERY ([id number]) 1955 M Date Time Provider Department 05/21/25 [...] Age: [age] year old Sex: male MRN/E# [id number] Last Office Visit: 05/20/2025 CLINICAL SUMMARY: 02/01/2025 - Pituitary mass noted on MRI brain - bitemporal vis field defect, worse on the left temporal 03/08/2025 - S/p endoscopic endonasal resection of pituitary macroadenoma with Dr Lundberg - 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 (more content not included)... Normal [place] [facility] CT BRAIN WO IVCONon 05-21-20 25 [...] matter disease and diffuse cerebral volume loss. Passenger Service Manager: PSCB Transcribe Date/Time: May 21 2025 1:54P Dictated by : DAJA LARSEN MD This examination was interpreted and the report reviewed and electronically signed by: DAJA LARSEN MD on May 21 2025 2:02PM EST [id number] Normal [facility] CT Head WO contraston 2024 IMPRESSION: 1. Postsurgical changes from previous transsphenoidal resection of pituitary mass. Persistent rightward deviation of the pituitary stalk, with decreased soft tissue density within right aspect of sella. No significant mass effect on adjacent structures. 2. No CT evidence of acute intracranial abnormalities. 3. Chronic small vessel ischemic white matter disease and diffuse cerebral volume loss. Passenger Service Manager: KENNY Transcribe Date/Time: May 21 2025 1:54P Dictated by : DAJA LARSEN MD This examination was interpreted and the report reviewed and electronically signed by: DAJA LARSEN MD on May 21 2025 2:02PM EST [facility] * * *Final Report* * * DATE [...] base and imaged soft tissues are unremarkable. [facility] Provider, [facility] * * *Final Report* [...] matter disease and diffuse cerebral volume loss. Passenger Service Manager: PSCB Transcribe Date/Time: May 21 2025 1:54P Dictated by : DAJA LARSEN MD This examination was interpreted and the report reviewed and electronically signed by: DAJA LARSEN MD on May 21 2025 2:02PM EST [facility] Radiology Study observation (narrative) [facility] CT Head WO contrastOrdered B y: Ccf Provider on 05-21-2025 [facility] Yi 05-20-2025 CNPN Telephone (NEAGCLM) LVZACHERY MICHAEL ([id number]) 1955 M Date Time Provider Department 05/20/25 [...] MD - Fully Assessed Reason for Visit: Rehabilitation Assistant - Other [3602] Primary Visit Diagnosis:Acute nonintractable headache, unspecified headache type [R51.9] Other Visit Diagnosis:Pituitary mass (HCC) [E23.6] Order(s):CT BRAIN WO IVCON [[id number]] Order #: [id number] FUTURE Prescriptions as of 05/20/2025 - hydrocortisone [...] Status:Closed by VALERIE UMANA on 05/20/25 Normal [facility] Osmolality SerPlon Osmolality [Osmolality] 293 mosm/kg Normal 275-300 [facility] Comment on above: Order Comment: Speci men Type: BLOOD SPECIMEN Ordering Facility: [facility] Address: [address] [place] [address] Performed By: #### 2 692-2 #### [facility] CLIA [id number] [address] [place] [address] [place] Osmolality Uron 04-03-2025 Osmolality (U) [Osmolality] 543 mosm/kg Normal 50-1200 [facility] Comment on above: Order Comment: Speci men Type: BLOOD SPECIMEN Ordering Facility: [facility] Address: [address] [place] [address] Performed By: #### 5 8410-2 #### [facility] CLIA [id number] [address] [place] [address] [place] Renal function 2000 panelOrd ered By: Amy Dean on 04-03-2025 Albumin [Mass/Vol] 4 g/dL 3.9 - 4.9 g/dL [facility] Anion gap [Moles/Vol] 12 mmol/L 8 - 15 mmol/L [facility] Calcium [Mass/Vol] 9.1 mg/dL 8.5 - 10. 2 mg/dL [facility] Chloride [Moles/Vol] 105 mmol/L 98 - 10 7 mmol/L [facility] CO2 [Moles/Vol] 21 mmol/L Low 22 - 30 mmol/L [facility] Creatinine [Mass/Vol] 0.96 mg/dL 0.73 - 1.22 mg/dL [facility] GFR/1.73 sq M.predicted among non-blacks MDRD (S/P/Bld) [Vol rate/Area] 85 mL/min/{1.73_m2} - PINF [facility] Comment on above: Estimated Glomerular Filtration [...] [Mass/Vol] 95 mg/dL 74 - 99 mg/dL [facility] Comment on above: The [place] Diab[employer] Association (ADA) provides guidance for [...] Standards of Medical Care in Diabetes 2016, [place] [employer]. Diabetes Care. 2016.39(Suppl 1). Interpretation and review of laboratory results Abnormal [facility] Phosphate [Mass/Vol] 3.9 mg/dL 2.7 - 4 .8 mg/dL [facility] Potassium [Moles/Vol] 4.1 mmol/L 3.7 - 5.1 mmol/L [facility] Sodium [Moles/Vol] 138 mmol/L 136 - 144 mmol/L [facility] Urea nitrogen [Mass/Vol] 19 mg/dL 9 - 24 mg/dL [facility] Renal function 2000 panelon 04-03-2025 Albumin [Mass/Vol] 4.0 g/dL Normal 3.9-4.9 [facility] Comment on above: Order Comment: Speci men Type: BLOOD SPECIMEN Ordering Facility: [facility] Address: [facility] [place] [address] Performed By: #### 5 8410-2 #### [facility] CLIA [id number] [address] [place] [address] [place] Anion gap [Moles/Vol] 12 mmol/L Normal 8-15 [facility] Comment on above: Order Comment: Speci men Type: BLOOD SPECIMEN Ordering Facility: [facility] Address: [address] [place] [address] Performed By: #### 5 8410-2 #### [facility] CLIA [id number] [address] [place] [address] [place] Calcium [Mass/Vol] 9.1 mg/dL Normal 8.5-10.2 [facility] Comment on above: Order Comment: Speci men Type: BLOOD SPECIMEN Ordering Facility: [facility] Address: [address] [place] [address] Performed By: #### 5 8410-2 #### [facility] CLIA [id number] [address] [place] [address] [place] Chloride [Moles/Vol] 105 mmol/L Normal 98-107 [facility] Comment on above: Order Comment: Speci men Type: BLOOD SPECIMEN Ordering Facility: [facility] Address: [address] [place] [address] Performed By: #### 5 8410-2 #### [facility] CLIA [id number] [address] [place] [address] [place] CO2 [Moles/Vol] 21 mmol/L Low 22-30 [facility] Comment on above: Order Comment: Speci men Type: BLOOD SPECIMEN Ordering Facility: [facility] Address: [address] [place] [address] Performed By: #### 5 8410-2 #### [id number] [address] [place] [address] [place] Creatinine [Mass/Vol] 0.96 mg/dL Normal 0.73-1.22 [facility] Comment on above: Order Comment: Chidi silvestre Type: BLOOD SPECIMEN Ordering Facility: [facility] Address: [address] [place] [address] Performed By: #### 5 8410-2 #### [facility] [id number] [address] [place] [address] [place] Creatinine and Glomerular filtration rate.predicted panel (S/P/Bld) 85 mL/min/1.73m??? Normal >=60 [facility] Comment on above: Order Comment: Chidi silvestre Type: BLOOD SPECIMEN Ordering Facility: [facility] Address: [address] [place] [address] Result Comment: Yamila mated Glomerular Filtration Rate [...] GFR. Performed By: #### 5 8410-2 #### [facility] [id number] [address] [place] [address] [place] Glucose [Mass/Vol] 95 mg/dL Normal 74-99 [facility] Comment on above: Order Comment: Chidi silvestre Type: BLOOD SPECIMEN Ordering Facility: [facility] Address: [address] [place] [address] Result Comment: The [place] Diabetes Association (ADA) provides guidance for cutoff [...] Standards of Medical Care in Diabetes 2016, [place] [employer]. Diabetes Care. 2016.39(Suppl 1). Performed By: #### 5 8410-2 #### [facility] CLIA [id number] [address] [place] [address] [place] Phosphate [Mass/Vol] 3.9 mg/dL Normal 2.7-4.8 [facility] Comment on above: Order Comment: Chidi silvestre Type: BLOOD SPECIMEN Ordering Facility: [facility] Address: [address] [place] [address] Performed By: #### 5 8410-2 #### [facility] [id number] [address] [place] [address] [place] Potassium [Moles/Vol] 4.1 mmol/L Normal 3.7-5.1 [facility] Comment on above: Order Comment: Chidi silvestre Type: BLOOD SPECIMEN Ordering Facility: [facility] Address: [address] [place] [address] Performed By: #### 5 8410-2 #### [facility] [id number] [address] [place] [address] [place] Sodium [Moles/Vol] 138 mmol/L Normal 136-144 [facility] Comment on above: Order Comment: Chidi silvestre Type: BLOOD SPECIMEN Ordering Facility: [facility] Address: [address] [place] [address] Performed By: #### 5 8410-2 #### [facility] [id number] [address] [place] [address] [place] Urea nitrogen [Mass/Vol] 19 mg/dL Normal 9-24 [facility] Comment on above: Order Comment: Speci men Type: BLOOD SPECIMEN Ordering Facility: [facility] Address: [address] [place] [address] Performed By: #### 5 8410-2 #### [facility] CLIA [id number] [address] [place] [id number] [place] T4 Free SerPl-mCncon 025 Free T4 [Mass/Vol] 0.9 ng/dL Normal 0.9-1.7 [facility] Comment on above: Order Comment: Chidi silvestre Type: BLOOD SPECIMEN Ordering Facility: [facility] Address: [address] [place] [address] Performed By: #### 3 024-7 #### [facility] CLIA [id number] [address] [place] [address] [place] CNPLucila 04-01-2025 AKASH Telephone (AGECELIPOB) ZACHERY WEST ([id number]) 1955 M Date Time Provider Department 04/01/25 [...] or today. Please review and advise. LARS Cmapbell Daniela, MD 04/03/2025 9:56 AM Signed Please [...] for Visit: Patient Update [1234] Patient Question [9877] Cmt: Medication after surgery Medication Problem [65] Cmt: Cortef Primary Visit Diagnosis:Pituitary mass (HCC) [E23.6] Order(s):RENAL FUNCTION PANEL [SQRFP] Order #: [id number] FUTURE OSMOLALITY [SQOSM] Order #: [id number] FUTURE OSMOLALITY URINE [SQUOSM] Order #: [id number] FUTURE T4 FREE/FREE THYROXINE [SQFT4] Order #: [id number] FUTURE Prescriptions as of 04/03/2025 - ibuprofen [...] Encounter Status:Closed by PIEDAD ROCK on 04/03/25 [facility] CNPN Telephone (NEAGCLM) EMILIANOLIDIAZACHERY MICHAEL ([id number]) 1955 M Date Time Provider Department 04/01/25 [...] Encounter Status:Closed by CHANDRA BAKER on 04/01/25 [facility] CNOVon 03-21-2025 CNOV Office Visit (NEAGCL M) JENNAZACHERY ([id number]) 1955 M Date Time Provider Department 03/21/25 9:30 AM KIM JUNG NEAGCLM During your visit today, we recorded the following information about you: Pulse Respiration Blood pressure Weight 84/minute 16/minute 143/95 81.4 kg Height 1.778 m Kim Jung MD 03/21/2025 3:44 PM Signed NEUROSURGERY POST-OP NOTE Kim Jung MD Date of visit: March 21, 2025 Patient Name: Mr.Kenneth Gutierrez Lvlisa Date of : 1955 Current Age: [age] year old Sex: male MRN/E# [id number] Last Office Visit: 03/19/2025 CLINICAL SUMMARY: 02/01/2025 - Pituitary mass noted on MRI brain - bitemporal vis field defect, worse on the left temporal 03/08/2025 - S/p endoscopic endonasal resection of pituitary macroadenoma with Dr Lundberg - 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 Normal [facility] Basic metabolic 2000 panelon 03-19-2025 Anion gap [Moles/Vol] 13 mmol/L Normal 8-15 [facility] Comment on above: Order Comment: Speci men Type: BLOOD SPECIMEN Ordering Facility: [facility] [address] [place] [address] Performed By: #### 5 8410-2 #### [facility] [id number] [address] [place] [address] [place] Calcium [Mass/Vol] 9.6 mg/dL Normal 8.5-10.2 [facility] Comment on above: Order Comment: Speci men Type: BLOOD SPECIMEN Ordering Facility: [facility] Address: [address] [place] [address] Performed By: #### 5 8410-2 #### [facility] CLIA [id number] [address] [place] [address] [place] Chloride [Moles/Vol] 106 mmol/L Normal 98-107 [facility] Comment on above: Order Comment: Speci men Type: BLOOD SPECIMEN Ordering Facility: [facility] Address: [address] [place] [address] Performed By: #### 5 8410-2 #### [facility] CLIA [id number] [address] [place] [address] [place] CO2 [Moles/Vol] 19 mmol/L Low 22-30 [facility] Comment on above: Order Comment: Speci men Type: BLOOD SPECIMEN Ordering Facility: [facility] Address: [address] [place] [address] Performed By: #### 5 8410-2 #### [facility] CLIA [id number] [address] [place] [address] [place] Creatinine [Mass/Vol] 0.99 mg/dL Normal 0.73-1.22 [facility] Comment on above: Order Comment: Speci men Type: BLOOD SPECIMEN Ordering Facility: [facility] Address: [address] [place] [address] Performed By: #### 5 8410-2 #### [facility] CLIA [id number] [address] [place] [address] [place] Creatinine and Glomerular filtration rate.predicted panel (S/P/Bld) 82 mL/min/1.73m??? Normal >=60 [facility] Comment on above: Order Comment: Speci men Type: BLOOD SPECIMEN Ordering Facility: [facility] Address: [address] [place] [address] Result Comment: Yamila mated Glomerular Filtration Rate [...] GFR. Performed By: #### 5 8410-2 #### [facility] [id number] [address] [place] [address] [place] Glucose [Mass/Vol] 101 mg/dL High 74-99 [facility] Comment on above: Order Comment: Chidi silvestre Type: BLOOD SPECIMEN Ordering Facility: [facility] Address: [address] [place] [address] Result Comment: The [place] Diabetes Association (ADA) provides guidance for cutoff [...] Standards of Medical Care in Diabetes 2016, [place] [employer]. Diabetes Care. 2016.39(Suppl 1). Performed By: #### 5 8410-2 #### [facility] [id number] [address] [place] [address] [place] Potassium [Moles/Vol] 4.4 mmol/L Normal 3.7-5.1 [facility] Comment on above: Order Comment: Chidi silvestre Type: BLOOD SPECIMEN Ordering Facility: [facility] Address: [address] [place], [place] [address] Performed By: #### 5 8410-2 #### [facility] CLIA [id number] [address] [place] [address] [place] Sodium [Moles/Vol] 138 mmol/L Normal 136-144 [facility] Comment on above: Order Comment: Speci men Type: BLOOD SPECIMEN Ordering Facility: [facility] Address: [address] [place] [address] Performed By: #### 5 8410-2 #### [facility] CLIA [id number] [address] [place] [address] [place] Urea nitrogen [Mass/Vol] 14 mg/dL Normal 9-24 [facility] Comment on above: Order Comment: Speci men Type: BLOOD SPECIMEN Ordering Facility: [facility] Address: [address] [place] [address] Performed By: #### 5 8410-2 #### [facility] CLIA [id number] [address] [place] [address] [place] CNPNon 03-19-2025 CNPN Telephone (NEAGCLM) ZACHERY WEST ([id number]) 1955 M Date Time Provider Department 03/19/25 [...] RN - Fully Assessed Reason for Visit: Rehabilitation Assistant - Other [3602] Prescriptions as of 03/19/2025 [...] Encounter Status:Closed by VALERIE UMANA on 03/19/25 [facility] ALLIED HEALTHon 03-10-2025 ALLIED HEALTH HNO ID: [id number] Author: KWAKU MARTINEZ RT(R) Service: Radiology Author [...] PATIENT PRESENTS WITH AN IMPLANTABLE OR ATTACHED VAULT MANAGER: No ALLERGIES: Reviewed and unchanged CONTRAST ALLERGY: NO. EXAM: MRI - CONTRAST TYPE: GROUP II PERIPHERAL IV DATA: Inpatient - refer to LDA documentation RADIOLOGY DEPARTMENT: MR; Exam(s) Completed: Head: Pituitary. Lavender Administered: No SIGNATURE: RT Virgil(R) PATIENT NAME: Zachery Wets DATE: March 10, 2025 TIME: 10:57 AM Normal [facility] Basic metabolic 2000 panelon 03-10-2025 Anion gap [Moles/Vol] 9 mmol/L Normal 8-15 [facility] Comment on above: Order Comment: Speci men Type: BLOOD SPECIMENOrdering Facility: [facility] Address: [address] [place] [address] Performed By: #### 2 4321-2, , 2776-10 ####[facility]ORY[facility] [id number] [place] [address] [place] Calcium [Mass/Vol] 8.8 mg/dL Normal 8.5-10.2 [facility] Comment on above: Order Comment: Speci men Type: BLOOD SPECIMENOrdering Facility: [facility] Address: [address] [place] [address] Performed By: #### 2 4321-2, , 2776-10 ####[facility]ORYCLIA [id number] [place] [address] [place] Chloride [Moles/Vol] 108 mmol/L High 98-107 [facility] Comment on above: Order Comment: Speci men Type: BLOOD SPECIMENOrdering Facility: [facility] Address: [address] [place] [address] Performed By: #### 2 4321-2, , 2776-10 ####[facility]ORYCLIA [id number] [place] [address] [place] CO2 [Moles/Vol] 26 mmol/L Normal 22-30 [facility] Comment on above: Order Comment: Speci men Type: BLOOD SPECIMENOrdering Facility: [facility] Address: [address] [place] [address] Performed By: #### 2 4321-2, , 2776-10 ####[facility] [id number] [place] [address] [place] Creatinine [Mass/Vol] 0.85 mg/dL Normal 0.73-1.22 [facility] Comment on above: Order Comment: Chidi silvestre Type: BLOOD SPECIMENOrdering Facility: [facility] Address: [address] [place] [address] Performed By: #### 2 4321-2, , 2776-10 ####[facility] [id number] [place] [address] [facility] Creatinine and Glomerular filtration rate.predicted panel (S/P/Bld) 93 mL/min/1.73m??? Normal >=60 [facility] Comment on above: Order Comment: Chidi [facility] Type: BLOOD SPECIMENOrdering Facility: [facility] Address: [address] [place] [address] Result Comment: Yamila mated Glomerular Filtration Rate [...] Performed By: #### 2 4321-2, , 2776-10 ####[facility] [id number] [place] [address] [place] Glucose [Mass/Vol] 114 mg/dL High 74-99 [facility] Comment on above: Order Comment: Bipincarlitos silvestre Type: BLOOD SPECIMENOrdering Facility: [facility] Address: [address] [place] [address] Result Comment: The [place] Diabetes Association (ADA) provides guidance for cutoff [...] Standards of Medical Care in Diabetes 2016, [place] [employer]. Diabetes Care. 2016.39(Suppl 1). Performed By: #### 2 4321-2, , 2776-10 ####[facility]ORYCLIA [id number] [place] [address] [place] Potassium [Moles/Vol] 4.1 mmol/L Normal 3.7-5.1 [facility] Comment on above: Order Comment: Speci men Type: BLOOD SPECIMENOrdering Facility: [facility] Address: [address] [place] [address] Performed By: #### 2 4321-2, , 2776-10 ####[facility]ORYCLIA [id number] [address] STATES OF [facility] Sodium [Moles/Vol] 143 mmol/L Normal 136-144 [facility] Comment on above: Order Comment: Speci men Type: BLOOD SPECIMENOrdering Facility: [facility] Address: [address] [place] [address] Performed By: #### 2 4321-2, , 2776-10 ####[facility]ORYCLIA [id number] [place] [address] [place] Urea nitrogen [Mass/Vol] 15 mg/dL Normal 9-24 [facility] Comment on above: Order Comment: Speci men Type: BLOOD SPECIMENOrdering Facility: [facility] Address: [address] [place] [address] Performed By: #### 2 4321-2, , 2776-10 ####[facility]ORYCLIA [id number] [address] [place] CBC panel Auto (Bld)on 03-10 Erythrocyte distribution width (RBC) [Ratio] 13.4 % Normal 11.5-15.0 [facility] Comment on above: Order Comment: Speci men Type: BLOOD SPECIMENOrdering Facility: [facility] Address: [address] [place] [address] Performed By: #### 5 8410-2 ####[facility]ORYCLIA [id number] [address] STATES OF [facility] Hematocrit (Bld) [Volume fraction] 39.6 % Normal 39.0-51.0 [facility] Comment on above: Order Comment: Speci men Type: BLOOD SPECIMENOrdering Facility: [facility] Address: [address] [place] [address] Performed By: #### 5 8410-2 ####[facility]ORYCLIA [id number] [address] [place] Hemoglobin (Bld) [Mass/Vol] 13.5 g/dL Normal 13.0-17.0 [facility] Comment on above: Order Comment: Speci men Type: BLOOD SPECIMENOrdering Facility: [facility] Address: [address] [place] [address] Performed By: #### 5 8410-2 ####[facility]ORYCLIA [id number] [address] [place] MCH (RBC) [Entitic mass] 33.0 pg Normal 26.0-34.0 [facility] Comment on above: Order Comment: Speci men Type: BLOOD SPECIMENOrdering Facility: [facility] Address: [address] [place] [address] Performed By: #### 5 8410-2 ####[facility]ORYCLIA [id number] [address] [place] MCHC (RBC) [Mass/Vol] 34.1 g/dL Normal 30.5-36.0 [facility] Comment on above: Order Comment: Speci men Type: BLOOD SPECIMENOrdering Facility: [facility] Address: [address] [place] [address] Performed By: #### 5 8410-2 ####[facility]ORYCLIA [id number] [address] [place] MCV (RBC) [Entitic vol] 96.8 fL Normal 80.0-100.0 [facility] Comment on above: Order Comment: Speci men Type: BLOOD SPECIMENOrdering Facility: [facility] Address: [address] [place] [address] Performed By: #### 5 8410-2 ####[facility]ORYCLIA [id number] [address] [place] Nucleated RBC (Bld) [#/Vol] 10*3/uL Normal <0.01 [facility] Comment on above: Order Comment: Speci men Type: BLOOD SPECIMENOrdering Facility: [facility] Address: [address] [place] [address] Performed By: #### 5 8410-2 ####[facility]ORYCLIA [id number] [address] [place] Platelet mean volume (Bld) [Entitic vol] 10.9 fL Normal 9.0-12.7 [facility] Comment on above: Order Comment: Speci men Type: BLOOD SPECIMENOrdering Facility: [facility] Address: [address] [place] [address] Performed By: #### 5 8410-2 ####[facility] LABORATORYCLIA [id number] [address] [place] Platelets (Bld) [#/Vol] 168 10*3/uL Normal 150-400 [facility] Comment on above: Order Comment: Speci men Type: BLOOD SPECIMENOrdering Facility: [facility] Address: [address] [place] [address] Performed By: #### 5 8410-2 ####[facility] LABORATORYCLIA [id number] [address] [place] RBC (Bld) [#/Vol] 4.09 10*6/uL Low 4.20-6.00 [facility] Comment on above: Order Comment: Speci men Type: BLOOD SPECIMENOrdering Facility: [facility] Address: [address] [place] [address] Performed By: #### 5 8410-2 ####[facility] LABORATORYCLIA [id number] [place] [address] [place] WBC (Bld) [#/Vol] 10.95 10*3/uL Normal 3.70-11.00 [facility] Comment on above: Order Comment: Speci men Type: BLOOD SPECIMENOrdering Facility: [facility] Address: [address] [place] [address] Performed By: #### 5 8410-2 ####[facility] LABORATORYCLIA [id number] [place] [address] [facility] CNDSon 03-10-2025 CN HNO ID: [id number] Author: KIM JUNG MD Service: Neurosurgery Author Type: Physician Commercial Account Officer Type: Discharge Summary Filed: 03/26/2025 23:18 Note [...] you become constipated, you may use any elpm-nsm-vlhxpqp treatment such as Milk of Magnesia, Sennakot, Prune Juice, Suppositories, etc. in addition to the stool softener/fiber supplement No alcohol or driving while on pain medication Use the dispensed medication (see prescription) You should use an iupi-lqe-lkkykqo stool softener (Docusate sodium) and/or a fiber [...] results. FOLLOW-UP APPOINTMENTS ALREADY SCHEDULED WITH A [facility] PROVIDER: Future Appointments (more content not included)... 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 Passenger Service Manager: [facility] Transcribe Date/Time: Mar 10 2025 11:39A Dictated by : COLLIN RADFORD MD This examination was interpreted and the report reviewed and electronically signed by: COLLIN RADFORD MD on Mar 10 2025 11:45AM EST [id number] Normal [facility] Magnesium SerPl-mCncon 03-10 Magnesium [Mass/Vol] 2.2 mg/dL Normal 1.7-2.3 [facility] Comment on above: Order Comment: Speci men Type: BLOOD SPECIMENOrdering Facility: [facility] Address: [address] [place] [address] Performed By: #### 2 4321-2, 48253-2, 2777-1 ####[facility] LABORATORYCLIA [id number] [place] [address] [place] Phosphate SerPl-mCncon 03-10 Phosphate [Mass/Vol] 2.3 mg/dL Low 2.7-4.8 [facility] Comment on above: Order Comment: Speci men Type: BLOOD SPECIMENOrdering Facility: [facility] Address: [address] [place] [address] Performed By: #### 2 4321-2, , 2776-10 ####[facility] LABORATORYCLIA [id number] [place] [address] [facility] ALLIED HEALTHon 03-09-2025 ALLIED HEALTH HNO ID: [id number] Author: KWAKU MARTINEZ RT(R) Service: Radiology Author Type: Technologist Type: Allied Health Filed: 03/09/2025 07:02 Note Text: Epic chat sent to RN requesting MRI screening form. [id number]. Normal [facility] Basic metabolic 2000 panelon 03-09-2025 Anion gap [Moles/Vol] 15 mmol/L Normal 8-15 [facility] Comment on above: Order Comment: Speci men Type: BLOOD SPECIMENOrdering Facility: [facility] Address: [address] [place] [address] Performed By: #### 2 4321-2, , 2776-10, 3024-04 ####[facility] LABORATORYCLIA [id number] [place] [address] [place] Calcium [Mass/Vol] 8.4 mg/dL Low 8.5-10.2 [facility] Comment on above: Order Comment: Speci men Type: BLOOD SPECIMENOrdering Facility: [facility] Address: [address] [place] [address] Performed By: #### 2 4321-2, , 2776-10, 3024-04 ####[facility] LABORATORYCLIA [id number] [place] [address] [place] Chloride [Moles/Vol] 103 mmol/L Normal 98-107 [facility] Comment on above: Order Comment: Speci men Type: BLOOD SPECIMENOrdering Facility: [facility] Address: [address] [place] [address] Performed By: #### 2 4321-2, , 2776-, 7 ####[facility] LABORATORYCLIA [id number] [place] [address] [place] CO2 [Moles/Vol] 19 mmol/L Low 22-30 [facility] Comment on above: Order Comment: Speci men Type: BLOOD SPECIMENOrdering Facility: [facility] Address: [address] [place] [address] Performed By: #### 2 4321-2, 67084-2, 2776-1, 3023-7 ####[facility] LABORATORYCLIA [id number] [place] [address] [place] [facility] Creatinine [Mass/Vol] 0.84 mg/dL Normal 0.73-1.22 [facility] Comment on above: Order Comment: Speci men Type: BLOOD SPECIMENOrdering Facility: [facility] Address: [address] [place] [address] Performed By: #### 2 4321-2, 44111-9, 2776-, 7 ####[facility]PITALCLIA [id number] [address] Creatinine and Glomerular filtration rate.predicted panel (S/P/Bld) 94 mL/min/1.73m??? Normal >=60 [facility] Comment on above: Order Comment: Speci men Type: BLOOD SPECIMENOrdering Facility: [facility] Address: [address] [place] [address] Result Comment: Yamila mated Glomerular Filtration Rate [...] actual GFR. Performed By: #### 2 4321-2, 61399-8, 277-1, 302-7 ####[facility] LABORATORYCLIA [id number] [place] [address] [place] Glucose [Mass/Vol] 141 mg/dL High 74-99 [facility] Comment on above: Order Comment: Speci men Type: BLOOD SPECIMENOrdering Facility: [facility] Address: [address] [place] [address] Result Comment: The [place] [employer] (ADA) provides guidance for cutoff [...] Standards of Medical Care in Diabetes 2016, [place] [employer]. Diabetes Care. 2016.39(Suppl 1). Performed By: #### 2 4321-2, 41445-4, 2776-, 7 ####[facility] LABORATORYCLIA [id number] [place] [address] [place] Potassium [Moles/Vol] 3.7 mmol/L Normal 3.7-5.1 [facility] Comment on above: Order Comment: Speci men Type: BLOOD SPECIMENOrdering Facility: [facility] Address: [address] [place] [address] Performed By: #### 2 4321-2, , 2776-10, 7 ####[facility] LABORATORYCLIA [id number] [place] [address] [place] Sodium [Moles/Vol] 137 mmol/L Normal 136-144 [facility] Comment on above: Order Comment: Speci men Type: BLOOD SPECIMENOrdering Facility: [facility] Address: [address] [place] [address] Performed By: #### 2 4321-2, 32741-6, 2776-1, 3023-7 ####[facility] LABORATORYCLIA [id number] [place] [address] [place] Urea nitrogen [Mass/Vol] 12 mg/dL Normal 9-24 [facility] Comment on above: Order Comment: Speci men Type: BLOOD SPECIMENOrdering Facility: [facility] Address: [address] [place] [address] Performed By: #### 2 4321-2, 48756-5, 2777-1, 3024-7 ####[facility] LABORATORYCLIA [id number] [address] CBC panel Auto (Bld)on 03-09 Erythrocyte distribution width (RBC) [Ratio] 13.4 % Normal 11.5-15.0 [facility] Comment on above: Order Comment: Speci men Type: BLOOD SPECIMENOrdering Facility: [facility] Address: [address] [place] [address] Performed By: #### 5 8410-2 ####[facility] LABORATORYCLIA [id number] [address] Hematocrit (Bld) [Volume fraction] 40.6 % Normal 39.0-51.0 [facility] Comment on above: Order Comment: Speci men Type: BLOOD SPECIMENOrdering Facility: [facility] Address: [address] [place] [address] Performed By: #### 5 8410-2 ####[facility] LABORATORYCLIA [id number] [address] Hemoglobin (Bld) [Mass/Vol] 13.9 g/dL Normal 13.0-17.0 [facility] Comment on above: Order Comment: Speci men Type: BLOOD SPECIMENOrdering Facility: [facility] Address: [address] [place] [address] Performed By: #### 5 8410-2 ####[facility] LABORATORYCLIA [id number] [address] MCH (RBC) [Entitic mass] 32.5 pg Normal 26.0-34.0 [facility] Comment on above: Order Comment: Speci men Type: BLOOD SPECIMENOrdering Facility: [facility] Address: [address] [place] [address] Performed By: #### 5 8410-2 ####[facility] LABORATORYCLIA [id number] [address] MCHC (RBC) [Mass/Vol] 34.2 g/dL Normal 30.5-36.0 [facility] Comment on above: Order Comment: Speci men Type: BLOOD SPECIMENOrdering Facility: [facility] Address: [address] [place] [address] Performed By: #### 5 8410-2 ####[facility] LABORATORYCLIA [id number] [address] [place] MCV (RBC) [Entitic vol] 94.9 fL Normal 80.0-100.0 [facility] Comment on above: Order Comment: Speci men Type: BLOOD SPECIMENOrdering Facility: [facility] Address: [address] [place] [address] Performed By: #### 5 8410-2 ####[facility] LABORATORYCLIA [id number] [address] [place] Nucleated RBC (Bld) [#/Vol] 10*3/uL Normal <0.01 [facility] Comment on above: Order Comment: Speci men Type: BLOOD SPECIMENOrdering Facility: [facility] Address: [address] [place] [address] Performed By: #### 5 8410-2 ####[facility] LABORATORYCLIA [id number] [address] [place] Platelet mean volume (Bld) [Entitic vol] 10.8 fL Normal 9.0-12.7 [facility] Comment on above: Order Comment: Speci men Type: BLOOD SPECIMENOrdering Facility: [facility] Address: [address] [place] [address] Performed By: #### 5 8410-2 ####[facility] LABORATORYCLIA [id number] [address] [place] Platelets (Bld) [#/Vol] 175 10*3/uL Normal 150-400 [facility] Comment on above: Order Comment: Speci men Type: BLOOD SPECIMENOrdering Facility: [facility] Address: [address] [place] [address] Performed By: #### 5 8410-2 ####[facility] LABORATORYCLIA [id number] [address] OF [facility] RBC (Bld) [#/Vol] 4.28 10*6/uL Normal 4.20-6.00 [facility] Comment on above: Order Comment: Speci men Type: BLOOD SPECIMENOrdering Facility: [facility] Address: [address] [place] [address] Performed By: #### 5 8410-2 ####[facility] LABORATORYCLIA [id number] [address] WBC (Bld) [#/Vol] 11.50 10*3/uL High 3.70-11.00 [facility] Comment on above: Order Comment: Speci men Type: BLOOD SPECIMENOrdering Facility: [facility] Address: [address] [place] [address] Performed By: #### 5 8410-2 ####[facility] LABORATORYCLIA [id number] [address] CONSULT PROGon 03-09-2025 CONSULT PROG HNO ID: [id number] Author: JERRY MERLOS MD Service: Endocrinology Author [...] Otherwise can re-address as outpatient with primary customer service coordinator. Discharge planning: Follow up: - this patient [...] March 09, 2025 TIME: 6:42 AM Normal [facility] Comprehensive metabolic 2000 panelon 03-09-2025 Albumin [Mass/Vol] 3.8 g/dL Low 3.9-4.9 [facility] Comment on above: Order Comment: Chidi silvestre Type: BLOOD SPECIMENOrdering Facility: [facility] Address: [address] [place] [address] Performed By: #### 2 4323-8 ####[facility] LABORATORYCLIA [id number] [place] [address] [place] ALP [Catalytic activity/Vol] 48 U/L Normal 38-113 [facility] Comment on above: Order Comment: Chidi silvestre Type: BLOOD SPECIMENOrdering Facility: [facility] Address: [address] [place] [address] Performed By: #### 2 4323-8 ####[facility] LABORATORYCLIA [id number] [place] [address] [place] ALT With P-5'-P [Catalytic activity/Vol] 9 U/L Low 10-54 [facility] Comment on above: Order Comment: Speci men Type: BLOOD SPECIMENOrdering Facility: [facility] Address: [address] [place] [address] Performed By: #### 2 4323-8 ####[facility] LABORATORYCLIA [id number] [place] [address] [place] Anion gap [Moles/Vol] 13 mmol/L Normal 8-15 [facility] Comment on above: Order Comment: Speci men Type: BLOOD SPECIMENOrdering Facility: [facility] Address: [address] [place] [address] Performed By: #### 2 4323-8 ####[facility] LABORATORYCLIA [id number] [place] [address] [place] AST With P-5'-P [Catalytic activity/Vol] 13 U/L Low 14-40 [facility] Comment on above: Order Comment: Speci men Type: BLOOD SPECIMENOrdering Facility: [facility] Address: [address] [place] [address] Performed By: #### 2 4323-8 ####[facility] LABORATORYCLIA [id number] [place] [address] [place] Bilirubin [Mass/Vol] 0.3 mg/dL Normal 0.2-1.3 [facility] Comment on above: Order Comment: Speci men Type: BLOOD SPECIMENOrdering Facility: [facility] Address: [address] [place] [address] Performed By: #### 2 4323-8 ####[facility] LABORATORYCLIA [id number] [place] [address] [place] Calcium [Mass/Vol] 8.5 mg/dL Normal 8.5-10.2 [facility] Comment on above: Order Comment: Speci men Type: BLOOD SPECIMENOrdering Facility: [facility] Address: [address] [place] [address] Performed By: #### 2 4323-8 ####[facility] LABORATORYCLIA [id number] [address] [place] Chloride [Moles/Vol] 103 mmol/L Normal 98-107 [facility] Comment on above: Order Comment: Speci men Type: BLOOD SPECIMENOrdering Facility: [facility] Address: [address] [place] [address] Performed By: #### 2 4323-8 ####[facility] LABORATORYCLIA [id number] [address] [place] CO2 [Moles/Vol] 22 mmol/L Normal 22-30 [facility] Comment on above: Order Comment: Speci men Type: BLOOD SPECIMENOrdering Facility: [facility] Address: [address] [place] [address] Performed By: #### 2 4323-8 ####[facility] LABORATORYCLIA [id number] [address] OF [facility] Creatinine [Mass/Vol] 0.84 mg/dL Normal 0.73-1.22 [facility] Comment on above: Order Comment: Speci men Type: BLOOD SPECIMENOrdering Facility: [facility] Address: [address] [place] [address] Performed By: #### 2 4323-8 ####[facility] LABORATORYCLIA [id number] [address] Creatinine and Glomerular filtration rate.predicted panel (S/P/Bld) 94 mL/min/1.73m??? Normal >=60 [facility] Comment on above: Order Comment: Speci men Type: BLOOD SPECIMENOrdering Facility: [facility] Address: [address] [place] [address] Result Comment: Yamila mated Glomerular Filtration Rate [...] actual GFR. Performed By: #### 2 4323-8 ####[facility] LABORATORYCLIA [id number] [place] [address] [place] Glucose [Mass/Vol] 139 mg/dL High 74-99 [facility] Comment on above: Order Comment: Speci men Type: BLOOD SPECIMENOrdering Facility: [facility] Address: [address] [place] [address] Result Comment: The [place] [employer] (ADA) provides guidance for cutoff [...] Standards of Medical Care in Diabetes 2016, [place] [employer]. Diabetes Care. 2016.39(Suppl 1). Performed By: #### 2 4323-8 ####[facility] LABORATORYCLIA [id number] [place] [address] [place] Potassium [Moles/Vol] 3.8 mmol/L Normal 3.7-5.1 [facility] Comment on above: Order Comment: Speci men Type: BLOOD SPECIMENOrdering Facility: [facility] Address: [address] [place] [address] Performed By: #### 2 4323-8 ####[facility] LABORATORYCLIA [id number] [place] [address] [place] Protein [Mass/Vol] 6.6 g/dL Normal 6.3-8.0 [facility] Comment on above: Order Comment: Speci men Type: BLOOD SPECIMENOrdering Facility: [facility] Address: [address] [place] [address] Performed By: #### 2 4323-8 ####[facility] LABORATORYCLIA [id number] [place] [address] [place] Sodium [Moles/Vol] 138 mmol/L Normal 136-144 [facility] Comment on above: Order Comment: Speci men Type: BLOOD SPECIMENOrdering Facility: [facility] Address: [address] [place] [address] Performed By: #### 2 4323-8 ####[facility] LABORATORYCLIA [id number] [place] [address] [place] Urea nitrogen [Mass/Vol] 11 mg/dL Normal 9-24 [facility] Comment on above: Order Comment: Speci men Type: BLOOD SPECIMENOrdering Facility: [facility] Address: [address] [place] [address] Performed By: #### 2 4323-8 ####[facility] LABORATORYCLIA [id number] [place] [address] [place] Magnesium SerPl-ncon 03-09 Magnesium [Mass/Vol] 1.9 mg/dL Normal 1.7-2.3 [facility] Comment on above: Order Comment: Speci men Type: BLOOD SPECIMENOrdering Facility: [facility] Address: [address] [place] [address] Performed By: #### 2 4321-2, 89042-0, 2777-, 3023-7 ####[facility] LABORATORYCLIA [id number] [place] [address] [place] Phosphate SerPl-mCncon 03-09 Phosphate [Mass/Vol] 3.2 mg/dL Normal 2.7-4.8 [facility] Comment on above: Order Comment: Speci men Type: BLOOD SPECIMENOrdering Facility: [facility] Address: [address] [place] [address] Performed By: #### 2 4321-2, , 2777-, 302-7 ####[facility] LABORATORYCLIA [id number] [place] [address] [place] T4 Free SerPl-mCncon 025 Free T4 [Mass/Vol] 1.8 ng/dL High 0.9-1.7 [facility] Comment on above: Order Comment: Speci men Type: BLOOD SPECIMENOrdering Facility: [facility] Address: [address] [address] Performed By: #### 2 4321-2, 91224-2, 2777-1, 3024-7 ####[facility] LABORATORYCLIA [id number] [place] [address] [facility] ALLIED HEALTHon 03-08-2025 ALLIED HEALTH HNO ID: [id number] Author: CONNOR MORGAN Chaplain Service: ? Author Type: Hide Cleaner Type: Allied Health Filed: 03/08/2025 06:42 Note Text: SPIRITUAL CARE PROGRESS NOTE SERVICE DATE: 03/08/2025 SERVICE TIME: 6 AM Pre-surgery Patient request for prayer, prayer given To contact the Spiritual Care Department: Please call [phone]. SIGNATURE: Chaplain Tesfaye PATIENT NAME: Zachery West DATE: March 08, 2025 TIME: 6:41 AM PAGER/CONTACT #: [phone] Normal [facility] ANES POSTPROC EVALon 025 ANES POSTPROC EVAL HNO ID: [id number] Author: TODD CLARK DO Service: Anesthesiology Author Type: Anesthesiologist Type: Anesthesia Postprocedure Evaluation Filed: 03/08/2025 13:18 Note Text: POST ANESTHESIA EVALUATION NOTE : 1955 Procedure Summary Date: 03/08/25 Room / Location: [place] / [place] Anesthesia Start: 817 Anesthesia Stop: 1202 [...] PACU/ICU/floor team. Anesthesia Observations No Documentation SIGNATURE: Todd Clark DO PATIENT NAME: Zachery West DATE: March 08, 2025 TIME: 1:17 PM CSN: [id number] Normal [facility] ANES PRE-OPon 03-08-2025 ANES PRE-OP HNO ID: [id number] Author: TODD CLARK DO Service: Anesthesiology Author [...] March 08, 2025 TIME: 8:11 AM CSN: [id number] Normal [facility] Basic metabolic 2000 panelon 03-08-2025 Anion gap [Moles/Vol] 13 mmol/L Normal 8-15 [facility] Comment on above: Order Comment: Speci men Type: BLOOD SPECIMENOrdering Facility: [facility] Address: [address] [place] [address] Performed By: #### 2 4321-2, 2776-10, ####[facility]PITALCLIA [id number] [place] [address] [place] Calcium [Mass/Vol] 8.6 mg/dL Normal 8.5-10.2 [facility] Comment on above: Order Comment: Speci men Type: BLOOD SPECIMENOrdering Facility: [facility] Address: [address] [place] [address] Performed By: #### 2 4321-2, 2776-10, ####[facility] LABORATORYCLIA [id number] [place] [address] [place] Chloride [Moles/Vol] 104 mmol/L Normal 98-107 [facility] Comment on above: Order Comment: Speci men Type: BLOOD SPECIMENOrdering Facility: [facility] Address: [address] [place] [address] Performed By: #### 2 4321-2, 27704-23, ####[facility] LABORATORYCLIA [id number] [place] [address] [place] CO2 [Moles/Vol] 21 mmol/L Low 22-30 [facility] Comment on above: Order Comment: Speci men Type: BLOOD SPECIMENOrdering Facility: [facility] Address: [address] [place] [address] Performed By: #### 2 4321-2, 27704-23, ####[facility] LABORATORYCLIA [id number] [place] [address] [place] [facility] Creatinine [Mass/Vol] 0.86 mg/dL Normal 0.73-1.22 [facility] Comment on above: Order Comment: Speci men Type: BLOOD SPECIMENOrdering Facility: [facility] Address: [address] [place] [address] Performed By: #### 2 4321-2, 2776-10, ####[facility]ITALCLIA [id number] [address] Creatinine and Glomerular filtration rate.predicted panel (S/P/Bld) 93 mL/min/1.73m??? Normal >=60 [facility] Comment on above: Order Comment: Speci men Type: BLOOD SPECIMENOrdering Facility: [facility] Address: [address] [place] [address] Result Comment: Yamila mated Glomerular Filtration Rate [...] GFR. Performed By: #### 2 4321-2, 27704-23, ####[facility] LABORATORYCLIA [id number] [place] [id number] [place] Glucose [Mass/Vol] 139 mg/dL High 74-99 [facility] Comment on above: Order Comment: Speci men Type: BLOOD SPECIMENOrdering Facility: [facility] Address: [address] [place] [address] Result Comment: The [place] [employer] (ADA) provides guidance for cutoff [...] Standards of Medical Care in Diabetes 2016, [place] [employer]. Diabetes Care. 2016.39(Suppl 1). Performed By: #### 2 4321-2, 2776-10, ####[facility] [facility]ATORYCLIA [id number] [place] [address] [place] Potassium [Moles/Vol] 4.0 mmol/L Normal 3.7-5.1 [facility] Comment on above: Order Comment: Chidi silvestre Type: BLOOD SPECIMENOrdering Facility: [facility] Address: [address] [place] [address] Performed By: #### 2 4321-2, 2776-10, ####[facility] LABORATORYCLIA [id number] [place] [address] [place] Sodium [Moles/Vol] 138 mmol/L Normal 136-144 [facility] Comment on above: Order Comment: Bipini men Type: BLOOD SPECIMENOrdering Facility: [facility] Address: [address] [place] [address] Performed By: #### 2 4321-2, 2776-10, ####[facility] LABORATORYCLIA [id number] [place] [address] [place] Urea nitrogen [Mass/Vol] 18 mg/dL Normal 9-24 [facility] Comment on above: Order Comment: Chidi men Type: BLOOD SPECIMENOrdering Facility: [facility] Address: [address] [place] [address] Performed By: #### 2 4321-2, 2776-10, 37335-5 ####[facility]ATORYCLIA [id number] [place] [address] [place] Anion gap [Moles/Vol] 11 mmol/L Normal 8-15 [facility] Comment on above: Order Comment: Speci men Type: BLOOD SPECIMENOrdering Facility: [facility] Address: [address] [place] [address] Performed By: #### 2 4321-2 ####[facility]ATORYCLIA [id number] [place] [address] [place] Calcium [Mass/Vol] 8.2 mg/dL Low 8.5-10.2 [facility] Comment on above: Order Comment: Speci men Type: BLOOD SPECIMENOrdering Facility: [facility] Address: [address] [place] [address] Performed By: #### 2 4321-2 ####[facility] LABORATORYCLIA [id number] [place] [address] [place] Chloride [Moles/Vol] 104 mmol/L Normal 98-107 [facility] Comment on above: Order Comment: Speci men Type: BLOOD SPECIMENOrdering Facility: [facility] Address: [address] [place] [address] Performed By: #### 2 4321-2 ####[facility]ORYCLIA [id number] [place] [address] [place] CO2 [Moles/Vol] 23 mmol/L Normal 22-30 [facility] Comment on above: Order Comment: Speci men Type: BLOOD SPECIMENOrdering Facility: [facility] Address: [address] [place] [address] Performed By: #### 2 4321-2 ####[facility]ORYCLIA [id number] [place] [address] [place] Creatinine [Mass/Vol] 0.94 mg/dL Normal 0.73-1.22 [facility] Comment on above: Order Comment: Speci men Type: BLOOD SPECIMENOrdering Facility: [facility] Address: [address] [place], [place] [address] Performed By: #### 2 4321-2 ####[facility] LABORATORYCLIA [id number] [place] [id number] [place] OF [facility] Creatinine and Glomerular filtration rate.predicted panel (S/P/Bld) 87 mL/min/1.73m??? Normal >=60 [facility] Comment on above: Order Comment: Chidi silvestre Type: BLOOD SPECIMENOrdering Facility: [facility] Address: [address] [place] [address] Result Comment: Yamila mated Glomerular Filtration Rate [...] actual GFR. Performed By: #### 2 4321-2 ####[facility] HOSPITALIA [id number] [place] [address] [place] Glucose [Mass/Vol] 135 mg/dL High 74-99 [facility] Comment on above: Order Comment: Chidi silvestre Type: BLOOD SPECIMENOrdering Facility: [facility] Address: [address] [place] [address] Result Comment: The [place] [employer] (ADA) provides guidance for cutoff [...] Standards of Medical Care in Diabetes 2016, [place] [employer]. Diabetes Care. 2016.39(Suppl 1). Performed By: #### 2 4321-2 ####[facility] LABORATORYCLIA [id number] [place] [id number] [place] Potassium [Moles/Vol] 4.4 mmol/L Normal 3.7-5.1 [facility] Comment on above: Order Comment: Speci men Type: BLOOD SPECIMENOrdering Facility: [facility] Address: [address] [place] [address] Performed By: #### 2 4321-2 ####[facility] LABORATORYCLIA [id number] [address] STATES OF [facility] Sodium [Moles/Vol] 138 mmol/L Normal 136-144 [facility] Comment on above: Order Comment: Speci men Type: BLOOD SPECIMENOrdering Facility: [facility] Address: [address] [place] [address] Performed By: #### 2 4321-2 ####[facility] LABORATORYCLIA [id number] [address] [place] Urea nitrogen [Mass/Vol] 20 mg/dL Normal 9-24 [facility] Comment on above: Order Comment: Speci men Type: BLOOD SPECIMENOrdering Facility: [facility] Address: [address] [place] [address] Performed By: #### 2 4321-2 ####[facility] LABORATORYCLIA [id number] [address] STATES OF [facility] CBC panel Auto (Bld)on 03-08 Erythrocyte distribution width (RBC) [Ratio] 13.3 % Normal 11.5-15.0 [facility] Comment on above: Order Comment: Speci men Type: BLOOD SPECIMENOrdering Facility: [facility] Address: [address] [place] [address] Performed By: #### 5 8410-2 ####[facility] LABORATORYCLIA [id number] [address] Hematocrit (Bld) [Volume fraction] 43.1 % Normal 39.0-51.0 [facility] Comment on above: Order Comment: Speci men Type: BLOOD SPECIMENOrdering Facility: [facility] Address: [address] [place] [address] Performed By: #### 5 8410-2 ####[facility] LABORATORYCLIA [id number] [address] Hemoglobin (Bld) [Mass/Vol] 14.7 g/dL Normal 13.0-17.0 [facility] Comment on above: Order Comment: Speci men Type: BLOOD SPECIMENOrdering Facility: [facility] Address: [address] [place] [address] Performed By: #### 5 8410-2 ####[facility] LABORATORYCLIA [id number] [address] MCH (RBC) [Entitic mass] 32.5 pg Normal 26.0-34.0 [facility] Comment on above: Order Comment: Speci men Type: BLOOD SPECIMENOrdering Facility: [facility] Address: [address] [place] [address] Performed By: #### 5 8410-2 ####[facility] LABORATORYCLIA [id number] [address] MCHC (RBC) [Mass/Vol] 34.1 g/dL Normal 30.5-36.0 [facility] Comment on above: Order Comment: Speci men Type: BLOOD SPECIMENOrdering Facility: [facility] Address: [address] [place] [address] Performed By: #### 5 8410-2 ####[facility] LABORATORYCLIA [id number] [address] MCV (RBC) [Entitic vol] 95.4 fL Normal 80.0-100.0 [facility] Comment on above: Order Comment: Speci men Type: BLOOD SPECIMENOrdering Facility: [facility] Address: [address] [place] [address] Performed By: #### 5 8410-2 ####[facility] LABORATORYCLIA [id number] [address] Nucleated RBC (Bld) [#/Vol] 10*3/uL Normal <0.01 [facility] Comment on above: Order Comment: Speci men Type: BLOOD SPECIMENOrdering Facility: [facility] Address: [address] [place] [address] Performed By: #### 5 8410-2 ####[facility] LABORATORYCLIA [id number] [address] [place] Platelet mean volume (Bld) [Entitic vol] 10.9 fL Normal 9.0-12.7 [facility] Comment on above: Order Comment: Speci men Type: BLOOD SPECIMENOrdering Facility: [facility] Address: [address] [place] [address] Performed By: #### 5 8410-2 ####[facility] LABORATORYCLIA [id number] [address] [place] Platelets (Bld) [#/Vol] 164 10*3/uL Normal 150-400 [facility] Comment on above: Order Comment: Speci men Type: BLOOD SPECIMENOrdering Facility: [facility] Address: [address] [place] [address] Performed By: #### 5 8410-2 ####[facility] LABORATORYCLIA [id number] [place] [address] [place] RBC (Bld) [#/Vol] 4.52 10*6/uL Normal 4.20-6.00 [facility] Comment on above: Order Comment: Speci men Type: BLOOD SPECIMENOrdering Facility: [facility] Address: [address] [place] [address] Performed By: #### 5 8410-2 ####[facility] LABORATORYCLIA [id number] [place] [address] [place] WBC (Bld) [#/Vol] 7.44 10*3/uL Normal 3.70-11.00 [facility] Comment on above: Order Comment: Speci men Type: BLOOD SPECIMENOrdering Facility: [facility] Address: [address] [place] [address] Performed By: #### 5 8410-2 ####[facility] LABORATORYCLIA [id number] [address] CONFIRM BLOOD TYPEon 025 ABO A Normal [facility] Comment on above: Order Comment: Speci men Type: BLOOD SPECIMENOrdering Facility: [facility] Address: [address] [place] [address] Performed By: #### C ONABO ####[facility] BLOOD BANKCLIA [id number] [address] Rh Nom (Bld) Negative Normal [facility] Comment on above: Order Comment: Speci men Type: BLOOD SPECIMENOrdering Facility: [facility] Address: [address] [place] [address] Performed By: #### C ONABO ####[facility] BLOOD BANKCLIA [id number] [address] CONSULTon 03-08-2025 CONSULT HNO ID: [id number] Author: PIEDAD ROCK MD Service: Endocrinology Author Type: Physician Type: Consults Filed: 03/08/2025 15:45 Note Text: PITUITARY INCIDENTALOMA INITIAL CONSULT PATIENT NAME: Zachery West SERVICE DATE: 03/08/2025 SERVICE TIME: 3:31 PM REASON FOR CONSULT: Pituitary tumor s/p TSS for resection REQUESTING PHYSICIAN: Kim Jung [address] [facility] [address] Subjective HISTORY OF PRESENT ILLNESS: Mr. West [...] (radiology procedure) INTRAVENOUS DIRECTED PRN Richard Oliver APRN.[employer]PM ARCHITECT NaCl 0.9% iv infusion 75 mL/hr INTRAVENOUS CONTINUOUS Richard Oliver APRN.[employer] BPM ARCHITECT 75 mL/hr at 03/08/25 1330 75 mL/hr at 03/08/25 1330 acetaminophen 650 mg tab(s) (TYLENOL) 650 mg ORAL q 6 H PRN Richard Oliver APRN.[employer]PM ARCHITECT ceFAZolin iv piggyback 2 g in D5W (iso-osmotic) 100 mL (ANCEF) 2 g INTRAVENOUS q 8 HR Richard Oliver APRN.[employer] BPM ARCHITECT 200 mL/hr at 03/08/25 1519 2 g at 03/08/25 1519 ondansetron (PF) 4 mg injection (ZOFRAN) 4 mg INTRAVENOUS q 6 H PRN Richard Oliver APRN.[employer]PM ARCHITECT potassium chloride ER 20-40 mEq tab(s) (KLOR-CON) 20-40 mEq ORAL/FEEDING TUBE PRN Richard Oliver APRN.[employer] ARCHITECT Or potassium chloride iv piggyback 20 mEq/100 mL 20 mEq INTRAVENOUS PRN Richard Oliver APRN.[employer] ARCHITECT magnesium sulfate iv piggyback in sterile water 2 g 50 mL 2 g INTRAVENOUS PRN Richard Oliver APRN.[employer]PM ARCHITECT phosphorus 500 mg tab(s) (K PHOS NEUTRAL) 500 mg ORAL/FEEDING TUBE PRN(NO DISPENSE) Richard Oliver APRN.[employer] ARCHITECT calcium gluconate iv piggyback 2 g in NaCl (iso-osmotic) 100 mL 2 g INTRAVENOUS PRN(NO DISPENSE) Richard Oliver APRN.[employer]PM ARCHITECT oxyCODONE IR 5-10 mg tab(s) (ROXICODONE) 5-10 mg ORAL q 4 H PRN Richard Oliver APRN.[employer] ARCHITECT 10 mg at 03/08/25 1409 senna-docusate 8.6-50 mg 1 tablet (SENNA-S) 1 tablet ORAL/FEEDING TUBE BID Richard Oliver APRN.[employer]PM ARCHITECT 1 tablet at 03/08/25 1409 NaCl 0.9% iv flush bag 20 mL INTRAVENOUS PRN Richard Oliver APRN.[employer] BPM ARCHITECT hydrocortisone sodium succinate (PF) 100 mg injection [...] function wa (more content not included)... Normal [facility] CT BRAIN WO IVCONon 03-08-20 CT BRAIN WO IVCON * * *Final Report* * * DATE OF EXAM: Mar 08 2025 1:04PM [facility] 0504 - CT BRAIN WO IVCON [...] hemorrhage. Additional chronic findings, as detailed above. Passenger Service Manager: PSCB Transcribe Date/Time: Mar 08 2025 1:22P Dictated by : DAJA LARSEN MD This examination was interpreted and the report reviewed and electronically signed by: DAJA LARSEN MD on Mar 08 2025 1:30PM EST [id number] Normal [facility] CT SINUS STEREO WO IVCONon 0 03-08-2025 CT SINUS STEREO WO IVCON * * *Final Report* * * DATE OF EXAM: Mar 08 2025 7:59AM [facility] 2075 - CT SINUS STEREO WO [...] to neuroendoscopic transsphenoidal excision of pituitary tumor Passenger Service Manager: KENNY Transcribe Date/Time: Mar 08 2025 8:04A Dictated by : CARLOS ENRIQUE LEE MD This examination was interpreted and the report reviewed and electronically signed by: CARLOS ENRIQUE LEE MD on Mar 08 2025 8:08AM EST [id number] Normal [facility] HISTORY PHYSICALon HISTORY PHYSICAL HNO ID: [id number] Author: RICHARD OLIVER APRN.[employer] BPM ARCHITECT Service: Neurology ICU Author Type: Nurse Practitioner Type: H&P Filed: 03/08/2025 13:41 Note Text: Attestation signed by Mendy Amaro MD at 03/08/2025 3:20 PM Neuro ICU Progress Note (Staff Attestation) I have personally performed a face to face assessment of the patient and have reviewed the PA/COO/Resident/Medical Student note. Plan of care discussed with: [...] left visual field cuts noted at outpatient graphic production artist appointment. MRI brain was obtained which noted [...] (Temporal) Res (more content not included)... Normal [facility] MRI BRAIN WO/W IVCONon 03-08 MRI [...] 3. Normal remaining brain without acute abnormality. Passenger Service Manager: PSCB Transcribe Date/Time: Mar 09 2025 7:32P Dictated by : CINTHIA CLAY MD This examination was interpreted and the report reviewed and electronically signed by: CINTHIA CLAY MD on Mar 10 2025 6:16PM EST [id number] Normal [facility] Magnesium SerPl-mCncon 03-08 Magnesium [Mass/Vol] 1.9 mg/dL Normal 1.7-2.3 [facility] Comment on above: Order Comment: Speci men Type: BLOOD SPECIMENOrdering Facility: [facility] Address: [facility] [address] [address] Performed By: #### 2 4321-2, 2777-1, 42544-3 ####[facility] LABORATORYCLIA [id number] [place] [address] [place] OPERATIVE NOon 03-08-2025 OPERATIVE NO HNO ID: [id number] Author: SHIVA LUNDBERG MD Service: Otolaryngology Author [...] Complications: none Disposition: PACU Condition: good Normal [facility] OPERATIVE NO HNO ID: [id number] Author: KIM JUNG MD Service: Neurosurgery Author Type: Physician Type: Operative Report Filed: 03/08/2025 12:01 Note Text: OPERATIVE/PROCEDURE REPORT LOG ID: [id number] SURGERY/PROCEDURE DATE: 03/08/2025 INCISION/PROCEDURE START TIME: 9:29 AM INCISION CLOSE/PROCEDURE END TIME: 11:31 AM SURGEON(S)/PROCEDURALIST(S) AND COTTON PROGRAM TECHNICIAN(S): Surgeons and Role: Panel 1: * Kim [...] March 08, 2025 TIME: 11:48 AM Normal [facility] Pathology biopsy report Jeff (Tiss)on 03-08-2025 ADDENDUM 1: Normal [facility] Comment on above: Order Comment: Speci men Type: TISSUE SPECIMENOrdering Facility: [facility] Address: [address] [place] [address] Result Comment: Immu nohistochemical staining of the tumor (block B2) with antibodies to pituitary hormones and Ki-67 was performed at the [facility]. The tumor demonstrates diffuse positive staining [...] been determined by the performing laboratory within [facility]???s Jewel Aguilera [facility] Medicine K[place] ([facility], [facility], [facility], [facility], [facility], or [facility]) in a manner consistent with CLIA requirements. [...] 1219 EDT Performed By: #### 6 6121-5 ####[facility] LABCLIA [id number] [address] LABORATORYCLIA [id number] [place], [place] [address] [place] [address] STATES OF [facility] AP DISCLAIMER Normal [facility] Comment on above: Order Comment: Speci men Type: TISSUE SPECIMENOrdering Facility: [facility] Address: [address] [place] [address] Result Comment: Rusty santiago Developed Test (LDT) Disclaimer: Performance characteristics of immunohistochemical, immunofluorescent, and chromogenic in-situ hybridization tests have been determined by the performing laboratory within [facility]'s Jewel Burgos Pathology and Laboratory Medicine Department ([facility], [facility], [facility], [facility], [facility], [facility], or [facility]) in a manner consistent with CLIA requirements. One or more of these tests may not have been cleared or approved by the FDA. [facility] is regulated under CLIA as qualified to perform high-complexity testing. These tests are used for clinical purposes. These should not be regarded as investigational or for research. Positive and negative controls stain appropriately. Performed By: #### 6 6121-5 ####[facility] LABCLIA [id number] [address] LABORATORYCLIA [id number] [place] [address] CASE REPORT Normal [facility] Comment on above: Order Comment: Speci men Type: TISSUE SPECIMENOrdering Facility: [facility] Address: [address] [place] [address] Result Comment: Surg ica Pathology Report Case: [id number] Authorizing Provider: Kim Jung MD Collected: 03/08/2025 10:22 AM Ordering Location: [facility] Received: 03/08/2025 10:30 AM Pathologist: Matty Toussaint MD Specimens: A) - Pituitary Gland, pituitary mass, sellar mass B) - Pituitary Gland, sellar mass Performed By: #### 6 6121-5 ####[facility] LABCLIA [id number] [place] [id number] [facility] LABORATORYIA [id number] [address] CLINICAL HISTORY Normal [facility] Comment on above: Order Comment: Speci men Type: TISSUE SPECIMENOrdering Facility: [facility] Address: [address] [place] [address] Result Comment: Pre- op diagnosis: Pituitary mass (HCC) [E23.6] Performed By: #### 6 6121-5 ####[facility] LABCLIA [id number] [place] [id number] [facility] LABORATORYCLIA [id number] [address] DIAGNOSIS COMMENT An addendum will be issued following immunohistochemical staining of the tumor with antibodies to pituitary hormones and Ki-67. [facility] Comment on above: Order Comment: Speci men Type: TISSUE SPECIMENOrdering Facility: [facility] Address: [address] [place] [address] Performed By: #### 6 6121-5 ####[facility] LABCLIA [id number] [address] LABORATORYCLIA [id number] [address] FINAL DIAGNOSIS [facility] Comment on above: Order Comment: Speci men Type: TISSUE SPECIMENOrdering Facility: [facility] Address: [address] [place] [address] Result Comment: A-B. Pituitary gland, excision: - Pituitary neuroendocrine tumor (pituitary adenoma). RAP/kr 03/13/2025 at 0850 EDT Performed By: #### 6 6121-5 ####[facility] LABCLIA [id number] [address] LABORATORYCLIA [id number] [address] FINAL PERFORMING LAB Normal [facility] Comment on above: Order Comment: Speci men Type: TISSUE SPECIMENOrdering Facility: [facility] Address: [address] [place] [address] Result Comment: Diag nostic interpretation performed at: [facility], [address] [place] [address] CLIA# [id number] Senior Infrastructure Architect: Alton Casey MD Performed By: #### 6 6121-5 ####[facility] LABCLIA [id number] [place] [id number] [facility] LABORATORYCLIA [id number] [address] GROSS DESCRIPTION Normal [facility] Comment on above: Order Comment: Speci men Type: TISSUE SPECIMENOrdering Facility: [facility] Address: [address] [place] [address] Result Comment: A. P ituitary Gland Received fresh for interoperative consultation labeled pituitary mass, sellar mass are 2 irregular red soft tissue fragments aggregating to 0.6 x 0.3 x 0.2 cm. A touch prep is performed. Half of the tissue is submitted in FS A1 and the remaining half is submitted in A2. Gross examination performed at [facility], [address] [place] [address] CLIA#[id number] OLS March 08, 2025 10:58 AM B. Pituitary Gland Received in formalin labeled sellar mass are multiple mendoza-pink soft tumor fragments aggregating to 2.5 x 2.2 x 0.5 cm. The specimen is totally submitted in formalin in 2 cassettes Gross examination performed at [facility], [address] [place] [address] March 08, 2025 2:26 PM Performed By: #### 6 6121-5 ####[facility] LABCLIA [id number] [address] LABORATORYCLIA [id number] [address] INTRAOPERATIVE DIAGNOSIS Normal [facility] Comment on above: Order Comment: Speci men Type: TISSUE SPECIMENOrdering Facility: [facility] Address: [address] [place] [address] Result Comment: A. P ituitary Gland FSA 1+ touch prep: Pituitary mass, sellar mass: Compatible with adenoma (Dr. Wilson/Dr. Logan) Intraoperative examination performed at [facility], [address] [place] [address] CLIA# [id number] Performed By: #### 6 6121-5 ####[facility] LABCLIA [id number] [address] LABORATORYCLIA [id number] [place] [address] STATES OF [facility] Phosphate SerPl-mCncon 03-08 Phosphate [Mass/Vol] 3.6 mg/dL Normal 2.7-4.8 [facility] Comment on above: Order Comment: Speci men Type: BLOOD SPECIMENOrdering Facility: [facility] Address: [address] [address] Performed By: #### 2 4321-2, 2777-1, 72555-7 ####[facility] LABORATORYCLIA [id number] [address] CNPLucila 03-06-2025 CNPN Telephone (NEAGCLM) ZACHERY WEST ([id number]) 1955 M Date Time Provider Department 03/06/25 KIM JUNG NEAGCLM During your visit today, we recorded the following information about you: Giuliana Sánchez 03/06/2025 3:34 PM Signed Contacted patient to remind them of their arrival time for surgery with Dr. Kim Jung on 03/08/25. Patient is to arrive at [facility] at 5:30am for surgery at 8:00am. Spoke with patient and they are aware of all arrival information. Allergies As of Date: 03/06/2025 (No Known Allergies) Date Reviewed: 03/04/2025 Reviewed by: Marie Mendez, REGIONAL GUIDE.[employer] BPM ARCHITECT - Fully Assessed Reason for Visit: Preparations [...] Status:Closed by GIULIANA SÁNCHEZ on 03/06/25 Normal [facility] NURSING PROGon 03-05-2025 NURSING PROG HNO ID: [id number] Author: ?, ?, ? Service: ? Author Type: ? Type: Nursing Progress Note Filed: 03/05/2025 15:42 Note Text: Vani from blood bank called regarding patient type and screen per lab Conf. ABO will need to be done day of surgery on 03/08/25. Normal [facility] NURSING PROG HNO ID: [id number] Author: CINDY SLAUGHTER APRN.[employer] ARCHITECT Service: Anesthesiology Author Type: Nurse Practitioner Type: Nursing Progress Note Filed: 03/05/2025 10:30 Note Text: Summary: Anesthesia Reviewed EKG from PAT visit, medications, and METS 8.[address] Clark of anesthesia. Patient okay to proceed with surgery as scheduled. Normal [facility] Bacteria Ur Culton Bacteria identified Cx Nom (U) CULTURE, URINE: No growth (<1,000 CFU/ml) Normal [facility] Comment on above: Performed By: #### 6 30-4 ####[facility] LABORATORYCLIA [id number] [address] CBC panel Auto (Bld)on 03-04 Erythrocyte distribution width (RBC) [Ratio] 13.2 % Normal 11.5-15.0 [facility] Comment on above: Order Comment: Speci men Type: BLOOD SPECIMENOrdering Facility: [facility] Address: [address] [place] [address] Performed By: #### 5 8410-2 ####[facility] LABORATORYCLIA [id number] [address] Hematocrit (Bld) [Volume fraction] 44.1 % Normal 39.0-51.0 [facility] Comment on above: Order Comment: Speci men Type: BLOOD SPECIMENOrdering Facility: [facility] Address: [address] [place] [address] Performed By: #### 5 8410-2 ####[facility] LABORATORYCLIA [id number] [address] Hemoglobin (Bld) [Mass/Vol] 15.1 g/dL Normal 13.0-17.0 [facility] Comment on above: Order Comment: Speci men Type: BLOOD SPECIMENOrdering Facility: [facility] Address: [address] [place] [address] Performed By: #### 5 8410-2 ####[facility] LABORATORYCLIA [id number] [address] MCH (RBC) [Entitic mass] 32.8 pg Normal 26.0-34.0 [facility] Comment on above: Order Comment: Speci men Type: BLOOD SPECIMENOrdering Facility: [facility] Address: [address] [place] [address] Performed By: #### 5 8410-2 ####[facility] LABORATORYCLIA [id number] [address] MCHC (RBC) [Mass/Vol] 34.2 g/dL Normal 30.5-36.0 [facility] Comment on above: Order Comment: Speci men Type: BLOOD SPECIMENOrdering Facility: [facility] Address: [facility] [place] [address] Performed By: #### 5 8410-2 ####[facility] LABORATORYCLIA [id number] [address] [place] MCV (RBC) [Entitic vol] 95.9 fL Normal 80.0-100.0 [facility] Comment on above: Order Comment: Speci men Type: BLOOD SPECIMENOrdering Facility: [facility] Address: [address] [place] [address] Performed By: #### 5 8410-2 ####[facility] LABORATORYCLIA [id number] [address] [place] Nucleated RBC (Bld) [#/Vol] 10*3/uL Normal <0.01 [facility] Comment on above: Order Comment: Speci men Type: BLOOD SPECIMENOrdering Facility: [facility] Address: [address] [place] [address] Performed By: #### 5 8410-2 ####[facility] LABORATORYCLIA [id number] [place] [address] [place] Platelet mean volume (Bld) [Entitic vol] 11.6 fL Normal 9.0-12.7 [facility] Comment on above: Order Comment: Speci men Type: BLOOD SPECIMENOrdering Facility: [facility] Address: [address] [place] [address] Performed By: #### 5 8410-2 ####[facility] LABORATORYCLIA [id number] [place] [address] [place] Platelets (Bld) [#/Vol] 160 10*3/uL Normal 150-400 [facility] Comment on above: Order Comment: Speci men Type: BLOOD SPECIMENOrdering Facility: [facility] Address: [address] [place] [address] Performed By: #### 5 8410-2 ####[facility] LABORATORYCLIA [id number] [address] OF [facility] RBC (Bld) [#/Vol] 4.60 10*6/uL Normal 4.20-6.00 [facility] Comment on above: Order Comment: Speci men Type: BLOOD SPECIMENOrdering Facility: [facility] Address: [address] [place] [address] Performed By: #### 5 8410-2 ####[facility] LABORATORYCLIA [id number] [address] WBC (Bld) [#/Vol] 7.41 10*3/uL Normal 3.70-11.00 [facility] Comment on above: Order Comment: Speci men Type: BLOOD SPECIMENOrdering Facility: [facility] Address: [address] [place] [address] Performed By: #### 5 8410-2 ####[facility] LABORATORYCLIA [id number] [address] Comprehensive metabolic 2000 panelon 03-04-2025 Albumin [Mass/Vol] 4.2 g/dL Normal 3.9-4.9 [facility] Comment on above: Order Comment: Speci men Type: BLOOD SPECIMENOrdering Facility: [facility] Address: [address] [place] [address] Performed By: #### 2 4323-8 ####[facility] LABORATORYCLIA [id number] [address] OF [facility] ALP [Catalytic activity/Vol] 55 U/L Normal 38-113 [facility] Comment on above: Order Comment: Speci men Type: BLOOD SPECIMENOrdering Facility: [facility] Address: [address] [place] [address] Performed By: #### 2 4323-8 ####[facility] LABORATORYCLIA [id number] [address] ALT With P-5'-P [Catalytic activity/Vol] 23 U/L Normal 10-54 [facility] Comment on above: Order Comment: Speci men Type: BLOOD SPECIMENOrdering Facility: [facility] Address: [address] [place] [address] Performed By: #### 2 4323-8 ####[facility] LABORATORYCLIA [id number] [place] [address] [place] Anion gap [Moles/Vol] 11 mmol/L Normal 8-15 [facility] Comment on above: Order Comment: Speci men Type: BLOOD SPECIMENOrdering Facility: [facility] Address: [address] [place] [address] Performed By: #### 2 4323-8 ####[facility] LABORATORYCLIA [id number] [place] [address] [place] AST With P-5'-P [Catalytic activity/Vol] 23 U/L Normal 14-40 [facility] Comment on above: Order Comment: Speci men Type: BLOOD SPECIMENOrdering Facility: [facility] Address: [address] [place] [address] Performed By: #### 2 4323-8 ####[facility] LABORATORYCLIA [id number] [place] [address] [place] Bilirubin [Mass/Vol] 0.5 mg/dL Normal 0.2-1.3 [facility] Comment on above: Order Comment: Speci men Type: BLOOD SPECIMENOrdering Facility: [facility] Address: [address] [place] [address] Performed By: #### 2 4323-8 ####[facility] LABORATORYCLIA [id number] [address] [place] Calcium [Mass/Vol] 9.2 mg/dL Normal 8.5-10.2 [facility] Comment on above: Order Comment: Speci men Type: BLOOD SPECIMENOrdering Facility: [facility] Address: [address] [place] [address] Performed By: #### 2 4323-8 ####[facility] LABORATORYCLIA [id number] [place] [address] [place] Chloride [Moles/Vol] 103 mmol/L Normal 98-107 [facility] Comment on above: Order Comment: Speci men Type: BLOOD SPECIMENOrdering Facility: [facility] Address: [address] [place] [address] Performed By: #### 2 4323-8 ####[facility] LABORATORYCLIA [id number] [address] STATES OF [facility] CO2 [Moles/Vol] 26 mmol/L Normal 22-30 [facility] Comment on above: Order Comment: Speci men Type: BLOOD SPECIMENOrdering Facility: [facility] Address: [address] [place] [address] Performed By: #### 2 4323-8 ####[facility]PITALCLIA [id number] [address] STATES OF [facility] Creatinine [Mass/Vol] 1.04 mg/dL Normal 0.73-1.22 [facility] Comment on above: Order Comment: Speci men Type: BLOOD SPECIMENOrdering Facility: [facility] Address: [address] [place] [address] Performed By: #### 2 4323-8 ####[facility] LABORATORYCLIA [id number] [address] Creatinine and Glomerular filtration rate.predicted panel (S/P/Bld) 77 mL/min/1.73m??? Normal >=60 [facility] Comment on above: Order Comment: Speci men Type: BLOOD SPECIMENOrdering Facility: [facility] Address: [address] [place] [address] Result Comment: Yamila mated Glomerular Filtration Rate [...] actual GFR. Performed By: #### 2 4323-8 ####[facility] LABORATORYCLIA [id number] [address] STATES [facility] Glucose [Mass/Vol] 85 mg/dL Normal 74-99 [facility] Comment on above: Order Comment: Speci men Type: BLOOD SPECIMENOrdering Facility: [facility] Address: [address] [place], [place] [id number] Result Comment: The [place] [employer] (ADA) provides guidance for cutoff [...] Standards of Medical Care in Diabetes 2016, [place] [employer]. Diabetes Care. 2016.39(Suppl 1). Performed By: #### 2 4323-8 ####[facility] LABORATORYCLIA [id number] [place] [address] [place] Potassium [Moles/Vol] 4.6 mmol/L Normal 3.7-5.1 [facility] Comment on above: Order Comment: Chidi men Type: BLOOD SPECIMENOrdering Facility: [facility] Address: [address] [place] [address] Performed By: #### 2 4323-8 ####[facility] LABORATORYCLIA [id number] [place] [address] [place] Protein [Mass/Vol] 7.1 g/dL Normal 6.3-8.0 [facility] Comment on above: Order Comment: Speci men Type: BLOOD SPECIMENOrdering Facility: [facility] Address: [address] [place] [address] Performed By: #### 2 4323-8 ####[facility] LABORATORYCLIA [id number] [place] [address] [place] Sodium [Moles/Vol] 140 mmol/L Normal 136-144 [facility] Comment on above: Order Comment: Speci men Type: BLOOD SPECIMENOrdering Facility: [facility] Address: [address] [place] [place] [id number] Performed By: #### 2 4323-8 ####[facility] LABORATORYCLIA [id number] [place] [address] [place] Urea nitrogen [Mass/Vol] 22 mg/dL Normal 9-24 [facility] Comment on above: Order Comment: Speci men Type: BLOOD SPECIMENOrdering Facility: [facility] Address: [address] [place] [address] Performed By: #### 2 4323-8 ####[facility] LABORATORYCLIA [id number] [place] [address] [place] ECG COMPLETEon 03-04-2025 ECG COMPLETE Ventricular Rate : 8 0 BPM Atrial Rate : 80 BPM P-R Interval : 186 ms QRS Duration : 82 ms Q-T Interval : 368 ms QTC Calculation(Bazett) : 424 ms Calculated P [place] : 36 degrees Calculated R [place] : 7 degrees Calculated T [place] : 36 degrees NORMAL SINUS RHYTHM POSSIBLE INFERIOR INFARCT , AGE UNDETERMINED ABNORMAL ECG NO PREVIOUS ECGS AVAILABLE Confirmed by MARCELLA ANDRADE MD ([id number]) on 03/06/2025 10:23:45 PM NAME : ZACHERY WEST PID : [id number] : 1955 Gender : Male Race : Unknown ORD : [id number] Procedure Date : Mar 04 2025 14:25:32 Edit Date : Mar 06 2025 22:23:50 Diagnosis: NORMAL SINUS RHYTHM POSSIBLE INFERIOR INFARCT , AGE UNDETERMINED ABNORMAL ECG NO PREVIOUS ECGS AVAILABLE Confirmed by MARCELLA ANDRADE MD ([id number]) on 03/06/2025 10:23:45 PM Test Reason : HCS Location : 11 : -11 Overread By : MARCELLA ANDRADE MD Edited By : MARCELLA ANDRADE MD Referred By : KIM JUNG Acquired by : MARIE MENDEZ [facility] HISTORY PHYSICALon HISTORY PHYSICAL HNO ID: [id number] Author: MARIE MENDZE APRN.[employer] ARCHITECT Service: ? Author Type: Nurse Practitioner Type: [...] and fever. Neurological: See HPI. 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 Negative for: headaches, seizures and strokes. [...] of Ons (more content not included)... Normal [facility] NURSING PROGon 03-04-2025 NURSING PROG HNO ID: [id number] Author: MARIE MENDEZ APRN.[employer] ARCHITECT Service: General Surgery Author Type: Nurse Practitioner Type: Nursing Progress Note Filed: 03/04/2025 15:06 Note Text: COO please get a confirmed EKG and if [...] Surgery scheduled for March 08, 2025 Normal [facility] PT panel Coag (PPP)on 2024 INR Coag (PPP) [Relative time] 1.1 {INR} Normal 0.9-1.3 [facility] Comment on above: Order Comment: Speci men Type: BLOOD SPECIMENOrdering Facility: [facility] Address: [address] [place] [address] Result Comment: Greer min K Antagonist (VKA) Therapeutic Range: INR 2 to 3 (Target INR of 2.5) Note: For patients treated with VKA drugs, such as warfarin, the [place] [employer] 2012 Guideline recommends [...] 2012, 141:7S-47S Maria Teresa RA et al. [facility] 2017, 70: 252-289 Performed By: #### 1 4979-9, 84385-4 ####[facility] LABORATORYCLIA [id number] [place], [place] [address] [place] [address] [place] PT Coag (PPP) [Time] 11.5 s Normal 9.7-13.0 [facility] Comment on above: Order Comment: Speci men Type: BLOOD SPECIMENOrdering Facility: [facility] Address: [address] [place] [address] Performed By: #### 1 4979-9, 36022-4 ####[facility] LABORATORYCLIA [id number] [place] [address] [place] STAPHYLOCOCCUS AUREUS AND MR SA SCREEN, PCR, NASALon 03-04-2025 S. aureus and MRSA panel JAMAAL+probe (Nose) Methicillin-SUSCEPTIBLE Staphylococcus aureus Detected Abnormal Not Detected [facility] Comment on above: Order Comment: Speci men Type: SWABOrdering Facility: [facility] Address: [address] [place] [address] Performed By: #### S APCR ####[facility] LABORATORYCLIA [id number] [place] [id number] [place] TYPE AND SCREEN,30 DAYon ABO A Normal [facility] Comment on above: Order Comment: Speci men Type: BLOOD SPECIMENOrdering Facility: [facility] Address: [address] [place] [address] Performed By: #### T SCR30 ####[facility] BLOOD BANKCLIA [id number] [address] [place] Rh Nom (Bld) Negative Normal [facility] Comment on above: Order Comment: Speci men Type: BLOOD SPECIMENOrdering Facility: [facility] Address: [address] [place] [address] Performed By: #### T SCR30 ####[facility] BLOOD BANKCLIA [id number] [address] [place] Urinalysis complete panel (U )on 03-04-2025 Bilirubin Ql (U) Negative Normal Negative [facility] Comment on above: Order Comment: Speci men Type: URINE SPECIMENOrdering Facility: [facility] Address: [address] [place] [address] Performed By: #### 2 4356-8 ####[facility] LABORATORYCLIA [id number] [address] [place] Clarity (Unsp spec) Clear Normal Clear [facility] Comment on above: Order Comment: Speci men Type: URINE SPECIMENOrdering Facility: [facility] Address: [address] [place] [address] Performed By: #### 2 4356-8 ####[facility] LABORATORYCLIA [id number] [address] STATES OF [facility] Color (U) Light Yellow Normal yellow [facility] Comment on above: Order Comment: Speci men Type: URINE SPECIMENOrdering Facility: [facility] Address: [address] [place] [address] Performed By: #### 2 4356-8 ####[facility] LABORATORYCLIA [id number] [address] [place] Glucose Test strip (U) [Mass/Vol] Negative Normal Trace, Negative [facility] Comment on above: Order Comment: Speci men Type: URINE SPECIMENOrdering Facility: [facility] Address: [address] [place] [address] Performed By: #### 2 4356-8 ####[facility] LABORATORYCLIA [id number] [address] [place] Hemoglobin Ql (U) Negative Normal Negative, Trace [facility] Comment on above: Order Comment: Speci men Type: URINE SPECIMENOrdering Facility: [facility] Address: [facility] [place] [address] Performed By: #### 2 4356-8 ####[facility] LABORATORYCLIA [id number] [address] Ketones Ql (U) 1+ Abnormal Negative, Trace [facility] Comment on above: Order Comment: Speci men Type: URINE SPECIMENOrdering Facility: [facility] Address: [address] [place] [address] Performed By: #### 2 4356-8 ####[facility] LABORATORYCLIA [id number] [address] Leukocyte esterase Test strip Ql (U) Negative Normal Negative, 25 Matilde/uL [facility] Comment on above: Order Comment: Speci men Type: URINE SPECIMENOrdering Facility: [facility] Address: [facility] [place] [address] Performed By: #### 2 4356-8 ####[facility] LABORATORYCLIA [id number] [address] [place] Nitrite Ql (U) Negative Normal Negative [facility] Comment on above: Order Comment: Speci men Type: URINE SPECIMENOrdering Facility: [facility] Address: [address] [place] [address] Performed By: #### 2 4356-8 ####[facility] LABORATORYCLIA [id number] [address] pH (U) 6.5 [pH] Normal 5.0-8.0 [facility] Comment on above: Order Comment: Speci men Type: URINE SPECIMENOrdering Facility: [facility] Address: [address] [place] [address] Performed By: #### 2 4356-8 ####[facility] LABORATORYCLIA [id number] [address] Protein (U) [Mass/Vol] Negative Normal Trace, Negative [facility] Comment on above: Order Comment: Speci men Type: URINE SPECIMENOrdering Facility: [facility] Address: [address] [place] [address] Performed By: #### 2 4356-8 ####[facility] LABORATORYCLIA [id number] [address] RBC LM.HPF (Urine sed) [#/Area] 0-3 /HPF Normal 0-3 /HPF [facility] Comment on above: Order Comment: Speci men Type: URINE SPECIMENOrdering Facility: [facility] Address: [address] [place] [address] Performed By: #### 2 4356-8 ####[facility] LABORATORYCLIA [id number] [address] Specific gravity (U) [Rel density] 1.021 Normal 1.005-1.030 [facility] Comment on above: Order Comment: Speci men Type: URINE SPECIMENOrdering Facility: [facility] Address: [address] [place] [address] Performed By: #### 2 4356-8 ####[facility] LABORATORYCLIA [id number] [address] Urobilinogen Ql (U) Normal Normal Normal [facility] Comment on above: Order Comment: Speci men Type: URINE SPECIMENOrdering Facility: [facility] Address: [address] [place] [address] Performed By: #### 2 4356-8 ####[facility] LABORATORYCLIA [id number] [address] WBC LM.HPF (Urine sed) [#/Area] 0-5 /HPF Normal 0-5 /HPF [facility] Comment on above: Order Comment: Speci men Type: URINE SPECIMENOrdering Facility: [facility] Address: [address] [place] [address] Performed By: #### 2 4356-8 ####[facility] LABORATORYCLIA [id number] [address] XR CHEST 2V FRONTAL/LATon XR CHEST [...] tissues: Unremarkable. IMPRESSION: No acute radiographic abnormality. Passenger Service Manager: KENNY Transcribe Date/Time: Mar 06 2025 7:43A Dictated by : KAIA TIRADO MD This examination was interpreted and the report reviewed and electronically signed by: KAIA TIRADO MD on Mar 06 2025 7:43AM EST [id number] Normal [facility] aPTT PPPon 03-04-2025 aPTT Coag (PPP) [Time] 27.1 s Normal 23.0-32.4 [facility] Comment on above: Order Comment: Chidi silvestre Type: BLOOD SPECIMENOrdering Facility: [facility] Address: [address] [place] [address] Performed By: #### 1 4979-9, 99362-6 ####[facility] LABORATORYCLIA [id number] [place] [address] [facility] CNPNon 02-27-2025 CNPN Telephone (NEAGCLM) ZACHERY WEST ([id number]) 1955 M Date Time Provider Department 02/27/25 [...] Encounter Status:Closed by GIULIANA SÁNCHEZ on 02/27/25 [facility] CNOVon 02-25-2025 CNOV Office Visit (NEAGCL M) JOEY WEST ([id number]) 1955 M Date Time Provider Department 02/25/25 [...] Age: [age] year old Sex: male MRN/E# [id number] Last Office Visit: 02/18/2025 CLINICAL SUMMARY: Pituitary mass noted January 2025 - bitemporal vis field defect, worse on the left temporal Dr. [facility] - [facility] SUBJECTIVE: History of Present Illness. 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 Follow-up and Disposition History for Encounter Date Provider Department Center 02/25/2025 [id number], DARIA WATSONLM Farshad Marin Encounter Status:Closed by KIM JUNG on 02/25/25 Normal [facility] CNOVon 02-22-2025 CNOV Office Visit (AGENDP OB) JOYE WEST ([id number]) 1955 M Date Time Provider Department 02/22/25 1:00 PM PIEDAD ROCK During your visit today, we recorded the following information about you: Pulse Blood pressure Weight 86/minute 150/99 85.3 kg Piedad Rock MD 02/25/2025 10:20 AM Signed This note was created using nGameter. Subjective Joey Matt Jenna is a 69 [...] implications of them including short term and [place] [facility] complications and impact on health and survival were discussed with patient. Different and alternative modalities of treatment was discussed. Potential side effects of medication discussed and patient was told not to stop any of the prescribed medication unless recommended by physician. Patient's questions were answered and patient is agreeable with course of action and treatment. 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 Normal [facility] Corticotropin (P) [Mass/Vol] 21.4 pg/mL Normal 7.2-63.3 [facility] Comment on above: Order Comment: Speci men Type: BLOOD SPECIMEN [facility] Address: [address] [place] [address] Result Comment: ACTH Reference Range: 7-10 am: 7.2 - 63.3 pg/mL Performed By: #### 5 8410-2 #### [facility]TONWALTER BREWSTERTOWClemente MUÑOZ [id number] [address] [place] [address] [place] Comprehensive metabolic 2000 panelon 02-19-2025 Albumin [Mass/Vol] 4.5 g/dL Normal 3.9-4.9 [facility] Comment on above: Order Comment: Speci men Type: BLOOD SPECIMEN [facility] Address: [address] [place] [address] Performed By: #### 2 4323-8 #### [facility] CLIA [id number] [address] [place] [address] [place] ALP [Catalytic activity/Vol] 57 U/L Normal 38-113 [facility] Comment on above: Order Comment: Speci men Type: BLOOD SPECIMEN [facility] Address: [address] [place] [address] Performed By: #### 2 4323-8 #### [facility] CLIA [id number] [place] [address] [place] ALT [Catalytic activity/Vol] 24 U/L Normal 10-54 [facility] Comment on above: Order Comment: Speci men Type: BLOOD SPECIMEN Ordering Facility: [facility] Address: [address] [place] [address] Performed By: #### 2 4323-8 #### [facility] CLIA [id number] [address] [place] [address] [place] Anion gap [Moles/Vol] 9 mmol/L Normal 8-15 [facility] Comment on above: Order Comment: Speci men Type: BLOOD SPECIMEN Ordering Facility: [facility] Address: [address] [place] [address] Performed By: #### 2 4323-8 #### [facility] CLIA [id number] [address] [place] [address] [place] AST [Catalytic activity/Vol] 24 U/L Normal 14-40 [facility] Comment on above: Order Comment: Speci men Type: BLOOD SPECIMEN Ordering Facility: [facility] Address: [address] [place] [address] Performed By: #### 2 4323-8 #### [facility] CLIA [id number] [address] [place] [address] [place] Bilirubin [Mass/Vol] 1.0 mg/dL Normal 0.2-1.3 [facility] Comment on above: Order Comment: Speci men Type: BLOOD SPECIMEN Ordering Facility: [facility] Address: [address] [place] [address] Performed By: #### 2 4323-8 #### [facility] CLIA [id number] [address] [place] [address] [place] Calcium [Mass/Vol] 9.6 mg/dL Normal 8.5-10.2 [facility] Comment on above: Order Comment: Speci men Type: BLOOD SPECIMEN Ordering Facility: [facility] Address: [address] [place] [address] Performed By: #### 2 4323-8 #### [facility] CLIA [id number] [address] [place] [address] [place] Chloride [Moles/Vol] 98 mmol/L Normal 98-107 [facility] Comment on above: Order Comment: Speci men Type: BLOOD SPECIMEN Ordering Facility: [facility] Address: [address] [place] [address] Performed By: #### 2 4323-8 #### [facility] CLIA [id number] [address] [place] [address] [place] CO2 [Moles/Vol] 28 mmol/L Normal 22-30 [facility] Comment on above: Order Comment: Speci men Type: BLOOD SPECIMEN Ordering Facility: [facility] Address: [address] [place] [address] Performed By: #### 2 4323-8 #### [facility] CLIA [id number] [address] [place] [address] [place] Creatinine [Mass/Vol] 1.02 mg/dL Normal 0.73-1.22 [facility] Comment on above: Order Comment: Chidi silvestre Type: BLOOD SPECIMEN Ordering Facility: [facility] Address: [address] [place] [address] Performed By: #### 2 4323-8 #### [id number] [address] [place] [address] [place] Creatinine and Glomerular filtration rate.predicted panel (S/P/Bld) 79 mL/min/1.73m??? Normal >=60 [facility] Comment on above: Order Comment: Chidi silvestre Type: BLOOD SPECIMEN Ordering Facility: [facility] Address: [address] [place] [address] Result Comment: Yamila mated Glomerular Filtration Rate [...] GFR. Performed By: #### 2 4323-8 #### [facility] [id number] [address] [place] [address] [place] Glucose [Mass/Vol] 108 mg/dL High 74-99 [facility] Comment on above: Order Comment: Chidi silvestre Type: BLOOD SPECIMEN Ordering Facility: [facility] Address: [address] [id number] Result Comment: The [place] [employer] (ADA) provides guidance for cutoff [...] Standards of Medical Care in Diabetes 2016, [place] [employer]. Diabetes Care. 2016.39(Suppl 1). Performed By: #### 2 4323-8 #### [facility] CLIA [id number] [address] [place] [address] [place] Potassium [Moles/Vol] 4.5 mmol/L Normal 3.7-5.1 [facility] Comment on above: Order Comment: Speci men Type: BLOOD SPECIMEN Ordering Facility: [facility] Address: [address] [place] [address] Performed By: #### 2 4323-8 #### [facility] [id number] [address] [place] [address] [place] Protein [Mass/Vol] 7.7 g/dL Normal 6.3-8.0 [facility] Comment on above: Order Comment: Speci men Type: BLOOD SPECIMEN Ordering Facility: [facility] Address: [address] [place] [address] Performed By: #### 2 4323-8 #### [facility] [id number] [address] [place] [address] [place] Sodium [Moles/Vol] 135 mmol/L Low 136-144 [facility] Comment on above: Order Comment: Speci men Type: BLOOD SPECIMEN Ordering Facility: [facility] Address: [address] [place] [address] Performed By: #### 2 4323-8 #### [facility] [id number] [address] [place] [address] [place] Urea nitrogen [Mass/Vol] 17 mg/dL Normal 9-24 [facility] Comment on above: Order Comment: Speci men Type: BLOOD SPECIMEN Ordering Facility: [facility] Address: [address] [place] [address] Performed By: #### 2 4323-8 #### [facility] CLIA [id number] [address] [place] [address] [place] Cortis SerPl-mCncon 02-20-20 25 Cortisol [Mass/Vol] 13.4 ug/dL Normal 4.8-19.5 [facility] Comment on above: Order Comment: Speci men Type: BLOOD SPECIMEN Ordering Facility: [facility] Address: [address] [place] [address] Result Comment: Prov ided reference range is from 6-10 AM sample collection time. Cortisol Reference Range: 6-10 AM = 4.8-19.5 ug/dL, 4-8 PM = 2.5-11.9 ug/dL Performed By: #### 3 024-7, 2143-6, 3016-3 #### [facility] CLIA [id number] [address] [place] [address] [place] Estradiol SerPl-mCncon 02-19 E2 [Mass/Vol] pg/mL Normal <38 [facility] Comment on above: Order Comment: Speci men Type: BLOOD SPECIMEN Ordering Facility: [facility] Address: [address] [place] [address] Result Comment: This test is not suitable for patients receiving treatment with the drug Fulvestrant (Faslodex). The drug causes an interference leading to falsely elevated estradiol results. Performed By: #### 2 243-4, 20453-8, 2842-3, 90759-4 #### [facility] CLIA [id number] [address] [place] [address] [place] FSH SerPl-aCncon 02-19-2025 Follitropin Qn 11.8 m[IU]/mL Normal 1.5-12.4 [facility] Comment on above: Order Comment: Speci men Type: BLOOD SPECIMEN Ordering Facility: [facility] Address: [address] [place] [address] Performed By: #### 5 8410-2 #### [facility] CLIA [id number] [address] [place] [address] [place] INSULIN LIK GR FAC Ion 02-19 INSULIN LIK GR FAC 1 81 ng/mL Normal 27-246 [facility] Comment on above: Order Comment: Speci men Type: BLOOD SPECIMEN Ordering Facility: [facility] Address: [address] [place] [address] Performed By: #### I LGF1 #### [facility] CLIA [id number] [address] [place] [address] [place] LH SerPl-aCncon 02-19-2025 Lutropin Qn 4.5 m[IU]/mL Normal 1.8-10.8 [facility] Comment on above: Order Comment: Speci men Type: BLOOD SPECIMEN Ordering Facility: [facility] Address: [address] [place] [address] Performed By: #### 5 8410-2 #### [facility] [id number] [address] [place] [address] [place] Prolactin SerPl-mCncon 02-19 Prolactin [Mass/Vol] 9.2 ng/mL Normal 4.1-25.1 [facility] Comment on above: Order Comment: Speci men Type: BLOOD SPECIMEN Ordering Facility: [facility] Address: [address] [place] [address] Result Comment: Prol actin test is performed using the [employer] Electrochemiluminescence Immunoassay method. Results obtained with different methods or kits cannot be used interchangeably. Performed By: #### 5 8410-2 #### [facility] CLIA [id number] [address] [place] [address] [place] T4 Free SerPl-mCncon 025 Free T4 [Mass/Vol] 1.1 ng/dL Normal 0.9-1.7 [facility] Comment on above: Order Comment: Speci men Type: BLOOD SPECIMEN Ordering Facility: [facility] Address: [address] [place] [address] Performed By: #### 3 024-7, 3-6, 3016-3 #### [facility] CLIA [id number] [address] [place] [address] [place] TSH SerPl-aCncon 02-19-2025 TSH Qn 3.620 m[IU]/L Normal 0.270-4.200 [facility] Comment on above: Order Comment: Speci men Type: BLOOD SPECIMEN Ordering Facility: [facility] Address: [address] [place] [address] Performed By: #### 3 024-7, 3-6, 3016-3 #### [facility] CLIA [id number] [address] [place] [address] [place] CNOVon 02-18-2025 CNOV Office Visit (NEAGCL M) JOEY WEST ([id number]) 1955 M Date Time Provider Department 02/18/25 [...] Age: [age] year old Sex: male MRN/E# [id number] Last Office Visit: 02/13/2025 CLINICAL SUMMARY: Pituitary mass noted January 2025 - bitemporal vis field defect, worse on the left temporal Dr. 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 Rapid alternating movement normal. Gait: Normal [...] - f/up (more content not included)... Normal [facility] JOEY WEST ([id number]) 1955 Date Time Provider Department 02/13/25 KIM JUNG NEAGCLM During your visit today, we recorded the following information about you: Valerie Umana RN 02/13/2025 4:[address] cheema [phone] office to get visual field exam sent to us. Provided them with our fax # to send over. USMAN Shelton Lena, RN 02/18/2025 9:35 AM Signed Called [facility] - let them know we received [...] Date Reviewed: Never Reviewed Reason for Visit: Rehabilitation Assistant - Other [3602] Problem List As Of Date: 02/13/2025 (None) Encounter Status:Closed by VALERIE UMANA on 02/13/25 [facility] Brain W/WO Contraston 2024 Brain W/WO Contrast [facility] Imaging Services [address] [place] [id number] Brain W/WO Contrast MR#: [id number] Acct: [id number] Name: EMILIANOLIDIALISAZACHERYTamar SCHMID Rep #: [id number] : 1955 M 69 From: Nuvia Magana MD PCP: Care Physician,No Primary Status: DEP CLI Study: Brain W/WO Contrast Date of Exam: 01/31/25 Exam# [id number] Ordering Dr: Demario Durham MD ADDENDUM by Dr. Nuvia Magana MD on 02/12/25 at 1302 Contrast: Clariscan 17 mL [facility] 1302 Date cc: Dr. Demario Durham [...] left internal carotid artery encasement. Reading Location: [facility] CC: Dr. Demario Durham MD; No Primary Care Physician Passenger Service Manager: Signed Normal [facility] Magnetic resonance imaging r eportOrdered By: Nuvia Magana on 01-31-2025 Study report [facility] Imaging Services [address] [place], [place] [id number] Brain W/WO Contrast MR#: [id number] Acct: [id number] Name: ZACHERY WEST Rep #: [id number] : 1955 M 69 From: Sallie Magana MD PCP: Care Physician,No Primary Status: REG CLI Study:Brain W/WO Contrast Date of Exam: 01/31/25 Exam# [id number] Ordering Dr: Juan Durham MD PROCEDURE: BRAIN [...] Durham MD; No Primary Care Physician ~ Passenger Service Manager: Signed [facility] Vital Signs Date Time Vital Sign Value Performing Clinician Faci sonia 05-21-2025 12:55-0400 Body height 177.8 cm Kim Jung MD Work Phone: [facility] 05-21-2025 12:55-0400 Body mass index (BMI) [Ratio] 25.83 kg/m2 Kim Jung MD Work Phone: [facility] 05-21-2025 12:55-0400 Body weight 81.65 kg Kim Jung MD Work Phone: [facility] 05-21-2025 12:55-0400 Diastolic blood pressure 85 mm[Hg] Kim Jung MD Work Phone: [facility] 05-21-2025 12:55-0400 Heart rate 81 /min Kim Jung MD Work Phone: [facility] 05-21-2025 12:55-0400 SaO2% (BldA) [Mass fraction] 99 % Kim Jung MD Work Phone: [facility] 05-21-2025 12:55-0400 Systolic blood pressure 136 mm[Hg] Kmi Jung MD Work Phone: [facility] 03-21-2025 10:08-0400 Diastolic blood pressure 95 mm[Hg] Kim Jung MD Work Phone: [facility] 03-21-2025 10:08-0400 Systolic blood pressure 143 mm[Hg] Kim Jung MD Work Phone: [facility] 03-21-2025 09:17-0400 Body height 177.8 cm Kim Jung MD Work Phone: [facility] 03-21-2025 09:17-0400 Body mass index (BMI) [Ratio] 25.75 kg/m2 Kim Jung MD Work Phone: [facility] 03-21-2025 09:17-0400 Body weight 81.4 kg Kim Jung MD Work Phone: [facility] 03-21-2025 09:17-0400 Heart rate 84 /min Kim Jung MD Work Phone: [facility] 03-21-2025 09:17-0400 Respiratory rate 16 /min Kim Jung MD Work Phone: [facility] 03-21-2025 09:17-0400 SaO2% (BldA) [Mass fraction] 98 % Kim Jung MD Work Phone: [facility] 03-04-2025 14:36-0400 Body height 177.[address] 03-04-2025 14:36-0400 Body mass index (BMI) [Ratio] 26.26 kg/m2 [address] 03-04-2025 14:36-0400 Body temperature 97.5 [degF] [address] 03-04-2025 14:36-0400 Body weight 83.[address] 03-04-2025 14:36-0400 Diastolic blood pressure 77 mm[Hg] [address] 03-04-2025 14:36-0400 Heart rate 75 /min [address] 03-04-2025 14:36-0400 Respiratory rate 16 /min [address] 03-04-2025 14:36-0400 SaO2% (BldA) [Mass fraction] 97 % [address] 03-04-2025 14:36-0400 Systolic blood pressure 145 mm[Hg] [address] 02-25-2025 13:14-0400 Body mass index (BMI) [Ratio] 26.86 kg/m2 Kim Jung MD Work Phone: [facility] 02-25-2025 13:14-0400 Body weight 84.9 kg Kim Jung MD Work Phone: [facility] 02-25-2025 13:14-0400 Diastolic blood pressure 83 mm[Hg] Kim Jung MD Work Phone: [facility] 02-25-2025 13:14-0400 Heart rate 84 /min Kim Jung MD Work Phone: [facility] 02-25-2025 13:14-0400 Respiratory rate 16 /min Kim Jung MD Work Phone: [facility] 02-25-2025 13:14-0400 SaO2% (BldA) [Mass fraction] 96 % Kim Jung MD Work Phone: [facility] 02-25-2025 13:14-0400 Systolic blood pressure 125 mm[Hg] Kim Jung MD Work Phone: [facility] 02-22-2025 12:58-0400 Body mass index (BMI) [Ratio] 26.98 kg/m2 Piedad Rock MD Work Phone: [facility] 02-22-2025 12:58-0400 Body weight 85.28 kg Piedad Rock MD Work Phone: [facility] 02-22-2025 12:58-0400 Diastolic blood pressure 99 mm[Hg] Piedad Rock MD Work Phone: [facility] 02-22-2025 12:58-0400 Heart rate 86 /min Piedad Rock MD Work Phone: [facility] 02-22-2025 12:58-0400 Systolic blood pressure 150 mm[Hg] Piedad Rock MD Work Phone: [facility] Encounters Encounter Date Encounter Type Care Provider Facility Start: 06-21-2025 End: 06-21-[address] MARIANNE SCRUGGS DO Facility:[facility] Start: 06-21-2025 End: 06-21-[address] MARIANNE SCRUGGS DO [facility] Start: 05-22-2025 End: 05-22-2025 ambulatory KIM JUNG Facility:[facility] Start: 05-21-2025 End: 05-21-2025 Postop follow up visit related to original px Kim Jung MD Work Phone: [facility] Comment on above: Pituitary adenoma (H CC) (Primary Dx); Post-op pain; Other intraoperative complications of endocrine system Start: 05-21-2025 End: 05-21-2025 ambulatory KIM SUGGSJuan Facility:[facility] Start: 05-21-2025 End: 05-21-2025 Subsequent hospital visit by physician [facility] SCAN [employer]ED [employer] Comment on above: Acute nonintractable headache, unspecified headache type [R51.9] Start: 05-20-2025 End: 05-20-2025 Telephone encounter Kim Jung MD Work Phone: [facility] Comment on above: Rehabilitation Assistant - O ther Start: 04-03-2025 End: 04-03-2025 ambulatory PIEDAD ROCK Facility:[facility] Start: 04-01-2025 End: 04-03-2025 Telephone encounter Kim Jung MD Work Phone: [facility] Comment on above: Patient Question; Me dication Problem Patient Update; Hilaria ent Question (Medication after surgery); Medication Problem (Cortef) Start: 03-21-2025 End: 03-21-2025 Postop follow up visit related to original px Kim Jung MD Work Phone: [facility] Comment on above: Pituitary mass (HCC) (Primary Dx); Acute nonintractable headache, unspecified headache type; Other postprocedural endocrine and metabolic complications and disorders Start: 03-21-2025 End: 03-21-2025 ambulatory KIM ALBERTPAPA Facility:[facility] Start: 03-19-2025 End: 03-19-2025 Telephone encounter Kim Jung MD Work Phone: [facility] Comment on above: Rehabilitation Assistant - O ther Start: 03-19-2025 End: 03-19-2025 ambulatory SANJU ONEJEREMY Facility:[facility] Start: 03-08-2025 End: 03-08-2025 Evaluation and management of inpatient Mri [facility] (I-Stat/Lg Bore/3t) [facility] Comment on above: Pituitary mass (HCC) [E23.6] Start: 03-08-2025 End: 03-10-2025 Evaluation and management of inpatient KIM KREDDIEPAPA Facility:[facility] Start: 03-06-2025 End: 03-06-2025 Refill Kim Jung MD Work Phone: [facility] Comment on above: Refill Request Preparations For Angelika praveena Start: 03-04-2025 End: 03-04-2025 Subsequent hospital visit by physician [facility] Comment on above: Pituitary mass (HCC) [E23.6] Start: 03-04-2025 End: 03-04-2025 Admission to establishment [facility] 2 Pre Surgical Testing Start: 03-04-2025 End: 03-04-2025 Patient encounter status [address] Start: 03-04-2025 End: 03-04-2025 ambulatory KIM ALBERTONU Pre Surgical Testing Comment on above: Preop examination (P rimary Dx); Pituitary mass (HCC); Pre-op testing Start: 03-04-2025 Encounter for other preprocedural examination [facility] Start: 03-04-2025 End: 03-04-2025 Preprocedural examination done Pst [address] [place] [address] Work Phone: Start: 03-04-2025 Encounter for other preprocedural examination [facility] Start: 02-27-2025 End: 02-27-2025 Orders Only Kim Jung MD Work Phone: [facility] Comment on above: Pituitary mass (HCC) (Primary Dx) Preparations For Angelika praveena Start: 02-25-2025 End: 02-25-2025 Office outpatient visit 25 minutes Kim Jung MD Work Phone: [facility] Comment on above: Pituitary mass (HCC) (Primary Dx) Start: 02-25-2025 End: 02-25-2025 ambulatory KIM ALBERTOARTIROSENDO Facility:[facility] Start: 02-22-2025 End: 02-22-2025 Patient encounter procedure Piedad Rock MD Work Phone: [facility] Comment on above: Pituitary mass (HCC) (Primary Dx); Impaired fasting glucose Start: 02-22-2025 End: 02-22-2025 ambulatory PIEDAD CILTEA [facility] Start: 02-19-2025 End: 02-19-2025 ambulatory KIM JUNG Facility:[facility] Start: 02-18-2025 End: 02-18-2025 ambulatory KIM JUNG Facility:[facility] Start: 01-31-2025 End: 01-31-[address] Demario Durham MD Work Phone: [facility] Work Phone: Start: 01-31-2025 End: 01-31-[address] Demario Durham MD -MRI - [facility] Work Phone: Start: 01-31-2025 End: 01-31-2025 ambulatory Demario Durham Facility:[facility] Procedures Date Procedure Procedure Detail Performing Clinician Start: 05-21-2025 Ct head/brain w/o contrast material Kim Jung MD Work Phone: Start: 03-08-2025 H/O: surgery S/P transsphen oidal hypophysectomy Mri Bore/3t) Start: 03-08-2025 Mri brain brain stem w/o w/contrast material Kim Jung MD Work Phone: Start: 03-04-2025 Antibody screen KIM HORTA Comment on above: Order Comment: Speci men Type: BLOOD SPECIMENOrdering Facility: [facility] Address: [address] [place] [address] Result Comment: done on the bench both visions down Performed By: #### T SCR30 ####[facility] BLOOD BANKCLIA [id number] [place] [address] [place] Start: 01-31-2025 MRI of brain with contrast Dr. Demario Durham MD Work Phone: Start: 10-24-2024 Benign neoplasm of pituitary gland (disorder) DR MARIANNE SCRUGGS DO Plan of Treatment Date Care Activity Detail Author Start: 2029 RSV Vaccine (1 - 1-d ose 75+ series) RSV Vaccine (1 - 1-dose 75+ series) [facility] Start: 05-22-2028 Diabetes Screening Diabetes Screenin g [facility] Start: 03-19-2028 Diabetes Screening Diabetes Screenin g [facility] Start: 03-09-2028 Diabetes Screening Diabetes Screenin g [facility] Start: 03-04-2028 Diabetes Screening Diabetes Screenin g [facility] Start: 02-20-2028 Diabetes Screening Diabetes Screenin g [facility] Start: 09-26-2025 End: 09-26-2025 Patient encounter procedure 09/26/2025 10:00 AM EST Office Visit [facility] [address] [place] [id number] Kim Jung MD [address] [place] [address] 6 month follow up [facility] Comment on above: 6 month follow up Start: 09-20-2025 End: 09-20-2025 Patient encounter procedure 09/20/2025 9:30 AM EST Appointment Radiology [address] [place] [address] MRI PITUITARY WO/W IVCON Radiology Comment on above: MRI PITUITARY WO/W I VCON Start: 08-27-2025 End: 08-27-2025 Patient encounter procedure 08/27/2025 11:30 AM EST Office Visit [facility] [address] [place], [place] [id number] Piedad Rock MD [address] [place], [place] [id number] 6 mnths follow up pituitary mass [facility] Comment on above: 6 mnths follow up pi tuitary mass Start: 06-24-2025 Influenza vaccination [facility] Start: 05-22-2025 End: 05-22-2025 ambulatory 05/22/2025 11:15 AM EDT Results Only Pedrito Caba [facility] [address] [place] [address] Pedrito Gertrudis [facility] Start: 05-21-2025 End: 05-21-2025 Patient encounter procedure RADIO CT SCAN [employer] Comment on above: CT BRAIN WO IVCON CT follow up Start: 04-03-2025 End: 07-03-2025 Osmolality of Serum or Plasma [facility] Work Phone: Comment on above: Expected: 04/03/2025 , Expires: 07/03/2025 Start: 04-03-2025 End: 07-03-2025 Osmolality of Urine [facility] Comment on above: Expected: 04/03/2025 , Expires: 07/03/2025 Start: 04-03-2025 End: 07-03-2025 Thyroxine (T4) free [Mass/volume] in Serum or Plasma [facility] Comment on above: Expected: 04/03/2025 , Expires: 07/03/2025 Start: 03-21-2025 End: 03-21-2025 Patient encounter procedure 03/21/2025 9:30 AM EDT Office Visit [facility] [address] [facility] [address] [facility] [id number] Kim Jung MD [address] [place] [address] 2 week post op [facility] Comment on above: 2 week post op Start: 03-08-2025 End: 03-08-2025 Admission to same day surgery center 03/08/2025 8:00 AM EDT - 03/08/2025 12:45 PM EDT Surgery [place] SUR[place]ERY OR 1 [facility] [place] [place] [address] Kim Jung MD [address] [place] [address] NEUROENDOSCOPY INTRACRANIAL W/ EXCISION OF PITUITARY TUMOR [...] EDT Hospital Encounter [place] SUR[place] [place] 1 [place] [address] Kim Jung MD [address] [facility] [place] [address] Pituitary mass (HCC) [E23.6] [place] [facility] Comment on above: Pituitary mass (HCC) [E23.6] Start: 03-04-2025 End: 03-04-2025 ambulatory 03/04/2025 2:20 PM EDT PAT Pre Surgical Testing [address] [place] [address] sx 03/08 Pre Surgical Testing Comment on above: sx 03/08 Start: 10-24-2024 Advance Directive Discussion Advance Directive Discussion [facility] Start: 06-24-2024 Covid-19 Vaccine ( season) Covid-19 Vaccine ( season) [facility] Start: 08-24-2019 Medicare Annual Well ness Visit Medicare Annual Wellness Visit [facility] Start: 2014 RSV Vaccine (1 - Ris k 60-74 years 1-dose series) RSV Vaccine (1 - Risk 60-74 years 1-dose series) [facility] Start: 2004 Pneumococcal Vaccine : 50+ (1 of 1 - PCV) Pneumococcal Vaccine: 50+ (1 of 1 - PCV) [facility] Start: 2004 Shingrix Vaccine (1 of 2) Shingrix Vaccine (1 of 2) [facility] Start: 1999 Screening for malign ant neoplasm of colon [facility] Start: 1989 Lipid panel Lipid Screening [facility] Start: 1973 Urine microalbumin profile DTaP,Tdap,Td Vaccine (1 - Tdap) [facility] Start: 1972 Anxiety Screening Anxiety Screening [facility] Start: 1972 Depression Screening Depression Scre ening [facility] Start: 1972 Hepatitis C screening Hepatitis C Sc [facility] End: 06-19-2026 CT Head WO contrast CT BRAIN WO IVCON Radiology Routine Acute nonintractable headache, unspecified headache type Pituitary mass (HCC) 1 Occurrences starting 05/20/2025 until 06/19/2026 [facility] Work Phone: Comment on above: 1 Occurrences starti ng 05/20/2025 until 06/19/2026 MR Brain WO and W contrast IV MRI BRAIN WO/W IVCON Radiology Routine Pituitary mass (HCC) 03/08/2025 7:42 AM EDT [facility] Work Phone: End: 04-20-2026 MR Pituitary and Sella turcica WO and W contrast IV MRI PITUITARY WO/W IVCON Radiology Routine Other postprocedural endocrine and metabolic complications and disorders 1 Occurrences starting 03/21/2025 until 04/20/2026 [facility] Work Phone: Comment on above: 1 Occurrences starti ng 03/21/2025 until 04/20/2026 End: 03-04-2025 XR Chest PA and Lateral [facility] Work Phone: Comment on above: 1 Occurrences starti ng 03/04/2025 until 03/04/2025 Payers Date Payer Category Payer Self-pay 2023 Private Health Insurance [id number] 2023 Unknown [id number] 2019 Medicare [id number] 2019 Medicare [id number] 1955 Unknown [id number] Unknown [employer] [id number] Unknown [id number] Social History Date Type Detail Facility [facility] Work Phone: Start: 04-18-2019 End: 02-02-2025 Sex Male (finding) [facility] Start: 1955 Sex Assigned At Male [facility] Start: 02-18-2025 Tobacco [facility] Never smoked tobacco [facility] Start: 02-18-2025 Tobacco use and exposure Smoke less tobacco non-user [facility] Start: 02-22-2025 End: 05-21-2025 Alcoholic beverage intake Current drinker of alcohol (finding) [facility] Start: 02-25-2025 End: 03-04-2025 History of Social function [facility] Start: 02-25-2025 End: 03-04-2025 Tobacco use panel [facility] National Score (1-10 0), lower number is lower risk 57 [facility] Start: 1955 Sex assigned at Not on file [facility] Start: 02-28-2025 Alcohol Comment [facility] Start: 06-19-2025 Tobacco smoking status Ex-smoker (fi nding) [facility] Sexual Orientation [facility] Procedure Code Equipment Code Equipment Origin al Text Equipment Identifier Dates Graft Duragen Pl us Bovine Collagen Matrix 2x2in Soft Tissue Patch - [id number] Start: 03-08-2025 Functional Status Date Assessment Result Facility 03-10-2025 Are you deaf, or do you have serious difficulty hearing No 03/10/2025 1:24 PM EDT Olivia Suarez RN No [facility] 03-10-2025 Are you blind, or do you have serious difficulty seeing, even when wearing glasses No 03/10/2025 1:24 PM EDOlivia Mckenzie RN No [facility] 03-10-2025 Do you have serious difficulty walking or climbing stairs No 03/10/2025 1:24 PM EDOlivia Mckenzie RN No [facility] 03-10-2025 Do you have difficul ty dressing or bathing No 03/10/2025 1:24 PM EDT Olivia Suarez RN No [facility] 03-10-2025 Because of a physica l, mental, or emotional condition, do you have difficulty doing errands alone such as visiting a physician's office or shopping No 03/10/2025 1:24 PM EDOlivia Mckenzie RN [facility] 02-19-2025 IGF-I Z-score SerPl -1.[address] [facility] Comment on above: Order Comment: Speci men Type: BLOOD SPECIMEN Ordering Facility: [facility] Address: [address] [place] [address] Performed By: #### I LGF1 #### [facility] CLIA [id number] [address] [place] [address] [place] Mental Status Date Assessment Result Facility 03-10-2025 Because of a physica l, mental, or emotional condition, do you have serious difficulty concentrating, remembering, or making decisions No 03/10/2025 1:24 PM EDOlivia Mckenzie RN No [facility] Clinical Notes 02-18-2025 to 06-19-2025 Kim Cabral MD - 05/21/2025 12:45 PM EDTBSusan shin, RT(R) - 05/21/2025 12:30 PM EDTTelephone Encounter - Valerie Umana RN - 05/20/2025 3:42 PM EDTPatient Instructions Note Date & Type Note Facility 06-19-2025 Evaluation + Plan note Future Scheduled TestsUrinalysis w/ C&S if Indicated 06/19/25 [facility] 05-21-2025 History of Presen t illness Narrative Images from the original note were not included. 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 05-21-2025 Note HNO ID: [id number] Author: KIM JUNG MD Service: ? 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 [facility] 05-21-2025 History of Presen t illness [...] PATIENT PRESENTS WITH AN IMPLANTABLE OR ATTACHED VAULT MANAGER: No RADIOLOGY DEPARTMENT: CT; Exam(s) Completed: Brain PERIPHERAL IV DATA: Not applicable SIGNED BY: MORGAN Santiago) May 21, 2025 12:40 PM documented in this encounter [facility] 05-21-2025 Note HNO ID: [id number] Author: SUSAN BOLIVAR RT (R) Service: Radiology [...] PATIENT PRESENTS WITH AN IMPLANTABLE OR ATTACHED VAULT MANAGER: No RADIOLOGY DEPARTMENT: CT; Exam(s) Completed: Brain PERIPHERAL IV DATA: Not applicable SIGNED BY: MORGAN Santiago) May 21, 2025 12:40 PM [facility] 05-20-2025 Telephone encounter Note Spoke with [...] call and schedule him. Valerie Umana RN [facility] 05-20-2025 Miscellaneous Notes Spoke with patient [...] Valerie Umana RN documented in this encounter [facility] 04-03-2025 Telephone encounter Note Pt has been informed of Dr Rock's message listed below, pt acknowledged understanding with no questions asked. Thank you Sylwia Murillo April 03, 2025 10:07 AM [facility] 04-03-2025 Miscellaneous Notes Pt has been [...] 2025 10:56 AM documented in this encounter [facility] 04-03-2025 Telephone encounter Note Please tell patient to go to the lab. Ok to stop Cortef. Piedad Rock MD [facility] 04-01-2025 Telephone encounter Note Phoned patient to get some more information. He has been prescribed Cortef 20 mg daily since surgery. It causes constant thirst and severe headache. Patient did not take dose yesterday or today. Please review and advise. Daniel Castellano MA [facility] 04-01-2025 Telephone encounter Note Please call patient as his VM only says that he has a question about his medication that he is to take since having surgery. Irasema Palafox April 01, 2025 10:56 AM [facility] 04-01-2025 Telephone encounter Note Patient called [...] further questions or concerns. Chandra Baker RN [facility] 04-01-2025 Miscellaneous Notes Patient called in [...] Chandra Baker RN documented in this encounter 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 - Patient can continue with deep tissue [...] Instructed patient to schedule an appointment with customer service coordinator Dr. Rock within 2-4 weeks post surgery [...] Kim Jung MD documented in this encounter [facility] 03-21-2025 Note HNO ID: [id number] Author: KIM JUNG MD Service: ? 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 [facility] 03-19-2025 Telephone encounter Note Called patient to remind him to get lab work done, he is scheduled to get this done today. Reminded him that he will also need a post op appt with Dr Lundberg, he stated he has this scheduled as well. They are aware of appt on . Valerie Umana RN [facility] 03-19-2025 Miscellaneous Notes Called patient to remind him to get lab work done, he is scheduled to get this done today. Reminded him that he will also need a post op appt with Dr Lundberg, he stated he has this scheduled as well. They are aware of appt on . Valerie Umana RN documented in this encounter [facility] 03-10-2025 Note HNO ID: [id number] Author: KIM JUNG MD Service: Neurosurgery Author Type: Physician Type: Progress Notes Filed: 03/19/2025 22:11 Note Text: Documentation Query Please clarify the significance of the pathology report I agree with the pathology findings dated 03/08/25 which confirms the clinically significant diagnosis of Pituitary neuroendocrine tumor (please clarify tumor further if able) This document will become part of the patient's medical record. [facility] 03-10-2025 Note HNO ID: [id number] Author: SANJU CASTILLO PA-C Service: Neurosurgery Author Type: Physician Commercial Account Officer Type: Progress Notes Filed: 03/10/2025 12:30 Note Text: Neurosurgery Progress Note SERVICE DATE: 03/10/2025 SUBJECTIVE: Seen with Dr. Jugn, MRI completed today. Patient has no complaints [...] Prophylaxis/Anticoagulants 03/09/25 1800 activity - mobilize patient (nd,va) 03/08/25 1315 vte pharmacologic prophylaxis contraindicated (nd,va) 03/08/25 1315 pneumatic compression sleeve(s) ([place], [place]) Parts of this note may have been copied from one of my previous notes and remain pertinent. The documentation has been reviewed and edited as necessary to support the clinical decision making for today's visit. I spent a total of 20 minutes on the date of the service which included preparing to see the patient, pmsy-io-noip patient care, completing clinical documentation, obtaining and/or reviewing separately obtained history, performing a medically appropriate examination, and counseling and educating the patient/family/caregiver. SIGNATURE: Sanju Castillo PA-C PATIENT NAME: Zachery West DATE: March 10, 2025 TIME: 11:08 AM Pager: [phone] [facility] 03-10-2025 Note HNO ID: [id number] Author: NOTE, INTERFACE, ? Service: ? Author Type: ? Type: Progress Notes Filed: 03/10/2025 02:55 Note Text: Epic Scheduled Downtime: 03/10/2025 1:00:00 AM to 03/10/2025 2:37:00 AM [facility] 03-09-2025 Note HNO ID: [id number] Author: SHIVA LUNDBERG MD Service: Otolaryngology Author [...] days F/U with me in one week [facility] 03-09-2025 Note HNO ID: [id number] Author: SHIVA LUNDBERG MD Service: Otolaryngology Author [...] minimal Complications: none Disposition: PACU Condition: good [facility] 03-09-2025 Note HNO ID: [id number] Author: ALESIA ROBLES APRN.[employer] BPM ARCHITECT Service: Neurosurgery Author Type: Nurse Practitioner Type: [...] 0659 03/09/25 0700 - 03/10/25 0659 Shift 7973-7155 6773-9220 3114-7788 24 Hour Total 4435-5353 9042-5027 1808-5944 24 Hour Total INTAKE PO 300 300 PO 300 300 IV 1900 1900 Volume (mL) (ceFAZolin iv piggyback 2 g in D5W (iso-osmotic) 100 mL (ANCEF)) 100 100 Volume (mL) (lactated ringers iv infusion) 1300 1300 Volume (mL) (NaCl 0.9% iv infusion) 500 500 Shift Total 0365 306 4144 OUTPUT Urine 678 294 3493 2200 525 525 Void (ml) 525 525 OR Urine Output 50 50 Output ([REMOVED] Indwelling Urinary Catheter 03/08/25 0830 Coude 14 Fr 03/09/25 0530) 734 324 8244 2150 Shift Total 238 400 0713 2200 525 525 Weight (kg) MEDICATIONS Current [...] making for today's visit. SIGNATURE: Alesia Robles APRN.[employer] BPM ARCHITECT PATIENT NAME: Zachery West DATE: March 09, 2025 TIME: 9:25 AM Pager: [phone] [facility] 03-09-2025 Note HNO ID: [id number] Author: CLIFTON JAIN MD Service: Neurology ICU [...] Left Radial <1 day Peripheral 03/08/25 0652 [facility] Right Arm 18 Gauge <1 day Peripheral 03/08/25 0826 [facility] Short Left Hand 18 Gauge <1 day [...] left visual field cuts noted at outpatient graphic production artist appointment. MRI brain was obtained which noted [...] Prophylaxis/Anticoagulants 03/08/25 1315 vte pharmacologic prophylaxis contraindicated (nd,oh) 03/08/25 1315 pneumatic compression sleeve(s) (nd,va) VTE Prophylaxis: Contraindicated bleeding risk Plan of [...] been reviewed a (more content not included)... [facility] 03-09-2025 Note HNO ID: [id number] Author: NOTE, INTERFACE, ? Service: ? Author Type: ? Type: Progress Notes Filed: 03/09/2025 03:47 Note Text: Epic Scheduled Downtime: 03/09/2025 1:00:00 AM to 03/09/2025 3:39:00 AM [facility] 03-08-2025 Note HNO ID: [id number] Author: ZENY DELEON PA-C Service: Neurosurgery Author Type: Physician Commercial Account Officer Type: Plan of Care Filed: 03/08/2025 16:10 [...] March 08, 2025 TIME: 4:02 PM Pager: [phone] [facility] 03-08-2025 Note HNO ID: [id number] Author: TODD CLARK DO Service: Anesthesiology Author [...] March 08, 2025 TIME: 9:26 AM CSN: [id number] [facility] 03-08-2025 Note HNO ID: [id number] Author: CARLOS ECHEVERRIA APRN.CRNA Service: Nursing Author Type: Nurse Gear Room Keeper Type: Anesthesia Procedure Notes Filed: 03/08/2025 08:50 Note Text: ANESTHESIOLOGY PROCEDURE NOTE Airway General Information Procedure Start Time/Medication Administration: 03/08/2025 8:23 AM Procedure End Time: 03/08/2025 8:25 AM Patient location during procedure: OR Timeout Performed Pre-procedure: timeout performed Consent Obtained: Yes Patient identity confirmed: arm band Staffing Anesthesiologist: Todd Clark DO TRANSPORTATION MANAGER: Calros Echeverria APRN.TRANSPORTATION MANAGER SRNA: Noah Blackwell SRNA Performed by: anesthesiologist, TRANSPORTATION MANAGER and SRNA Indications and Patient Condition Indications [...] March 08, 2025 TIME: 8:48 AM CSN: [id number] [facility] 03-08-2025 History of Presen t illness [...] PATIENT PRESENTS WITH AN IMPLANTABLE OR ATTACHED VAULT MANAGER: No ALLERGIES: Reviewed and unchanged CONTRAST ALLERGY: NO. EXAM: MRI - CONTRAST TYPE: GROUP II PERIPHERAL IV DATA: Inpatient - refer to LDA documentation RADIOLOGY DEPARTMENT: MR; Exam(s) Completed: Head: Routine Brain. Lavender Administered: No SIGNATURE: MORGAN Scales) PATIENT NAME: Zachery West DATE: March 08, 2025 TIME: 7:51 AM documented in this encounter [facility] 03-08-2025 Note HNO ID: [id number] Author: JERRY JAMIL RT(Jorge) Service: Radiology Author [...] PATIENT PRESENTS WITH AN IMPLANTABLE OR ATTACHED VAULT MANAGER: No ALLERGIES: Reviewed and unchanged CONTRAST ALLERGY: NO. EXAM: MRI - CONTRAST TYPE: GROUP II PERIPHERAL IV DATA: Inpatient - refer to LDA documentation RADIOLOGY DEPARTMENT: MR; Exam(s) Completed: Head: Routine Brain. Lavender Administered: No SIGNATURE: RT Loyda(R) PATIENT NAME: Zachery West DATE: March 08, 2025 TIME: 7:51 AM [facility] 03-06-2025 Telephone encounter Note Contacted patient to remind them of their arrival time for surgery with Dr. Kim Jung on 03/08/25. Patient is to arrive at [facility] at 5:30am for surgery at 8:00am. Spoke with patient and they are aware of all arrival information. [facility] 03-06-2025 Miscellaneous Notes Contacted patient to remind them of their arrival time for surgery with Dr. Kim Jung on 03/08/25. Patient is to arrive at [facility] at 5:30am for surgery at 8:00am. Spoke with patient and they are aware of all arrival information. documented in this encounter [facility] 03-06-2025 Telephone encounter Note Prescription approved, signed and sent to patients pharmacy on file. MARCIANO Vickers Neurosurgery Nurse Practitioner [facility] 8:12 AM 03/06/2025 [facility] 03-06-2025 Miscellaneous Notes Prescription approved, signed and sent to patients pharmacy on file. MARCIANO Vickers Neurosurgery Nurse Practitioner [facility] 8:12 AM 03/06/2025 Called patient, + MSSA [...] of surgery ALLERGIES No Known Allergies (home) [phone] (cell) Last Office Visit Date: 02/25/2025 Last Distance Health Visit: Visit date not found Future Appointment: 03/21/2025 The patients preferred pharmacy has been captured for this encounter? not asked Request is for script(s) to be escript to pharmacy. Valerie Umana RN documented in this encounter [facility] 03-06-2025 Telephone encounter Note Called patient, [...] of surgery ALLERGIES No Known Allergies (home) [phone] (cell) Last Office Visit Date: 02/25/2025 Last Distance Health Visit: Visit date not found Future Appointment: 03/21/2025 The patients preferred pharmacy has been captured for this encounter? not asked Request is for script(s) to be escript to pharmacy. Valerie Umana RN [facility] 03-04-2025 History and physical note Images [...] and fever. Neurological: See HPI. 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 Negative for: headaches, seizures and strokes. [...] or any previous visit (from the past 81894 hours). ARISCAT risk index interpretation 0 to 25 points: Low risk: 1.6% pulmonary complication rate 26 to 44 points: Intermediate risk: 13.3% pulmonary complication rate 45 to 123 points: High risk: 42.1% pulmonary complication rate Implantable Devices: None The Following Tests/Procedures Have Been Initiated: EKG CBC CMP type and screen urinalysis urine culture PT PTT MRSA chest [facility] Assessment/Plan Diagnosis: Pituitary mass (HCC) [...] which included preparing to see the patient, [id number] patient care, completing clinical documentation, obtaining and/or reviewing separately obtained history, performing a medically appropriate examination, and counseling and educating the patient/family/caregiver. Instructions Given to Patient: Instructions located in the after visit summary. Patient given verbal and written preop instructions and voices comprehension and compliance. SIGNATURE: Marie Mendez APRN.CNP PATIENT NAME: Zachery West DATE: March 04, 2025 TIME: 7:09 AM PAGER/CONTACT #: [facility] 03-04-2025 History and physical note Images [...] and fever. Neurological: See HPI. 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 Negative for: headaches, seizures and strokes. [...] or any previous visit (from the past [id number] hours). ARISCAT risk index interpretation 0 to 25 points: Low risk: 1.6% pulmonary complication rate 26 to 44 points: Intermediate risk: 13.3% pulmonary complication rate 45 to 123 points: High risk: 42.1% pulmonary complication rate Implantable Devices: None The Following Tests/Procedures Have Been Initiated: EKG CBC CMP type and screen urinalysis urine culture PT PTT MRSA [facility] Assessment/Plan Diagnosis: Pituitary mass (HCC) [...] which included preparing to see the patient, wntz-va-eaup patient care, completing clinical documentation, obtaining and/or [...] AM PAGER/CONTACT #: documented in this encounter [facility] 03-04-2025 Instructions Marie Mendez APRN.CNP - 03/04/2025 7:09 AM EDT PATIENT PREOPERATIVE INSTRUCTIONS Kim Jung MD has scheduled you for your procedure at this surgery center: [facility]: [phone], [address] [id number] Please read below carefully for your personalized [...] Advance Directive, please fax a copy to [phone] or email to for it to be [...] Advance Directive, please fax a copy to [phone] or [facility] at [phone] or email to for it to be [...] Marie Mendez APRN.CNP documented in this encounter [facility] 02-27-2025 Telephone encounter Note Called and spoke with patient regarding surgery details. All questions addressed. [facility] 02-27-2025 Miscellaneous Notes Called and spoke with patient regarding surgery details. All questions addressed. documented in this encounter [facility] 02-25-2025 History of Presen t illness Narrative Images from the original note were not included. NEUROSURGERY FOLLOW UP OFFICE NOTE Kim Jung MD Date of visit: February 25, 2025 Patient Name: Mr.Ken Matt West Date of : 1955 Current Age: [age] year old Sex: male MRN/E# [id number] Last Office Visit: 02/18/2025 CLINICAL SUMMARY: Pituitary mass noted January 2025 - bitemporal vis field defect, worse on the left temporal [facility] SUBJECTIVE: History of Present Illness. 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 documented in this encounter [facility] 02-25-2025 Note HNO ID: [id number] Author: KIM JUNG MD Service: ? 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 SUBJECTIVE: History of Present Illness. 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 [facility] 02-22-2025 Note HNO ID: [id number] Author: PIEDAD ROCK MD Service: ? Author Type: Physician Type: Progress Notes Filed: 02/25/2025 10:20 Note Text: This note was created using [employer]. Subjective Joey West is a 69 year [...] implications of them including short term and [place] [employer] supervisor complications and impact on health and survival were discussed with patient. Different and alternative modalities of treatment was discussed. Potential side effects of medication discussed and patient was told not to stop any of the prescribed medication unless recommended by physician. Patient's questions were answered and patient is agreeable with course of action and treatment. Piedad Rock MD [facility] 02-22-2025 History of Presen t illness Narrative This note was created using [employer]. Subjective Joey West is a 69 year [...] implications of them including short term and [facility] complications and impact on health and survival were discussed with patient. Different and alternative modalities of treatment was discussed. Potential side effects of medication discussed and patient was told not to stop any of the prescribed medication unless recommended by physician. Patient's questions were answered and patient is agreeable with course of action and treatment. Piedad Rock MD documented in this encounter [facility] 02-18-2025 Note HNO ID: [id number] Author: KIM JUNG MD Service: ? 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 Rapid alternating movement normal. Gait: Normal [...] Future - CORTIS (more content not included)... [facility] Evaluation note No assessment inform ation available [facility] Work Phone: Evaluation note Diagnosis Pituitary mass (HCC)- Primary Unspecified disorder of the pituitary gland and its hypothalamic control Impaired fasting glucose [facility] Pituitary mass (HCC)- Primary Unspecified disorder of the pituitary gland and its hypothalamic control [facility] Pituitary mass (HCC)- Primary Unspecified disorder of the pituitary gland and its hypothalamic control Pituitary mass (HCC) Unspecified disorder of the pituitary gland and its hypothalamic control [facility] Diagnosis Preop examination- Primary Preoperative [...] and plan today. [facility] Preop examination- Primary Preoperative examination, unspecified Pituitary mass (HCC) Unspecified disorder of the pituitary gland and its hypothalamic control Pre-op testing Preoperative examination, unspecified Pituitary mass (HCC) Unspecified disorder of the pituitary gland and its hypothalamic control Pre-op testing Preoperative examination, unspecified Pituitary mass (HCC) Unspecified disorder of the pituitary gland and its hypothalamic control [facility] Diagnosis Preop examination- Primary Preoperative examination, unspecified Pituitary mass (HCC) Unspecified disorder of the pituitary gland and its hypothalamic control Pre-op testing Preoperative examination, unspecified MSSA (methicillin susceptible Staphylococcus aureus)- Primary Methicillin susceptible Staphylococcus aureus in conditions classified elsewhere and of unspecified site Pituitary mass (HCC) Unspecified disorder of the pituitary gland and its hypothalamic control [facility] Diagnosis Pituitary mass (HCC)- [...] its hypothalamic control documented in this encounter [facility] note* Diagnosis Pituitary mass (HCC)- Primary Unspecified [...] complications and disorders documented in this encounter [facility] note* Diagnosis Pituitary mass (HCC)- Primary Unspecified [...] its hypothalamic control [facility] Diagnosis Pituitary mass (HCC)- Primary Unspecified [...] its hypothalamic control documented in this encounter [facility] note* Diagnosis Pituitary mass (HCC)- Primary Unspecified [...] its hypothalamic control documented in this encounter [facility] note* Diagnosis Pituitary mass (HCC)- Primary Unspecified [...] of endocrine system documented in this encounter [facility] course Narrative No data available for this section [facility] Discharge instructions No data available for this section [facility] Progress note No data available for this section [facility] Reason for referral (narrative)No reason for referral [facility] Work Phone: Reason for visit Narrative* Consult, Test, Treat (Routine) - Closed Specialty Diagnoses / Procedures Referred By Kamla aguirre Referred To Contact Endocrinology Diagnoses Pituitary mass (HCC) Procedures CONSULT TO ENDOCRINOLOGY OFFICE/OUTPATIENT [facility] 60 MINUTES Kim Jung MD [address] [place] [address] Phone: tel: fax: Piedad Rock MD [address] [place] [address] Phone: tel: fax: Referral ID Status Reason Start Date Expiration Date V isits Requested Visits Authorized [id number] Closed PCP Requested Referral 02/18/2025 02/18/2026 1 1 [facility] for visit Narrative* Auth/Cert (Routine) Specialty [...] W/ EXCISION OF PITUITARY TUMOR TRANS-SPHENOIDAL APPROACH [facility] OR [address] [place] [address] Referral ID Status Reason Start Date Expiration Date Visits Re quested Visits Authorized [id number] 1 1 [facility] for visit Narrative* MRI/CT (Routine) - Closed Specialty Diagnoses / Procedures Referred By Kamla aguirre Referred To Contact CT IMAGING Diagnoses Acute nonintractable headache, unspecified headache type Pituitary mass (HCC) Procedures CT BRAIN WO IVCON CT HEAD/BRAIN W/O CONTRAST MATERIAL Kim Jung MD [address] [place] [address] Phone: tel: fax: [place] [address] Referral ID Status Reason Start Date Expiration Date V isits Requested Visits Authorized [id number] Closed Auto-Generate d Referral 05/20/2025 06/19/2026 1 1 [facility] Chief Complaint and Reason for Visit [...] Status: Inactive Member Role Status Dates Dr. Deamrio Durham MD Attending Provider Active Start: January [...] section and content) DATE CREATED AUTHOR 02/14/2025 [facility] DATE CREATED AUTHOR AUTHOR'S ORGANIZ ATION 05/24/2025 [facility] DATE CREATED AUTHOR AUTHOR'S ORGANIZ ATION 06/13/2025 [facility] DATE CREATED AUTHOR AUTHOR'S ORGANIZ ATION 06/23/2025 [facility] Source Comments (unrecognize d section and content) In the event this informatio n is protected by the Federal Confidentiality of Alcohol and Drug Abuse Patient Records regulations: The Federal rules restrict any use of the information to criminally investigate or prosecute any alcohol or drug abuse patient.[facility] the event this information is protected by the Federal Confidentiality of Alcohol and Drug Abuse Patient Records regulations: The Federal rules restrict any use of the information to criminally investigate or prosecute any alcohol or drug abuse patient.[facility] the event this information is protected by the Federal Confidentiality of Alcohol and Drug Abuse Patient Records regulations: The Federal rules restrict any use of the information to criminally investigate or prosecute any alcohol or drug abuse patient.[facility] the event this information is protected by the Federal Confidentiality of Alcohol and Drug Abuse Patient Records regulations: The Federal rules restrict any use of the information to criminally investigate or prosecute any alcohol or drug abuse patient.[facility] the event this information is protected by the Federal Confidentiality of Alcohol and Drug Abuse Patient Records regulations: The Federal rules restrict any use of the information to criminally investigate or prosecute any alcohol or drug abuse patient.[facility] the event this information is protected by the Federal Confidentiality of Alcohol and Drug Abuse Patient Records regulations: The Federal rules restrict any use of the information to criminally investigate or prosecute any alcohol or drug abuse patient.[facility] the event this information is protected by the Federal Confidentiality of Alcohol and Drug Abuse Patient Records regulations: The Federal rules restrict any use of the information to criminally investigate or prosecute any alcohol or drug abuse patient.[facility] the event this information is protected by the Federal Confidentiality of Alcohol and Drug Abuse Patient Records regulations: The Federal rules restrict any use of the information to criminally investigate or prosecute any alcohol or drug abuse patient.[facility] the event this information is protected by the Federal Confidentiality of Alcohol and Drug Abuse Patient Records regulations: The Federal rules restrict any use of the information to criminally investigate or prosecute any alcohol or drug abuse patient.[facility] the event this information is protected by the Federal Confidentiality of Alcohol and Drug Abuse Patient Records regulations: The Federal rules restrict any use of the information to criminally investigate or prosecute any alcohol or drug abuse patient.[facility] the event this information is protected by the Federal Confidentiality of Alcohol and Drug Abuse Patient Records regulations: The Federal rules restrict any use of the information to criminally investigate or prosecute any alcohol or drug abuse patient.[facility] the event this information is protected by the Federal Confidentiality of Alcohol and Drug Abuse Patient Records regulations: The Federal rules restrict any use of the information to criminally investigate or prosecute any alcohol or drug abuse patient.[facility] the event this information is protected by the Federal Confidentiality of Alcohol and Drug Abuse Patient Records regulations: The Federal rules restrict any use of the information to criminally investigate or prosecute any alcohol or drug abuse patient.[facility] the event this information is protected by the Federal Confidentiality of Alcohol and Drug Abuse Patient Records regulations: The Federal rules restrict any use of the information to criminally investigate or prosecute any alcohol or drug abuse patient.[facility] the event this information is protected by the Federal Confidentiality of Alcohol and Drug Abuse Patient Records regulations: The Federal rules restrict any use of the information to criminally investigate or prosecute any alcohol or drug abuse patient.[facility] the event this information is protected by the Federal Confidentiality of Alcohol and Drug Abuse Patient Records regulations: The Federal rules restrict any use of the information to criminally investigate or prosecute any alcohol or drug abuse patient.[facility] Reason for Visit (unrecogniz ed section and content) Reason Comments Established Patient Reason Comments Preparations For Surgery Reason Onset Date Comments Refill Request 03/06/2025 Reason Comments Rehabilitation Assistant - Other Reason Comments Established Patient Reason Comments Patient Question Medication Problem Reason Comments Patient Update Patient Question Medication after angelika praveena Medication Problem Cortef Reason Comments Rehabilitation Assistant - Other Reason Comments Post Op FOR [...] BE BASED ON THE PRIMARY CLINICAL RECORDS. [facility] [employer] provides no warranty or guarantee of the accuracy or completeness of information in this document.
== END | disposition home or self-care (01) ==
LOC: OPMRI 07:55
PROVIDERS: PCP Family Medicine; Referring Provider Urology; Visit Provider Urology
DX: R97.20 Elevated prostate specific antigen [PSA] (principal)
CPT/HCPCS: 72197; A9575; A4216

== ENCOUNTER → 2025-08-26 | Outpatient (CLI) | payer MEDICARE, OTHER, SELFPAY ==
--- NOTE | 2025-08-26 13:00 | PROSBIL_PTH ---
PATIENT: GLORIA RODRIGUEZ LOC: [facility] U#:[id number] AGE/SX: 69/M ROOM: RE08/26/[address]: Dr. Los Avina MD : 1955 BED: DIS: 08/26/2025 SPEC #: [id number] RECD: 08/26/25 15:04 STATUS: GIOVANI TIFFANY #: [id number] KATJA: 08/26/25 13:[address]: Los Avina DEPT: SURGICAL PATHOLOGY RECD BY: Charanjit Bahena ENTERED: 08/27/25 11:09 SP TYPE: PROST BX EMILY DR: Dr. Nikita Rutledge DO Tissues: A - PROSTATE RIGHT B - PROSTATE RIGHT C - PROSTATE RIGHT D - PROSTATE LEFT E - PROSTATE LEFT F - PROSTATE LEFT Procedures: PROSTATE BX Immunohistochemical Stains HEADER OPERATION: Prostate biopsy PRE-OP DIAGNOSIS: Elevated PSA TISSUE SUBMITTED: A - Right apex, B - Right mid, C - Right base, D - Left apex, E - Left mid, F - Left base MICROSCOPIC DIAGNOSIS A. Prostate, right, apex, biopsy: - Benign. B. Prostate, right, mid, biopsy: - Benign. C. Prostate, right, base, biopsy: - Benign. D. Prostate, left, apex, biopsy: - Benign. - PIN4 IHC supports the diagnosis. E. Prostate, left, mid, biopsy: - Benign with focal acute inflammation. - PIN4 IHC supports the diagnosis. F. 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 - High grade prostatic intraepithelial neoplasia (PIN). - PIN4 IHC supports the diagnosis. COMMENT F) Selected slides/images also reviewed by Lance Taylor, Araceli Rebolledo, and Aminata Rouse ([facility] pathology division, [facility]). MICROSCOPIC DESCRIPTION Slides are reviewed. All matched controls reacted appropriately. These tests were developed and their performance characteristics determined by [facility]. They may not have been cleared or approved by the U.S. Food and Drug Administration. The FDA has determined that such clearance or approval is not necessary. The above immunohistochemical markers and/or special stains have been reviewed by the Pathologist. GROSS DESCRIPTION Received in 6 formalin containers labeled with the patient's name and date of . Designated as: A. "RA" is a mendoza tissue core, 1.4 cm in length by 0.1 cm in diameter. Entirely submitted in 1 cassette. B. "RM" are 2 mendoza tissue cores, 1.3 cm and 2.1 cm in length by 0.1 cm in diameter. Entirely submitted in 1 cassette. C. "RB" are 2 mendoza tissue cores, 0.9 cm and 1.9 cm in 0.1 cm in diameter. Entirely submitted in 1 cassette. D. "LA" is a mendoza tissue core, 1.8 cm in length by 0.1 cm in diameter. Entirely submitted in 1 cassette. E. "LM" are 3 mendoza tissue cores, 1.3 cm to 1.9 cm in length by 0.1 cm in diameter. Entirely submitted in 1 cassette. F. "LB" are 2 mendoza tissue cores, each measuring 1.3 cm in length by 0.1 cm in diameter. Entirely submitted in 1 cassette ME 08/27/2025 CPT:80512q0,66875k3
== END | disposition home or self-care (01) ==
LOC: LABSPEC 15:23
PROVIDERS: PCP Family Medicine; Referring Provider Urology; Visit Provider Urology
DX: R97.20 Elevated prostate specific antigen [PSA] (principal)
CPT/HCPCS: 88305; 88342; G0416

== ENCOUNTER → 2025-09-17 | Outpatient (CLI) | payer MEDICARE, OTHER, SELFPAY ==
--- NOTE | 2025-09-17 09:30 | PET_ITS ---
PROCEDURE: PET/CT TUMOR BASE -THIGH INIT 09/17/2025 REASON FOR EXAM: 70 y/o M with PYLARIFY Prostate carcinoma. TECHNIQUE: Procedure Code: PETPTCTINIT Modality: PT Procedure: PET/CT TUMOR BASE -THIGH INIT Following the intravenous administration of radionucleotide, image acquisition on a dedicated PET/CT unit was performed at one hour post injection. A preliminary CT study encompassing the Head, neck, chest, abdomen, pelvis, and proximal thighs was performed for purposes of attenuation correction and anatomic localization. The proximal thighs were also included. RADIOPHARMACEUTICAL: 9.834 mCi Pylarify (Piflufolastat F18) - Prostate Specific Membrane Agent - IV was injected into he patient. RADIATION DOSE SUMMARY: Effective Dose: Approximately 7 mSv for a standard whole-body PET scan Organ Doses: Varies by organ, with higher doses typically to the bladder, liver, and brain COMPARISON: COMPARISON FROM CT, PET OR OTHER PERTINENT EXAMS: Prostate MRI of 08/08/2025. FINDINGS: NECK: There are no significant neck abnormalities. CHEST: Severe coronary artery calcification is noted. Chest wall- There are no significant chest wall abnormalities. Axilla- There are no significant axillary abnormalities. Lung parenchyma- There are no significant lung parenchyma abnormalities. Mediastinum- There are no significant hilar or mediastinal adenopathy. Pleura- There are no significant pleural abnormalities. ABDOMEN: Prominent aortic calcification; no evidence of abdominal aortic aneurysm. Stomach- No significant abnormalities. Liver- No significant abnormalities. Spleen- No significant abnormalities. Pancrease- No significant abnormalities. Kidneys- No significant abnormalities. Bowel- Normal bowel activity. Spine- No significant abnormalities. PELVIS: Marked prostatomegaly is seen, with hypermetabolic activity seen in at least 2 adjacent foci of the posterolateral left prostate gland, with combined SUV max of This is consistent with prostate malignancy. A dependent calculus is seen of the right urinary bladder. Small fat containing left inguinal hernia. Gbki-nq-wgfmrdwb sigmoid diverticulosis Bowel- Normal physiologic bowel activity is identified. Masses- There are no other pelvic masses. Bones- Prominent degenerative changes of the spine are seen. Hypermetabolic focus of the L5 central to left posterior vertebral body, with mild sclerotic response seen on the CT component, concerning for the presence of osseous metastatic disease. PET/PET/CT Tumor Base -Thigh Init IMPRESSION: FDG avid- 1. Hypermetabolic left posterior foci within an enlarged prostate gland, most c onsistent with malignancy. 2. Hypermetabolic focus in the L5 vertebral body, with mild sclerotic response on the CT component, highly concerning for osseous malignant focus. Other: 1. Severe coronary artery calcification. 2. Dependent calculus seen at the right urinary bladder. 3. Small fat containing left inguinal hernia. 4. Prominent aortic calcification; no evidence of abdominal aortic aneurysm. 5. Zehe-mx-dgxwpmfy sigmoid diverticulosis. Please note the low-dose CT scan was performed to facilitate PET image reconstr uction and anatomic localization and does not replace a diagnostic CT. Any diagnostic CT requested and performed at the time of the PET will be reported separately. Reading Location: [id number]
== END | disposition home or self-care (01) ==
PROVIDERS: PCP Family Medicine; Referring Provider Urology; Visit Provider Urology
DX: C61 Malignant neoplasm of prostate (principal)
CPT/HCPCS: 78815; A9595